=== PATIENT | male | born 1950 | race Caucasian/White ===

== ENCOUNTER → 2020-03-19 12:57 | Outpatient (BNVA) | payer MEDICARE, BC, SELFPAY | PROVIDERS: PCP Internal Medicine Interventional Cardiology; Referring Provider Internal Medicine Interventional Cardiology; Visit Provider Internal Medicine Cardiovascular Disease | DX: I48.0 Paroxysmal atrial fibrillation (principal) | CPT/HCPCS: 99212 ==

== ENCOUNTER → 2020-06-30 12:39 | Outpatient (BNVA) | payer MEDICARE, BC, SELFPAY | PROVIDERS: PCP Internal Medicine Interventional Cardiology; Visit Provider Internal Medicine Cardiovascular Disease | DX: I48.0 Paroxysmal atrial fibrillation (principal); I10 Essential (primary) hypertension | CPT/HCPCS: 93005; 99212 ==

== ENCOUNTER 2020-10-07 09:22 | Emergency (ER) | payer MEDICARE, BC, SELFPAY ==
--- NOTE | ~2020-10-07 | CT_ITS ---
EXAMINATION: CHEST, ABDOMEN AND PELVIS CT SCAN WITHOUT CONTRAST CLINICAL INFORMATION: Shortness of breath. Evaluate for pneumonia. Abdominal pain. Diarrhea. Evaluate for colitis. COMPARISON: Previous chest x-ray from earlier the same day, CT of the abdomen and pelvis October 2011, ultrasound and MRI of the abdomen January 2017 and chest x-ray from earlier the same day TECHNIQUE: Axial images through the chest, abdomen and pelvis without oral or IV contrast. Sagittal and coronal reconstructions on the technologist workstation were performed. Patient dose 306+8 7 4 mg/cm. This CT examination was performed using dose optimization techniques as appropriate, variously including the following: *Automated exposure control *Adjustment of mA and/or kV according to patient size (this includes techniques or standardized protocols for targeted exams where dose is matched to indication/reason for exam; i.e. extremities or head) *Use of iterative reconstruction technique FINDINGS: Chest: There is evidence of emphysema. There are increased interstitial markings seen throughout the lungs. There is increased peripheral reticulation, interlobular septal thickening, traction bronchiolectasis and honeycombing of interstitial lung disease. There are patchy groundglass attenuation or semisolid nodular opacities in the left upper lobe questionable for mild airways disease or pneumonia. The heart is upper normal in size. There is no pericardial effusion. There is moderate coronary artery calcification. The thoracic aorta is normal in caliber. There is diffuse mediastinal lymphadenopathy. Largest lymph node is an enlarged right paratracheal lymph node measuring 1.6 x 2.5 cm. Evaluation for hilar adenopathy is limited without contrast. There is no pleural effusion or pleural thickening. No chest wall mass or enlarged axillary lymph nodes are seen. Abdomen and pelvis: The liver is normal in size and shape and attenuation. There is a 6 mm low-attenuation lesion in the medial segment of the left lobe liver. This is similar to previous exams and is compatible with a small stable cyst.. The gallbladder is been removed. There is no biliary duct dilatation. The spleen, pancreas, adrenal glands and kidneys are unremarkable. The bladder is full. The prostate gland does not appear enlarged. There is mild diverticulosis of the colon. No evidence of diverticulitis or colitis is seen. The appendix is normal. The stomach is normal. There is mild fatty infiltration of the small bowel mesentery and small, small bowel mesentery lymph nodes. No enlarged lymph nodes are seen. There is no ascites. There is evidence of mild atherosclerotic disease. No aneurysm is seen. There are small bilateral inguinal hernias containing fat. There are degenerative changes of the spine. CT/CT abdomen pelvis wo con IMPRESSION: Chest: Severe interstitial lung disease. Semisolid and groundglass attenuation nodular opacities in the left upper lobe questionable for airways disease or small pneumonia. Enlarged mediastinal lymph nodes. This may be related to interstitial lung disease. Enlarged heart and coronary artery calcification. Abdomen and pelvis: Diverticulosis. No evidence of diverticulitis or colitis. Very full bladder. Stable small liver cyst.
--- NOTE | ~2020-10-07 | XR_ITS ---
EXAMINATION: XR CHEST CLINICAL INFORMATION: SOB. COMPARISON: Chest 09/14/2018 TECHNIQUE: Frontal view of the chest was obtained. FINDINGS: The lungs are expanded with increased interstitial markings in both lungs are likely chronic changes. No consolidation seen. There is no pleural effusion or pneumothorax. The heart size and pulmonary vascularity is normal. No gross bony abnormality seen. XR/XR chest 1V IMPRESSION: Chronic interstitial lung changes are stable from 09/14/2018. No acute process seen.
--- NOTE | ~2020-10-07 | NM_ITS ---
EXAMINATION: NM LUNG IMAGE PERFUSION CLINICAL INFORMATION: Elevated d-dimer. Rule out PE COMPARISON: None TECHNIQUE: Following intravenous administration of 4 mCi of 90 9M technetium MAA, imaging of both lungs were obtained multiple projections. FINDINGS: There is normal perfusion seen to all segments of the lungs without any focal defect. Ventilation study was not performed. NM/NM pul perfusion IMPRESSION: Normal perfusion scan.
[2020-10-07 09:49] VITALS: BP 124/78; PULSE 71; RESP 20; TEMP 36.6; O2SAT 94; BMI 29.5
--- NOTE | 2020-10-07 10:13 | ED.GENADULT ---
HPI - General Adult General Chief complaint: GI Bleed <JULIA Dowling Last Filed: 10/07/20 17:23> Stated complaint: DIFF BREATHING <JULIA Dowling Last Filed: 10/07/20 17:23> Time Seen by Provider: 10/07/20 09:59 <JULIA Dowling Last Filed: 10/07/20 17:23> Source: patient <JULIA Dowling Last Filed: 10/07/20 17:23> Mode of arrival: ambulatory <JULIA Dowling Last Filed: 10/07/20 17:23> Limitations: no limitations <JULIA Dowling Last Filed: 10/07/20 17:23> History of Present Illness HPI narrative: Patient presents to ED for multiple complaints. Patient states chronic shortness of breath for months. Patient states for 1 month having intermittent black/dark stool and for the past week has had frequent/constant dark/black stool. Patient is on Eliquis. Patient denies vomiting blood. Patient states no fever or chills. Patient denies any swelling of lower extremities. Patient denies any coughing, fever, chills, or chest pain <JULIA Dowling Last Filed: 10/07/20 17:23> Related Data Home medications: Home Medications Medication Instructions Recorded Confirmed cimetidine 300 mg tablet 300 mg PO QID 03/19/20 diltiazem HCl 180 mg capsule,24 180 mg PO DAILY 03/19/20 hr,extended release ezetimibe 10 mg tablet 10 mg PO DAILY 03/19/20 lorazepam 1 mg tablet 1 mg PO DAILY PRN 03/19/20 sotalol 80 mg tablet 80 mg PO BID 03/19/20 Previous Rx's Medication Instructions Recorded amlodipine 5 mg tablet 5 mg PO DAILY #60 tab 04/28/20 apixaban 5 mg tablet 5 mg PO BID #60 tab 09/29/20 albuterol sulfate 2 puff INHALATION Q6H PRN #8.5 g 10/07/20 azithromycin See Rx Instructions .ROUTE 10/07/20 .COMPLEX #6 tab prednisone 40 mg PO DAILY #10 tab 10/07/20 psyllium husk 1 tbsp PO BID 4 Days #480 g 10/07/20 <JULIA Dowling Last Filed: 10/07/20 17:23> Allergies/adverse reactions: Allergies Allergy/AdvReac Type Severity Reaction Status Date / Time Iodinated Contrast Media Allergy Unknown SWELLING, Unverified 02/07/20 14:39 [CONTRAST, IV] HIVES penicillin V Allergy Unknown Unknown Verified 03/19/20 12:55 Penicillins [PENICILLINS] Allergy Unknown UNKNOWN- Unverified 02/07/20 14:39 RX CHILD contrast dye Allergy Unknown Unknown Uncoded 03/19/20 12:55 IV Contrast Dye Allergy Unknown Unknown Uncoded 03/19/20 12:55 penicillin Allergy Unknown Unknown Uncoded 03/19/20 12:55 <JULIA Dowling Last Filed: 10/07/20 17:23> Review of Systems Review of Systems: Yes all other systems are reviewed and are negative <JULIA Dowling Last Filed: 10/07/20 17:23> Constitutional: Constitutional: Reports as per HPI and Reports no additional constitutional complaints <JULIA Dowling Last Filed: 10/07/20 17:23> Eyes: Eyes: Reports as per HPI and Reports no additional eye complaints <JULIA Dowling Last Filed: 10/07/20 17:23> ENT: Reports system reviewed and no additional complaints, except as documented and Reports as per HPI <JULIA Dowling Last Filed: 10/07/20 17:23> Cardiovascular: Cardiovascular: Reports as per HPI, Reports no additional cardiovascular complaints and Reports dyspnea <JULIA Dowling Last Filed: 10/07/20 17:23> Respiratory: Respiratory: Reports as per HPI, Reports no additional respiratory complaints and Reports dyspnea <JULIA Dowling Last Filed: 10/07/20 17:23> Gastrointestinal: Gastrointestinal: Reports as per HPI, Reports no additional gastrointestinal complaints, Denies abdominal pain and Reports melena <JULIA Dowling Last Filed: 10/07/20 17:23> Genitourinary: Genitourinary: Reports no additional male genitourinary complaints and Reports as per HPI <JULIA Dowling Last Filed: 10/07/20 17:23> Musculoskeletal: Musculoskeletal: Reports no additional musculoskeletal complaints and Reports as per HPI <JULIA Dowling Last Filed: 10/07/20 17:23> Neurologic: Reports system reviewed and no additional complaints, except as documented and Reports as per HPI <JULIA Dowling - Last Filed: 10/07/20 17:23> Comments: Weakness <JULIA Dowling - Last Filed: 10/07/20 17:23> Psychiatric: Psychiatric: Reports no additional psychiatric complaints and Reports as per HPI <JULIA Dowling - Last Filed: 10/07/20 17:23> [facility] Past Medical History Medical History: Medical History (Updated 10/07/20 @ 17:03 by JULIA Dowling) COPD (chronic obstructive pulmonary disease) Fibromyalgia High cholesterol History of cardioversion HTN (hypertension) PAF (paroxysmal atrial fibrillation) <JULIA Dowling - Last Filed: 10/07/20 17:23> Surgical History: Surgical History (Updated 06/30/20 @ 12:56 by DELICIA Walker) History of cholecystectomy <JULIA Dowling - Last Filed: 10/07/20 17:23> Family History Family History: Family History (Updated 03/19/20 @ 12:54 by DELICIA Briceno) Father No problems noted. Mother No problems noted. <JULIA Dowling - Last Filed: 10/07/20 17:23> Social History Social History: Social History (Updated 06/30/20 @ 12:56 by DELICIA Walker) Alcohol intake: former Smoking Status: Former smoker Use of substances other than those prescribed or required for medical reasons: No Advance Directives: Yes Advance Directives Information Provided: Yes Advance Directives on File: No Patient : No (NO) <JULIA Dowling - Last Filed: 10/07/20 17:23> Physical Exam Vital Signs: Vital Signs: Last Vital Signs Temp 97.8 F 10/07/20 16:39 Pulse 71 10/07/20 16:39 Resp 20 10/07/20 16:39 BP 139/84 10/07/20 16:39 Pulse Ox 92 10/07/20 16:39 Body Mass Index 29.5 <JULIA Dowling - Last Filed: 10/07/20 17:23> Vital Signs: Last Vital Signs Temp 97.8 F 10/07/20 16:39 Pulse 71 10/07/20 16:39 Resp 20 10/07/20 16:39 BP 139/84 10/07/20 16:39 Pulse Ox 92 10/07/20 16:39 Body Mass Index 29.5 <Joey Ortiz MD - Last Filed: 10/07/20 16:01> Const: General: cooperative, healthy appearing, comfortable, no acute distress, well developed, alert, awake and Physically active <JULIA Dowling - Last Filed: 10/07/20 17:23> Orientation/consciousness: oriented to time and patient oriented x3 <JULIA Dowling - Last Filed: 10/07/20 17:23> HENMT: Head: Yes normal to inspection, Yes No palpable skull fracture present, Yes normocephalic and Yes atraumatic <JULIA Dowling Last Filed: 10/07/20 17:23> Eyes: General: appearance normal, both eyes and all related structures <JULIA Dowling - Last Filed: 10/07/20 17:23> Neck: Neck: Yes normal visual inspection, Yes full ROM, Yes no lymphadenopathy, Yes no meningeal signs, Yes trachea midline, Yes supple and No tender <JULIA Dowling Last Filed: 10/07/20 17:23> Chest: Chest palpation & inspection: normal inspection of the chest and normal palpation of entire chest wall <JULIA Dowling Last Filed: 10/07/20 17:23> Resp: Effort & Inspection: normal respiratory effort and able to speak in complete sentences <JULIA Dowling - Last Filed: 10/07/20 17:23> Auscultation: clear to auscultation bilaterally and crackles <JULIA Dowling Last Filed: 10/07/20 17:23> Cardio: Jugular venous distension: no JVD <JULIA Dowling Last Filed: 10/07/20 17:23> Heart sounds: S1 normal heart sound present and S2 normal heart sound present <JULIA Dowling Last Filed: 10/07/20 17:23> GI: Inspection: Yes normal to inspection and No abdominal wall ecchymosis <JULIA Dowling Last Filed: 10/07/20 17:23> Palpation (GI): Soft to palpation, not firm, nontender, no guarding and not rigid <JULIA Dowling - Last Filed: 10/07/20 17:23> : General: No CVA tenderness and Yes no CVA tenderness <JULIA Dowling Last Filed: 10/07/20 17:23> Back/Spine/Pelvis: Back: no CVA tenderness, No CVA tenderness and No back tenderness <JULIA Dowling - Last Filed: 10/07/20 17:23> Skin: General skin exam: no rashes or lesions noted and elasticity normal <JULIA Dowling - Last Filed: 10/07/20 17:23> Neuro: General: oriented to time, patient oriented x3, no meningeal signs and CN's II-XI intact bilaterally <JULIA Dowling - Last Filed: 10/07/20 17:23> Cranial nerves: Yes CN's II-XII intact bilaterally <JULIA Dowling - Last Filed: 10/07/20 17:23> Extrem: Other: Lower extremities negative for swelling, pitting edema, calf tenderness <JULIA Dowling - Last Filed: 10/07/20 17:23> Psych: Appearance: grossly normal, well kempt and not disheveled <JULIA Dowling Last Filed: 10/07/20 17:23> Course Course Course Narrative: Patient will have chest x-ray to rule out for any pneumonia or cardiomegaly. EKG troponin and BNP will be done as cardiac evaluation. Will do rectal exam with female staff combat information center officer. Will check for anemia labs. Type and screen ordered in case patient needs blood transfusion. I reviewed patient's prior notes even the ones by Cardiology which shows that patient has chronic dyspnea. <JULIA Dowling - Last Filed: 10/07/20 17:23> I have discussed the case and management with the SOHEILA <Joey Ortiz MD - Last Filed: 10/07/20 16:01> Reevaluation(s) Reevaluation #1: Patient's troponins were negative. Patient was sent for a V/Q scan due to elevated D-dimer. Patient has allergic reaction to IV contrast. V/Q scan came back negative PE. Chest CT shows severe interstitial lung disease which patient is aware of. Shows possible small pneumonia. Discussed case with Dr. Fournier of hospitalist who reviewed case states presently does no indication for admission, but that patient will need follow-up with outpatient pulmonology. Dr. Ortiz evaluated patient and agrees patient does not need to be admitted & can be discharged with meds and follow-up. EKG negative for STEMI. Stool sample was asked from patient, but patient states he had no bowel movements in the ED and can not give sample. abdominal CT negative for any acute medical/surgical etiology. History physical exam or labs does not indicate CHF. Patient safe for discharge. Patient is not having any GI bleed. Rectal exam negative for black stool, art blood, or melena. Rectal exam has only brown stool. <JULIA Dowling - Last Filed: 10/07/20 17:23> Patinet here with multiple complaints including shortness of breath, diarrhea, weakness. Thorough work up essentially negative. Physical shows elderly male with chronic condition but lungs, heart abdomen exam non contributory. Will dc on some steroids and metamucil <Joey Ortiz MD - Last Filed: 10/07/20 16:01> Time: 16:01 <Joey Ortiz MD - Last Filed: 10/07/20 16:01> Medical Decision Making MDM Narrative Medical decision making narrative: Interstitial lung disease. Diarrhea. Ammonia <JULIA Dowling - Last Filed: 10/07/20 17:23> Lab Data Result diagrams: : 10/07/20 10:17 10/07/20 10:17 <JULIA Dowling - Last Filed: 10/07/20 17:23> Labs: Lab Results 10/07/20 10/07/20 10/07/20 Range/Units 10:17 10:17 10:17 WBC 8.0 (4.8-10.8) X10*3/uL RBC 4.84 (4.60-5.80) X10*6/uL Hgb 14.5 (14.0-18.0) g/dl Hct 42.9 (42-52) % MCV 88.6 (80-98) fL MCH 30.0 (27.0-33.0) pg MCHC 33.8 (31.0-36.0) g/dl RDW 12.1 (11.0-16.0) % Plt Count 275 (160-400) X10*3/uL MPV 9.7 (9.4-12.4) fL Immature Gran % (Auto) 0.4 (0.0-0.4) % Neut % (Auto) 72.9 (45-73) % Lymph % (Auto) 15.1 L (20-40) % Beadle % (Auto) 8.9 (2-11) % Eos % (Auto) 2.2 (0-4) % Baso % (Auto) 0.5 (0-2) % Lymph # (Auto) 1.2 (1.2-4.9) X10*3/uL Beadle # (Auto) 0.7 (0.1-1.2) X10*3/uL Eos # (Auto) 0.2 (0.0-0.4) X10*3/uL Baso # (Auto) 0.0 (0.0-0.2) X10*3/uL Abs Immat Gran (auto) 0.03 (0.00-0.03) X10*3/uL Absolute Neuts (auto) 5.9 (2.0-8.3) X10*3/uL Absolute Nucleated RBC 0.000 (0.0-0.012) X10*3/uL Nucleated RBC % (auto) 0.0 (0.0-0.2) /100WBC PT 16.2 H (10.8-13.0) SEC INR 1.4 H (0.9-1.1) APTT 39.2 H (24.1-38.0) SEC D-Dimer 1043 NG/ML Sodium 138 (135-145) mmol/L Potassium 3.9 (3.3-5.1) mmol/L Chloride 105 (96-108) mmol/L Carbon Dioxide 24 (22-29) mmol/L Anion Gap 13 (12-20) BUN 14 (9-16) mg/dL Creatinine 1.06 (0.5-1.4) mg/dL Estim Creat Clear Calc 81.1 Estimated GFR > 60 Random Glucose 115 (60-115) mg/dL Calcium 8.9 (8.4-10.2) mg/dL Total Bilirubin 0.9 (0.0-1.0) mg/dL AST 16 (5-37) U/L ALT 14 (0-40) U/L Alkaline Phosphatase 103 (39-117) U/L Troponin I High Sens (<3.5-35.0) ng/L B-Natriuretic Peptide (<100) pg/mL Total Protein 7.4 (6.5-8.0) g/dL Albumin 4.2 (3.5-5.0) g/dL Stool Occult Blood (NEGATIVE) Coronavirus (PCR) (Negative) Influenza Type A (PCR) (Negative) Influenza Type B (PCR) (Negative) RSV RNA Qual (PCR) (Negative) Blood Type Antibody Screen 10/07/20 10/07/20 10/07/20 Range/Units 10:17 10:17 10:46 WBC (4.8-10.8) X10*3/uL RBC (4.60-5.80) X10*6/uL Hgb (14.0-18.0) g/dl Hct (42-52) % MCV (80-98) fL MCH (27.0-33.0) pg MCHC (31.0-36.0) g/dl RDW (11.0-16.0) % Plt Count (160-400) X10*3/uL MPV (9.4-12.4) fL Immature Gran % (Auto) (0.0-0.4) % Neut % (Auto) (45-73) % Lymph % (Auto) (20-40) % Beadle % (Auto) (2-11) % Eos % (Auto) (0-4) % Baso % (Auto) (0-2) % Lymph # (Auto) (1.2-4.9) X10*3/uL Beadle # (Auto) (0.1-1.2) X10*3/uL Eos # (Auto) (0.0-0.4) X10*3/uL Baso # (Auto) (0.0-0.2) X10*3/uL Abs Immat Gran (auto) (0.00-0.03) X10*3/uL Absolute Neuts (auto) (2.0-8.3) X10*3/uL Absolute Nucleated RBC (0.0-0.012) X10*3/uL Nucleated RBC % (auto) (0.0-0.2) /100WBC PT (10.8-13.0) SEC INR (0.9-1.1) APTT (24.1-38.0) SEC D-Dimer NG/ML Sodium (135-145) mmol/L Potassium (3.3-5.1) mmol/L Chloride (96-108) mmol/L Carbon Dioxide (22-29) mmol/L Anion Gap (12-20) BUN (9-16) mg/dL Creatinine (0.5-1.4) mg/dL Estim Creat Clear Calc Estimated GFR Random Glucose (60-115) mg/dL Calcium (8.4-10.2) mg/dL Total Bilirubin (0.0-1.0) mg/dL AST (5-37) U/L ALT (0-40) U/L Alkaline Phosphatase (39-117) U/L Troponin I High Sens < 3.5 (<3.5-35.0) ng/L B-Natriuretic Peptide 80 (<100) pg/mL Total Protein (6.5-8.0) g/dL Albumin (3.5-5.0) g/dL Stool Occult Blood (NEGATIVE) Coronavirus (PCR) NEGATIVE (Negative) Influenza Type A (PCR) NEGATIVE (Negative) Influenza Type B (PCR) NEGATIVE (Negative) RSV RNA Qual (PCR) NEGATIVE (Negative) Blood Type A Positive Antibody Screen NEGATIVE 10/07/20 10/07/20 Range/Units 10:50 14:39 WBC (4.8-10.8) X10*3/uL RBC (4.60-5.80) X10*6/uL Hgb (14.0-18.0) g/dl Hct (42-52) % MCV (80-98) fL MCH (27.0-33.0) pg MCHC (31.0-36.0) g/dl RDW (11.0-16.0) % Plt Count (160-400) X10*3/uL MPV (9.4-12.4) fL Immature Gran % (Auto) (0.0-0.4) % Neut % (Auto) (45-73) % Lymph % (Auto) (20-40) % Beadle % (Auto) (2-11) % Eos % (Auto) (0-4) % Baso % (Auto) (0-2) % Lymph # (Auto) (1.2-4.9) X10*3/uL Beadle # (Auto) (0.1-1.2) X10*3/uL Eos # (Auto) (0.0-0.4) X10*3/uL Baso # (Auto) (0.0-0.2) X10*3/uL Abs Immat Gran (auto) (0.00-0.03) X10*3/uL Absolute Neuts (auto) (2.0-8.3) X10*3/uL Absolute Nucleated RBC (0.0-0.012) X10*3/uL Nucleated RBC % (auto) (0.0-0.2) /100WBC PT (10.8-13.0) SEC INR (0.9-1.1) APTT (24.1-38.0) SEC D-Dimer NG/ML Sodium (135-145) mmol/L Potassium (3.3-5.1) mmol/L Chloride (96-108) mmol/L Carbon Dioxide (22-29) mmol/L Anion Gap (12-20) BUN (9-16) mg/dL Creatinine (0.5-1.4) mg/dL Estim Creat Clear Calc Estimated GFR Random Glucose (60-115) mg/dL Calcium (8.4-10.2) mg/dL Total Bilirubin (0.0-1.0) mg/dL AST (5-37) U/L ALT (0-40) U/L Alkaline Phosphatase (39-117) U/L Troponin I High Sens < 3.5 (<3.5-35.0) ng/L B-Natriuretic Peptide (<100) pg/mL Total Protein (6.5-8.0) g/dL Albumin (3.5-5.0) g/dL Stool Occult Blood NEGATIVE (NEGATIVE) Coronavirus (PCR) (Negative) Influenza Type A (PCR) (Negative) Influenza Type B (PCR) (Negative) RSV RNA Qual (PCR) (Negative) Blood Type Antibody Screen <JULIA Dowling - Last Filed: 10/07/20 17:23> Lab Results 10/07/20 10/07/20 10/07/20 Range/Units 10:17 10:17 10:17 WBC 8.0 (4.8-10.8) X10*3/uL RBC 4.84 (4.60-5.80) X10*6/uL Hgb 14.5 (14.0-18.0) g/dl Hct 42.9 (42-52) % MCV 88.6 (80-98) fL MCH 30.0 (27.0-33.0) pg MCHC 33.8 (31.0-36.0) g/dl RDW 12.1 (11.0-16.0) % Plt Count 275 (160-400) X10*3/uL MPV 9.7 (9.4-12.4) fL Immature Gran % (Auto) 0.4 (0.0-0.4) % Neut % (Auto) 72.9 (45-73) % Lymph % (Auto) 15.1 L (20-40) % Beadle % (Auto) 8.9 (2-11) % Eos % (Auto) 2.2 (0-4) % Baso % (Auto) 0.5 (0-2) % Lymph # (Auto) 1.2 (1.2-4.9) X10*3/uL Beadle # (Auto) 0.7 (0.1-1.2) X10*3/uL Eos # (Auto) 0.2 (0.0-0.4) X10*3/uL Baso # (Auto) 0.0 (0.0-0.2) X10*3/uL Abs Immat Gran (auto) 0.03 (0.00-0.03) X10*3/uL Absolute Neuts (auto) 5.9 (2.0-8.3) X10*3/uL Absolute Nucleated RBC 0.000 (0.0-0.012) X10*3/uL Nucleated RBC % (auto) 0.0 (0.0-0.2) /100WBC PT 16.2 H (10.8-13.0) SEC INR 1.4 H (0.9-1.1) APTT 39.2 H (24.1-38.0) SEC D-Dimer 1043 NG/ML Sodium 138 (135-145) mmol/L Potassium 3.9 (3.3-5.1) mmol/L Chloride 105 (96-108) mmol/L Carbon Dioxide 24 (22-29) mmol/L Anion Gap 13 (12-20) BUN 14 (9-16) mg/dL Creatinine 1.06 (0.5-1.4) mg/dL Estim Creat Clear Calc 81.1 Estimated GFR > 60 Random Glucose 115 (60-115) mg/dL Calcium 8.9 (8.4-10.2) mg/dL Total Bilirubin 0.9 (0.0-1.0) mg/dL AST 16 (5-37) U/L ALT 14 (0-40) U/L Alkaline Phosphatase 103 (39-117) U/L Troponin I High Sens (<3.5-35.0) ng/L B-Natriuretic Peptide (<100) pg/mL Total Protein 7.4 (6.5-8.0) g/dL Albumin 4.2 (3.5-5.0) g/dL Stool Occult Blood (NEGATIVE) Coronavirus (PCR) (Negative) Influenza Type A (PCR) (Negative) Influenza Type B (PCR) (Negative) RSV RNA Qual (PCR) (Negative) Blood Type Antibody Screen 10/07/20 10/07/20 10/07/20 Range/Units 10:17 10:17 10:46 WBC (4.8-10.8) X10*3/uL RBC (4.60-5.80) X10*6/uL Hgb (14.0-18.0) g/dl Hct (42-52) % MCV (80-98) fL MCH (27.0-33.0) pg MCHC (31.0-36.0) g/dl RDW (11.0-16.0) % Plt Count (160-400) X10*3/uL MPV (9.4-12.4) fL Immature Gran % (Auto) (0.0-0.4) % Neut % (Auto) (45-73) % Lymph % (Auto) (20-40) % Beadle % (Auto) (2-11) % Eos % (Auto) (0-4) % Baso % (Auto) (0-2) % Lymph # (Auto) (1.2-4.9) X10*3/uL Beadle # (Auto) (0.1-1.2) X10*3/uL Eos # (Auto) (0.0-0.4) X10*3/uL Baso # (Auto) (0.0-0.2) X10*3/uL Abs Immat Gran (auto) (0.00-0.03) X10*3/uL Absolute Neuts (auto) (2.0-8.3) X10*3/uL Absolute Nucleated RBC (0.0-0.012) X10*3/uL Nucleated RBC % (auto) (0.0-0.2) /100WBC PT (10.8-13.0) SEC INR (0.9-1.1) APTT (24.1-38.0) SEC D-Dimer NG/ML Sodium (135-145) mmol/L Potassium (3.3-5.1) mmol/L Chloride (96-108) mmol/L Carbon Dioxide (22-29) mmol/L Anion Gap (12-20) BUN (9-16) mg/dL Creatinine (0.5-1.4) mg/dL Estim Creat Clear Calc Estimated GFR Random Glucose (60-115) mg/dL Calcium (8.4-10.2) mg/dL Total Bilirubin (0.0-1.0) mg/dL AST (5-37) U/L ALT (0-40) U/L Alkaline Phosphatase (39-117) U/L Troponin I High Sens < 3.5 (<3.5-35.0) ng/L B-Natriuretic Peptide 80 (<100) pg/mL Total Protein (6.5-8.0) g/dL Albumin (3.5-5.0) g/dL Stool Occult Blood (NEGATIVE) Coronavirus (PCR) NEGATIVE (Negative) Influenza Type A (PCR) NEGATIVE (Negative) Influenza Type B (PCR) NEGATIVE (Negative) RSV RNA Qual (PCR) NEGATIVE (Negative) Blood Type A Positive Antibody Screen NEGATIVE 10/07/20 10/07/20 Range/Units 10:50 14:39 WBC (4.8-10.8) X10*3/uL RBC (4.60-5.80) X10*6/uL Hgb (14.0-18.0) g/dl Hct (42-52) % MCV (80-98) fL MCH (27.0-33.0) pg MCHC (31.0-36.0) g/dl RDW (11.0-16.0) % Plt Count (160-400) X10*3/uL MPV (9.4-12.4) fL Immature Gran % (Auto) (0.0-0.4) % Neut % (Auto) (45-73) % Lymph % (Auto) (20-40) % Beadle % (Auto) (2-11) % Eos % (Auto) (0-4) % Baso % (Auto) (0-2) % Lymph # (Auto) (1.2-4.9) X10*3/uL Beadle # (Auto) (0.1-1.2) X10*3/uL Eos # (Auto) (0.0-0.4) X10*3/uL Baso # (Auto) (0.0-0.2) X10*3/uL Abs Immat Gran (auto) (0.00-0.03) X10*3/uL Absolute Neuts (auto) (2.0-8.3) X10*3/uL Absolute Nucleated RBC (0.0-0.012) X10*3/uL Nucleated RBC % (auto) (0.0-0.2) /100WBC PT (10.8-13.0) SEC INR (0.9-1.1) APTT (24.1-38.0) SEC D-Dimer NG/ML Sodium (135-145) mmol/L Potassium (3.3-5.1) mmol/L Chloride (96-108) mmol/L Carbon Dioxide (22-29) mmol/L Anion Gap (12-20) BUN (9-16) mg/dL Creatinine (0.5-1.4) mg/dL Estim Creat Clear Calc Estimated GFR Random Glucose (60-115) mg/dL Calcium (8.4-10.2) mg/dL Total Bilirubin (0.0-1.0) mg/dL AST (5-37) U/L ALT (0-40) U/L Alkaline Phosphatase (39-117) U/L Troponin I High Sens < 3.5 (<3.5-35.0) ng/L B-Natriuretic Peptide (<100) pg/mL Total Protein (6.5-8.0) g/dL Albumin (3.5-5.0) g/dL Stool Occult Blood NEGATIVE (NEGATIVE) Coronavirus (PCR) (Negative) Influenza Type A (PCR) (Negative) Influenza Type B (PCR) (Negative) RSV RNA Qual (PCR) (Negative) Blood Type Antibody Screen <Joey Ortiz MD - Last Filed: 10/07/20 16:01> ECG Data Interpretation: Normal sinus rhythm. Ventricular rate 70. Parents were 158. QRS 74. QTC 453. Negative STEMI <JULIA Dowling - Last Filed: 10/07/20 17:23> Discharge Plan Discharge Clinical Impression: Chronic dyspnea <JULIA Dowling - Last Filed: 10/07/20 17:23> Patient Disposition: Home, Self-Care <JULIA Dowling - Last Filed: 10/07/20 17:23> Instructions: Chronic Diarrhea (ED), Dyspnea (ED) <JULIA Dowling - Last Filed: 10/07/20 17:23> Additional Instructions: Return to the ED immediately for chest pain, worsening shortness of breath, leg swelling, calf pain, coughing up blood, weakness, dizziness, or any other concerning symptoms. EKG came back normal. Troponins were negative for heart attack. V/Q perfusion scan came back negative for blood clot. Her chest CT shows severe interstitial lung disease with possible pneumonia. Please follow-up with PCP for referral to mainstreaming facilitator. Abdominal CT scan does not show any emergent medical/surgical etiology. <JULIA Dowling - Last Filed: 10/07/20 17:23> Prescriptions: New prednisone 20 mg tablet 40 mg PO DAILY Qty: 10 RF: 0 azithromycin 500 mg tablet See Rx Instructions .ROUTE .COMPLEX Qty: 6 RF: 0 albuterol sulfate 90 mcg/actuation HFA aerosol inhaler 2 puff inhalation Q6H PRN (Reason: shortness of breath or wheezing) Qty: 8.5 RF: 0 psyllium husk 2.6 gram/4.1 gram powder 1 tbsp PO BID 4 Days Qty: 480 RF: 0 No Action amlodipine 5 mg tablet 5 mg PO DAILY Qty: 60 RF: 3 apixaban [Eliquis] 5 mg tablet 5 mg PO BID Qty: 60 RF: 5 cimetidine 300 mg tablet 300 mg PO QID RF: 0 lorazepam 1 mg tablet 1 mg PO DAILY PRNRF: 0 ezetimibe [Zetia] 10 mg tablet 10 mg PO DAILY RF: 0 diltiazem HCl 180 mg capsule,extended release 24 hr 180 mg PO DAILY RF: 0 sotalol 80 mg tablet 80 mg PO BID RF: 0 <JULIA Dowling - Last Filed: 10/07/20 17:23> Referrals: Cheko Sarmiento MD [Physician] - 2 days (Severe Interstitial Lung Disease) <JULIA Dowling - Last Filed: 10/07/20 17:23> Print Language: Cameroonian <JULIA Dowling - Last Filed: 10/07/20 17:23>
[2020-10-07 10:24] LABS: MANUAL DIFF FLAG NO
[2020-10-07 10:33] LABS: Basophils Percent Auto 0.5 % (0-2); Eosinophils Absolute Auto 0.2 X10*3/uL (0.0-0.4); Eosinophils Percent Auto 2.2 % (0-4); Hematocrit 42.9 % (42-52); Hemoglobin 14.5 g/dl (14.0-18.0); Imm Gran Abs Auto 0.03 X10*3/uL (0.00-0.03); Imm Gran Pct Auto 0.4 % (0.0-0.4); Lymphocytes Absolute Auto 1.2 X10*3/uL (1.2-4.9); Lymphocytes Percent Auto 15.1 % (20-40); Mean Corpuscular HGB Conc 33.8 g/dl (31.0-36.0); Mean Corpuscular Volume 88.6 fL (80-98); Mean Platelet Volume 9.7 fL (9.4-12.4); Monocytes Absolute Auto 0.7 X10*3/uL (0.1-1.2); Monocytes Percent Auto 8.9 % (2-11); Neutrophils Absolute Auto 5.9 X10*3/uL (2.0-8.3); Neutrophils Percent Auto 72.9 % (45-73); Platelet Count 275 X10*3/uL (160-400); Red Blood Count 4.84 X10*6/uL (4.60-5.80); Red Cell Distribution Width 12.1 % (11.0-16.0)
[2020-10-07] MEDS: 0.9 % Sodium Chloride 1,000 ML 999 ML IV (10:36)
[2020-10-07 10:39] LABS: INTERNATIONAL NORM RATIO 1.4 (0.9-1.1); Prothrombin Time 16.2 SEC (10.8-13.0)
[2020-10-07 10:41] VITALS: BP 133/80; PULSE 70; RESP 18; O2SAT 93
[2020-10-07 10:45] VITALS: O2SAT 86
--- NOTE | 2020-10-07 10:45 | PC.NURSE ---
angel hester during a rectal exam pt tolerated the procedure well pt does get very winded and sob with minim exertion, even just changing positions for the rectal exam pt's sats dropped from 94% to 86% on room air but goes right back in few minutes
[2020-10-07 10:52] LABS: Partial Thromboplastin Time 39.2 SEC (24.1-38.0)
[2020-10-07 11:00] LABS: Alanine Aminotransferase 14 U/L (0-40); Albumin Level 4.2 g/dL (3.5-5.0); Alkaline Phosphatase 103 U/L (39-117); Anion Gap 13 (12-20); Aspartate Amino Transferase 16 U/L (5-37); Bilirubin Total 0.9 mg/dL (0.0-1.0); Blood Urea Nitrogen 14 mg/dL (9-16); Calcium 8.9 mg/dL (8.4-10.2); Carbon Dioxide 24 mmol/L (22-29); Chloride 105 mmol/L (96-108); Creatinine Clr Calc Pharmacy 81.1; Estimated Glomerular Filt Rate > 60; Glucose Random 115 mg/dL (60-115); Potassium 3.9 mmol/L (3.3-5.1); Sodium 138 mmol/L (135-145); Total Protein 7.4 g/dL (6.5-8.0)
[2020-10-07 11:00] LABS: OBS Int Ctl Valid YES; OBS1 NEGATIVE (NEGATIVE)
[2020-10-07 11:01] LABS: B Type Natriuretic Peptide 80 pg/mL (<100); Troponin-I High Sensitivity < 3.5 ng/L (<3.5-35.0)
[2020-10-07 11:20] LABS: D Dimer 1043 NG/ML
[2020-10-07 12:01] LABS: Influenza A PCR NEGATIVE (Negative); Influenza B PCR NEGATIVE (Negative); Resp Syncy Virus RNA Qual PCR NEGATIVE (Negative); SARS COV2 PCR INHOUSE NEGATIVE (Negative)
[2020-10-07 13:09] VITALS: BP 126/79; PULSE 72; RESP 18; O2SAT 92
[2020-10-07 15:17] LABS: Troponin-I High Sensitivity < 3.5 ng/L (<3.5-35.0)
[2020-10-07 16:39] VITALS: BP 139/84; PULSE 71; RESP 20; TEMP 36.6; O2SAT 92
--- NOTE | 2020-10-07 16:41 | ECG_ITS ---
Test Reason : GI BLEED Blood Pressure : / mmHG Vent. Rate : 070 BPM Atrial Rate : 070 BPM P-R Int : 158 ms QRS Dur : 074 ms QT Int : 420 ms P-R-T Axes : 000 086 065 degrees QTc Int : 453 ms Normal sinus rhythm Nonspecific ST abnormality Abnormal ECG When compared with ECG of 17-SEP-2018 11:54, Premature atrial complexes are no longer Present Nonspecific T wave abnormality no longer evident in Inferior leads Referred By: Cuong Zepeda Electronically Signed By:OBDULIA CHARLES MD
== END 2020-10-07 17:25 | disposition home or self-care (01) ==
PROVIDERS: Physician Assistant; Emergency Provider Emergency Medicine; PCP Radiology Radiation Oncology
DX: R06.00 Dyspnea, unspecified (principal); R19.7 Diarrhea, unspecified; Z20.822 Contact with and (suspected) exposure to COVID-19; J84.9 Interstitial pulmonary disease, unspecified; J44.9 Chronic obstructive pulmonary disease, unspecified; E78.5 Hyperlipidemia, unspecified; I10 Essential (primary) hypertension; I48.0 Paroxysmal atrial fibrillation; Z79.01 Long term (current) use of anticoagulants; Z90.49 Acquired absence of other specified parts of digestive tract; Z87.891 Personal history of nicotine dependence; Z79.899 Other long term (current) drug therapy
CPT/HCPCS: 0241U; 36415; 71045; 71250; 74176; 78580; 80053; 82272; 83880; 84484; 85025; 85379; 85610; 85730; 86850; 86900; 86901; 93005; 96360; 99285; A9540

== ENCOUNTER 2021-01-19 13:24 | Outpatient (REF) | payer MEDICARE, BC, SELFPAY ==
[2021-01-19 15:19] LABS: TSH reflex Free T4 0.41 uIU/mL (0.32-4.0)
== END 2021-01-19 13:25 | disposition home or self-care (01) ==
LOC: HO.LAB 13:24
PROVIDERS: PCP Internal Medicine; Referring Provider Internal Medicine; Visit Provider Internal Medicine Cardiovascular Disease
DX: R63.4 Abnormal weight loss (principal)
CPT/HCPCS: 36415; 84443; 93005; 99212

== ENCOUNTER 2021-02-10 08:01 | Outpatient (REF) | payer MEDICARE, BC, SELFPAY ==
[2021-02-10 08:38] LABS: MANUAL DIFF FLAG NO
[2021-02-10 08:52] LABS: Basophils Percent Auto 0.6 % (0-2); Eosinophils Absolute Auto 0.4 X10*3/uL (0.0-0.4); Eosinophils Percent Auto 6.3 % (0-4); Hematocrit 47.3 % (42-52); Hemoglobin 15.9 g/dl (14.0-18.0); Imm Gran Abs Auto 0.01 X10*3/uL (0.00-0.03); Imm Gran Pct Auto 0.1 % (0.0-0.4); Lymphocytes Absolute Auto 1.7 X10*3/uL (1.2-4.9); Lymphocytes Percent Auto 24.4 % (20-40); Mean Corpuscular HGB Conc 33.6 g/dl (31.0-36.0); Mean Corpuscular Hemoglobin 29.9 pg (27.0-33.0); Mean Corpuscular Volume 89.1 fL (80-98); Mean Platelet Volume 10.1 fL (9.4-12.4); Monocytes Absolute Auto 0.5 X10*3/uL (0.1-1.2); Monocytes Percent Auto 7.5 % (2-11); Neutrophils Absolute Auto 4.2 X10*3/uL (2.0-8.3); Neutrophils Percent Auto 61.1 % (45-73); Platelet Count 241 X10*3/uL (160-400); Red Blood Count 5.31 X10*6/uL (4.60-5.80); Red Cell Distribution Width 12.9 % (11.0-16.0); White Blood Count 6.8 X10*3/uL (4.8-10.8)
[2021-02-10 09:01] LABS: Alanine Aminotransferase 14 U/L (0-40); Albumin Level 4.3 g/dL (3.5-5.0); Alkaline Phosphatase 93 U/L (39-117); Anion Gap 12 (12-20); Aspartate Amino Transferase 16 U/L (5-37); Blood Urea Nitrogen 15 mg/dL (9-16); Calcium 9.8 mg/dL (8.4-10.2); Carbon Dioxide 28 mmol/L (22-29); Chloride 104 mmol/L (96-108); Cholesterol 189 mg/dL; Estimated Glomerular Filt Rate > 60; Glucose Random 127 mg/dL (60-115); HDL Cholesterol 36 mg/dL; LDL Cholesterol Calculated 118 mg/dl; Potassium 4.8 mmol/L (3.3-5.1); Sodium 139 mmol/L (135-145); Total Protein 7.7 g/dL (6.5-8.0); Triglycerides 177 mg/dL
[2021-02-10 09:02] LABS: B Type Natriuretic Peptide 95 pg/mL (<100)
[2021-02-10 09:26] LABS: Free T4 (Free Thyroxine) 1.18 ng/dL (0.71-1.85)
[2021-02-10 09:33] LABS: Folate 6.8 ng/mL (> or = 4.0); Vitamin B12 287 pg/mL (200-900)
== END 2021-02-10 08:02 | disposition home or self-care (01) ==
LOC: HO.LAB 08:01
PROVIDERS: PCP Internal Medicine; Visit Provider Internal Medicine
DX: I48.0 Paroxysmal atrial fibrillation (principal); E78.00 Pure hypercholesterolemia, unspecified
CPT/HCPCS: 36415; 80053; 80061; 82607; 82746; 83880; 84439; 84443; 85025

== ENCOUNTER → 2021-04-20 13:08 | Outpatient (BNVA) | payer MEDICARE, BC, SELFPAY | PROVIDERS: PCP Internal Medicine; Referring Provider Internal Medicine; Visit Provider Internal Medicine Cardiovascular Disease | DX: I48.0 Paroxysmal atrial fibrillation (principal); I10 Essential (primary) hypertension | CPT/HCPCS: 99212 ==

== ENCOUNTER 2021-08-24 14:00 | Outpatient (REF) | payer MEDICARE, BC, SELFPAY ==
--- NOTE | ~2021-08-24 | XR_ITS ---
EXAMINATION: XR CHEST CLINICAL INFORMATION: Covid 19 COMPARISON: CT chest 10/07/2020 TECHNIQUE: 2 views of the chest were obtained. FINDINGS: The lungs are somewhat expanded with bilateral prominent interstitial markings throughout the lungs and slightly cystic changes in left upper lobe suggestive chronic interstitial lung changes. No acute pneumonic consolidation. No pleural effusion or pneumothorax seen. The heart size and pulmonary vascularity is normal. No gross bony abnormality seen. XR/XR chest 2V IMPRESSION: Chronic interstitial lung disease stable compared to CT chest 10/07/2020. No acute consolidation or pleural effusion seen.
== END 2021-08-24 14:01 | disposition home or self-care (01) ==
LOC: HO.XRAY 14:00
PROVIDERS: PCP Internal Medicine; Visit Provider Internal Medicine
DX: U07.1 COVID-19 (principal)
CPT/HCPCS: 71046

== ENCOUNTER 2021-08-31 09:50 | Outpatient (REF) | payer MEDICARE, BC, SELFPAY ==
[2021-08-31 11:02] LABS: MANUAL DIFF FLAG NO
[2021-08-31 12:15] LABS: Basophils Absolute Auto 0.1 X10*3/uL (0.0-0.2); Basophils Percent Auto 0.7 % (0-2); Eosinophils Absolute Auto 0.2 X10*3/uL (0.0-0.4); Eosinophils Percent Auto 2.8 % (0-4); Hematocrit 46.5 % (42.0-52.0); Hemoglobin 15.4 g/dl (14.0-18.0); Imm Gran Abs Auto 0.02 X10*3/uL (0.00-0.03); Imm Gran Pct Auto 0.3 % (0.0-0.4); Lymphocytes Absolute Auto 1.3 X10*3/uL (1.2-4.9); Lymphocytes Percent Auto 17.6 % (20-40); Mean Corpuscular HGB Conc 33.1 g/dl (31.0-36.0); Mean Corpuscular Hemoglobin 30.1 pg (27.0-33.0); Monocytes Absolute Auto 0.5 X10*3/uL (0.1-1.2); Monocytes Percent Auto 7.1 % (2-11); Neutrophils Absolute Auto 5.4 x10*3/uL (2.0-8.3); Neutrophils Percent Auto 71.5 % (45-73); Platelet Count 257 X10*3/uL (160-400); Red Blood Count 5.11 X10*6/uL (4.60-5.80); Red Cell Distribution Width 13.1 % (11.0-16.0); White Blood Count 7.5 X10*3/uL (4.8-10.8)
[2021-08-31 12:55] LABS: Erythrocyte Sedimentation Rate 12 MM/HR (0-15)
[2021-09-02 15:06] LABS: Anti Nuclear Antibody Screen NEGATIVE (NEGATIVE)
[2021-09-02 18:12] LABS: Alpha 1 Anti-trypsin 170 mg/dL (83-199)
[2021-09-02 21:56] LABS: Myeloperoxidase Antibody <1.0 AI; Proteinase 3 PR3 Antibodies <1.0 AI
[2021-09-04 23:31] LABS: Angiotensin Converting Enzyme 36.2 U/L (9-67)
[2021-09-06 17:21] LABS: Asperg fumigatus Precip Abs NEGATIVE (NEGATIVE); Micropoly faeni Abs NEGATIVE (NEGATIVE); Pigeon serum Abs NEGATIVE (NEGATIVE); Saccharo pora viridis Abs NEGATIVE (NEGATIVE); Thermo candidus Abs NEGATIVE (NEGATIVE); Thermoa vulgaris #1 NEGATIVE (NEGATIVE)
== END 2021-08-31 09:51 | disposition home or self-care (01) ==
LOC: HO.LAB 09:50
PROVIDERS: PCP Internal Medicine; Visit Provider Hospitalist
DX: J84.9 Interstitial pulmonary disease, unspecified (principal); U07.1 COVID-19; R91.8 Other nonspecific abnormal finding of lung field; J43.2 Centrilobular emphysema; I48.0 Paroxysmal atrial fibrillation; I10 Essential (primary) hypertension; E78.00 Pure hypercholesterolemia, unspecified; M79.7 Fibromyalgia; Z87.891 Personal history of nicotine dependence; Z57.4 Occupational exposure to toxic agents in agriculture; Z98.890 Other specified postprocedural states; Z88.0 Allergy status to penicillin; Z88.1 Allergy status to other antibiotic agents; Z91.041 Radiographic dye allergy status
CPT/HCPCS: 36415; 82103; 82164; 85025; 85652; 86021; 86038; 86039; 86331; 86606; 86609; 94618; 99202

== ENCOUNTER 2021-10-06 14:36 | Outpatient (REF) | payer MEDICARE, BC, SELFPAY ==
--- NOTE | 2021-10-06 16:06 | PFT_ITS ---
INDICATION: Dyspnea. SPIROMETRY: The FEV1 to FVC of 92% with an FEV1 of 2.21 L, which is 60% predicted and an FVC of 2.4 L, which is 47% predicted. Post bronchodilators there was a significant improvement of the FEV1 by 20%. To note, the [id number] was down to 57% predicted. The maximum voluntary ventilation 46% predicted. LUNG VOLUMES: Total lung capacity 64% predicted. DIFFUSION CAPACITY: DLCO 20% predicted. COMPARISONS: None. INTERPRETATION: No obstructive ventilatory defect. The patient did have a significant response to bronchodilators noted, and there is also evidence of small airways disease. There is a moderate decrease in maximum voluntary ventilation secondary to deconditioning although cannot rule out neuromuscular conditions. In addition to that, there is also restrictive ventilatory defect consistent with moderate restrictive lung disease, and there is also severe diffusion impairment. Need to consider underlying interstitial lung conditions. Clinical correlation warranted. MD ISABEL Olivares/GISELA / [phone]
== END 2021-10-06 14:37 | disposition home or self-care (01) ==
LOC: HO.RESP 14:36
PROVIDERS: PCP Internal Medicine; Visit Provider Hospitalist
DX: J84.9 Interstitial pulmonary disease, unspecified (principal)
CPT/HCPCS: 94060; 94727; 94729

== ENCOUNTER → 2021-10-20 13:50 | Outpatient (BNVA) | payer MEDICARE, BC, SELFPAY | PROVIDERS: PCP Internal Medicine; Visit Provider Hospitalist | DX: J84.9 Interstitial pulmonary disease, unspecified (principal); J43.2 Centrilobular emphysema; R06.00 Dyspnea, unspecified; U09.9 Post COVID-19 condition, unspecified | CPT/HCPCS: 99212 ==

== ENCOUNTER 2021-11-20 11:25 | Emergency (ER) | payer MEDICARE, BC, SELFPAY ==
[2021-11-20 11:36] VITALS: BP 146/100; PULSE 79; RESP 20; TEMP 36.6; O2SAT 98; BMI 30.6
--- NOTE | 2021-11-20 11:36 | ED.GENADULT ---
HPI - General Adult General Chief complaint: Epistaxis Stated complaint: nose bleed, on blood thinners Time Seen by Provider: 11/20/21 11:35 Source: patient Mode of arrival: ambulatory Limitations: no limitations History of Present Illness HPI narrative: Patient is a 71 year old male presenting to the emergency department today with a left sided nose bleed. Patient states that last night, he started to have a left sided nose bleed that stopped but then this morning, it started again. Patient states that he is on Eliquis for his atrial fibrillation. 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 Patient states that he does not have his oxygen humified. Patient denies any dizziness, lightheadedness, abdominal pain, nausea, vomiting, fever, chills, blurry vision, double vision, loss of vision, chest pain, difficulty breathing, shortness of breath, back pain, night sweats, pain with urination, increased urinary frequency, increased urinary urgency, blood in his urine or stool, syncope or a near syncopal episode, recent trauma or falls, bowel incontinence, bladder incontinence, bowel retention, bladder retention, or any other complaints at this time. Onset (ago): day(s) Radiation: non-radiation Severity: mild Severity scale (1-10): 1 Relieving factors: none Exacerbating factors: none Associated symptoms: denies other symptoms Treatments prior to arrival: none Related Data Home Medications Medication Instructions Recorded Confirmed cyanocobalamin (vitamin B-12) 1,000 mcg PO DAILY 08/24/21 08/24/21 1,000 mcg tablet Previous Rx's Medication Instructions Recorded amlodipine 5 mg tablet 5 mg PO DAILY 90 days #90 tabs 02/03/21 apixaban 5 mg tablet (Eliquis) 5 mg PO BID 90 days #180 tabs 02/03/21 docusate sodium 100 mg capsule 100 mg PO DAILY 90 days #90 caps 02/03/21 ezetimibe 10 mg tablet (Zetia) 10 mg PO DAILY 90 days #90 tabs 02/03/21 hydrocortisone 2.5 % topical cream 1 appl topical BID PRN allergic 02/03/21 reaction 14 days #30 grams Oxygen Home Use #1 ea 08/24/21 albuterol sulfate 90 mcg/actuation 2 puff inhalation Q6H PRN 08/24/21 aerosol inhaler (ProAir HFA) shortness of breath or wheezing #8.5 grams lorazepam 1 mg tablet 1 mg PO DAILY PRN agitation 90 08/27/21 days #90 tabs prednisone 10 mg tablet 10 mg PO DAILY 30 days #30 tabs 10/20/21 cimetidine 300 mg tablet 300 mg PO Q12H 90 days #180 tabs 10/29/21 diltiazem HCl 180 mg capsule,24 180 mg PO DAILY #90 caps 10/29/21 hr,extended release sotalol 80 mg tablet 80 mg PO BID 90 days #180 tabs 10/29/21 Allergies Allergy/AdvReac Type Severity Reaction Status Date / Time Iodinated Contrast Media Allergy Unknown SWELLING, Verified 11/20/21 11:39 [CONTRAST, IV] HIVES penicillin V Allergy Unknown Unknown Verified 11/20/21 11:39 Penicillins [PENICILLINS] Allergy Unknown UNKNOWN- Verified 11/20/21 11:39 RX CHILD contrast dye Allergy Unknown Unknown Uncoded 11/20/21 11:39 IV Contrast Dye Allergy Unknown Unknown Uncoded 11/20/21 11:39 penicillin Allergy Unknown Unknown Uncoded 11/20/21 11:39 Review of Systems Constitutional: Constitutional: Reports no additional constitutional complaints, Denies chills, Denies fever(s) and Denies night sweats Eyes: Eyes: Reports no additional eye complaints, Denies blurry vision, Denies change in vision, Denies diplopia, Denies eye discharge, Denies loss of vision and Denies eye pain ENT: Denies dizziness Comments: nose bleed Cardiovascular: Cardiovascular: Reports no additional cardiovascular complaints, Denies chest pain, Denies lightheadedness, Denies Loss of Consciousness and Denies dyspnea Respiratory: Respiratory: Reports no additional respiratory complaints and Denies dyspnea Gastrointestinal: Gastrointestinal: Reports no additional gastrointestinal complaints, Denies abdominal pain, Denies melena, Denies hematochezia, Denies change in bowel habits and Denies change in stool character Genitourinary: Genitourinary: Reports no additional male genitourinary complaints, Denies hematuria, Denies oliguria, Denies difficulty urinating, Denies dysuria, Denies urinary frequency, Denies urinary hesitancy, Denies urinary incontinence and Denies urinary urgency Musculoskeletal: Musculoskeletal: Reports no additional musculoskeletal complaints, Denies numbness and Denies tingling Neurologic: Denies dizziness, Denies loss of vision, Denies numbness and Denies tingling Psychiatric: Psychiatric: Reports no additional psychiatric complaints Endocrine: Endocrine: Reports no additional endocrine complaints Hematologic/Lymphatic: Hematologic/Lymphatic: Reports no additional hematologic/lymphatic complaints Allergic/Immunologic: Allergic/Immunologic: Reports no additional allergic/immunologic complaints PMFSH Past Medical History Attestation statement: The following information was validated with the patient. Source: old records reviewed Medical History COPD (chronic obstructive pulmonary disease) Fibromyalgia High cholesterol History of cardioversion HTN (hypertension) PAF (paroxysmal atrial fibrillation) Surgical History History of cholecystectomy History of tonsillectomy Family History Family History Father No problems noted. Mother No problems noted. Social History Social History Housing: House Alcohol intake: former Patient Tobacco Use Status: Former Tobacco user Quit Date: 1999 Tobacco use type: Cigarette Years Smoked: 33 +/-1999 e-Cigarette/Vaping Use: Never Used Second Hand Smoke Exposure: No Advance Directives: No Advance Directives Information Provided: No service: No Current occupational status: retired Cognitive needs: No Hearing needs: No Vision needs: Yes Physical Exam ED Vital Signs: Vital Signs - 24 hr 11/20/21 11:36 11/20/21 11:52 11/20/21 13:44 Temperature 97.9 F 98.2 F Pulse Rate 79 75 67 Respiratory Rate 20 18 16 Blood Pressure 146/100 H 129/88 133/83 Pulse Oximetry 98 95 97 Oxygen Delivery Method Nasal Cannula Room Air Nasal Cannula Oxygen Flow Rate 2 BMI result Body Mass Index 30.6 Const General: cooperative, no acute distress, alert and awake Nutritional Appearance: well nourished Orientation/consciousness: patient oriented x3 Limitations: no limitations HENMT Head: Yes normal to inspection and Yes atraumatic Ears: hearing grossly normal bilaterally and external ears normal General nose exam: Normal external nose present, no nasal discharge noted and Epistaxis present on the left anterior source Face and sinus: Yes normal facial exam, No abrasion and No laceration Mouth: Normal oral and palatal mucosa present, no drooling and no muffled voice Eyes General: appearance normal, both eyes and all related structures Periorbital: periorbital findings normal Eyelids: Yes eyelids normal Conjunctivae: conjunctivae normal Pupils: Equal, round and reactive pupils present EOM: EOMs intact bilaterally Neck Neck: Yes normal visual inspection, Yes full ROM and Yes no lymphadenopathy Chest Chest palpation & inspection: normal inspection of the chest Resp Effort & Inspection: normal respiratory effort and able to speak in complete sentences Auscultation: clear to auscultation bilaterally Cardio Rate: regular rate Rhythm: regular rhythm GI Inspection: Yes normal to inspection Neuro General: patient oriented x3 and moves all extremities Cranial nerves: Yes Equal, round and reactive pupils present Cognition (Neuro): normal cognition Motor exam (neuro): 5/5 motor strength present throughout Sensory Exam: Normal double simultaneous stimulation for sensation Coordination: [id number] test normal Extrem General: Yes normal to inspection, Yes full ROM and Yes capillary refill normal Psych Appearance: grossly normal Mental Status: mental status grossly normal Affect: normal affect Attitude: cooperative Thought process: Normal thought process present Thought content: Normal thought content present Insight: Good insight present (Psych) Procedures Epistaxis Control Time Out Performed: Yes Nostril: Yes left Nose prepped with: Yes cocaine 4% Direct inspection: Yes anterior source identified Direct inspection method: Yes otoscope Clots removed by: Yes manually Epistaxis treatment: Yes TXA soaked gauze Results of treatment: Yes bleeding controlled and Yes treatment well tolerated Complications: Yes none Medical Decision Making MDM Narrative Medical decision making narrative: Patient is a 71 year old male presenting to the emergency department today with left nostril bleeding. Patient's physical exam showed a very small bleed in the anterior cavity of the left nare.I explained my physical exam findings to the patient and the patient's . I answered all questions asked by the patient and the patient's . Patient's bleeding nostril was addressed, per procedure note, without incident. Patient was monitored for 1 hour post epistaxis stopping and the patient did not have any additional bleeding. Case management reached out to the patient's safety council director who stated they would work on getting the patient a concentrator that humidifies the oxygen for him. I stressed the importance of the patient taking his medication as prescribed. I stressed the importance of the patient following up with his primary care provider. I stressed the importance of the patient returning to the emergency department immediately if his symptoms were to worsen or if he were to develop any dizziness, shortness of breath, difficulty breathing, chest pain, blurry vision, loss of vision, nausea, vomiting, abdominal pain, fever, chills, back pain, or any other complaints. Patient and the patient's verbalized agreement and understanding with this treatment plan and discharge. Differential Diagnosis Differential Diagnosis: epistaxis Discharge Plan Discharge Clinical Impression: Epistaxis Patient Disposition: Home, Self-Care Instructions: Nosebleed (ED) Additional Instructions: Follow up with your primary care provider. Return to the emergency department immediately if your symptoms worsen or if you develop any dizziness, shortness of breath, difficulty breathing, chest pain, blurry vision, loss of vision, nausea, vomiting, abdominal pain, fever, chills, back pain, or any other complaints. Prescriptions: No Action lorazepam 1 mg tablet 1 mg PO DAILY PRN (Reason: agitation) 90 Days Qty: 90 1RF sotalol 80 mg tablet 80 mg PO BID 90 Days Qty: 180 2RF diltiazem HCl 180 mg capsule,extended release 24 hr 180 mg PO DAILY Qty: 90 2RF cimetidine 300 mg tablet 300 mg PO Q12H 90 Days Qty: 180 2RF Rx Instructions: give at meals and bedtime amlodipine 5 mg tablet 5 mg PO DAILY 90 Days Qty: 90 3RF Eliquis 5 mg tablet 5 mg PO BID 90 Days Qty: 180 3RF docusate sodium 100 mg capsule 100 mg PO DAILY 90 Days Qty: 90 3RF ezetimibe [Zetia] 10 mg tablet 10 mg PO DAILY 90 Days Qty: 90 3RF hydrocortisone 2.5 % cream 1 appl topical BID PRN (Reason: allergic reaction) 14 Days Qty: 30 1RF cyanocobalamin (vitamin B-12) 1,000 mcg tablet 1,000 mcg PO DAILY (DME) Oxygen Home Use Kit See Rx Instructions .Route Qty: 1 0RF Rx Instructions: As directed 2 L NC albuterol sulfate [ProAir HFA] 90 mcg/actuation HFA aerosol inhaler 2 puff inhalation Q6H PRN (Reason: shortness of breath or wheezing) Qty: 8.5 0RF prednisone 10 mg tablet 10 mg PO DAILY 30 Days Qty: 30 5RF Referrals: Omar Raphael MD [Primary Care Provider] - (Follow up with your primary care provider. ) Interventions: ED Discharge Assessment Last Done: 11/20/21 13:52 Print Language: Welsh
[2021-11-20] MEDS: Oxymetazoline HCl 0.05 % Nasal 15 ML SPRAY 2 SPRAY NOSTRIL-B (11:51)
[2021-11-20 11:52] VITALS: BP 129/88; PULSE 75; RESP 18; TEMP 36.8; O2SAT 95
[2021-11-20] MEDS: Tranexamic Acid 1,000 MG/10 ML VIAL 1000 MG INTRANASAL (11:52)
[2021-11-20] MEDS: Cocaine HCl 4 % 4 ML SOLUTION 2 ML TOPICAL (11:52)
--- NOTE | 2021-11-20 12:12 | PC.NURSE ---
patient A/OX4 . pearrla . lungs diminished. patient reports using O2 at 2 liters . skin warm pink and dry . Abdomen is soft and non -distended . postive bowel sounds in all four quadrants . edema noted bilateral in lower extremities , non pitting . bleeding controlled at this time in left nare with dressing . patient aware of plan of care
--- NOTE | 2021-11-20 13:32 | PC.NURSE ---
provider at bedside . bleeding of left nare controlled at this time . 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 patient aware of plan of care .
[2021-11-20 13:44] VITALS: BP 133/83; PULSE 67; RESP 16; O2SAT 97
--- NOTE | 2021-11-20 13:52 | PC.NURSE ---
no bleeding from l nare noted, mlp aware.
--- NOTE | 2021-11-20 13:54 | MHC.CM.ED ---
Received case management consult from Denise DUMONT. Patient has pulmonary issues and sees Dr Sarmiento at [facility] Pulmonary office. Patient came to the ER due to nosebleed. Patient has a concentrator at home without humidification. Patient is also on Eliquis. T/W spoke with Dr Sarmiento's office. They ordered 2LNC via air tank from [employer]. But these orders were not fulfilled. Dr Raphael's office signed concentrator orders for [facility]. Dr Raphael's office will have to reach out to [facility] to have humidification added to his services. T/W spoke with Dr Raphael's office. They have been asked to contact [facility] to add humidification to patient's orders. Denise DUMONT aware. Continue to monitor for d/c needs.
== END 2021-11-20 13:54 | disposition home or self-care (01) ==
PROVIDERS: Emergency Provider Emergency Medicine Emergency Medical Services; PCP Internal Medicine
DX: R04.0 Epistaxis (principal); Z79.01 Long term (current) use of anticoagulants; Z79.899 Other long term (current) drug therapy; Z87.891 Personal history of nicotine dependence
CPT/HCPCS: 30901; 99284; C9046

== ENCOUNTER → 2022-01-07 13:23 | Outpatient (BNVA) | payer MEDICARE, BC, SELFPAY | PROVIDERS: PCP Internal Medicine; Visit Provider Hospitalist | DX: J84.9 Interstitial pulmonary disease, unspecified (principal); J43.2 Centrilobular emphysema; Z79.899 Other long term (current) drug therapy; Z77.29 Contact with and (suspected) exposure to other hazardous substances; Z79.52 Long term (current) use of systemic steroids; Z86.16 Personal history of COVID-19 | CPT/HCPCS: 99212 ==

== ENCOUNTER 2022-06-21 13:16 | Inpatient (IN) | payer MEDICARE, BC, SELFPAY ==
[2022-06-21] VITALS (7 sets, daily range): BP systolic 108–150; BP diastolic 72–93; PULSE 62–90; RESP 16–44; TEMP 36.3–36.9; O2SAT 88–95; BMI 27.7
--- NOTE | ~2022-06-21 | XR_ITS ---
EXAMINATION: XR CHEST CLINICAL INFORMATION: Dyspnea for 2 weeks. COMPARISON: Chest radiographs dated 08/24/2021, chest CT scan dated 10/07/2020. TECHNIQUE: Frontal view of the chest was obtained. FINDINGS: Lower lung volumes limit evaluation. Coarsened interstitial markings are again seen bilaterally with similar distribution and severity when accounting for decreased pulmonary volumes. The heart and mediastinal structures are unremarkable. XR/XR chest 1V IMPRESSION: Coarsened interstitial markings consistent with known interstitial lung disease without significant interval change. No definitive acute abnormality.
--- NOTE | ~2022-06-21 | CT_ITS ---
EXAMINATION: CT chest wo IV con. CLINICAL INFORMATION: Reason for Exam hypoxia, ILD COMPARISON: Prior CT 10/07/2020 TECHNIQUE: Multidetector volumetric CT imaging of the chest was done. Axial MIP volume rendering provided. Sagittal and coronal reformatted images were obtained. This CT examination was performed using dose optimization techniques as appropriate, variously including the following: *Automated exposure control *Adjustment of mA and/or kV according to patient size (this includes techniques or standardized protocols for targeted exams where dose is matched to indication/reason for exam; i.e. extremities or head) *Use of iterative reconstruction technique CONTRAST: Noncontrasted study. 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 LUNGS: Lung parenchyma: Redemonstration of diffuse interstitial airspace groundglass opacification diffusely involving the lungs upper and lower lobes. There is central and peripheral bronchiectasis, interlobular septal thickening, peripheral subpleural honeycombing suggesting severe interstitial lung disease, and pulmonary fibrosis, this has worsened progressed since prior CT of 2020. Overall diminished lung volume. [place] of tissue in the right upper lobe 2.3 x 2.6 cm question lung nodule versus confluence of vessels, difficult to assess given the lack of contrast and degree of parenchymal disease. There are scattered other smaller patchy opacities probably consolidations. AIRWAYS: No intratracheal mass. PLEURA: Bilateral moderate pleural effusions. MEDIASTINUM AND JORDAN: There are enlarged mediastinal lymph nodes pretracheal lymph node 1.9 cm short axis. No mediastinal mass. VESSELS: HEART AND PERICARDIUM: Thoracic aorta is normal in size. The heart is enlarged. Small pericardial effusion heavy trivessel coronary calcifications. Dilated pulmonary arteries, this has been described in association with pulmonary hypertension. LOWER NECK, AXILLA: The visualized thyroid gland is unremarkable. No axillary mass or adenopathy. VISUALIZED ABDOMEN: Unremarkable CHEST WALL AND BONES: No chest wall mass. The visualized bony thorax is within normal limits. CT/CT chest wo IV con IMPRESSION: * Severe interstitial lung disease, diminished lung volume, severe diffuse pulmonary fibrosis, this has worsened progressed since prior CT of 2020. * Bilateral moderate pleural effusions. * Cardiomegaly, small pericardial effusion. * Dilated pulmonary arteries, this has been described in association with pulmonary hypertension. * [place] of tissue in the right upper lobe 2.3 x 2.6 cm question lung nodule versus confluence of vessels, difficult to assess given the lack of contrast and degree of parenchymal disease. Would recommend correlation with follow-up outpatient CT scan with IV contrast, one month after completion of treatment.. * Enlarged mediastinal lymph nodes 1.9 cm short axis unchanged. * Heavy trivessel coronary calcifications.
--- NOTE | 2022-06-21 13:34 | ECG_ITS ---
Test Reason : DYSPNEA Blood Pressure : / mmHG Vent. Rate : 066 BPM Atrial Rate : 066 BPM P-R Int : 164 ms QRS Dur : 086 ms QT Int : 454 ms P-R-T Axes : 045 136 074 degrees QTc Int : 475 ms Normal sinus rhythm Right axis deviation Right ventricular hypertrophy Abnormal ECG When compared with ECG of 07-OCT-2020 16:52, Nonspecific T wave abnormality now evident in Lateral leads Referred By: Pravin Yañez Electronically Signed By:Luis Armando Govea
--- NOTE | 2022-06-21 13:37 | ED_ITS ---
HPI - SOB/Dyspnea General Chief Complaint: Dyspnea Stated Complaint: SOB X'S DAYS PER EMS Time Seen by Provider: 06/21/22 13:33 Source: patient and family Mode of arrival: EMS Limitations: no limitations History of Present Illness HPI Narrative: 71-year-old male with history of COPD, and atrial fibrillation, presents to the emergency department shortness of breath. Patient has noted symptoms increasing over the last 2 weeks. The symptoms are moderate to severe in nature. He is having difficulty walking up the stairs and having orthopnea. The symptoms have been getting progressively worse. Patient scribe's symptoms as mild however, family describes them as moderate to severe. He is on oxygen at home, 2 L at baseline. Patient denies any fevers or chills. Has had cough and some clear mucus production. Denies any chest pain. Patient reports being compliant with his medications. He has also noted increasing lower extremity edema and occasional PND. Patient has history of atrial fibrillation for which he is followed with Dr. Cabezas, cardiology. He is currently on Eliquis and sotalol. Patient does have history of cardioversion patient denies a history of congestive heart failure. Related Data Home oxygen amount: 2 liters Home Medications Medication Instructions Recorded Confirmed cyanocobalamin (vitamin B-12) 1,000 mcg PO DAILY 08/24/21 01/07/22 1,000 mcg tablet Previous Rx's Medication Instructions Recorded docusate sodium 100 mg capsule 100 mg PO DAILY 90 days #90 caps 02/03/21 hydrocortisone 2.5 % topical cream 1 appl topical BID PRN allergic 02/03/21 reaction 14 days #30 grams cimetidine 300 mg tablet 300 mg PO Q12H 90 days #180 tabs 10/29/21 diltiazem HCl 180 mg capsule,24 180 mg PO DAILY #90 caps 10/29/21 hr,extended release sotalol 80 mg tablet 80 mg PO BID 90 days #180 tabs 10/29/21 Oxygen Home Use #1 ea 11/26/21 ezetimibe 10 mg tablet (Zetia) 10 mg PO DAILY 90 days #90 tabs 01/27/22 albuterol sulfate 90 mcg/actuation 2 puff inhalation Q6H PRN 02/09/22 aerosol inhaler (ProAir HFA) shortness of breath or wheezing #8.5 grams apixaban 5 mg tablet (Eliquis) 5 mg PO BID 90 days #180 tabs 02/24/22 lorazepam 1 mg tablet 1 mg PO DAILY PRN agitation 90 02/24/22 days #90 tabs amlodipine 5 mg tablet 5 mg PO DAILY 90 days #90 tabs 03/10/22 prednisone 10 mg tablet 10 mg PO DAILY #30 tabs 06/21/22 Allergies Allergy/AdvReac Type Severity Reaction Status Date / Time Iodinated Contrast Media Allergy Unknown SWELLING, Verified 02/09/22 12:28 [CONTRAST, IV] HIVES penicillin V Allergy Unknown Unknown Verified 02/09/22 12:28 Penicillins [PENICILLINS] Allergy Unknown UNKNOWN- Verified 02/09/22 12:28 RX CHILD contrast dye Allergy Unknown Unknown Uncoded 02/09/22 12:28 IV Contrast Dye Allergy Unknown Unknown Uncoded 02/09/22 12:28 penicillin Allergy Unknown Unknown Uncoded 02/09/22 12:28 Review of Systems Review of Systems: Yes all other systems are reviewed and are negative Constitutional: Constitutional: Denies chills, Denies fatigue, Denies fever(s) and Denies lethargy Eyes: Eyes: Reports no additional eye complaints ENT: Reports system reviewed and no additional complaints, except as documented Cardiovascular: Cardiovascular: Denies chest pain, Denies chest pain at rest, Reports edema, Reports dyspnea, Reports dyspnea on exertion and Reports orthopnea Respiratory: Respiratory: Reports cough, Denies pain on inspiration, Denies pain with cough, Reports dyspnea and Reports dyspnea on exertion Gastrointestinal: Gastrointestinal: Denies abdominal pain, Denies change in bowel habits, Reports constipation and Denies diarrhea Genitourinary: Genitourinary: Denies difficulty urinating Musculoskeletal: Musculoskeletal: Denies no additional musculoskeletal c omplaints and Denies abnormal gait Integumentary/Breasts: Skin/Breast: Denies rash Neurologic: Denies Neuro-related abnormal movements, Denies abnormal gait, Denies confusion and Denies focal weakness Psychiatric: Psychiatric: Denies anxiety, Denies confusion and Denies depression Endocrine: Endocrine: Denies fatigue Hematologic/Lymphatic: Hematologic/Lymphatic: Reports no additional hematologic/lymphatic complaints Allergic/Immunologic: Allergic/Immunologic: Reports no additional allergic/immunologic complaints PMFSH Past Medical History Medical History COPD (chronic obstructive pulmonary disease) Fibromyalgia High cholesterol History of cardioversion HTN (hypertension) PAF (paroxysmal atrial fibrillation) Surgical History History of cholecystectomy History of tonsillectomy Family History Family History Father No problems noted. Mother No problems noted. Social History Social History Housing: House Alcohol intake: former Patient Tobacco Use Status: Former Tobacco user Quit Date: 1999 Tobacco use type: Cigarette Years Smoked: 33 +/-1999 Smoked in Last 30 Days: No e-Cigarette/Vaping Use: Never Used Second Hand Smoke Exposure: No Use of substances other than those prescribed or required for medical reasons: No Advance Directives: Yes Advance Directives on File: No service: No Current occupational status: retired Cognitive needs: No Hearing needs: No Vision needs: Yes Physical Exam Vital Signs: Vital Signs: Last Vital Signs Temp 98.1 F 06/21/22 15:45 Pulse 63 06/21/22 15:45 Resp 28 H 06/21/22 15:45 BP 119/86 06/21/22 15:45 Pulse Ox 92 06/21/22 15:45 O2 Del Method 06/21/22 15:45 O2 Flow Rate 4 06/21/22 15:45 Oxygen Flow Rate 3 06/21/22 13:26 BMI result Body Mass Index 27.7 Const: General: cooperative and no acute distress; No confusion Orientation/consciousness: patient oriented x3 and No confusion HEENT: Head: Yes normal to inspection Eyes: General: appearance normal, both eyes and all related structures Neck: Neck: Yes normal visual inspection Resp: Effort & Inspection: able to speak in complete sentences and tachypneic Auscultation: crackles bilateral 2/[address] up Cardio: Rate: regular rate Rhythm: regular rhythm Heart sounds: Murmur heart sound present systolic holo and II/ GI: Palpation (GI): Soft to palpation, nontender and no guarding Skin: Rashes: no rashes Neuro: General: patient oriented x3, no focal motor deficits and No confusion Cranial nerves: Yes CN's II-XII intact bilaterally Extrem: General: Yes pedal edema ( 2+ bilaterally) Psych: Mental Status: mental status grossly normal Course Course Course Narrative: 71-year-old male with history of paroxysmal atrial fibrillation, hypertension, COPD on oxygen presents with shortness of breath. Symptoms have been going on for 2 weeks with progressive orthopnea, PND, dyspnea on exertion. His exam revealed crackles bilaterally 2/3 up. My suspicion at this time is for acute congestive heart failure. Patient denies a history of CHF. Will order a chest x-ray lab work, EKG, Lasix. 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 Patient will likely need admission for diuresis and optimization of medications Reevaluation(s) Reevaluation #1: Discussed results with the patient. Discussed likely admission for acute CHF. I have put in a consultation for his log sorting supervisor Dr. Pearce Reevaluation #2: Spoke with the hospitalist. They will admit the patient to the intermediate care unit. I discussed all results and plan with patient. He is understanding of the reasoning for admission. I did contact the log sorting supervisor as well which she can see below recommending an echocardiogram and diuresis. Close monitoring of electrolytes will be needed given the fact that he is on sotalol him being diuresed Simultaneously. Time: 16:43 Consultations Consultation #1: Cardiology, Dr. Whitney agrees with hospitalization, says edema is new. Would echocardiography while in hospital Time: 16:01 Medications Administered Discontinued Medications Generic Name Dose Route Start Last Admin Trade Name Freq PRN Reason Stop Dose Admin Furosemide 40 mg 06/21/22 13:35 06/21/22 13:49 Furosemide 40 Mg/4 Ml Vial IVPUSH 06/21/22 13:36 40 mg ONCE ONE Administration Protocol Medical Decision Making Medical Decision Making [facility] Narrative: 71-year-old male with history of COPD, paroxysmal atrial fibrillation presents with signs and symptoms most consistent with CHF. Patient will have lab work, chest x-ray an EKG with possible permission for his respiratory complaints. Differential Diagnosis Differential Diagnoses: The differential diagnosis associated with the presentation includes ( Pulmonary edema, CHF, pneumonia, bronchitis, shortness of breath, less likely to be pulmonary embolus given anticoagulation) Admission/Observation Consideration of admission/observation: Escalation of care including admission/observation considered Lab Data [facility] Lab Attestation statement: I reviewed the patient's lab results. 06/21/22 13:45 06/21/22 13:45 Labs: Lab Results 06/21/22 06/21/22 06/21/22 Range/Units 13:45 13:45 13:45 WBC 8.4 (4.8-10.8) X10*3/uL RBC 6.08 H (4.60-5.80) X10*6/uL Hgb 18.0 (14.0-18.0) g/dl Hct 55.5 H (42.0-52.0) % MCV 91.3 (80.0-98.0) fL MCH 29.6 (27.0-33.0) pg MCHC 32.4 (31.0-36.0) g/dl RDW 13.0 (11.0-16.0) % Plt Count 258 (160-400) X10*3/uL MPV 9.4 (9.4-12.4) fL Immature Gran % (Auto) 0.4 (0.0-0.4) % Neut % (Auto) 80.1 H (45-73) % Lymph % (Auto) 11.8 L (20-40) % Dawson % (Auto) 6.5 (2-11) % Eos % (Auto) 0.7 (0-4) % Baso % (Auto) 0.5 (0-2) % Lymph # (Auto) 1.0 L (1.2-4.9) X10*3/uL Dawson # (Auto) 0.6 (0.1-1.2) X10*3/uL Eos # (Auto) 0.1 (0.0-0.4) X10*3/uL Baso # (Auto) 0.0 (0.0-0.2) X10*3/uL Abs Immat Gran (auto) 0.03 (0.00-0.03) X10*3/uL Absolute Neuts (auto) 6.8 (2.0-8.3) x10*3/uL Absolute Nucleated RBC 0.000 (0.0-0.012) X10*3/uL Nucleated RBC % (auto) 0.0 (0.0-0.2) /100WBC Sodium 140 (135-145) mmol/L Potassium 4.7 (3.3-5.1) mmol/L Chloride 100 (96-108) mmol/L Carbon Dioxide 30 H (22-29) mmol/L Anion Gap 15 (12-20) BUN 20 H (9-16) mg/dL Creatinine 1.04 (0.5-1.4) mg/dL Estim Creat Clear Calc 73.5 Estimated GFR > 60 Random Glucose 130 H (60-115) mg/dL Calcium 9.5 (8.4-10.2) mg/dL Troponin I High Sens 6.2 (<3.5-35.0) ng/L B-Natriuretic Peptide (<100) pg/mL COVID-19 (RICHARD) (Negative) COVID-19 Clin Com 06/21/22 06/21/22 Range/Units 13:45 14:03 WBC (4.8-10.8) X10*3/uL RBC (4.60-5.80) X10*6/uL Hgb (14.0-18.0) g/dl Hct (42.0-52.0) % MCV (80.0-98.0) fL MCH (27.0-33.0) pg MCHC (31.0-36.0) g/dl RDW (11.0-16.0) % Plt Count (160-400) X10*3/uL MPV (9.4-12.4) fL Immature Gran % (Auto) (0.0-0.4) % Neut % (Auto) (45-73) % Lymph % (Auto) (20-40) % Dawson % (Auto) (2-11) % Eos % (Auto) (0-4) % Baso % (Auto) (0-2) % Lymph # (Auto) (1.2-4.9) X10*3/uL Dawson # (Auto) (0.1-1.2) X10*3/uL Eos # (Auto) (0.0-0.4) X10*3/uL Baso # (Auto) (0.0-0.2) X10*3/uL Abs Immat Gran (auto) (0.00-0.03) X10*3/uL Absolute Neuts (auto) (2.0-8.3) x10*3/uL Absolute Nucleated RBC (0.0-0.012) X10*3/uL Nucleated RBC % (auto) (0.0-0.2) /100WBC Sodium (135-145) mmol/L Potassium (3.3-5.1) mmol/L Chloride (96-108) mmol/L Carbon Dioxide (22-29) mmol/L Anion Gap (12-20) BUN (9-16) mg/dL Creatinine (0.5-1.4) mg/dL Estim Creat Clear Calc Estimated GFR Random Glucose (60-115) mg/dL Calcium (8.4-10.2) mg/dL Troponin I High Sens (<3.5-35.0) ng/L B-Natriuretic Peptide 1790 H (<100) pg/mL COVID-19 (RICHARD) Negative (Negative) COVID-19 Clin Com See Note Independent Interpretation I performed an independent interpretation of an: EKG ( normal sinus rhythm heart rate 66, right axis deviation nonspecific T-wave flattening diffusely. Likely incomplete right bundle-branch block pattern.) and Plain X-Ray (increased interstitial markings compared with previous 2021 demonstrating chronic interstitial lung disease) Independent Historian Clinical information obtained from an independent historian. History obtained from or confirmed by: Spouse Tests considered The following testing was considered but not selected: CT scan of the chest was considered but not ordered due to low likelihood the assistance of diagnosis of his symptoms. I doubt PE given anticoagulation. Most likely CHF ve Prescription Management I considered prescription management with: Other ( Furosemide) Chronic Conditions Patient?s care impacted by: Hypertension Core Measures Measure exclusions: not indicated Discharge Plan Discharge Clinical Impression: HERNANDEZ (dyspnea on exertion), Hypertension, COPD (chronic obstructive pulmonary disease), Bilateral edema of lower extremity Patient Disposition: Admitted As Inpatient Prescriptions: No Action sotalol 80 mg tablet 80 mg PO BID 90 Days Qty: 180 2RF diltiazem HCl 180 mg capsule,extended release 24 hr 180 mg PO DAILY Qty: 90 2RF cimetidine 300 mg tablet 300 mg PO Q12H 90 Days Qty: 180 2RF Rx Instructions: give at meals and bedtime (DME) Oxygen Home Use Kit See Rx Instructions .Route Qty: 1 0RF Rx Instructions: As directed 2 L NC humidification ezetimibe [Zetia] 10 mg tablet 10 mg PO DAILY 90 Days Qty: 90 3RF lorazepam 1 mg tablet 1 mg PO DAILY PRN (Reason: agitation) 90 Days Qty: 90 1RF Eliquis 5 mg tablet 5 mg PO BID 90 Days Qty: 180 3RF amlodipine 5 mg tablet 5 mg PO DAILY 90 Days Qty: 90 3RF prednisone 10 mg tablet 10 mg PO DAILY Qty: 30 5RF docusate sodium 100 mg capsule 100 mg PO DAILY 90 Days Qty: 90 3RF hydrocortisone 2.5 % cream 1 appl topical BID PRN (Reason: allergic reaction) 14 Days Qty: 30 1RF cyanocobalamin (vitamin B-12) 1,000 mcg tablet 1,000 mcg PO DAILY albuterol sulfate [ProAir HFA] 90 mcg/actuation HFA aerosol inhaler 2 puff inhalation Q6H PRN (Reason: shortness of breath or wheezing) Qty: 8.5 0RF
--- NOTE | 2022-06-21 13:45 | PC.NURSE ---
pt alert and oriented, skin pwd, respirations slightly labored will vary from 20-22, sating at 93-95 on 3l pt is oxygen dependent at baseline on 2l last few days pt increasing feeling sob with exertion and sleeping in a recliner, ls crackles on the lower bases, lower extremities with peding edema +[address] up the knees, denies pain, vs stable, ns on the monitor
[2022-06-21] MEDS: Furosemide 40 MG/4 ML VIAL IVPUSH (13:49)
[2022-06-21 13:53] LABS: MANUAL DIFF FLAG NO
[2022-06-21 13:56] LABS: Basophils Percent Auto 0.5 % (0-2); Eosinophils Absolute Auto 0.1 X10*3/uL (0.0-0.4); Eosinophils Percent Auto 0.7 % (0-4); Imm Gran Abs Auto 0.03 X10*3/uL (0.00-0.03); Imm Gran Pct Auto 0.4 % (0.0-0.4); Lymphocytes Percent Auto 11.8 % (20-40); Mean Corpuscular HGB Conc 32.4 g/dl (31.0-36.0); Mean Corpuscular Hemoglobin 29.6 pg (27.0-33.0); Mean Corpuscular Volume 91.3 fL (80.0-98.0); Mean Platelet Volume 9.4 fL (9.4-12.4); Monocytes Absolute Auto 0.6 X10*3/uL (0.1-1.2); Monocytes Percent Auto 6.5 % (2-11); Neutrophils Absolute Auto 6.8 x10*3/uL (2.0-8.3); Neutrophils Percent Auto 80.1 % (45-73); Platelet Count 258 X10*3/uL (160-400); Red Blood Count 6.08 X10*6/uL (4.60-5.80); White Blood Count 8.4 X10*3/uL (4.8-10.8)
[2022-06-21 14:00] LABS: Hematocrit 55.5 % (42.0-52.0)
[2022-06-21 14:09] LABS: Anion Gap 15 (12-20); Blood Urea Nitrogen 20 mg/dL (9-16); Calcium 9.5 mg/dL (8.4-10.2); Carbon Dioxide 30 mmol/L (22-29); Chloride 100 mmol/L (96-108); Creatinine Clr Calc Pharmacy 73.5; Estimated Glomerular Filt Rate > 60; Glucose Random 130 mg/dL (60-115); Potassium 4.7 mmol/L (3.3-5.1); Sodium 140 mmol/L (135-145)
[2022-06-21 14:16] LABS: B Type Natriuretic Peptide 1790 pg/mL (<100)
[2022-06-21 14:17] LABS: Troponin-I High Sensitivity 6.2 ng/L (<3.5-35.0)
[2022-06-21 14:37] LABS: COVID-19 Test Negative (Negative); IDNOW Serial# BCCEAD1C
--- NOTE | 2022-06-21 15:51 | MHC.EDTECH ---
THIS PCT ASSUMED CARE OF PT AT 1500 ,1600 VITALS SIGN TAKEN ,PT AT BEDSIDE .
[2022-06-21 16:55] LABS: Alanine Aminotransferase 10 U/L (0-40); Albumin Level 3.7 g/dL (3.5-5.0); Alkaline Phosphatase 77 U/L (39-117); Aspartate Amino Transferase 17 U/L (5-37); Bilirubin Direct 0.5 mg/dL (0.0-0.5); Bilirubin Total 1.6 mg/dL (0.0-1.0); Total Protein 6.9 g/dL (6.5-8.0)
--- NOTE | 2022-06-21 16:56 | PC.NURSE ---
pt put on a oxymask at 3l do to the pt's increased work of breathing and pt is mouth breathing as well, sating at 92-93%
--- NOTE | 2022-06-21 17:11 | PM.IMHP ---
History of Present Illness Date of Service: 06/21/22 Attending physician on admission: Poonam Proctor Chief Complaint: sob, hernandez 71-year-old male with history of GERD, COPD, hyperlipidemia, hypertension, paroxysmal atrial fibrillation anticoagulated with Eliquis, interstitial lung disease with chronic hypoxemic respiratory failure on 2 L supplemental O2 at home, and fibromyalgia presented to the ED earlier today for evaluation of shortness of breath that has been worsening over the last 1 month. He has noted dyspnea on exertion under orthopnea and has been sleeping in a reclining chair. There has been BLE edema. He has noted increased supplemental O2 need. Per EMS, was satting in the mid 80s en route, placed on 4L supplemental O2. On arrival, vitals otherwise stable, 95% on 4L O2. Has developed tachypnea to 28 with accessory muscle usage. No leukocytosis, RBC 6.08, Hgb 18.0, Hct 55.5%. Renal function baseline and electrolytes normal. Trop-I normal. BNP 1790 (baseline 95). No recent echocardiogram. CXR with coarsened interstitial markings, no definitive acute abnormality. Pt to be admitted for CHF exacerbation. Review of Systems Review of Systems: General: No fevers, malaise, unintentional weight loss Cardiovascular: +BLE edema. No chest pain, palpitations Respiratory: +orthopnea, +HERNANDEZ. No wheezing GI: No abdominal pain, nausea, vomiting, diarrhea, constipation, melena, hematochezia : No dysuria, hematuria, increased urinary frequency, decreased urinary output MSK: No myalgia, back pain Neuro: No headaches, weakness, paresthesias Skin: No rashes or lesions [facility] Medical History (Updated 06/21/22 @ 17:32 by JULIA Robles) Acute on chronic respiratory failure with hypoxemia COPD (chronic obstructive pulmonary disease) Fibromyalgia GERD (gastroesophageal reflux disease) High cholesterol History of cardioversion HTN (hypertension) Interstitial lung disease PAF (paroxysmal atrial fibrillation) PTSD (post-traumatic stress disorder) Vitamin B 12 deficiency Family History Father No problems noted. Mother No problems noted. Surgical History History of cholecystectomy History of tonsillectomy Social History Housing: House Alcohol intake: former Patient Tobacco Use Status: Former Tobacco user Quit Date: 1999 Tobacco use type: Cigarette Years Smoked: 33 +/-2000 Smoked in Last 30 Days: No e-Cigarette/Vaping Use: Never Used Second Hand Smoke Exposure: No Use of substances other than those prescribed or required for medical reasons: No Advance Directives: Yes Advance Directives on File: No Nutrition Risks: No Nutritional Risk service: No Current occupational status: retired Cognitive needs: No Hearing needs: No Vision needs: Yes Meds Allergies Allergy/AdvReac Type Severity Reaction Status Date / Time Iodinated Contrast Media Allergy Unknown SWELLING, Verified 02/09/22 12:28 [CONTRAST, IV] HIVES penicillin V Allergy Unknown Unknown Verified 02/09/22 12:28 Penicillins [PENICILLINS] Allergy Unknown UNKNOWN- Verified 02/09/22 12:28 RX CHILD contrast dye Allergy Unknown Unknown Uncoded 02/09/22 12:28 IV Contrast Dye Allergy Unknown Unknown Uncoded 02/09/22 12:28 penicillin Allergy Unknown Unknown Uncoded 02/09/22 12:28 Active Medications: Current Medications Acetaminophen (Acetaminophen 325 Mg Tablet) 650 mg PO Q6H PRN PRN Reason: Pain, Mild (Pain Scale 1-3) Furosemide (Furosemide 40 Mg/4 Ml Vial) 40 mg IVPUSH DAILY [facility]; Protocol Ondansetron HCl (Ondansetron Hcl 4 Mg/2 Ml Vial) 4 mg IVPUSH Q8H PRN PRN Reason: Nausea and Vomiting Pharmacy Consult (Consult Rx Perform Med Rec) 1 each MISCELLANE ONCE PRN PRN Reason: Consult order Senna (Sennosides 8.6 Mg Tablet) 17.2 mg PO BEDTIME PRN PRN Reason: Constipation Sodium Chloride (0.9 % Sodium Chloride Flush 3 Ml Syringe) 3 ml IVFLUSH QSHIFT [facility] Home Medications Medication Instructions Recorded Confirmed Last Taken Type cyanocobalamin (vitamin B-12) 1,000 mcg PO DAILY 08/24/21 01/07/22 Unknown History 1,000 mcg tablet Physical Exam Vital Signs and Narrative: Vital Signs: Last Vital Signs Temp 98.1 F 06/21/22 15:45 Pulse 63 06/21/22 15:45 Resp 28 H 06/21/22 15:45 BP 119/86 06/21/22 15:45 Pulse Ox 92 06/21/22 15:45 O2 Del Method 06/21/22 15:45 O2 Flow Rate 4 06/21/22 15:45 Oxygen Flow Rate 3 06/21/22 13:26 BMI result Body Mass Index 27.7 Constitutional - Awake and Alert, No apparent distress Eyes - PERRLA, EOMI Cardiovascular - S1S2, RRR, 3+ pitting edema BLE Respiratory - Normal lung expansion, mild respiratory distress with accessory muscle usage on 4L O2 via NC (mouthbreathing), bilateral diffuse crackles Gastrointestinal - NT / ND; +BS; No rebound or guarding Extremities - no calf tenderness bilaterally, no calf swelling Skin - Warm/Dry Neurological - Alert & oriented x3, CN II-XII in tact, 4/5 strength BUE and BLE Psychological - Appropriate affect Results Labs 06/21/22 13:45 06/21/22 13:45 Labs: Laboratory Results - last 24 hr 06/21/22 06/21/22 06/21/22 13:45 13:45 13:45 MCV 91.3 MCH 29.6 MCHC 32.4 RDW 13.0 Plt Count 258 MPV 9.4 Immature Gran % (Auto) 0.4 Neut % (Auto) 80.1 H Lymph % (Auto) 11.8 L Henry % (Auto) 6.5 Eos % (Auto) 0.7 Baso % (Auto) 0.5 Lymph # (Auto) 1.0 L Henry # (Auto) 0.6 Eos # (Auto) 0.1 Baso # (Auto) 0.0 Abs Immat Gran (auto) 0.03 Absolute Neuts (auto) 6.8 Absolute Nucleated RBC 0.000 Nucleated RBC % (auto) 0.0 Anion Gap 15 Estim Creat Clear Calc 73.5 Estimated GFR > 60 Random Glucose 130 H Calcium 9.5 Total Bilirubin 1.6 H Direct Bilirubin 0.5 AST 17 ALT 10 Alkaline Phosphatase 77 Troponin I High Sens 6.2 B-Natriuretic Peptide Total Protein 6.9 Albumin 3.7 COVID-19 ([facility]ICHARD) COVID-19 Clin Com 06/21/22 06/21/22 13:45 14:03 MCV MCH MCHC RDW Plt Count MPV Immature Gran % (Auto) Neut % (Auto) Lymph % (Auto) Henry % (Auto) Eos % (Auto) Baso % (Auto) Lymph # (Auto) Henry # (Auto) Eos # (Auto) Baso # (Auto) Abs Immat Gran (auto) Absolute Neuts (auto) Absolute Nucleated RBC Nucleated RBC % (auto) Anion Gap Estim Creat Clear Calc Estimated GFR Random Glucose Calcium Total Bilirubin Direct Bilirubin AST ALT Alkaline Phosphatase Troponin I High Sens B-Natriuretic Peptide 1790 H Total Protein Albumin COVID-19 (RICHARD) Negative COVID-19 Clin Com See Note Imaging Radiologist's Impressions: Impressions Chest X-Ray 06/21/22 14:18 IMPRESSION: Coarsened interstitial markings consistent with known interstitial lung disease without significant interval change. No definitive acute abnormality. Assessment and Plan (1) CHF exacerbation: Status: Acute (2) Acute on chronic respiratory failure with hypoxemia: Status: Acute Plan 71-year-old male with history of GERD, COPD, hyperlipidemia, hypertension, paroxysmal atrial fibrillation anticoagulated with Eliquis, interstitial lung disease with chronic hypoxemic respiratory failure on 2 L supplemental O2 at home, and fibromyalgia admitted for acute CHF exacerbation. #Acute on chronic hypoxemic respiratory failure - secondary to CHF exacerbation -Baseline 2L supplemental O2 due to chronic interstitial lung disease/COPD -Continue supplemental O2 to maintain oximetry >92%. Change to oxymask given mouthbreathing -Treat CHF as below #Acute CHF exacerbation -CXR with coarse interstitial markings that do appear increased from prior imaging -Clinically fluid overloaded -BNP >1700 -Furosemide 40mg IV daily -Strict I&O -Daily weights -Cardiac diet -Echo -Cardiology consult #Paroxysmal atrial fibrillation- rate controlled -Continue eliquis -Continue diltiazem, sotalol #HTN- reasonably controlled -continue amlodipine, diliazem, sotalol #HLD- continue zetia #COPD/interstitial lung disease- without acute exacerbation -albuterol prn DVT prophylaxis- on eliquis Do not intubate Pt requires inpt stay at least 2 midnights for management of acute CHF exacerbation requiring IV diuresis, close monitoring of i&O, and monitoring of renal function and electrolytes levels. Time Spent With Patient Time: Total time managing care of this patient today ____ minutes. Quality Stroke Does the patient have a stroke diagnosis?: No VTE Prior VTE?: No VTE Risk Level:: Medical - moderate - high VTE Device Contraindication: Treatment Not Indicated VTE Drug Contraindication: N/A - Med Ordered
[2022-06-21] MEDS: Lidocaine HCl 2 % Urojet 10 ML JEL.PF.APP TOPICAL (17:44)
--- NOTE | 2022-06-21 17:45 | PC.NURSE ---
PT KEEPS ATTEMPTING TO URINATE BUT ONLY URINATED 500ML, BLADDER SCAN SHOWED [phone], MD AWARE, PLAN TO INSERT A BUSTILLOS BUSTILLOS IN PLACE AND DRAINING WELL ABOUT 600ML OF YELLOW URINE
--- NOTE | 2022-06-21 20:06 | MHC.EDTECH ---
2000 ROUNDING AND VITALS SIGN TAKEN ,PT AND DAUGHTER AT BEDSIDE .
[2022-06-21] MEDS: ondansetron HCL 4 MG/2 ML VIAL IVPUSH (20:17)
--- NOTE | 2022-06-21 20:28 | PHA.MEDREC ---
Pharmacy Consult ? Medication Reconciliation Pharmacy has completed the medication reconciliation. POKE WITH PT AND , REVIEWED PT LIST BROUGHT IN BY FAMILY
--- NOTE | 2022-06-21 22:58 | PC.NURSE ---
Pt. in room and reporting SOB and increased work of breathing, O2 sats decreased to 87%. O2 increased to 4L, pt. placed back on NC per his request from the oxymed. Pt. reported that felt better. O2 back up to 90%. O2 sats again decreased to 85%, pt. sat upright, O2 bumped to 5L. Hospitalist made aware and respiratory called. Respiratory changed tubing to HAYES tubing and O2 increased back to 90%. Pt. reports feeling better. Crackles continue to be heard throughout lungs.
[2022-06-21] MEDS: Sotalol HCL 80 MG TABLET PO (23:09)
[2022-06-21] MEDS: Apixaban 5 MG TABLET PO (23:09)
[2022-06-21] MEDS: amLODIPine Besylate 5 MG TABLET PO (23:27)
--- NOTE | 2022-06-21 23:32 | PC.NURSE ---
Pt. medicated per JUL. Pt. amlodopine was scheduled to start tomorrow night, however, pt. had not taken it tonight TAlked to pharmacy and they adjusted time to start tonight. Pt. also takes cimetedine, however this is non-formulary medication. In-house pharmacy is closed, so unable to send pt. own med up to our pharmacy. Talked to our remote pharmacy and they released med on JUL so I was able to medicate with pt. own med. Called to give report as pt moving to [phone]. RN busy and will call back in about 10 minutes.
[2022-06-22] VITALS (20 sets, daily range): BP systolic 83–112; BP diastolic 55–72; PULSE 60–88; RESP 17–30; TEMP 36.2–37.3; O2SAT 86–98; BMI 31.2
[2022-06-22] MEDS: Acetaminophen 325 MG TABLET 650 MG PO (01:30)
[2022-06-22] MEDS: 0.9 % Sodium Chloride Flush 3 ML SYRINGE IVFLUSH ×2 (01:34→09:00)
--- NOTE | 2022-06-22 04:45 | PC.NURSE ---
Pt is having hematuria. Dr. Donohue was made aware.
--- NOTE | 2022-06-22 07:00 | CA_ITS ---
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 There is mildly increased left ventricular wall thickness. The left ventricular systolic function is normal. The visually estimated ejection fraction is between 55-60%. - There is a flattened septum in systole and diastole consistent with right ventricular pressure and volume overload. - Severely increased right ventricular cavity size. There is severely decreased right ventricular systolic function. Lawson's sign present. Cannot rule out PE. - The right atrium is severely dilated. - There is moderate tricuspid valve regurgitation. The right ventricular systolic pressure is 101 mmHg. Moderately elevated right atrial pressure. Severe pulmonary hypertension is present. Findings Left Ventricle Decreased left ventricular cavity size. There is mildly increased left ventricular wall thickness. The left ventricular systolic function is normal. The visually estimated ejection fraction is between 55-60%. There is no evidence of regional wall motion abnormalities. There is a flattened septum in systole and diastole consistent with right ventricular pressure and volume overload. Diastolic function is normal for age. Right Ventricle Severely increased right ventricular cavity size. There is severely decreased right ventricular systolic function. Lawson's sign present. Cannot rule out PE. Atria The left atrium is normal in size. The right atrium is severely dilated. Aortic Valve Normal aortic valve structure and function. There is no aortic valve stenosis. There is no aortic valve regurgitation. Mitral Valve Normal mitral valve structure and function. There is no mitral valve regurgitation. There is no mitral valve stenosis. Pulmonic Valve The pulmonic valve is likely normal. Tricuspid Valve Normal tricuspid valve structure. There is moderate tricuspid valve regurgitation. The right ventricular systolic pressure is 101 mmHg. Moderately elevated right atrial pressure. Severe pulmonary hypertension is present. Great Vessels There is mild dilatation of the ascending aorta measuring 3.70 cm. The visualized portions of the pulmonary artery and branches are normal. Venous The inferior vena cava is dilated and does not collapse with inspiration. Pericardium/Pleural There is a trivial circumferential pericardial effusion. Prior Study Comparison Changes noted compared to prior study dated: 09/23/2018. Severe RV dysfunction, severe pulmonary hypertension. Measurements 2D Linear Measurements IVSd: 1.52 0.6-0.9/0.6-1.0 cm LVIDd: 4.57 3.9-5.3/4.2-5.9 cm LVIDd Index: 1.94 2.4-3.2/2.2-3.1 cm/m2 LVIDs: 3.12 2.0-3.6 cm LVPWd: 1.19 0.7-1.1 cm LA Diam: 3.10 2.7-3.8/3.0-4.0 cm LAIDs Index: 1.31 1.5-2.3 cm/m2 LV Mass: 302.00 67-162/88-224 g LV Mass Index: 127.97 43-95/49-115 g/m2 LVOT Diam: 2.00 3.0+(-)1.3 cm Mitral Valve MV Pk E: 0.31 MV PK A: 0.45 MV Decel Time: 199.00 E/A: 0.70 E'Lateral: 6.85 E'Medial: 4.46 E/E' Med: 6.90 E/E' Lat: 4.50 PHT: 58.00 MVA PHT: 3.79 Decel [place]: 1.55 LVOT LVOT Pk Vinny: 0.65 LVOT Mn Vinny: 0.43 LVOT VTI: 0.13 LVOT Pk Grad: 2.00 LVOT Mn Grad: 1.00 LVOT Diam: 2.00 LVOT Area: 3.14 Diastolic Function MV Pk E: 0.31 MV Pk A: 0.45 E/A: 0.70 E'Medial: 4.46 E/E' Med: 6.90 E' Laterial: 6.85 E/E' Lat: 4.50 Right Ventricle TAPSE (mm): 12.40 TVS' Vinny: 11.40 Tricuspid Valve TR Pk Vinny: 4.63 TR Pk Grad: 86.00 RA Press: 15.00 RVSP: 101.00 Great Vessels Aorta Sinus of Valsalva: 3.58 2.0-3.[address] [place]: 3.08 1.7-3.4 cm Ao Asc: 3.70 2.1-3.4 cm Updated in Other Vendor System with Status of Final Luis Armando Govea MD electronically signed on 06/22/2022 3:09:34 PM with status of Final
[2022-06-22 08:06] LABS: MANUAL DIFF FLAG NO
[2022-06-22 08:14] LABS: Basophils Percent Auto 0.2 % (0-2); Eosinophils Percent Auto 0.2 % (0-4); Hematocrit 50.7 % (42.0-52.0); Hemoglobin 16.3 g/dl (14.0-18.0); Imm Gran Abs Auto 0.03 X10*3/uL (0.00-0.03); Imm Gran Pct Auto 0.4 % (0.0-0.4); Lymphocytes Absolute Auto 1.2 X10*3/uL (1.2-4.9); Lymphocytes Percent Auto 14.5 % (20-40); Mean Corpuscular HGB Conc 32.1 g/dl (31.0-36.0); Mean Corpuscular Hemoglobin 29.7 pg (27.0-33.0); Mean Corpuscular Volume 92.5 fL (80.0-98.0); Mean Platelet Volume 10.2 fL (9.4-12.4); Monocytes Absolute Auto 0.8 X10*3/uL (0.1-1.2); Monocytes Percent Auto 9.7 % (2-11); Neutrophils Absolute Auto 6.1 x10*3/uL (2.0-8.3); Platelet Count 236 X10*3/uL (160-400); Red Blood Count 5.48 X10*6/uL (4.60-5.80); Red Cell Distribution Width 12.8 % (11.0-16.0); White Blood Count 8.1 X10*3/uL (4.8-10.8)
[2022-06-22 08:35] LABS: Anion Gap 15 (12-20); Blood Urea Nitrogen 21 mg/dL (9-16); Calcium 9.3 mg/dL (8.4-10.2); Carbon Dioxide 32 mmol/L (22-29); Chloride 99 mmol/L (96-108); Creatinine Clr Calc Pharmacy 76.2; Estimated Glomerular Filt Rate > 60; Glucose Random 93 mg/dL (60-115); Potassium 4.7 mmol/L (3.3-5.1); Sodium 141 mmol/L (135-145)
[2022-06-22 08:38] LABS: B Type Natriuretic Peptide 1690 pg/mL (<100)
[2022-06-22] MEDS: Ezetimibe 10 MG TABLET PO (09:00)
[2022-06-22] MEDS: Apixaban 5 MG TABLET PO ×2 (09:00→20:56)
[2022-06-22] MEDS: LORazepam 1 MG TABLET PO (09:00)
[2022-06-22] MEDS: Furosemide 40 MG/4 ML VIAL IVPUSH (09:00)
[2022-06-22] MEDS: Sotalol HCL 80 MG TABLET PO ×2 (09:00→21:22)
[2022-06-22] MEDS: dilTIAZem HCL CD 180 MG CAP.ER.24H PO (09:00)
--- NOTE | 2022-06-22 12:02 | MHC.CM.PN ---
spoke with pts who reports not having any servceis pt is on home 02,has family to trans[port him home is covid vax x 2
[2022-06-22 12:12] LABS: ABG Base Excess 2.5 mmol/L; ABG HCO3 30 mmol/L (22-26); ABG pCO2 60 mmHg (32-45); ABG pH 7.31 (7.35-7.45); ABG pO2 115 mmHg (83-108)
--- NOTE | 2022-06-22 12:30 | PC.RT ---
Rapid response called, pt found to have decreased spo2 after removing his oxymask. Placed on 12 lpm oxymask, spo2 inc to 88%, mild inc wob noted. Pt transitioned to NRB mask, abg was drawn. Pt easily aroused and answering questions. Mils pardoxical resps were noted and cpap of 10 was started. RNMD are aware, pt is kane well at this time.
[2022-06-22 12:40] LABS: MANUAL DIFF FLAG NO
[2022-06-22 12:43] LABS: Basophils Percent Auto 0.4 % (0-2); Eosinophils Absolute Auto 0.1 X10*3/uL (0.0-0.4); Eosinophils Percent Auto 0.6 % (0-4); Hematocrit 52.6 % (42.0-52.0); Hemoglobin 16.7 g/dl (14.0-18.0); Imm Gran Abs Auto 0.02 X10*3/uL (0.00-0.03); Imm Gran Pct Auto 0.2 % (0.0-0.4); Lymphocytes Absolute Auto 1.4 X10*3/uL (1.2-4.9); Lymphocytes Percent Auto 15.3 % (20-40); Mean Corpuscular HGB Conc 31.7 g/dl (31.0-36.0); Mean Corpuscular Hemoglobin 29.5 pg (27.0-33.0); Mean Corpuscular Volume 92.8 fL (80.0-98.0); Mean Platelet Volume 9.9 fL (9.4-12.4); Monocytes Percent Auto 10.2 % (2-11); Neutrophils Absolute Auto 6.9 x10*3/uL (2.0-8.3); Neutrophils Percent Auto 73.3 % (45-73); Platelet Count 246 X10*3/uL (160-400); Red Blood Count 5.67 X10*6/uL (4.60-5.80); White Blood Count 9.4 X10*3/uL (4.8-10.8)
--- NOTE | 2022-06-22 13:06 | P.PNIM_ITS ---
Subjective Subjective Date of Service: 06/22/22 Interval History: Seen in follow up for presumed CHF exacerbation with acute on chronic hypoxemic/hypercapnic respiratory failure Interval history: Minimal improvement in BNP to 1600. Still fluid overloaded. Still reporting SOB on initial exam on 6L via oxymask. However, rapid response called as patient was found bny nurse without oxymask on satting into the 60s. Placed on nonrebreather with improvement in oximetry to 925. Initially hyp otensive to 88/60, improved to 94/64. ABG pH 7.305, pCO2 60.2, PO2 114.5, SpO2 99%. Placed on CPAP and changed to BIPAP. Dicussed with Dr. Hartley. He is currently -1700ml last 24 hours with IV lasix, but still with crackles and ble edema. Noted to have brick red hematuria without clots from villagran. Review of Systems General: No fevers, malaise, unintentional weight loss Cardiovascular: No chest pain, palpitations, or leg edema Respiratory: +sob, +orthopnea. No wheezing, cough GI: No abdominal pain, nausea, vomiting, diarrhea, constipation, melena, hematochezia : +hematuria. No dysuria, increased urinary frequency, decreased urinary output MSK: No myalgia, back pain Neuro: No headaches, weakness, paresthesias Skin: No rashes or lesions Physical Exam Vital Signs: Vital Signs: Last Vital Signs Temp 97.3 F 06/22/22 11:45 Pulse 76 06/22/22 11:58 Resp 22 H 06/22/22 12:51 BP 94/64 06/22/22 11:58 Pulse Ox 98 06/22/22 11:58 O2 Del Method 06/22/22 11:58 O2 Flow Rate 15 06/22/22 11:58 Oxygen Flow Rate 3 06/21/22 13:26 BMI result Body Mass Index 31.2 Constitutional - Awake but fatigued, respiratory distress Eyes - PERRLA, EOMI Cardiovascular - S1S2, RRR, 3+BLE edeaa Respiratory - Normal lung expansion, Normal respiratory effort, moderate respiratory distress with accessory muscle usage on nonrebreather, improvement in work of breathing on CPAP. Bilateral coarse crackles Gastrointestinal - NT / ND; +BS; No rebound or guarding Extremities - no calf tenderness bilaterally, no calf swelling Skin - Warm/Dry Neurological - Alert & oriented x3, CN II-XII in tact, 5/5 strength BUE and BLE Psychological - Appropriate affect Objective Data Active Medications Acetaminophen (Acetaminophen 325 Mg Tablet) 650 mg PO Q6H PRN PRN Reason: Pain, Mild (Pain Scale 1-3) Last Admin: 06/22/22 01:30 Dose: 650 mg Documented By: LARRY Amlodipine Besylate (Amlodipine Besylate 5 Mg Tablet) 5 mg PO BEDTIME [facility]; Protocol Last Admin: 06/21/22 23:27 Dose: 5 mg Documented By: ALEAH Apixaban (Apixaban 5 Mg Tablet) 5 mg PO BID [facility] Last Admin: 06/22/22 09:00 Dose: 5 mg Documented By: PETER Diltiazem HCl (Diltiazem Hcl Cd 180 Mg Cap.Er.24h) 180 mg PO DAILY [facility]; Protocol Last Admin: 06/22/22 09:00 Dose: 180 mg Documented By: PETER Docusate Sodium (Docusate Sodium 100 Mg Capsule) 100 mg PO DAILY PRN PRN Reason: Constipation Ezetimibe (Ezetimibe 10 Mg Tablet) 10 mg PO DAILY [facility] [place] Last Admin: 06/22/22 09:00 Dose: 10 mg Documented By: PETER Furosemide (Furosemide 40 Mg/4 Ml Vial) 40 mg IVPUSH DAILY [facility]; Protocol Last Admin: 06/22/22 09:00 Dose: 40 mg Documented By: PETER Furosemide 200 mg/ Sodium (Chloride) 100 mls @ 2.5 mls/hr IVCONT .Q24H [facility] Lorazepam (Lorazepam 1 Mg Tablet) 1 mg PO DAILY [facility] [place] Last Admin: 06/22/22 09:00 Dose: 1 mg Documented By: PETER Non-Formulary Medication (Cimetidine) 300 mg PO Q12H [facility] Last Admin: 06/22/22 12:34 Dose: Not Given Documented By: PETER Non-Admin Reason: home med - spouse did not bring Pharmacy Consult (Consult Rx Perform Med Rec) 1 each MISCELLANE ONCE PRN PRN Reason: Consult order Senna (Sennosides 8.6 Mg Tablet) 17.2 mg PO BEDTIME PRN PRN Reason: Constipation Sodium Chloride (0.9 % Sodium Chloride Flush 3 Ml Syringe) 3 ml IVFLUSH QSHIFT [facility] [place] Last Admin: 06/22/22 09:00 Dose: 3 ml Documented By: PETER Sotalol HCl (Sotalol Hcl 80 Mg Tablet) 80 mg PO BID [facility] [place] Last Admin: 06/22/22 09:00 Dose: 80 mg Documented By: PETER Labs 06/22/22 12:25 06/22/22 07:31 Labs: Laboratory Results - last 24 hr 06/21/22 06/21/22 06/21/22 13:45 13:45 13:45 MCV 91.3 MCH 29.6 MCHC 32.4 RDW 13.0 Plt Count 258 MPV 9.4 Immature Gran % (Auto) 0.4 Neut % (Auto) 80.1 H Lymph % (Auto) 11.8 L [place] % (Auto) 6.5 Eos % (Auto) 0.7 Baso % (Auto) 0.5 Lymph # (Auto) 1.0 L [place] # (Auto) 0.6 Eos # (Auto) 0.1 Baso # (Auto) 0.0 Abs Immat Gran (auto) 0.03 Absolute Neuts (auto) 6.8 Absolute Nucleated RBC 0.000 Nucleated RBC % (auto) 0.0 O2 Saturation ABG pH at Pt Temp ABG pCO2 at Pt Temp ABG pO2 at Pt Temp ABG HCO3 ABG Base Excess (Actual) Anion Gap 15 Estim Creat Clear Calc 73.5 Estimated GFR > 60 Random Glucose 130 H Calcium 9.5 Total Bilirubin 1.6 H Direct Bilirubin 0.5 AST 17 ALT 10 Alkaline Phosphatase 77 Troponin I High Sens 6.2 B-Natriuretic Peptide Total Protein 6.9 Albumin 3.7 COVID-19 (RICHARD) COVID-19 Clin Com 06/21/22 06/21/22 06/22/22 13:45 14:03 07:31 MCV 92.5 MCH 29.7 MCHC 32.1 RDW 12.8 Plt Count 236 MPV 10.2 Immature Gran % (Auto) 0.4 Neut % (Auto) 75.0 H Lymph % (Auto) 14.5 L [place] % (Auto) 9.7 Eos % (Auto) 0.2 Baso % (Auto) 0.2 Lymph # (Auto) 1.2 [place] # (Auto) 0.8 Eos # (Auto) 0.0 Baso # (Auto) 0.0 Abs Immat Gran (auto) 0.03 Absolute Neuts (auto) 6.1 Absolute Nucleated RBC 0.000 Nucleated RBC % (auto) 0.0 O2 Saturation ABG pH at Pt Temp ABG pCO2 at Pt Temp ABG pO2 at Pt Temp ABG HCO3 ABG Base Excess (Actual) Anion Gap Estim Creat Clear Calc Estimated GFR Random Glucose Calcium Total Bilirubin Direct Bilirubin AST ALT Alkaline Phosphatase Troponin I High Sens B-Natriuretic Peptide 1790 H Total Protein Albumin COVID-19 (RICHARD) Negative COVID-19 Clin Com See Note 06/22/22 06/22/22 06/22/22 07:31 07:31 12:03 MCV MCH MCHC RDW Plt Count MPV Immature Gran % (Auto) Neut % (Auto) Lymph % (Auto) [place] % (Auto) Eos % (Auto) Baso % (Auto) Lymph # (Auto) [place] # (Auto) Eos # (Auto) Baso # (Auto) Abs Immat Gran (auto) Absolute Neuts (auto) Absolute Nucleated RBC Nucleated RBC % (auto) O2 Saturation 99.0 ABG pH at Pt Temp 7.31 L ABG pCO2 at Pt Temp 60 H* ABG pO2 at Pt Temp 115 H ABG HCO3 30 H ABG Base Excess (Actual) 2.5 Anion Gap 15 Estim Creat Clear Calc 76.2 Estimated GFR > 60 Random Glucose 93 Calcium 9.3 Total Bilirubin Direct Bilirubin AST ALT Alkaline Phosphatase Troponin I High Sens B-Natriuretic Peptide 1690 H Total Protein Albumin COVID-19 (RICHARD) COVID-Uguru Com 06/22/22 12:25 MCV 92.8 MCH 29.5 MCHC 31.7 RDW 13.0 Plt Count 246 MPV 9.9 Immature Gran % (Auto) 0.2 Neut % (Auto) 73.3 H Lymph % (Auto) 15.3 L [place] % (Auto) 10.2 Eos % (Auto) 0.6 Baso % (Auto) 0.4 Lymph # (Auto) 1.4 [place] # (Auto) 1.0 Eos # (Auto) 0.1 Baso # (Auto) 0.0 Abs Immat Gran (auto) 0.02 Absolute Neuts (auto) 6.9 Absolute Nucleated RBC 0.000 Nucleated RBC % (auto) 0.0 O2 Saturation ABG pH at Pt Temp ABG pCO2 at Pt Temp ABG pO2 at Pt Temp ABG HCO3 ABG Base Excess (Actual) Anion Gap Estim Creat Clear Calc Estimated GFR Random Glucose Calcium Total Bilirubin Direct Bilirubin AST ALT Alkaline Phosphatase Troponin I High Sens B-Natriuretic Peptide Total Protein Albumin COVID-19 (RICHARD) COVID-19 Clin Com Assessment and Plan (1) Acute on chronic respiratory failure with hypoxemia: Status: Acute (2) CHF exacerbation: Status: Acute Plan 71-year-old male with history of GERD, COPD, hyperlipidemia, hypertension, paroxysmal atrial fibrillation anticoagulated with Eliquis, interstitial lung disease with chronic hypoxemic respiratory failure on 2 L supplemental O2 at home, and fibromyalgia admitted for acute CHF exacerbation. #Acute on chronic hypoxemic/hypercapnic respiratory failure - secondary to presumed CHF exacerbation -Baseline 2L supplemental O2 due to chronic interstitial lung disease/COPD -Rapid response called for oxygen desaturation to 60's without oxymask. Placed on nonrebreather with improvement to 92%. ABG was showing mild respiratory acidosis with pH 7.035/pCO2 60.2/PO2 114.5/S O2 99%. Initially placed on CPAP. Discussed case with Dr. Hartley. Will change to BIPAP for rescue for 1-2 hours and change to lasix drip. If no significant improvement in gases, transfer to ICU. -Continue supplemental O2 to maintain oximetry 88-92% -Treat CHF as below #Acute CHF exacerbation -CXR with coarse interstitial markings that do appear increased from prior imaging -Chest CT ordered -Clinically fluid overloaded with orthopnea, HERNANDEZ, and 3+ pitting edema BLE -BNP with minimal improvement -Change to lasix drip per Dr. Hartley -Strict I&O -Daily weights -Cardiac diet -Echo -Cardiology consult -Follow BMP and BNP #Gross hematuria -Likely traumatic follow villagran insertion, no clots -Hold on CBI/urology consult unless no improvement -Follow H/H #Paroxysmal atrial fibrillation- rate controlled -Continue eliquis -Continue diltiazem, sotalol #HTN- BP soft -Hold amlodipine. -Continue diliazem, sotalol #HLD -continue zetia #COPD/interstitial lung disease- without acute exacerbation -albuterol prn DVT prophylaxis- on eliquis Do not intubate Pt requires ongoing inpt stay for management of acute CHF exacerbation requiring IV diuresis, close monitoring of i&O, and monitoring of renal function and electrolytes levels as well management of acute on chronic hypoxemic/hypercapnic respiratory failure currently requiring BiPAP Time Spent With Patient Time: Total time managing care of this patient today 60 minutes. Quality Stroke Does the patient have a stroke diagnosis?: No VTE Prior VTE?: No VTE Risk Level:: Medical - moderate - high VTE Device Contraindication: Treatment Not Indicated VTE Drug Contraindication: N/A - Med Ordered
[2022-06-22 14:02] LABS: ABG Base Excess 4.9 mmol/L; ABG HCO3 32 mmol/L (22-26); ABG pCO2 56 mmHg (32-45); ABG pH 7.36 (7.35-7.45); ABG pO2 68 mmHg (83-108)
[2022-06-22] MEDS: Furosemide 200 MG in 0.9 % Sodium Chloride 80 ML IVCONT (14:03)
--- NOTE | 2022-06-22 14:52 | PM.CNCAR ---
History of Present Illness History of Present Illness Date of Service: 06/22/22 Requesting physician: Radha York Chief complaint: Hypoxic respiratory failure, CHF Narrative: 71-year-old gentleman with background history of paroxysmal atrial fibrillation for which he has been on sotalol and apixaban, hypertension and interstitial lung disease. He was lost seen in the office in March 2021. He has not followed up with us for some time. He is now presenting with significant volume overload which as per the has been happening for approximately a year at this stage. He also has worsening shortness of breath. He said he was coughing and had fevers and chills too. He is currently on BiPAP. Apparently there was PHARMACEUTICAL DETAILER called on him today because his oxygen level was low and blood gas pointed toward hypercapnic respiratory failure and he has been on BiPAP since then. He has been on furosemide with a negative fluid balance but his oxygen demand is still rising. He has an elevated BNP level. Overall he is significantly whole body volume overloaded at this point. History somewhat limited because patient is currently on BiPAP. [facility] Past Medical History Medical History Acute on chronic respiratory failure with hypoxemia COPD (chronic obstructive pulmonary disease) Fibromyalgia GERD (gastroesophageal reflux disease) High cholesterol History of cardioversion HTN (hypertension) Interstitial lung disease PAF (paroxysmal atrial fibrillation) PTSD (post-traumatic stress disorder) Vitamin B 12 deficiency Family History Family History Father No problems noted. Mother No problems noted. Surgical History Surgical History History of cholecystectomy History of tonsillectomy Social History Social History Household Members: Spouse and Children Housing: House Do you presently have visiting nurse or other home services: No Alcohol intake: former Patient Tobacco Use Status: Former Tobacco user Quit Date: 1999 Tobacco use type: Cigarette Years Smoked: 33 +/-1999 e-Cigarette/Vaping Use: Never Used Second Hand Smoke Exposure: No Advance Directives Date on File: 06/22/22 service: No Current occupational status: retired Cognitive needs: No Hearing needs: No Vision needs: Yes Meds Allergies Allergy/AdvReac Type Severity Reaction Status Date / Time Iodinated Contrast Media Allergy Unknown SWELLING, Verified 02/09/22 12:28 [CONTRAST, IV] HIVES penicillin V Allergy Unknown Unknown Verified 02/09/22 12:28 Penicillins [PENICILLINS] Allergy Unknown UNKNOWN- Verified 02/09/22 12:28 RX CHILD contrast dye Allergy Unknown Unknown Uncoded 02/09/22 12:28 IV Contrast Dye Allergy Unknown Unknown Uncoded 02/09/22 12:28 penicillin Allergy Unknown Unknown Uncoded 02/09/22 12:28 Active Medications: Current Medications Acetaminophen (Acetaminophen 325 Mg Tablet) 650 mg PO Q6H PRN PRN Reason: Pain, Mild (Pain Scale 1-3) Last Admin: 06/22/22 01:30 Dose: 650 mg Apixaban (Apixaban 5 Mg Tablet) 5 mg PO BID [facility] Last Admin: 06/22/22 09:00 Dose: 5 mg Diltiazem HCl (Diltiazem Hcl Cd 180 Mg Cap.Er.24h) 180 mg PO DAILY [facility]; Protocol Last Admin: 06/22/22 09:00 Dose: 180 mg Docusate Sodium (Docusate Sodium 100 Mg Capsule) 100 mg PO DAILY PRN PRN Reason: Constipation Ezetimibe (Ezetimibe 10 Mg Tablet) 10 mg PO DAILY [facility] Last Admin: 06/22/22 09:00 Dose: 10 mg Furosemide 200 mg/ Sodium (Chloride) 100 mls @ 2.5 mls/hr IVCONT .Q24H [facility] Last Admin: 06/22/22 14:03 Dose: 5 mg/hr, 2.5 mls/hr Lorazepam (Lorazepam 1 Mg Tablet) 1 mg PO DAILY [facility] Last Admin: 06/22/22 09:00 Dose: 1 mg Non-Formulary Medication (Cimetidine) 300 mg PO Q12H [facility] Last Admin: 06/22/22 12:34 Dose: Not Given Pharmacy Consult (Consult Rx Perform Med Rec) 1 each MISCELLANE ONCE PRN PRN Reason: Consult order Senna (Sennosides 8.6 Mg Tablet) 17.2 mg PO BEDTIME PRN PRN Reason: Constipation Sodium Chloride (0.9 % Sodium Chloride Flush 3 Ml Syringe) 3 ml IVFLUSH QSHIFT [facility] Last Admin: 06/22/22 09:00 Dose: 3 ml Sotalol HCl (Sotalol Hcl 80 Mg Tablet) 80 mg PO BID [facility] Last Admin: 06/22/22 09:00 Dose: 80 mg Home Medications Medication Instructions Recorded Confirmed Last Taken Type amlodipine 5 mg tablet 5 mg PO BEDTIME 06/21/22 06/21/22 Unknown History docusate sodium 100 mg capsule 100 mg PO DAILY PRN Constipation 06/21/22 06/21/22 Unknown History lorazepam 1 mg tablet 1 mg PO DAILY 06/21/22 06/21/22 Unknown History Physical Exam Vital Signs: Vital Signs: Last Vital Signs Temp 97.3 F 06/22/22 11:45 Pulse 76 06/22/22 11:58 Resp 22 H 06/22/22 12:51 BP 94/64 06/22/22 11:58 Pulse Ox 98 06/22/22 11:58 O2 Del Method 06/22/22 11:58 O2 Flow Rate 15 06/22/22 11:58 Oxygen Flow Rate 3 06/21/22 13:26 BMI result Body Mass Index 31.2 GENERAL APPEARANCE: On BiPAP. NECK: Elevated JVP. SKIN: no suspicious lesions, warm and dry. HEART: Holosystolic murmur left sternal border and apex, regular rate and rhythm. LUNGS: Bilateral crackles. ABDOMEN: soft, nontender. EXTREMITIES: 3+ edema. PERIPHERAL PULSES: equal. NEUROLOGIC: No gross deficits, AAO X 3 Objective Labs and Meds 06/22/22 12:25 06/22/22 07:31 Lab results: Laboratory Results - last 24 hr 06/21/22 06/22/22 06/22/22 13:45 07:31 07:31 WBC 8.1 RBC 5.48 Hgb 16.3 Hct 50.7 MCV 92.5 MCH 29.7 MCHC 32.1 RDW 12.8 Plt Count 236 MPV 10.2 Immature Gran % (Auto) 0.4 Neut % (Auto) 75.0 H Lymph % (Auto) 14.5 L [place] % (Auto) 9.7 Eos % (Auto) 0.2 Baso % (Auto) 0.2 Lymph # (Auto) 1.2 [place] # (Auto) 0.8 Eos # (Auto) 0.0 Baso # (Auto) 0.0 Abs Immat Gran (auto) 0.03 Absolute Neuts (auto) 6.1 Absolute Nucleated RBC 0.000 Nucleated RBC % (auto) 0.0 O2 Saturation ABG pH at Pt Temp ABG pCO2 at Pt Temp ABG pO2 at Pt Temp ABG HCO3 ABG Base Excess (Actual) Sodium 141 Potassium 4.7 Chloride 99 Carbon Dioxide 32 H Anion Gap 15 BUN 21 H Creatinine 1.14 Estim Creat Clear Calc 76.2 Estimated GFR > 60 Random Glucose 93 Calcium 9.3 Total Bilirubin 1.6 H Direct Bilirubin 0.5 AST 17 ALT 10 Alkaline Phosphatase 77 B-Natriuretic Peptide Total Protein 6.9 Albumin 3.7 06/22/22 06/22/22 06/22/22 07:31 12:03 12:25 WBC 9.4 RBC 5.67 Hgb 16.7 Hct 52.6 H MCV 92.8 MCH 29.5 MCHC 31.7 RDW 13.0 Plt Count 246 MPV 9.9 Immature Gran % (Auto) 0.2 Neut % (Auto) 73.3 H Lymph % (Auto) 15.3 L [place] % (Auto) 10.2 Eos % (Auto) 0.6 Baso % (Auto) 0.4 Lymph # (Auto) 1.4 Gem # (Auto) 1.0 Eos # (Auto) 0.1 Baso # (Auto) 0.0 Abs Immat Gran (auto) 0.02 Absolute Neuts (auto) 6.9 Absolute Nucleated RBC 0.000 Nucleated RBC % (auto) 0.0 O2 Saturation 99.0 ABG pH at Pt Temp 7.31 L ABG pCO2 at Pt Temp 60 H* ABG pO2 at Pt Temp 115 H ABG HCO3 30 H ABG Base Excess (Actual) 2.5 Sodium Potassium Chloride Carbon Dioxide Anion Gap BUN Creatinine Estim Creat Clear Calc Estimated GFR Random Glucose Calcium Total Bilirubin Direct Bilirubin AST ALT Alkaline Phosphatase B-Natriuretic Peptide 1690 H Total Protein Albumin 06/22/22 13:53 WBC RBC Hgb Hct MCV MCH MCHC RDW Plt Count MPV Immature Gran % (Auto) Neut % (Auto) Lymph % (Auto) [place] % (Auto) Eos % (Auto) Baso % (Auto) Lymph # (Auto) [place] # (Auto) Eos # (Auto) Baso # (Auto) Abs Immat Gran (auto) Absolute Neuts (auto) Absolute Nucleated RBC Nucleated RBC % (auto) O2 Saturation 92.0 ABG pH at Pt Temp 7.36 ABG pCO2 at Pt Temp 56 H ABG pO2 at Pt Temp 68 L ABG HCO3 32 H ABG Base Excess (Actual) 4.9 Sodium Potassium Chloride Carbon Dioxide Anion Gap BUN Creatinine Estim Creat Clear Calc Estimated GFR Random Glucose Calcium Total Bilirubin Direct Bilirubin AST ALT Alkaline Phosphatase B-Natriuretic Peptide Total Protein Albumin Imaging Radiologist's impression: Impressions Chest X-Ray 06/21/22 14:18 IMPRESSION: Coarsened interstitial markings consistent with known interstitial lung disease without significant interval change. No definitive acute abnormality. Assessment and Plan (1) Acute on chronic respiratory failure with hypoxemia: Status: Acute (2) CHF exacerbation: Status: Acute (3) Interstitial lung disease: Status: Acute Plan 71-year-old gentleman presenting for anasarca and respiratory failure. He has background history of interstitial lung disease. Echocardiography showing severe RV dilatation and dysfunction. He has severe pulmonary hypertension. Significantly volume overloaded currently. Agree with IV diuretics. Stop the diltiazem because it is a negative ionotropic agent and may effect right ventricular output. Continue sotalol. Monitor electrolytes closely. He has significant hypoxia. His right ventricular dysfunction could be related to underlying tested lung disease but acute pulmonary embolism is a possibility too. He is allergic to contrast and a V/Q scan can be considered. In any case he is on anticoagulation and should continue the Eliquis. As his respiratory status improves we can work him up for pulmonary embolism. Agree with IV diuretics. He has significantly hypoxic and I think his hypoxia is not completely explained by the RV dysfunction (unless there was pulmonary embolism). He has known history of interstitial lung disease and exacerbation of interstitial lung disease can also cause significant hypoxia and similar presentation. Recommend high-dose steroids along with diuretics. Cardizem has been stopped and should not be introduced. We will follow along with you. He is critically sick currently. Thank you for allowing me to participate in the care of your patient. Please feel free to contact me if you have any questions. Time Spent With Patient Time: Total time managing care of this patient today ____ minutes. Procedures Date of Service Date of Service: 06/22/22
--- NOTE | 2022-06-22 15:58 | PM.CCN ---
Critical Care Event Note Summary Date of Service: 06/22/22 Code activated: No Narrative: 71-year-old gentleman with underlying COPD, right heart failure, AFib, severe pulmonary hypertension admitted with exacerbation underlying congestive heart failure resulting in acute hypoxic hypercapnic respiratory failure now requiring rescue BiPAP and transfer to intensive care unit. Continue to titrate off BiPAP as tolerated. O2 sat goal of 88-92%, no higher than 93%. IV diuresis as tolerated. Low suspicion for pulmonary embolism as patient is on chronic anticoagulation with Eliquis. Start sildenafil. Critical Care Time (minutes): 0
[2022-06-22 17:52] LABS: Appearance Urine Cloudy; Color Urine RED; Glucose Urine UA 100 mg/dL (Negative); Leukocyte Esterase Urine Moderate (2+) (Negative); Nitrite Urine Positive (Negative); UMIC TRIGGER UACC YES; Urine Blood Large (3+) (Negative); Urine Ketones 40 mg/dL (Negative); Urine Protein 300 (3+) mg/dL (Neg-Trace)
[2022-06-22] MEDS: Sildenafil Citrate 20 MG TABLET PO ×2 (17:54→20:56)
[2022-06-22 18:06] LABS: Bacteria Urine 1+ (None Seen); Hyaline Casts Urine 0-2 /LPF (0-2); RBC Urine >20 /HPF (0-2); Squamous Epithelial Cell Urine 0-2 /HPF (0-2); UACC Culture Trigger YES
[2022-06-22 18:24] LABS: VBG Base Excess 6.1 mmol/L; VBG HCO3 35 mmol/L (22-26); VBG pCO2 69 mmHg; VBG pH 7.31 (7.32-7.43); VBG pO2 31 mmHg
[2022-06-22 18:46] LABS: Anion Gap 15 (12-20); Blood Urea Nitrogen 24 mg/dL (9-16); Calcium 9.2 mg/dL (8.4-10.2); Carbon Dioxide 29 mmol/L (22-29); Chloride 100 mmol/L (96-108); Creatinine Clr Calc Pharmacy 71.2; Estimated Glomerular Filt Rate 58; Glucose Random 102 mg/dL (60-115); Potassium 4.6 mmol/L (3.3-5.1); Sodium 139 mmol/L (135-145)
[2022-06-22] MEDS: cefTRIAXone sodium 1 GM in 0.9 % Sodium Chloride 50 ML IV (19:28)
[2022-06-22] MEDS: Pantoprazole Sodium 40 MG/10 ML VIAL IVPUSH (20:56)
[2022-06-22] MEDS: Norepinephrine Bitartrate/D5W 8 MG/250 ML PLAST..BAG 10.34 MG IV (21:08)
[2022-06-22 23:47] LABS: Venous Blood Gas Refer to POC result
[2022-06-23] VITALS (35 sets, daily range): BP systolic 86–107; BP diastolic 58–73; PULSE 70–85; RESP 16–93; TEMP 36.3–36.8; O2SAT 88–95; BMI 31.1
[2022-06-23 04:28] LABS: ABG Refer to POC result
[2022-06-23 04:28] LABS: ABG Refer to POC result
[2022-06-23 05:01] LABS: VBG Base Excess 3.6 mmol/L; VBG HCO3 25 mmol/L (22-26); VBG pCO2 29 mmHg; VBG pH 7.53 (7.32-7.43); VBG pO2 41 mmHg
[2022-06-23 05:27] LABS: Anion Gap 18 (12-20); Blood Urea Nitrogen 25 mg/dL (9-16); Calcium 8.9 mg/dL (8.4-10.2); Carbon Dioxide 24 mmol/L (22-29); Chloride 101 mmol/L (96-108); Creatinine Clr Calc Pharmacy 68.4; Estimated Glomerular Filt Rate 56; Glucose Random 110 mg/dL (60-115); Magnesium 1.8 mg/dL (1.6-2.6); Phosphorus 4.7 mg/dL (2.7-4.5); Sodium 138 mmol/L (135-145)
[2022-06-23 05:33] LABS: Venous Blood Gas Refer to POC result
--- NOTE | 2022-06-23 07:02 | PC.NURSE ---
Assumed care of patient at 1845. Throughout first part of shift patient w/minimal urine output of 10-20 mL/hr on Lasix gtt. VISUAL MERCHANDISING COORDINATOR notified. Per VISUAL MERCHANDISING COORDINATOR at 0200 Lasix gtt paused d/t oliguria. Oncoming RN aware.
[2022-06-23] MEDS: 0.9 % Sodium Chloride Flush 3 ML SYRINGE IVFLUSH ×3 (09:00→19:59)
[2022-06-23] MEDS: Apixaban 5 MG TABLET PO ×2 (09:01→19:59)
[2022-06-23] MEDS: Sotalol HCL 80 MG TABLET PO ×2 (09:01→19:59)
[2022-06-23] MEDS: Sildenafil Citrate 20 MG TABLET PO ×3 (09:01→19:59)
[2022-06-23 09:20] LABS: MANUAL DIFF FLAG NO
[2022-06-23 09:22] LABS: Basophils Percent Auto 0.2 % (0-2); Eosinophils Percent Auto 0.1 % (0-4); Hematocrit 51.2 % (42.0-52.0); Hemoglobin 16.4 g/dl (14.0-18.0); Imm Gran Abs Auto 0.02 X10*3/uL (0.00-0.03); Imm Gran Pct Auto 0.2 % (0.0-0.4); Lymphocytes Absolute Auto 1.2 X10*3/uL (1.2-4.9); Lymphocytes Percent Auto 11.3 % (20-40); Mean Corpuscular Hemoglobin 29.8 pg (27.0-33.0); Mean Corpuscular Volume 92.9 fL (80.0-98.0); Mean Platelet Volume 10.2 fL (9.4-12.4); Monocytes Absolute Auto 0.9 X10*3/uL (0.1-1.2); Monocytes Percent Auto 8.6 % (2-11); Neutrophils Absolute Auto 8.7 x10*3/uL (2.0-8.3); Neutrophils Percent Auto 79.6 % (45-73); Platelet Count 248 X10*3/uL (160-400); Red Blood Count 5.51 X10*6/uL (4.60-5.80); Red Cell Distribution Width 12.7 % (11.0-16.0); White Blood Count 10.9 X10*3/uL (4.8-10.8)
--- NOTE | 2022-06-23 09:56 | MHC.CM.PN ---
Patient transferred to ICU on 06/22. Currently on Levophed drip. Patient is from home with his and on 2LNC oxygen at baseline. Patient is vaxxed and boosted x1. No HCP on file. Patient's family will transport patient home at d/c. Continue to monitor for d/c needs.
[2022-06-23] MEDS: LORazepam 0.5 MG TABLET PO (10:59)
[2022-06-23] MEDS: Bumetanide 1 MG/4 ML VIAL IVPUSH ×2 (13:04→19:59)
--- NOTE | 2022-06-23 14:51 | P.PNCC_ITS ---
Subjective Subjective Date of Service: 06/23/22 Interval History: 71-year-old gentleman underlying history of COPD, IPF, AFib on Eliquis, 2 L supplemental oxygen dependent admitted on 06/21/2022 with progressive dyspnea and worsening lower extremity edema of approximately 1 months. He was noted to be significantly hypoxic requiring supplemental oxygen at 426 L. He was admitted to telemetry service and started on diuresis. Hospital course is also significant for worsening hypoxia with CO2 retention while hypoxic requiring initiation of BiPAP support and transferred to intensive care unit. In the intensive care unit titrated of BiPAP. 2D echocardiogram with severely elevated pulmonary artery pressure and right ventricular dysfunction. Started on vasopressor support and diuresis. No events overnight. Critical Care Time (minutes): 45 Physical Exam Vital Signs: Vital Signs: Last Vital Signs Temp 97.3 F 06/23/22 11:00 Pulse 80 06/23/22 14:00 Resp 19 06/23/22 14:00 BP 103/73 06/23/22 14:00 Pulse Ox 95 06/23/22 14:00 O2 Del Method 06/23/22 14:00 O2 Flow Rate 8 06/23/22 14:00 FiO2 30 06/22/22 15:30 Oxygen Flow Rate 3 06/21/22 13:26 BMI result Body Mass Index 31.1 Const: General: no acute distress, alert and awake Eyes: Sclerae: sclerae normal EOM: EOMs intact bilaterally Neck: Neck: Yes no lymphadenopathy, Yes trachea midline and Yes supple Resp: Effort & Inspection: normal respiratory effort and no respiratory distress Auscultation: crackles (Diffuse bilateral) Cardio: Rate: regular rate Rhythm: regular rhythm Heart sounds: no gallops, no murmurs and no rubs GI: Palpation (GI): Soft to palpation and Other GI palpation findings present ( Nontender) Auscultation: normal bowel sounds Extrem: General: No clubbing, No cyanosis and Yes edema (3+ bilateral) Objective Data Labs 06/23/22 09:05 06/23/22 04:56 Labs: Laboratory Results - last 24 hr 06/22/22 06/22/22 06/22/22 17:27 18:17 18:21 WBC RBC Hgb Hct MCV MCH MCHC RDW Plt Count MPV Immature Gran % (Auto) Neut % (Auto) Lymph % (Auto) [place] % (Auto) Eos % (Auto) Baso % (Auto) Lymph # (Auto) [place] # (Auto) Eos # (Auto) Baso # (Auto) Abs Immat Gran (auto) Absolute Neuts (auto) Absolute Nucleated RBC Nucleated RBC % (auto) VBG pH 7.31 L VBG pCO2 69 VBG pO2 31 VBG HCO3 35 H VBG O2 Saturation 47.0 VBG Base Excess 6.1 Sodium 139 Potassium 4.6 Chloride 100 Carbon Dioxide 29 Anion Gap 15 BUN 24 H Creatinine 1.22 Estim Creat Clear Calc 71.2 Estimated GFR 58 Random Glucose 102 Calcium 9.2 Phosphorus Magnesium Albumin Urine Color RED Urine Appearance Cloudy Urine pH 7.0 Ur Specific [place] 1.020 Urine Protein 300 (3+) H Urine Glucose (UA) 100 H Urine Ketones 40 Urine Blood Large (3+) H Urine Nitrite Positive H Ur Leukocyte Esterase Moderate (2+) H Urine RBC >20 H Urine WBC 6-10 H Ur Squamous Epith Cells 0-2 Urine Bacteria 1+ Hyaline Casts 0-2 06/23/22 06/23/22 06/23/22 04:52 04:56 09:05 WBC 10.9 H RBC 5.51 Hgb 16.4 Hct 51.2 MCV 92.9 MCH 29.8 MCHC 32.0 RDW 12.7 Plt Count 248 MPV 10.2 Immature Gran % (Auto) 0.2 Neut % (Auto) 79.6 H Lymph % (Auto) 11.3 L [place] % (Auto) 8.6 Eos % (Auto) 0.1 Baso % (Auto) 0.2 Lymph # (Auto) 1.2 [place] # (Auto) 0.9 Eos # (Auto) 0.0 Baso # (Auto) 0.0 Abs Immat Gran (auto) 0.02 Absolute Neuts (auto) 8.7 H Absolute Nucleated RBC 0.000 Nucleated RBC % (auto) 0.0 VBG pH 7.53 H VBG pCO2 29 VBG pO2 41 VBG HCO3 25 VBG O2 Saturation 82.0 VBG Base Excess 3.6 Sodium 138 Potassium 5.0 Chloride 101 Carbon Dioxide 24 Anion Gap 18 BUN 25 H Creatinine 1.27 Estim Creat Clear Calc 68.4 Estimated GFR 56 Random Glucose 110 Calcium 8.9 Phosphorus 4.7 H Magnesium 1.8 Albumin 3.0 L Urine Color Urine Appearance Urine pH Ur Specific [place] Urine Protein Urine Glucose (UA) Urine Ketones Urine Blood Urine Nitrite Ur Leukocyte Esterase Urine RBC Urine WBC Ur Squamous Epith Cells Urine Bacteria Hyaline Casts Microbiology Microbiology Results: Microbiology 06/22/22 18:00 Urine clean catch - Urine morel top Urine Culture - Prelimina ry Enterococcus/Streptococcus sp Progress Note: A&P Assessment and plan (1) Acute on chronic respiratory failure with hypoxemia: Status: Acute (2) CHF exacerbation: Status: Acute (3) Interstitial lung disease: Status: Acute (4) COPD (chronic obstructive pulmonary disease): Status: Acute (5) Right heart failure: Status: Acute (6) Pulmonary hypertension: Status: Acute (7) PAF (paroxysmal atrial fibrillation): Status: Acute Plan Assessment: 71-year-old gentleman with underlying right ventricular failure, ILD, COPD, baseline 2 L of supplemental oxygen dependent admitted with acute on chronic exacerbation of underlying congestive heart failure, pulmonary hypertens ion, right ventricular failure now requiring vasopressor support. Plan: Neuro: No acute issues. Cardiac: Right ventricular failure with severe pulmonary hypertension that is likely multifactorial in etiology. Cardiology service care appreciated. Also underlying AFib. Started on sildenafil. Now requiring vasopressor support. Continue to titrate of as tolerated. Started on diuresis. Pulmonary: Acute on chronic hypoxic respiratory failure secondary to exacerbation of right ventricular failure. Also element of for CO2 retention with hypoxia. Maintain O2 sat no highs in 92%. Continue to titrate off supplemental oxygen as tolerated. Renal: No acute issues. Endo: No acute issues. GI: No acute issues. ID: No acute issues Heme/Onc: No acute issues. Psych: No acute issues. Miscellaneous: No acute issues. Prophylaxis: Eliquis Diet: Cardiac Critical care time spent: 45 minutes Quality Stroke Does the patient have a stroke diagnosis?: No VTE Prior VTE?: No VTE Risk Level:: Medical - moderate - high VTE Device Contraindication: Treatment Not Indicated VTE Drug Contraindication: N/A - Med Ordered
--- NOTE | 2022-06-23 15:16 | P.PNCA_ITS ---
Subjective Subjective Date of Service: 06/23/22 Interval history: Seen examined at bedside. Detailed discussion with the patient and his son at bedside. His echocardiography has shown new diagnosis of severe RV dysfunction with severely dilated right ventricle and severe pulmonary hypertension. It appears he was started on sildenafil and he did not tolerate the medication very well. Continues to be on sotalol 80 mg p.o. b.i.d.. He was started on Levophed which was being titrated down at the time I examined him. He is currently of Lasix drip. Physical Exam Vital Signs: Last Vital Signs Temp 97.3 F 06/23/22 11:00 Pulse 81 06/23/22 15:00 Resp 19 06/23/22 15:00 BP 101/67 06/23/22 15:00 Pulse Ox 93 06/23/22 15:00 O2 Del Method 06/23/22 15:00 O2 Flow Rate 8 06/23/22 15:00 FiO2 30 06/22/22 15:30 Oxygen Flow Rate 3 06/21/22 13:26 BMI result Body Mass Index 31.1 GENERAL APPEARANCE: On nasal cannula. NECK: Elevated JVP. SKIN: no suspicious lesions, warm and dry. HEART: Holosystolic murmur left sternal border and apex, regular rate and rhythm. LUNGS: Bilateral crackles. ABDOMEN: soft, nontender. EXTREMITIES: 3+ edema. PERIPHERAL PULSES: equal. NEUROLOGIC: No gross deficits, AAO X 3 Objective Labs and Meds 06/23/22 09:05 06/23/22 04:56 Lab results: Laboratory Results - last 24 hr 06/22/22 06/22/22 06/22/22 17:27 18:17 18:21 WBC RBC Hgb Hct MCV MCH MCHC RDW Plt Count MPV Immature Gran % (Auto) Neut % (Auto) Lymph % (Auto) [place] % (Auto) Eos % (Auto) Baso % (Auto) Lymph # (Auto) [place] # (Auto) Eos # (Auto) Baso # (Auto) Abs Immat Gran (auto) Absolute Neuts (auto) Absolute Nucleated RBC Nucleated RBC % (auto) VBG pH 7.31 L VBG pCO2 69 VBG pO2 31 VBG HCO3 35 H VBG O2 Saturation 47.0 VBG Base Excess 6.1 Sodium 139 Potassium 4.6 Chloride 100 Carbon Dioxide 29 Anion Gap 15 BUN 24 H Creatinine 1.22 Estim Creat Clear Calc 71.2 Estimated GFR 58 Random Glucose 102 Calcium 9.2 Phosphorus Magnesium Albumin Urine Color RED Urine Appearance Cloudy Urine pH 7.0 Ur Specific [place] 1.020 Urine Protein 300 (3+) H Urine Glucose (UA) 100 H Urine Ketones 40 Urine Blood Large (3+) H Urine Nitrite Positive H Ur Leukocyte Esterase Moderate (2+) H Urine RBC >20 H Urine WBC 6-10 H Ur Squamous Epith Cells 0-2 Urine Bacteria 1+ Hyaline Casts 0-2 06/23/22 06/23/22 06/23/22 04:52 04:56 09:05 WBC 10.9 H RBC 5.51 Hgb 16.4 Hct 51.2 MCV 92.9 MCH 29.8 MCHC 32.0 RDW 12.7 Plt Count 248 MPV 10.2 Immature Gran % (Auto) 0.2 Neut % (Auto) 79.6 H Lymph % (Auto) 11.3 L [place] % (Auto) 8.6 Eos % (Auto) 0.1 Baso % (Auto) 0.2 Lymph # (Auto) 1.2 [place] # (Auto) 0.9 Eos # (Auto) 0.0 Baso # (Auto) 0.0 Abs Immat Gran (auto) 0.02 Absolute Neuts (auto) 8.7 H Absolute Nucleated RBC 0.000 Nucleated RBC % (auto) 0.0 VBG pH 7.53 H VBG pCO2 29 VBG pO2 41 VBG HCO3 25 VBG O2 Saturation 82.0 VBG Base Excess 3.6 Sodium 138 Potassium 5.0 Chloride 101 Carbon Dioxide 24 Anion Gap 18 BUN 25 H Creatinine 1.27 Estim Creat Clear Calc 68.4 Estimated GFR 56 Random Glucose 110 Calcium 8.9 Phosphorus 4.7 H Magnesium 1.8 Albumin 3.0 L Urine Color Urine Appearance Urine pH Ur Specific [place] Urine Protein Urine Glucose (UA) Urine Ketones Urine Blood Urine Nitrite Ur Leukocyte Esterase Urine RBC Urine WBC Ur Squamous Epith Cells Urine Bacteria Hyaline Casts Progress Note: A&P Assessment and plan (1) Pulmonary hypertension: Status: Acute (2) Right heart failure: Status: Acute (3) Acute on chronic respiratory failure with hypoxemia: Status: Acute Plan 71-year-old gentleman with background of interstitial lung disease was presenting with respiratory failure. He was noticed to have significant edema all over the body which is new compared to last office assessment in 2020. Clinically was noted to be in heart failure and was started on diuretics. Echocardiography has shown evidence of severe pulmonary hypertension and severe RV dysfunction. He has underlying to see lung disease which is advanced and pulmonary hypertension is mostly related to underlying lung disease at this stage. He has developed progressive RV dysfunction and dilation and it appears his symptoms go back many months. Right now right ventricular severely dilated and dysfunctional. His right atrium is also severely dilated. I think we tried to decompress the right ventricle with diuretics. He will require Levophed to get some room on his blood pressure so he can tolerate diuretics. He was on Cardizem as of yesterday which has deleterious effects on the right ventricle. Hopefully as Cardizem or she is out he may have some forward flow and with diuretics we can not decompress the right ventricle and improve function. He is on sotalol for atrial fibrillation and he was quite symptomatic with atrial fibrillation previously. Currently I feel sotalol should not be discontinued. Medication should be added with caution as they will be interaction with sotalol with QT prolongation. Electrolytes should be monitor closely while he is being diuresed. I have explained to the patient that he is in advanced heart failure situation currently and with interstitial lung disease and severe pulmonary hypertension his options for the right ventricular failure limited. We will try medications and discuss further as the situation evolves. Thank you for allowing me to participate in the care of your patient. Please feel free to contact me if you have any questions. Time Spent With Patient Time: Total time managing care of this patient today ____ minutes. Progress Note: Quality Stroke Does the patient have a stroke diagnosis?: No Procedures Date of Service Date of Service: 06/23/22
[2022-06-23] MEDS: Acetaminophen 325 MG TABLET 650 MG PO (16:47)
[2022-06-23] MEDS: Norepinephrine Bitartrate/D5W 8 MG/250 ML PLAST..BAG 18.61 MG IV (19:06)
[2022-06-23] MEDS: cefTRIAXone sodium 1 GM in 0.9 % Sodium Chloride 50 ML IV (19:59)
[2022-06-23 20:22] LABS: Anion Gap 14 (12-20); Blood Urea Nitrogen 25 mg/dL (9-16); Calcium 8.8 mg/dL (8.4-10.2); Carbon Dioxide 30 mmol/L (22-29); Chloride 98 mmol/L (96-108); Creatinine Clr Calc Pharmacy 79.7; Estimated Glomerular Filt Rate > 60; Glucose Random 163 mg/dL (60-115); Sodium 138 mmol/L (135-145)
[2022-06-24] VITALS (26 sets, daily range): BP systolic 88–135; BP diastolic 61–86; PULSE 72–93; RESP 18–84; TEMP 36.2–36.5; O2SAT 90–95; BMI 31.1
[2022-06-24 05:28] LABS: VBG HCO3 37 mmol/L (22-26); VBG pCO2 56 mmHg; VBG pH 7.43 (7.32-7.43); VBG pO2 46 mmHg
[2022-06-24 05:33] LABS: MANUAL DIFF FLAG NO
[2022-06-24 05:39] LABS: Basophils Percent Auto 0.3 % (0-2); Eosinophils Absolute Auto 0.1 X10*3/uL (0.0-0.4); Eosinophils Percent Auto 0.8 % (0-4); Hematocrit 49.8 % (42.0-52.0); Hemoglobin 16.2 g/dl (14.0-18.0); Imm Gran Abs Auto 0.04 X10*3/uL (0.00-0.03); Imm Gran Pct Auto 0.4 % (0.0-0.4); Lymphocytes Absolute Auto 1.1 X10*3/uL (1.2-4.9); Lymphocytes Percent Auto 10.5 % (20-40); Mean Corpuscular HGB Conc 32.5 g/dl (31.0-36.0); Mean Corpuscular Hemoglobin 29.6 pg (27.0-33.0); Mean Platelet Volume 10.1 fL (9.4-12.4); Monocytes Absolute Auto 0.9 X10*3/uL (0.1-1.2); Monocytes Percent Auto 8.8 % (2-11); Neutrophils Absolute Auto 8.2 x10*3/uL (2.0-8.3); Neutrophils Percent Auto 79.2 % (45-73); Platelet Count 233 X10*3/uL (160-400); Red Blood Count 5.47 X10*6/uL (4.60-5.80); Red Cell Distribution Width 12.5 % (11.0-16.0); White Blood Count 10.3 X10*3/uL (4.8-10.8)
[2022-06-24 05:41] LABS: Venous Blood Gas Refer to POC result
[2022-06-24 06:00] LABS: Albumin Level 3.1 g/dL (3.5-5.0); Anion Gap 15 (12-20); Blood Urea Nitrogen 22 mg/dL (9-16); Calcium 8.8 mg/dL (8.4-10.2); Carbon Dioxide 32 mmol/L (22-29); Chloride 96 mmol/L (96-108); Creatinine Clr Calc Pharmacy 91.4; Estimated Glomerular Filt Rate > 60; Glucose Random 129 mg/dL (60-115); Magnesium 1.6 mg/dL (1.6-2.6); Phosphorus 3.2 mg/dL (2.7-4.5); Potassium 3.5 mmol/L (3.3-5.1); Sodium 139 mmol/L (135-145)
[2022-06-24] MEDS: Norepinephrine Bitartrate/D5W 8 MG/250 ML PLAST..BAG 18.61 MG IV (08:15)
[2022-06-24] MEDS: 0.9 % Sodium Chloride Flush 3 ML SYRINGE IVFLUSH ×2 (08:38→15:32)
[2022-06-24] MEDS: Apixaban 5 MG TABLET PO ×2 (08:38→21:24)
[2022-06-24] MEDS: Potassium Chloride Packet 20 MEQ PACKET 40 MEQ PO ×2 (08:38→22:46)
[2022-06-24] MEDS: Bumetanide 1 MG/4 ML VIAL IVPUSH ×3 (08:38→21:24)
[2022-06-24] MEDS: Sotalol HCL 80 MG TABLET PO ×2 (08:38→21:24)
[2022-06-24] MEDS: Sildenafil Citrate 20 MG TABLET PO ×3 (08:38→21:24)
[2022-06-24] MEDS: LORazepam 0.5 MG TABLET PO (09:02)
--- NOTE | 2022-06-24 10:55 | MHC.CM.PN ---
Pt continues on Levo and Bumex gtt and requires continued diuresis and BP management. D/C plans are for a return to home with spouse: CM to re eval pt's possible VNA wants/needs when he is more medically stable.
--- NOTE | 2022-06-24 10:57 | P.PNCA_ITS ---
Subjective Subjective Date of Service: 06/24/22 Interval history: Seen and examined at bedside. On IV Bumex and Levophed. Physical Exam Vital Signs: Last Vital Signs Temp 97.6 F 06/24/22 10:00 Pulse 77 06/24/22 10:00 Resp 26 H 06/24/22 10:00 BP 110/79 06/24/22 10:00 Pulse Ox 93 06/24/22 10:00 O2 Del Method 06/24/22 10:00 O2 Flow Rate 8 06/24/22 10:00 FiO2 30 06/22/22 15:30 Oxygen Flow Rate 3 06/21/22 13:26 BMI result Body Mass Index 31.1 GENERAL APPEARANCE: On nasal cannula. NECK: + JVD + HJR. SKIN: no suspicious lesions, warm and dry. HEART: Holosystolic murmur left sternal border and apex, regular rate and rhythm. left parasternal heave. LUNGS: Bilateral crackles. ABDOMEN: soft, nontender. EXTREMITIES: 2-3+ edema. PERIPHERAL PULSES: equal. NEUROLOGIC: No gross deficits, AAO X 3 Objective Labs and Meds 06/24/22 05:23 06/24/22 05:23 Lab results: Laboratory Results - last 24 hr 06/23/22 06/24/22 06/24/22 19:32 05:20 05:23 WBC 10.3 RBC 5.47 Hgb 16.2 Hct 49.8 MCV 91.0 MCH 29.6 MCHC 32.5 RDW 12.5 Plt Count 233 MPV 10.1 Immature Gran % (Auto) 0.4 Neut % (Auto) 79.2 H Lymph % (Auto) 10.5 L [place] % (Auto) 8.8 Eos % (Auto) 0.8 Baso % (Auto) 0.3 Lymph # (Auto) 1.1 L [place] # (Auto) 0.9 Eos # (Auto) 0.1 Baso # (Auto) 0.0 Abs Immat Gran (auto) 0.04 H Absolute Neuts (auto) 8.2 Absolute Nucleated RBC 0.000 Nucleated RBC % (auto) 0.0 VBG pH 7.43 VBG pCO2 56 VBG pO2 46 VBG HCO3 37 H VBG O2 Saturation 79.0 VBG Base Excess 11.0 Sodium 138 Potassium 4.0 Chloride 98 Carbon Dioxide 30 H Anion Gap 14 BUN 25 H Creatinine 1.09 Estim Creat Clear Calc 79.7 Estimated GFR > 60 Random Glucose 163 H Calcium 8.8 Phosphorus Magnesium Albumin 06/24/22 05:23 WBC RBC Hgb Hct MCV MCH MCHC RDW Plt Count MPV Immature Gran % (Auto) Neut % (Auto) Lymph % (Auto) [place] % (Auto) Eos % (Auto) Baso % (Auto) Lymph # (Auto) [place] # (Auto) Eos # (Auto) Baso # (Auto) Abs Immat Gran (auto) Absolute Neuts (auto) Absolute Nucleated RBC Nucleated RBC % (auto) VBG pH VBG pCO2 VBG pO2 VBG HCO3 VBG O2 Saturation VBG Base Excess Sodium 139 Potassium 3.5 Chloride 96 Carbon Dioxide 32 H Anion Gap 15 BUN 22 H Creatinine 0.95 Estim Creat Clear Calc 91.4 Estimated GFR > 60 Random Glucose 129 H Calcium 8.8 Phosphorus 3.2 Magnesium 1.6 Albumin 3.1 L Progress Note: A&P Assessment and plan (1) Pulmonary hypertension: Status: Acute (2) Right heart failure: Status: Acute Plan 71-year-old gentleman with background of paroxysmal atrial fibrillation interstitial lung disease presenting with worsening shortness of breath due to advanced interstitial lung disease as well as significant anasarca due to right heart failure. Echocardiography has shown of severe RV dysfunction and dilatio n. His pulmonary artery systolic pressure was 101 mm Hg. He has been on Levophed for blood pressure support and we are trying to diurese him to decompress the ventricle. His diltiazem was also discontinued. His blood pressure overall improved today and he is making urine and is close to 1.5 L ne gative. Continues to be still significantly volume overloaded. I think we continue to diurese at this stage. Monitor electrolytes closely specially potassium because he is on sotalol. He was very symptomatic from atrial fibrillation point of view and my inclination is not to stop sotalol currently. My hope is that as we diurese him he may have improvement in RV function. Also with this hypoxia improving with supplemental oxygen and diuresis he may have improvement in the pulmonary pressures. He was started on sildenafil by the ICU team and it appears he is tolerating it okay right now. I have explained to the patient that he has advanced lung disease as well as right ventricular dysfunction. Our Time Spent With Patient Time: Total time managing care of this patient today ____ minutes. Progress Note: Quality Stroke Does the patient have a stroke diagnosis?: No Procedures Date of Service Date of Service: 06/24/22
--- NOTE | 2022-06-24 13:44 | PM.CCPN ---
Subjective Subjective Date of Service: 06/24/22 Interval History: 71-year-old gentleman underlying history of COPD, IPF, AFib on Eliquis, 2 L supplemental oxygen dependent admitted on 06/21/2022 with progressive dyspnea and worsening lower extremity edema of approximately 1 months. He was noted to be significantly hypoxic requiring supplemental oxygen at 426 L. He was admitted to telemetry service and started on diuresis. Hospital course is also significant for worsening hypoxia with CO2 retention while hypoxic requiring initiation of BiPAP support and transferred to intensive care unit. In the intensive care unit titrated of BiPAP. 2D echocardiogram with severely elevated pulmonary artery pressure and right ventricular dysfunction. Started on vasopressor support and diuresis. No events overnight. Hypoxia and urine output improving on Bumex. Critical Care Time (minutes): 45 Physical Exam Vital Signs: Vital Signs: Last Vital Signs Temp 97.6 F 06/24/22 10:00 Pulse 75 06/24/22 13:00 Resp 22 H 06/24/22 13:00 BP 98/68 06/24/22 13:00 Pulse Ox 92 06/24/22 13:00 O2 Del Method 06/24/22 12:00 O2 Flow Rate 8 06/24/22 13:00 FiO2 30 06/22/22 15:30 Oxygen Flow Rate 3 06/21/22 13:26 BMI result Body Mass Index 31.1 Const: General: no acute distress, alert and awake Nutritional Appearance: Edematous Eyes: Sclerae: sclerae normal EOM: EOMs intact bilaterally Neck: Neck: Yes no lymphadenopathy, Yes trachea midline and Yes supple Resp: Effort & Inspection: normal respiratory effort and no respiratory distress Auscultation: crackles bilateral Cardio: Rate: regular rate Rhythm: regular rhythm Heart sounds: no gallops, no murmurs and no rubs GI: Palpation (GI): Soft to palpation and Other GI palpation findings present ( Nontender) Auscultation: normal bowel sounds Extrem: General: No clubbing, No cyanosis and Yes edema (3+ bilateral) Objective Data Labs 06/24/22 05:23 06/24/22 05:23 Labs: Laboratory Results - last 24 hr 06/23/22 06/24/22 06/24/22 19:32 05:20 05:23 WBC 10.3 RBC 5.47 Hgb 16.2 Hct 49.8 MCV 91.0 MCH 29.6 MCHC 32.5 RDW 12.5 Plt Count 233 MPV 10.1 Immature Gran % (Auto) 0.4 Neut % (Auto) 79.2 H Lymph % (Auto) 10.5 L [place] % (Auto) 8.8 Eos % (Auto) 0.8 Baso % (Auto) 0.3 Lymph # (Auto) 1.1 L [place] # (Auto) 0.9 Eos # (Auto) 0.1 Baso # (Auto) 0.0 Abs Immat Gran (auto) 0.04 H Absolute Neuts (auto) 8.2 Absolute Nucleated RBC 0.000 Nucleated RBC % (auto) 0.0 VBG pH 7.43 VBG pCO2 56 VBG pO2 46 VBG HCO3 37 H VBG O2 Saturation 79.0 VBG Base Excess 11.0 Sodium 138 Potassium 4.0 Chloride 98 Carbon Dioxide 30 H Anion Gap 14 BUN 25 H Creatinine 1.09 Estim Creat Clear Calc 79.7 Estimated GFR > 60 Random Glucose 163 H Calcium 8.8 Phosphorus Magnesium Albumin 06/24/22 05:23 WBC RBC Hgb Hct MCV MCH MCHC RDW Plt Count MPV Immature Gran % (Auto) Neut % (Auto) Lymph % (Auto) [place] % (Auto) Eos % (Auto) Baso % (Auto) Lymph # (Auto) [place] # (Auto) Eos # (Auto) Baso # (Auto) Abs Immat Gran (auto) Absolute Neuts (auto) Absolute Nucleated RBC Nucleated RBC % (auto) VBG pH VBG pCO2 VBG pO2 VBG HCO3 VBG O2 Saturation VBG Base Excess Sodium 139 Potassium 3.5 Chloride 96 Carbon Dioxide 32 H Anion Gap 15 BUN 22 H Creatinine 0.95 Estim Creat Clear Calc 91.4 Estimated GFR > 60 Random Glucose 129 H Calcium 8.8 Phosphorus 3.2 Magnesium 1.6 Albumin 3.1 L Microbiology Microbiology Results: Microbiology 06/22/22 18:00 Urine clean catch - Urine morel top Urine Culture - Final Enterococcus faecalis Progress Note: A&P Assessment and plan (1) Pulmonary hypertension: Status: Acute (2) Right heart failure: Status: Acute (3) Acute on chronic respiratory failure with hypoxemia: Status: Acute (4) Interstitial lung disease: Status: Acute (5) COPD (chronic obstructive pulmonary disease): Status: Acute (6) PAF (paroxysmal atrial fibrillation): Status: Acute Plan Assessment: 71-year-old gentleman with underlying right ventricular failure, ILD, COPD, baseline 2 L of supplemental oxygen dependent admitted with acute on chronic exacerbation of underlying congestive heart failure, pulmonary hypertension, right ventricular failure now requiring vasopressor support. Plan: Neuro: No acute issues. Cardiac: Right ventricular failure with severe pulmonary hypertension that is likely multifactorial in etiology. Cardiology service care appreciated. Also underlying AFib. Continue on sildenafil. Now requiring vasopressor support. Continue to titrate off as tolerated. Improving with diuresis. Pulmonary: Acute on chronic hypoxic respiratory failure secondary to exacerbation of right ventricular failure. Also element of CO2 retention with hyperoxia. Maintain O2 sat no higher than 92%. Continue to titrate off supplemental oxygen as tolerated. Renal: No acute issues. Endo: No acute issues. GI: No acute issues. ID: No acute issues Heme/Onc: No acute issues. Psych: No acute issues. Miscellaneous: No acute issues. Prophylaxis: Eliquis Diet: Cardiac Critical care time spent: 45 minutes Quality Stroke Does the patient have a stroke diagnosis?: No VTE Prior VTE?: No VTE Risk Level:: Medical - moderate - high VTE Device Contraindication: Treatment Not Indicated VTE Drug Contraindication: N/A - Med Ordered
[2022-06-24] MEDS: cefTRIAXone sodium 1 GM in 0.9 % Sodium Chloride 50 ML IV (18:10)
[2022-06-24] MEDS: Norepinephrine Bitartrate/D5W 8 MG/250 ML PLAST..BAG 22.75 MG IV (19:45)
[2022-06-24 19:50] LABS: Anion Gap 17 (12-20); Blood Urea Nitrogen 17 mg/dL (9-16); Calcium 8.6 mg/dL (8.4-10.2); Carbon Dioxide 32 mmol/L (22-29); Chloride 93 mmol/L (96-108); Creatinine Clr Calc Pharmacy 105.9; Estimated Glomerular Filt Rate > 60; Glucose Random 150 mg/dL (60-115); Potassium 3.6 mmol/L (3.3-5.1); Sodium 138 mmol/L (135-145)
[2022-06-24] MEDS: Calcium Carbonate 750 MG TAB.CHEW PO (23:40)
[2022-06-25] VITALS (30 sets, daily range): BP systolic 100–132; BP diastolic 47–91; PULSE 73–107; RESP 19–36; TEMP 36.2–37; O2SAT 87–95
[2022-06-25] MEDS: Acetaminophen 325 MG TABLET 650 MG PO (00:32)
[2022-06-25 05:29] LABS: VBG Base Excess 17.9 mmol/L; VBG HCO3 44 mmol/L (22-26); VBG pCO2 56 mmHg; VBG pO2 53 mmHg
[2022-06-25 05:31] LABS: MANUAL DIFF FLAG NO
[2022-06-25 05:34] LABS: Basophils Percent Auto 0.4 % (0-2); Eosinophils Absolute Auto 0.2 X10*3/uL (0.0-0.4); Eosinophils Percent Auto 2.2 % (0-4); Hematocrit 48.2 % (42.0-52.0); Imm Gran Abs Auto 0.03 X10*3/uL (0.00-0.03); Imm Gran Pct Auto 0.3 % (0.0-0.4); Lymphocytes Absolute Auto 1.4 X10*3/uL (1.2-4.9); Lymphocytes Percent Auto 13.2 % (20-40); Mean Corpuscular HGB Conc 33.2 g/dl (31.0-36.0); Mean Corpuscular Hemoglobin 29.7 pg (27.0-33.0); Mean Corpuscular Volume 89.4 fL (80.0-98.0); Monocytes Percent Auto 9.7 % (2-11); Neutrophils Absolute Auto 7.6 x10*3/uL (2.0-8.3); Neutrophils Percent Auto 74.2 % (45-73); Platelet Count 211 X10*3/uL (160-400); Red Blood Count 5.39 X10*6/uL (4.60-5.80); Red Cell Distribution Width 12.5 % (11.0-16.0); White Blood Count 10.3 X10*3/uL (4.8-10.8)
[2022-06-25 06:06] LABS: Albumin Level 3.1 g/dL (3.5-5.0); Anion Gap 16 (12-20); Blood Urea Nitrogen 13 mg/dL (9-16); Calcium 8.7 mg/dL (8.4-10.2); Carbon Dioxide 36 mmol/L (22-29); Chloride 89 mmol/L (96-108); Creatinine Clr Calc Pharmacy 111.3; Estimated Glomerular Filt Rate > 60; Glucose Random 126 mg/dL (60-115); Magnesium 1.5 mg/dL (1.6-2.6); Phosphorus 2.2 mg/dL (2.7-4.5); Potassium 3.5 mmol/L (3.3-5.1); Sodium 137 mmol/L (135-145)
[2022-06-25] MEDS: Norepinephrine Bitartrate/D5W 8 MG/250 ML PLAST..BAG 22.75 MG IV (06:24)
[2022-06-25] MEDS: Sotalol HCL 80 MG TABLET PO ×2 (07:48→20:23)
[2022-06-25] MEDS: Apixaban 5 MG TABLET PO ×2 (07:48→20:23)
[2022-06-25] MEDS: Sildenafil Citrate 20 MG TABLET PO ×3 (07:48→20:23)
[2022-06-25] MEDS: Potassium Phosphate/NS 15 MMOL/250 ML PLAST..BAG 62.5 MMOL IV (07:50)
[2022-06-25] MEDS: Bumetanide 1 MG/4 ML VIAL IVPUSH ×3 (07:50→20:23)
[2022-06-25] MEDS: 0.9 % Sodium Chloride Flush 3 ML SYRINGE IVFLUSH ×3 (07:51→22:20)
[2022-06-25] MEDS: LORazepam 0.5 MG TABLET PO (07:52)
[2022-06-25] MEDS: ondansetron HCL 4 MG/2 ML VIAL IVPUSH ×2 (08:15→15:28)
[2022-06-25] MEDS: Magnesium Sulfate/H2O 2 GM/50 ML PIGGYBACK IV (08:15)
--- NOTE | 2022-06-25 10:07 | P.PNCA_ITS ---
Subjective Subjective Date of Service: 06/25/22 Interval history: Seen and examined at bedside. On supplemental oxygen. He is saying he is tired and still short of breath. Diuresing well at this stage. Continues to be in sinus rhythm. Physical Exam Vital Signs: Last Vital Signs Temp 97.2 F 06/25/22 08:00 Pulse 77 06/25/22 09:00 Resp 27 H 06/25/22 09:00 BP 114/81 06/25/22 09:00 Pulse Ox 87 L 06/25/22 09:00 O2 Del Method 06/25/22 09:00 O2 Flow Rate 7 06/25/22 09:00 FiO2 30 06/22/22 15:30 Oxygen Flow Rate 3 06/21/22 13:26 BMI result Body Mass Index 31.1 GENERAL APPEARANCE: On nasal cannula. NECK: + JVD + HJR. SKIN: no suspicious lesions, warm and dry. HEART: Holosystolic murmur left sternal border, regular rate and rhythm. left parasternal heave. LUNGS: Bilateral crackles. ABDOMEN: soft, nontender. EXTREMITIES: 2-3+ edema. PERIPHERAL PULSES: equal. NEUROLOGIC: No gross deficits, AAO X 3 Objective Labs and Meds 06/25/22 05:14 06/25/22 05:14 Lab results: Laboratory Results - last 24 hr 06/24/22 06/25/22 06/25/22 19:25 05:14 05:14 WBC 10.3 RBC 5.39 Hgb 16.0 Hct 48.2 MCV 89.4 MCH 29.7 MCHC 33.2 RDW 12.5 Plt Count 211 MPV 10.0 Immature Gran % (Auto) 0.3 Neut % (Auto) 74.2 H Lymph % (Auto) 13.2 L [place] % (Auto) 9.7 Eos % (Auto) 2.2 Baso % (Auto) 0.4 Lymph # (Auto) 1.4 [place] # (Auto) 1.0 Eos # (Auto) 0.2 Baso # (Auto) 0.0 Abs Immat Gran (auto) 0.03 Absolute Neuts (auto) 7.6 Absolute Nucleated RBC 0.000 Nucleated RBC % (auto) 0.0 VBG pH VBG pCO2 VBG pO2 VBG HCO3 VBG O2 Saturation VBG Base Excess Sodium 138 137 Potassium 3.6 3.5 Chloride 93 L 89 L Carbon Dioxide 32 H 36 H Anion Gap 17 16 BUN 17 H 13 Creatinine 0.82 0.78 Estim Creat Clear Calc 105.9 111.3 Estimated GFR > 60 > 60 Random Glucose 150 H 126 H Calcium 8.6 8.7 Phosphorus 2.2 L Magnesium 1.5 L Albumin 3.1 L 06/25/22 05:21 WBC RBC Hgb Hct MCV MCH MCHC RDW Plt Count MPV Immature Gran % (Auto) Neut % (Auto) Lymph % (Auto) [place] % (Auto) Eos % (Auto) Baso % (Auto) Lymph # (Auto) [place] # (Auto) Eos # (Auto) Baso # (Auto) Abs Immat Gran (auto) Absolute Neuts (auto) Absolute Nucleated RBC Nucleated RBC % (auto) VBG pH 7.50 H VBG pCO2 56 VBG pO2 53 VBG HCO3 44 H VBG O2 Saturation 84.0 VBG Base Excess 17.9 Sodium Potassium Chloride Carbon Dioxide Anion Gap BUN Creatinine Estim Creat Clear Calc Estimated GFR Random Glucose Calcium Phosphorus Magnesium Albumin Progress Note: A&P Assessment and plan (1) Pulmonary hypertension: Status: Acute (2) Right heart failure: Status: Acute Plan 71-year-old gentleman with interstitial lung disease and cor pulmonale. Severe RV dysfunction with IV dilation. On supplemental oxygen. He has severe pulmonary hypertension. Was started on s ildenafil and has been on diuretics at this point and diuresing well. Monitor electrolytes closely specially the potassium as he is on sotalol and hypokalemia may predispose him to QT prolongation and risk of torsades is there. Add spironolactone 25 mg once a day. We will follow along with you. Once off Levophed then we will do repeat limited echo to assess the right ventricle and pulmonary pressures. Thank you for allowing me to participate in the care of your patient. Please feel free to contact me if you have any questions. Time Spent With Patient Time: Total time managing care of this patient today ____ minutes. Progress Note: Quality Stroke Does the patient have a stroke diagnosis?: No Procedures Date of Service Date of Service: 06/25/22
--- NOTE | 2022-06-25 11:16 | PM.CCPN ---
Subjective Subjective Date of Service: 06/25/22 Interval History: 71-year-old gentleman underlying history of COPD, IPF, AFib on Eliquis, 2 L supplemental oxygen dependent admitted on 06/21/2022 with progressive dyspnea and worsening lower extremity edema of approximately 1 months. He was noted to be significantly hypoxic requiring supplemental oxygen at 426 L. He was admitted to telemetry service and started on diuresis. Hospital course is also significant for worsening hypoxia with CO2 retention while hypoxic requiring initiation of BiPAP support and transferred to intensive care unit. In the intensive care unit titrated of BiPAP. 2D echocardiogram with severely elevated pulmonary artery pressure and right ventricular dysfunction. Started on vasopressor support and diuresis. No events overnight. Hypoxia and urine output continue improving on Bumex. Critical Care Time (minutes): 45 Physical Exam Vital Signs: Vital Signs: Last Vital Signs Temp 97.2 F 06/25/22 08:00 Pulse 76 06/25/22 11:00 Resp 19 06/25/22 11:00 BP 118/85 06/25/22 11:00 Pulse Ox 90 L 06/25/22 11:00 O2 Del Method 06/25/22 11:00 O2 Flow Rate 6 06/25/22 11:00 FiO2 30 06/22/22 15:30 Oxygen Flow Rate 3 06/21/22 13:26 BMI result Body Mass Index 31.1 Const: General: no acute distress, alert and awake Eyes: Sclerae: sclerae normal EOM: EOMs intact bilaterally Neck: Neck: Yes no lymphadenopathy, Yes trachea midline and Yes supple Resp: Effort & Inspection: normal respiratory effort and no respiratory distress Auscultation: crackles (Mild bilateral) Cardio: Rate: regular rate Rhythm: regular rhythm Heart sounds: no gallops, no murmurs and no rubs GI: Palpation (GI): Soft to palpation and Other GI palpation findings present ( Nontender) Auscultation: normal bowel sounds Extrem: General: No clubbing, No cyanosis and Yes edema (2+ bilateral) Objective Data Labs 06/25/22 05:14 06/25/22 05:14 Labs: Laboratory Results - last 24 hr 06/24/22 06/25/22 06/25/22 19:25 05:14 05:14 WBC 10.3 RBC 5.39 Hgb 16.0 Hct 48.2 MCV 89.4 MCH 29.7 MCHC 33.2 RDW 12.5 Plt Count 211 MPV 10.0 Immature Gran % (Auto) 0.3 Neut % (Auto) 74.2 H Lymph % (Auto) 13.2 L [place] % (Auto) 9.7 Eos % (Auto) 2.2 Baso % (Auto) 0.4 Lymph # (Auto) 1.4 [place] # (Auto) 1.0 Eos # (Auto) 0.2 Baso # (Auto) 0.0 Abs Immat Gran (auto) 0.03 Absolute Neuts (auto) 7.6 Absolute Nucleated RBC 0.000 Nucleated RBC % (auto) 0.0 VBG pH VBG pCO2 VBG pO2 VBG HCO3 VBG O2 Saturation VBG Base Excess Sodium 138 137 Potassium 3.6 3.5 Chloride 93 L 89 L Carbon Dioxide 32 H 36 H Anion Gap 17 16 BUN 17 H 13 Creatinine 0.82 0.78 Estim Creat Clear Calc 105.9 111.3 Estimated GFR > 60 > 60 Random Glucose 150 H 126 H Calcium 8.6 8.7 Phosphorus 2.2 L Magnesium 1.5 L Albumin 3.1 L 06/25/22 05:21 WBC RBC Hgb Hct MCV MCH MCHC RDW Plt Count MPV Immature Gran % (Auto) Neut % (Auto) Lymph % (Auto) [place] % (Auto) Eos % (Auto) Baso % (Auto) Lymph # (Auto) [place] # (Auto) Eos # (Auto) Baso # (Auto) Abs Immat Gran (auto) Absolute Neuts (auto) Absolute Nucleated RBC Nucleated RBC % (auto) VBG pH 7.50 H VBG pCO2 56 VBG pO2 53 VBG HCO3 44 H VBG O2 Saturation 84.0 VBG Base Excess 17.9 Sodium Potassium Chloride Carbon Dioxide Anion Gap BUN Creatinine Estim Creat Clear Calc Estimated GFR Random Glucose Calcium Phosphorus Magnesium Albumin Microbiology Microbiology Results: Microbiology 06/22/22 18:00 Urine clean catch - Urine morel top Urine Culture - Final Enterococcus faecalis Progress Note: A&P Assessment and plan (1) Pulmonary hypertension: Status: Acute (2) Right heart failure: Status: Acute (3) Acute on chronic respiratory failure with hypoxemia: Status: Acute (4) CHF exacerbation: Status: Acute (5) Interstitial lung disease: Status: Acute (6) PAF (paroxysmal atrial fibrillation): Status: Acute Plan Assessment: 71-year-old gentleman with underlying right ventricular failure, ILD, COPD, baseline 2 L of supplemental oxygen dependent admitted with acute on chronic exacerbation of underlying congestive heart failure, pulmonary hypertension, right ventricular failure now requiring vasopressor support. Plan: Neuro: No acute issues. Cardiac: Right ventricular failure with severe pulmonary hypertension that is likely multifactorial in etiology. Cardiology service care appreciated. Also underlying AFib. Continue on sildenafil. Now requiring vasopressor support. Continue to titrate off as tolerated. Improving with diuresis. Pulmonary: Acute on chronic hypoxic respiratory failure secondary to exacerbation of right ventricular failure. Also element of CO2 retention with hyperoxia and with rising bicarbonate. Acetazolamide added. Maintain O2 sat no higher than 92%. Continue to titrate off supplemental oxygen as tolerated. Renal: No acute issues. Endo: No acute issues. GI: No acute issues. ID: No acute issues Heme/Onc: No acute issues. Psych: No acute issues. Miscellaneous: No acute issues. Prophylaxis: Eliquis Diet: Cardiac Critical care time spent: 45 minutes Quality Stroke Does the patient have a stroke diagnosis?: No VTE Prior VTE?: No VTE Risk Level:: Medical - moderate - high VTE Device Contraindication: Treatment Not Indicated VTE Drug Contraindication: N/A - Med Ordered
[2022-06-25] MEDS: Throat Lozenge, Medicated LOZENGE 1 LOZENGE MUCOUS MEM (11:41)
[2022-06-25] MEDS: acetaZOLAMIDE sodium 500 MG VIAL IVPUSH ×2 (11:41→21:53)
[2022-06-25] MEDS: Potassium Chloride Packet 20 MEQ PACKET 60 MEQ PO ×2 (11:45→21:52)
[2022-06-25 14:15] LABS: Venous Blood Gas Refer to POC result
[2022-06-25] MEDS: cefTRIAXone sodium 1 GM in 0.9 % Sodium Chloride 50 ML IV (18:24)
--- NOTE | 2022-06-25 19:44 | PC.NURSE ---
Assumed care at 07:00. Patient alert, drowsy, arousable to voice, oriented x4, moves all extremities, responds appropriately. Is often noncompliant, particularly resistant to repositioning at times, but also taking large amounts of PO fluids and required education 2-3 times about this to patient and family that despite no formal fluid restriction, needs to be cautious about taking lots of PO fluid. Patient voiced understanding. Air loss pump added to bed, and patient educated about importance of repositioning to prevent skin injury, barrier cream applied to buttocks. Patient skin is intact with pink blanchable buttocks and BLE. Patient was on levophed this morning at 0.11 mcg/kg/min, and this was weaned off by about 1605, and tolerated IV bumex doses. Patient diuresed 2200 ccs, but also took in about 2456 ccs, and so is about 256 ccs fluid positive for 12 hours, discussed with MD and patient educated, and oncoming shift aware. Patient oxygenation has been difficult to titrated FiO2, and liter flow has been as high as 11 lpm and as low as 4 lpm, largely around repositioning, as he becomes tachypneic and orthopneic especially with lying flat. After spending day on starr cannula 4 lpm - 9 lpm, mostly at 7 lpm, was placed on oxymask at 1800 at 11 lpm, patient would like to use starr and does not want to use bipap, and oncoming shift aware. LS diminished at bases, productive cough of small amount of thick white/creamy sputum, some accessory muscle use and tachypnea, patient says he is always SOB, and he feels he is at his baseline with WOB, discussed with MD. Heart sounds with murmur. Patient refused to get OOB with assistance today. Patient has poor appetite, and only had small portions of breakfast and dinner, and refused lunch. He and his family wanted him to prioritize sleeping, which was attempted with minimal success today, because he did not sleep well last night.
[2022-06-25 20:55] LABS: Anion Gap 17 (12-20); Blood Urea Nitrogen 11 mg/dL (9-16); Calcium 8.4 mg/dL (8.4-10.2); Carbon Dioxide 32 mmol/L (22-29); Chloride 89 mmol/L (96-108); Creatinine Clr Calc Pharmacy 114.2; Estimated Glomerular Filt Rate > 60; Glucose Random 109 mg/dL (60-115); Potassium 3.4 mmol/L (3.3-5.1); Sodium 135 mmol/L (135-145)
[2022-06-25] MEDS: Bumetanide 25 MG in Container,Empty 0 ML IVCONT (22:20)
[2022-06-26] VITALS (33 sets, daily range): BP systolic 72–117; BP diastolic 48–74; PULSE 84–128; RESP 18–28; TEMP 36.1–36.6; O2SAT 88–96; BMI 31.1
[2022-06-26 05:43] LABS: VBG Base Excess 11.7 mmol/L; VBG HCO3 38 mmol/L (22-26); VBG pCO2 54 mmHg; VBG pH 7.45 (7.32-7.43); VBG pO2 71 mmHg
[2022-06-26 05:44] LABS: Venous Blood Gas Refer to POC result
[2022-06-26 05:50] LABS: Basophils Absolute Auto 0.1 X10*3/uL (0.0-0.2); Basophils Percent Auto 0.2 % (0-2); Eosinophils Percent Auto 0.1 % (0-4); Hematocrit 48.6 % (42.0-52.0); Hemoglobin 15.7 g/dl (14.0-18.0); Imm Gran Abs Auto 0.09 X10*3/uL (0.00-0.03); Imm Gran Pct Auto 0.4 % (0.0-0.4); Lymphocytes Absolute Auto 0.9 X10*3/uL (1.2-4.9); MANUAL DIFF FLAG SCAN; Mean Corpuscular HGB Conc 32.3 g/dl (31.0-36.0); Mean Corpuscular Hemoglobin 29.1 pg (27.0-33.0); Monocytes Absolute Auto 1.7 X10*3/uL (0.1-1.2); Monocytes Percent Auto 7.8 % (2-11); Neutrophils Percent Auto 87.5 % (45-73); Platelet Count 182 X10*3/uL (160-400); Red Cell Distribution Width 12.5 % (11.0-16.0); SCAN SMEAR FLAG 1; White Blood Count 21.7 X10*3/uL (4.8-10.8)
[2022-06-26 06:05] LABS: Albumin Level 2.9 g/dL (3.5-5.0); Anion Gap 14 (12-20); Blood Urea Nitrogen 12 mg/dL (9-16); Calcium 8.4 mg/dL (8.4-10.2); Carbon Dioxide 33 mmol/L (22-29); Chloride 90 mmol/L (96-108); Creatinine Clr Calc Pharmacy 103.3; Estimated Glomerular Filt Rate > 60; Glucose Random 105 mg/dL (60-115); Magnesium 1.6 mg/dL (1.6-2.6); Potassium 3.6 mmol/L (3.3-5.1); Sodium 133 mmol/L (135-145)
[2022-06-26 06:13] LABS: SLIDE REVIEW VERIFIED
[2022-06-26] MEDS: Potassium Chloride Packet 20 MEQ PACKET 60 MEQ PO (06:34)
[2022-06-26] MEDS: Albumin Human 25 % 100 ML IV ×3 (08:16→20:09)
[2022-06-26] MEDS: Magnesium Sulfate/H2O 2 GM/50 ML PIGGYBACK IV (08:20)
[2022-06-26] MEDS: acetaZOLAMIDE sodium 500 MG VIAL IVPUSH ×2 (08:23→21:58)
[2022-06-26] MEDS: Apixaban 5 MG TABLET PO ×2 (08:23→20:08)
[2022-06-26] MEDS: Sildenafil Citrate 20 MG TABLET PO ×3 (08:23→20:08)
[2022-06-26] MEDS: Sotalol HCL 80 MG TABLET PO ×2 (08:23→20:08)
[2022-06-26] MEDS: 0.9 % Sodium Chloride Flush 3 ML SYRINGE IVFLUSH ×3 (08:24→21:59)
[2022-06-26] MEDS: Digoxin 0.5 MG/2 ML AMPUL 0.125 MG IVPUSH ×2 (08:24→18:47)
[2022-06-26] MEDS: Throat Lozenge, Medicated LOZENGE 1 LOZENGE MUCOUS MEM (08:36)
[2022-06-26] MEDS: Norepinephrine Bitartrate/D5W 8 MG/250 ML PLAST..BAG 10.34 MG IV (08:36)
--- NOTE | 2022-06-26 09:53 | PM.CCPN ---
Subjective Subjective Date of Service: 06/26/22 Interval History: 71-year-old gentleman underlying history of COPD, IPF, AFib on Eliquis, 2 L supplemental oxygen dependent admitted on 06/21/2022 with progressive dyspnea and worsening lower extremity edema of approximately 1 months. He was noted to be significantly hypoxic requiring supplemental oxygen at 426 L. He was admitted to telemetry service and started on diuresis. Hospital course is also significant for worsening hypoxia with CO2 retention while hypoxic requiring initiation of BiPAP support and transferred to intensive care unit. In the intensive care unit titrated of BiPAP. 2D echocardiogram with severely elevated pulmonary artery pressure and right ventricular dysfunction. Started on vasopressor support and diuresis. No events overnight. Hypoxia and urine output continue improving on Bumex. Critical Care Time (minutes): 45 Physical Exam Vital Signs: Vital Signs: Last Vital Signs Temp 97.0 F 06/26/22 07:55 Pulse 99 06/26/22 09:00 Resp 24 H 06/26/22 09:00 BP 109/64 06/26/22 09:00 Pulse Ox 92 06/26/22 09:00 O2 Del Method 06/26/22 09:00 O2 Flow Rate 8 06/26/22 09:00 FiO2 30 06/22/22 15:30 Oxygen Flow Rate 3 06/21/22 13:26 BMI result Body Mass Index 31.1 Const: General: no acute distress, alert and awake Eyes: Sclerae: sclerae normal EOM: EOMs intact bilaterally Neck: Neck: Yes no lymphadenopathy, Yes trachea midline and Yes supple Resp: Effort & Inspection: normal respiratory effort and no respiratory distress Auscultation: crackles (Diffuse bilateral) Cardio: Rate: regular rate Rhythm: regular rhythm Heart sounds: no gallops, no murmurs and no rubs GI: Palpation (GI): Soft to palpation and Other GI palpation findings present ( Nontender) Auscultation: normal bowel sounds Extrem: General: No clubbing, No cyanosis and Yes edema (2+ bilateral) Objective Data Labs 06/26/22 05:38 06/26/22 05:38 Labs: Laboratory Results - last 24 hr 06/25/22 06/26/22 06/26/22 19:31 05:36 05:38 WBC 21.7 H RBC 5.40 Hgb 15.7 Hct 48.6 MCV 90.0 MCH 29.1 MCHC 32.3 RDW 12.5 Plt Count 182 MPV 10.0 Immature Gran % (Auto) 0.4 Neut % (Auto) 87.5 H Lymph % (Auto) 4.0 L [place] % (Auto) 7.8 Eos % (Auto) 0.1 Baso % (Auto) 0.2 Lymph # (Auto) 0.9 L [place] # (Auto) 1.7 H Eos # (Auto) 0.0 Baso # (Auto) 0.1 Abs Immat Gran (auto) 0.09 H Absolute Neuts (auto) 19.0 H Absolute Nucleated RBC 0.000 Nucleated RBC % (auto) 0.0 Smear Tech's Comments VERIFIED VBG pH 7.45 H VBG pCO2 54 VBG pO2 71 VBG HCO3 38 H VBG O2 Saturation 93.0 VBG Base Excess 11.7 Sodium 135 Potassium 3.4 Chloride 89 L Carbon Dioxide 32 H Anion Gap 17 BUN 11 Creatinine 0.76 Estim Creat Clear Calc 114.2 Estimated GFR > 60 Random Glucose 109 Calcium 8.4 Phosphorus Magnesium Albumin 06/26/22 05:38 WBC RBC Hgb Hct MCV MCH MCHC RDW Plt Count MPV Immature Gran % (Auto) Neut % (Auto) Lymph % (Auto) [place] % (Auto) Eos % (Auto) Baso % (Auto) Lymph # (Auto) [place] # (Auto) Eos # (Auto) Baso # (Auto) Abs Immat Gran (auto) Absolute Neuts (auto) Absolute Nucleated RBC Nucleated RBC % (auto) Smear Tech's Comments VBG pH VBG pCO2 VBG pO2 VBG HCO3 VBG O2 Saturation VBG Base Excess Sodium 133 L Potassium 3.6 Chloride 90 L Carbon Dioxide 33 H Anion Gap 14 BUN 12 Creatinine 0.84 Estim Creat Clear Calc 103.3 Estimated GFR > 60 Random Glucose 105 Calcium 8.4 Phosphorus 3.0 Magnesium 1.6 Albumin 2.9 L Microbiology Microbiology Results: Microbiology 06/22/22 18:00 Urine clean catch - Urine morel top Urine Culture - Final Enterococcus faecalis Progress Note: A&P Assessment and plan (1) Pulmonary hypertension: Status: Acute (2) Right heart failure: Status: Acute (3) Acute on chronic respiratory failure with hypoxemia: Status: Acute (4) Interstitial lung disease: Status: Acute (5) COPD (chronic obstructive pulmonary disease): Status: Acute (6) PAF (paroxysmal atrial fibrillation): Status: Acute Plan Assessment: 71-year-old gentleman with underlying right ventricular failure, ILD, COPD, baseline 2 L of supplemental oxygen dependent admitted with acute on chronic exacerbation of underlying congestive heart failure, pulmonary hypertension, right ventricular failure now requiring vasopressor support. Plan: Neuro: No acute issues. Cardiac: Right ventricular failure with severe pulmonary hypertension that is likely multifactorial in etiology. Cardiology service care appreciated. Also underlying AFib. Continue on sildenafil. Now requiring vasopressor support. Continue to titrate off as tolerated. Improving with diuresis. Follow up echo on 06/28/2022. Pulmonary: Acute on chronic hypoxic respiratory failure secondary to exacerbation of right ventricular failure. Also element of CO2 retention with hyperoxia and with rising bicarbonate. Acetazolamide added. Maintain O2 sat no higher than 92%. Continue to titrate off supplemental oxygen as tolerated. Renal: No acute issues. Endo: No acute issues. GI: No acute issues. ID: No acute issues Heme/Onc: No acute issues. Psych: No acute issues. Miscellaneous: No acute issues. Prophylaxis: Eliquis Diet: Cardiac Critical care time spent: 45 minutes Quality Stroke Does the patient have a stroke diagnosis?: No VTE Prior VTE?: No VTE Risk Level:: Medical - moderate - high VTE Device Contraindication: Treatment Not Indicated VTE Drug Contraindication: N/A - Med Ordered
--- NOTE | 2022-06-26 11:02 | P.PNCA_ITS ---
Subjective Subjective Date of Service: 06/26/22 Interval history: Patient was seen and examined at bedside. Quite tired and fatigued. On supplemental oxygen. Improved with diuretics still volume overloaded. Physical Exam Vital Signs: Last Vital Signs Temp 97.0 F 06/26/22 07:55 Pulse 96 06/26/22 09:58 Resp 25 H 06/26/22 09:58 BP 104/69 06/26/22 09:58 Pulse Ox 96 06/26/22 09:58 O2 Del Method 06/26/22 09:58 O2 Flow Rate 8 06/26/22 09:58 FiO2 30 06/22/22 15:30 Oxygen Flow Rate 3 06/21/22 13:26 BMI result Body Mass Index 31.1 GENERAL APPEARANCE: On supplemental oxygen. Fatigued. NECK: + JVD + HJR. SKIN: no suspicious lesions, warm and dry. HEART: Holosystolic murmur left sternal border, regular rate and rhythm. left parasternal heave. LUNGS: Bilateral crackles. ABDOMEN: soft, nontender. EXTREMITIES: 2+ edema. PERIPHERAL PULSES: equal. NEUROLOGIC: No gross deficits, AAO X 3 Objective Labs and Meds 06/26/22 05:38 06/26/22 05:38 Lab results: Laboratory Results - last 24 hr 06/25/22 06/26/22 06/26/22 19:31 05:36 05:38 WBC 21.7 H RBC 5.40 Hgb 15.7 Hct 48.6 MCV 90.0 MCH 29.1 MCHC 32.3 RDW 12.5 Plt Count 182 MPV 10.0 Immature Gran % (Auto) 0.4 Neut % (Auto) 87.5 H Lymph % (Auto) 4.0 L [place] % (Auto) 7.8 Eos % (Auto) 0.1 Baso % (Auto) 0.2 Lymph # (Auto) 0.9 L [place] # (Auto) 1.7 H Eos # (Auto) 0.0 Baso # (Auto) 0.1 Abs Immat Gran (auto) 0.09 H Absolute Neuts (auto) 19.0 H Absolute Nucleated RBC 0.000 Nucleated RBC % (auto) 0.0 Smear Tech's Comments VERIFIED VBG pH 7.45 H VBG pCO2 54 VBG pO2 71 VBG HCO3 38 H VBG O2 Saturation 93.0 VBG Base Excess 11.7 Sodium 135 Potassium 3.4 Chloride 89 L Carbon Dioxide 32 H Anion Gap 17 BUN 11 Creatinine 0.76 Estim Creat Clear Calc 114.2 Estimated GFR > 60 Random Glucose 109 Calcium 8.4 Phosphorus Magnesium Albumin 06/26/22 05:38 WBC RBC Hgb Hct MCV MCH MCHC RDW Plt Count MPV Immature Gran % (Auto) Neut % (Auto) Lymph % (Auto) [place] % (Auto) Eos % (Auto) Baso % (Auto) Lymph # (Auto) [place] # (Auto) Eos # (Auto) Baso # (Auto) Abs Immat Gran (auto) Absolute Neuts (auto) Absolute Nucleated RBC Nucleated RBC % (auto) Smear Tech's Comments VBG pH VBG pCO2 VBG pO2 VBG HCO3 VBG O2 Saturation VBG Base Excess Sodium 133 L Potassium 3.6 Chloride 90 L Carbon Dioxide 33 H Anion Gap 14 BUN 12 Creatinine 0.84 Estim Creat Clear Calc 103.3 Estimated GFR > 60 Random Glucose 105 Calcium 8.4 Phosphorus 3.0 Magnesium 1.6 Albumin 2.9 L Progress Note: A&P Assessment and plan (1) Pulmonary hypertension: Status: Acute (2) Right heart failure: Status: Acute Plan 71-year-old gentleman with interstitial lung disease and cor pulmonale. Severe RV dysfunction with RV dilation. On supplemental oxygen. He has severe pulmonary hypertension. Was started on sildenafil and has been on diuretics at this point and diuresing well. Monitor electrolytes closely specially the potassium as he is on sotalol and hypokalemia may predispose him to QT prolongation and risk of torsades. Consider adding spironolactone 25 mg once a day. Once off Levophed then we will do repeat limited echo to assess the right ventricle and pulmonary pressures. Thank you for allowing me to participate in the care of your patient. Please feel free to contact me if you have any questions. Time Spent With Patient Time: Total time managing care of this patient today ____ minutes. Progress Note: Quality Stroke Does the patient have a stroke diagnosis?: No Procedures Date of Service Date of Service: 06/26/22
[2022-06-26 11:28] LABS: Appearance Urine Clear; Color Urine Yellow; Glucose Urine UA Negative (Negative); Leukocyte Esterase Urine Trace (Negative); Nitrite Urine Negative (Negative); UMIC TRIGGER UA YES; Urine Blood Large (3+) (Negative); Urine Ketones Trace mg/dL (Negative); Urine Protein Negative (Neg-Trace)
[2022-06-26 11:45] LABS: Bacteria Urine None Seen (None Seen); RBC Urine >20 /HPF (0-2); Squamous Epithelial Cell Urine 0-2 /HPF (0-2); WBC Urine 0-5 /HPF (0-5)
[2022-06-26] MEDS: cefTRIAXone sodium 1 GM in 0.9 % Sodium Chloride 50 ML IV (18:21)
[2022-06-26 18:30] LABS: Anion Gap 17 (12-20); Blood Urea Nitrogen 16 mg/dL (9-16); Calcium 9.1 mg/dL (8.4-10.2); Carbon Dioxide 32 mmol/L (22-29); Chloride 89 mmol/L (96-108); Creatinine Clr Calc Pharmacy 78.8; Estimated Glomerular Filt Rate > 60; Glucose Random 135 mg/dL (60-115); Potassium 3.8 mmol/L (3.3-5.1); Sodium 134 mmol/L (135-145)
[2022-06-26] MEDS: ondansetron HCL 4 MG/2 ML VIAL IVPUSH (19:47)
[2022-06-26] MEDS: Bumetanide 1 MG/4 ML VIAL IVPUSH (19:47)
[2022-06-26] MEDS: Norepinephrine Bitartrate/D5W 8 MG/250 ML PLAST..BAG 22.75 MG IV (21:58)
[2022-06-27] VITALS (30 sets, daily range): BP systolic 89–125; BP diastolic 51–83; PULSE 86–133; RESP 18–26; TEMP 36.6–37.7; O2SAT 87–96; BMI 30.4
[2022-06-27] MEDS: Digoxin 0.5 MG/2 ML AMPUL 0.125 MG IVPUSH (00:02)
[2022-06-27] MEDS: Bumetanide 1 MG/4 ML VIAL IVPUSH ×3 (03:58→20:00)
[2022-06-27 05:26] LABS: VBG HCO3 37 mmol/L (22-26); VBG pCO2 58 mmHg; VBG pH 7.42 (7.32-7.43); VBG pO2 51 mmHg
[2022-06-27 05:45] LABS: MANUAL DIFF FLAG NO
[2022-06-27 05:53] LABS: Basophils Percent Auto 0.2 % (0-2); Eosinophils Percent Auto 0.1 % (0-4); Hematocrit 47.2 % (42.0-52.0); Hemoglobin 14.9 g/dl (14.0-18.0); Imm Gran Abs Auto 0.13 X10*3/uL (0.00-0.03); Imm Gran Pct Auto 0.7 % (0.0-0.4); Lymphocytes Absolute Auto 1.2 X10*3/uL (1.2-4.9); Lymphocytes Percent Auto 6.1 % (20-40); Mean Corpuscular HGB Conc 31.6 g/dl (31.0-36.0); Mean Platelet Volume 10.6 fL (9.4-12.4); Monocytes Absolute Auto 1.3 X10*3/uL (0.1-1.2); Monocytes Percent Auto 6.5 % (2-11); Neutrophils Percent Auto 86.4 % (45-73); Platelet Count 183 X10*3/uL (160-400); Red Blood Count 5.13 X10*6/uL (4.60-5.80); Red Cell Distribution Width 12.5 % (11.0-16.0); White Blood Count 19.6 X10*3/uL (4.8-10.8)
[2022-06-27 06:13] LABS: Albumin Level 3.7 g/dL (3.5-5.0); Anion Gap 19 (12-20); Blood Urea Nitrogen 19 mg/dL (9-16); Calcium 9.2 mg/dL (8.4-10.2); Carbon Dioxide 31 mmol/L (22-29); Chloride 88 mmol/L (96-108); Creatinine Clr Calc Pharmacy 74.8; Estimated Glomerular Filt Rate > 60; Glucose Random 118 mg/dL (60-115); Magnesium 1.8 mg/dL (1.6-2.6); Phosphorus 3.2 mg/dL (2.7-4.5); Potassium 3.4 mmol/L (3.3-5.1); Sodium 135 mmol/L (135-145)
[2022-06-27 06:37] LABS: Venous Blood Gas Refer to POC result
[2022-06-27] MEDS: Potassium Chloride Packet 20 MEQ PACKET 60 MEQ PO (08:29)
[2022-06-27] MEDS: Norepinephrine Bitartrate/D5W 8 MG/250 ML PLAST..BAG 22.75 MG IV (08:31)
[2022-06-27] MEDS: Digoxin 0.5 MG/2 ML AMPUL 0.25 MG IVPUSH (08:32)
[2022-06-27] MEDS: Apixaban 5 MG TABLET PO ×2 (08:34→20:00)
[2022-06-27] MEDS: Sotalol HCL 80 MG TABLET PO ×2 (08:34→20:00)
[2022-06-27] MEDS: Sildenafil Citrate 20 MG TABLET PO ×3 (08:34→20:00)
[2022-06-27] MEDS: ondansetron HCL 4 MG/2 ML VIAL IVPUSH ×2 (08:36→18:05)
[2022-06-27] MEDS: Magnesium Sulfate/H2O 2 GM/50 ML PIGGYBACK IV (08:37)
[2022-06-27] MEDS: 0.9 % Sodium Chloride Flush 3 ML SYRINGE IVFLUSH ×3 (08:40→22:31)
--- NOTE | 2022-06-27 11:42 | PC.RT ---
Pt noted to not have used bipap in > 48 hours. Pt kane starr cannula at this time. Bipap removed and cleaned, RN aware.
--- NOTE | 2022-06-27 11:51 | PM.CCPN ---
Subjective Subjective Date of Service: 06/27/22 Interval History: 71-year-old gentleman underlying history of COPD, IPF, AFib on Eliquis, 2 L supplemental oxygen dependent admitted on 06/21/2022 with progressive dyspnea and worsening lower extremity edema of approximately 1 months. He was noted to be significantly hypoxic requiring supplemental oxygen at 426 L. He was admitted to telemetry service and started on diuresis. Hospital course is also significant for worsening hypoxia with CO2 retention while hypoxic requiring initiation of BiPAP support and transferred to intensive care unit. In the intensive care unit titrated of BiPAP. 2D echocardiogram with severely elevated pulmonary artery pressure and right ventricular dysfunction. Started on vasopressor support and diuresis. No events overnight. Critical Care Time (minutes): 30 Physical Exam Vital Signs: Vital Signs: Last Vital Signs Temp 99.8 F 06/27/22 07:57 Pulse 92 06/27/22 10:51 Resp 22 H 06/27/22 10:51 BP 97/65 06/27/22 10:51 Pulse Ox 91 L 06/27/22 10:51 O2 Del Method 06/27/22 10:51 O2 Flow Rate 9 06/27/22 10:51 FiO2 30 06/22/22 15:30 Oxygen Flow Rate 3 06/21/22 13:26 BMI result Body Mass Index 30.4 Const: General: no acute distress, alert and awake Nutritional Appearance: Edematous Eyes: Sclerae: sclerae normal EOM: EOMs intact bilaterally Neck: Neck: Yes no lymphadenopathy, Yes trachea midline and Yes supple Resp: Effort & Inspection: normal respiratory effort and no respiratory distress Auscultation: crackles ( diffuse bilateral) Cardio: Rate: regular rate Rhythm: regular rhythm Heart sounds: no gallops, no murmurs and no rubs GI: Palpation (GI): Soft to palpation and Other GI palpation findings present ( Nontender) Auscultation: normal bowel sounds Extrem: General: No clubbing, No cyanosis and Yes edema ( 2+ bilateral lower extremity) Objective Data Labs 06/27/22 05:10 06/27/22 05:10 Labs: Laboratory Results - last 24 hr 06/26/22 06/27/22 06/27/22 18:05 05:10 05:10 WBC 19.6 H RBC 5.13 Hgb 14.9 Hct 47.2 MCV 92.0 MCH 29.0 MCHC 31.6 RDW 12.5 Plt Count 183 MPV 10.6 Immature Gran % (Auto) 0.7 H Neut % (Auto) 86.4 H Lymph % (Auto) 6.1 L [place] % (Auto) 6.5 Eos % (Auto) 0.1 Baso % (Auto) 0.2 Lymph # (Auto) 1.2 [place] # (Auto) 1.3 H Eos # (Auto) 0.0 Baso # (Auto) 0.0 Abs Immat Gran (auto) 0.13 H Absolute Neuts (auto) 17.0 H Absolute Nucleated RBC 0.000 Nucleated RBC % (auto) 0.0 VBG pH VBG pCO2 VBG pO2 VBG HCO3 VBG O2 Saturation VBG Base Excess Sodium 134 L 135 Potassium 3.8 3.4 Chloride 89 L 88 L Carbon Dioxide 32 H 31 H Anion Gap 17 19 BUN 16 19 H Creatinine 1.10 1.15 Estim Creat Clear Calc 78.8 74.8 Estimated GFR > 60 > 60 Random Glucose 135 H 118 H Calcium 9.1 D 9.2 Phosphorus 3.2 Magnesium 1.8 Albumin 3.7 06/27/22 05:19 WBC RBC Hgb Hct MCV MCH MCHC RDW Plt Count MPV Immature Gran % (Auto) Neut % (Auto) Lymph % (Auto) [place] % (Auto) Eos % (Auto) Baso % (Auto) Lymph # (Auto) [place] # (Auto) Eos # (Auto) Baso # (Auto) Abs Immat Gran (auto) Absolute Neuts (auto) Absolute Nucleated RBC Nucleated RBC % (auto) VBG pH 7.42 VBG pCO2 58 VBG pO2 51 VBG HCO3 37 H VBG O2 Saturation 81.0 VBG Base Excess 12.0 Sodium Potassium Chloride Carbon Dioxide Anion Gap BUN Creatinine Estim Creat Clear Calc Estimated GFR Random Glucose Calcium Phosphorus Magnesium Albumin Microbiology Microbiology Results: Microbiology 06/22/22 18:00 Urine clean catch - Urine morel top Urine Culture - Final Enterococcus faecalis Progress Note: A&P Assessment and plan (1) Pulmonary hypertension: Status: Acute (2) Right heart failure: Status: Acute (3) Acute on chronic respiratory failure with hypoxemia: Status: Acute (4) CHF exacerbation: Status: Acute (5) Interstitial lung disease: Status: Acute (6) COPD (chronic obstructive pulmonary disease): Status: Acute (7) PAF (paroxysmal atrial fibrillation): Status: Acute Plan Assessment: 71-year-old gentleman with underlying right ventricular failure, ILD, COPD, baseline 2 L of supplemental oxygen dependent admitted with acute on chronic exacerbation of underlying congestive heart failure, pulmonary hypertension, right ventricular failure now requiring vasopressor support. Plan: Neuro: No acute issues. Cardiac: Right ventricular failure with severe pulmonary hypertension that is likely multifactorial in etiology. Cardiology service care appreciated. Also underlying AFib. Continue on sildenafil. Now requiring vasopressor support. Continue to titrate off as tolerated. Improving with diuresis. Follow up echo on 06/28/2022. Pulmonary: Acute on chronic hypoxic respiratory failure secondary to exacerbation of right ventricular failure. Also element of CO2 retention with hyperoxia and with rising bicarbonate. Maintain O2 sat no higher than 92%. Continue to titrate off supplemental oxygen as tolerated. will obtain CT chest. Renal: No acute issues. Endo: No acute issues. GI: No acute issues. ID: No acute issues Heme/Onc: No acute issues. Psych: No acute issues. Miscellaneous: No acute issues. Prophylaxis: Eliquis Diet: Cardiac Critical care time spent: 45 minutes Quality Stroke Does the patient have a stroke diagnosis?: No VTE Prior VTE?: No VTE Risk Level:: Medical - moderate - high VTE Device Contraindication: Treatment Not Indicated VTE Drug Contraindication: N/A - Med Ordered
--- NOTE | 2022-06-27 13:20 | P.PNCA_ITS ---
Subjective Subjective Date of Service: 06/27/22 Interval history: Seen examined at bedside. Depressed appearing. Denying any symptoms. He is in recliner today Physical Exam Vital Signs: Last Vital Signs Temp 99.8 F 06/27/22 07:57 Pulse 93 06/27/22 12:00 Resp 18 06/27/22 12:00 BP 101/72 06/27/22 12:00 Pulse Ox 95 06/27/22 12:00 O2 Del Method 06/27/22 12:00 O2 Flow Rate 6 06/27/22 12:00 FiO2 30 06/22/22 15:30 Oxygen Flow Rate 3 06/21/22 13:26 BMI result Body Mass Index 30.4 GENERAL APPEARANCE: On supplemental oxygen. Fatigued. NECK: + JVD + HJR. SKIN: no suspicious lesions, warm and dry. HEART: Holosystolic murmur left sternal border, regular rate and rhythm. left parasternal heave. LUNGS: Bilateral crackles. ABDOMEN: soft, nontender. EXTREMITIES: 2+ edema. PERIPHERAL PULSES: equal. NEUROLOGIC: No gross deficits, AAO X 3 Objective Labs and Meds 06/27/22 05:10 06/27/22 05:10 Lab results: Laboratory Results - last 24 hr 06/26/22 06/27/22 06/27/22 18:05 05:10 05:10 WBC 19.6 H RBC 5.13 Hgb 14.9 Hct 47.2 MCV 92.0 MCH 29.0 MCHC 31.6 RDW 12.5 Plt Count 183 MPV 10.6 Immature Gran % (Auto) 0.7 H Neut % (Auto) 86.4 H Lymph % (Auto) 6.1 L [place] % (Auto) 6.5 Eos % (Auto) 0.1 Baso % (Auto) 0.2 Lymph # (Auto) 1.2 [place] # (Auto) 1.3 H Eos # (Auto) 0.0 Baso # (Auto) 0.0 Abs Immat Gran (auto) 0.13 H Absolute Neuts (auto) 17.0 H Absolute Nucleated RBC 0.000 Nucleated RBC % (auto) 0.0 VBG pH VBG pCO2 VBG pO2 VBG HCO3 VBG O2 Saturation VBG Base Excess Sodium 134 L 135 Potassium 3.8 3.4 Chloride 89 L 88 L Carbon Dioxide 32 H 31 H Anion Gap 17 19 BUN 16 19 H Creatinine 1.10 1.15 Estim Creat Clear Calc 78.8 74.8 Estimated GFR > 60 > 60 Random Glucose 135 H 118 H Calcium 9.1 D 9.2 Phosphorus 3.2 Magnesium 1.8 Albumin 3.7 06/27/22 05:19 WBC RBC Hgb Hct MCV MCH MCHC RDW Plt Count MPV Immature Gran % (Auto) Neut % (Auto) Lymph % (Auto) [place] % (Auto) Eos % (Auto) Baso % (Auto) Lymph # (Auto) [place] # (Auto) Eos # (Auto) Baso # (Auto) Abs Immat Gran (auto) Absolute Neuts (auto) Absolute Nucleated RBC Nucleated RBC % (auto) VBG pH 7.42 VBG pCO2 58 VBG pO2 51 VBG HCO3 37 H VBG O2 Saturation 81.0 VBG Base Excess 12.0 Sodium Potassium Chloride Carbon Dioxide Anion Gap BUN Creatinine Estim Creat Clear Calc Estimated GFR Random Glucose Calcium Phosphorus Magnesium Albumin Progress Note: A&P Assessment and plan (1) Pulmonary hypertension: Status: Acute (2) Right heart failure: Status: Acute Plan 71-year-old gentleman with interstitial lung disease and cor pulmonale. Severe RV dysfunction with RV dilation. On supplemental oxygen. He has severe pulmonary hypertension. Was started on sildenafil and has been on diuretics at this point and diuresing well. Monitor electrolytes closely specially the potassium as he is on sotalol and hypokalemia may predispose him to QT prolongation and risk of torsades. Consider adding spironolactone 25 mg once a day. Decreased the digoxin dose to 125 mcg every other day. Again potassium monitoring is important because hypokalemia. This poses to-toxicity. Will do limited echocardiography tomorrow to reassess RV function and PA pressures. I had a detailed discussion with patient's and son FERNANDO. I have explained to them that Aden has 2 major organs in the body with severe dysfunction at this point. He had made some progress with medications but long-term his prognosis is poor specifically due to interstitial lung disease and significant oxygen demand at this stage. He will have repeat echocardiography tomorrow to reassess the PA pressures and RV function. I have advised family that they should look into palliative care and hospice. Given his significant frailty and deconditioning currently along with oxygen demand he probably will not be returning home and if he reaches the point that he is okay to be discharged out of hospital then it is likely that he will end up going to a rehab facility most of which have palliative care available but case management can help at that sta ge. Thank you for allowing me to participate in the care of your patient. Please feel free to contact me if you have any questions. Time Spent With Patient Time: Total time managing care of this patient today ____ minutes. Progress Note: Quality Stroke Does the patient have a stroke diagnosis?: No Procedures Date of Service Date of Service: 06/27/22
[2022-06-27] MEDS: cefTRIAXone sodium 1 GM in 0.9 % Sodium Chloride 50 ML IV (18:05)
[2022-06-27] MEDS: Calcium Carbonate 750 MG TAB.CHEW PO (20:00)
[2022-06-27] MEDS: Norepinephrine Bitartrate/D5W 8 MG/250 ML PLAST..BAG 12.41 MG IV (22:30)
[2022-06-28] VITALS (31 sets, daily range): BP systolic 83–113; BP diastolic 24–76; PULSE 20–104; RESP 19–35; TEMP 36.2–37.2; O2SAT 88–99; BMI 29.9
[2022-06-28] MEDS: Bumetanide 1 MG/4 ML VIAL IVPUSH ×2 (03:31→12:21)
[2022-06-28 05:26] LABS: VBG Base Excess 11.9 mmol/L; VBG HCO3 39 mmol/L (22-26); VBG pCO2 58 mmHg; VBG pH 7.43 (7.32-7.43); VBG pO2 60 mmHg
[2022-06-28 05:28] LABS: MANUAL DIFF FLAG NO
[2022-06-28 05:44] LABS: Basophils Percent Auto 0.3 % (0-2); Eosinophils Absolute Auto 0.1 X10*3/uL (0.0-0.4); Eosinophils Percent Auto 0.8 % (0-4); Hematocrit 46.1 % (42.0-52.0); Hemoglobin 14.8 g/dl (14.0-18.0); Imm Gran Abs Auto 0.09 X10*3/uL (0.00-0.03); Imm Gran Pct Auto 0.6 % (0.0-0.4); Lymphocytes Absolute Auto 1.1 X10*3/uL (1.2-4.9); Lymphocytes Percent Auto 6.7 % (20-40); Mean Corpuscular HGB Conc 32.1 g/dl (31.0-36.0); Mean Corpuscular Hemoglobin 29.4 pg (27.0-33.0); Mean Corpuscular Volume 91.5 fL (80.0-98.0); Mean Platelet Volume 10.5 fL (9.4-12.4); Monocytes Absolute Auto 1.1 X10*3/uL (0.1-1.2); Monocytes Percent Auto 6.9 % (2-11); Neutrophils Absolute Auto 13.4 x10*3/uL (2.0-8.3); Neutrophils Percent Auto 84.7 % (45-73); Platelet Count 178 X10*3/uL (160-400); Red Blood Count 5.04 X10*6/uL (4.60-5.80); Red Cell Distribution Width 12.6 % (11.0-16.0); White Blood Count 15.8 X10*3/uL (4.8-10.8)
--- NOTE | 2022-06-28 07:00 | CA_ITS ---
Transthoracic Echocardiogram Patient (Last, First, Middle): Aden Nino H Gender: Male Date of : 1950 Age: 71 Procedure Date: 06/28/2022 Procedure Type: Transthoracic Echocardiogram Location: ICU Height: 187.96 cm Weight: 105.69 kg BSA: 2.32 m2 Heart Rate: 90 bpm BP: 82 / 58 mmHg Ironer Hand: BENJAMIN Referring MD: Stefan Hartley MD Symptoms: PASP, LVEF, RVEF Study Quality: Adequate w contrast ECG Rhythm: Sinus Conclusions: - 1. Normal LV systolic function with LVEF of 65-70% 2. Severely dilated right ventricle with severe LV systolic dysfunction 3. Severely elevated right ventricular systolic pressure consistent with severe pulmonary hypertension with significantly elevated right atrial pressures Findings Procedure Information Contrast agent, definity, is being given per protocol without apparent complications. Left Ventricle Normal left ventricular size, thickness, and systolic function. The visually estimated ejection fraction is between 65-70%. There is a flattened septum in systole consistent with right ventricular pressure overload. Right Ventricle Severely increased right ventricular cavity size. There is severely decreased right ventricular systolic function. Tricuspid Valve Significantly elevated right atrial pressure. Severe pulmonary hypertension is present. Venous The inferior vena cava is severely dilated and collapses less than 50% with inspiration. Pericardium/Pleural There is no evidence of pericardial effusion. Prior Study Comparison No significant change compared to prior study dated: 06/22/2022. Measurements 2D Linear Measurements IVSd: 1.01 0.6-0.9/0.6-1.0 cm LVIDd: 4.28 3.9-5.3/4.2-5.9 cm LVIDd Index: 1.84 2.4-3.2/2.2-3.1 cm/m2 LVIDs: 2.78 2.0-3.6 cm LVPWd: 0.98 0.7-1.1 cm LA Diam: 2.90 2.7-3.8/3.0-4.0 cm LAIDs Index: 1.25 1.5-2.3 cm/m2 LV Mass: 174.81 67-162/88-224 g LV Mass Index: 75.35 43-95/49-115 g/m2 LVOT Diam: 1.80 3.0+(-)1.3 cm 2D Systolic Function EF 4C: 70.00 >55% EF 2C: 69.40 >55% EF BiP: 70.30 >55% Mitral Valve MV Pk E: 0.39 MV PK A: 0.61 MV Decel Time: 221.00 E/A: 0.60 E'Lateral: 6.74 E'Medial: 4.79 E/E' Med: 8.20 E/E' Lat: 5.80 PHT: 65.00 MVA PHT: 3.38 Decel [place]: 1.77 LVOT LVOT Pk Vinny: 0.84 LVOT Mn Vinny: 0.60 LVOT VTI: 0.13 LVOT Pk Grad: 3.00 LVOT Mn Grad: 2.00 LVOT Diam: 1.80 LVOT Area: 2.54 Diastolic Function MV Pk E: 0.39 MV Pk A: 0.61 E/A: 0.60 E'Medial: 4.79 E/E' Med: 8.20 E' Laterial: 6.74 E/E' Lat: 5.80 Right Ventricle TAPSE (mm): 14.60 TVS' Vinny: 12.10 Tricuspid Valve TR Pk Vinny: 4.40 TR Pk Grad: 83.00 RA Press: 15.00 RVSP: 98.00 Updated in Other Vendor System with Status of Final Antwon Chen MD electronically signed on 06/28/2022 12:11:25 PM with status of Final
[2022-06-28 07:09] LABS: Albumin Level 3.4 g/dL (3.5-5.0); Anion Gap 15 (12-20); Blood Urea Nitrogen 19 mg/dL (9-16); Calcium 8.9 mg/dL (8.4-10.2); Carbon Dioxide 33 mmol/L (22-29); Chloride 90 mmol/L (96-108); Creatinine Clr Calc Pharmacy 86.2; Estimated Glomerular Filt Rate > 60; Glucose Random 111 mg/dL (60-115); Magnesium 2.1 mg/dL (1.6-2.6); Phosphorus 2.7 mg/dL (2.7-4.5); Potassium 3.4 mmol/L (3.3-5.1); Sodium 135 mmol/L (135-145)
[2022-06-28] MEDS: Apixaban 5 MG TABLET PO ×2 (08:41→19:59)
[2022-06-28] MEDS: Sildenafil Citrate 20 MG TABLET PO ×3 (08:41→19:59)
[2022-06-28] MEDS: Sotalol HCL 80 MG TABLET PO ×2 (08:41→19:59)
[2022-06-28] MEDS: 0.9 % Sodium Chloride Flush 3 ML SYRINGE IVFLUSH ×3 (08:41→19:59)
[2022-06-28] MEDS: Digoxin 0.5 MG/2 ML AMPUL 0.125 MG IVPUSH (08:42)
[2022-06-28] MEDS: LORazepam 0.5 MG TABLET PO (08:44)
--- NOTE | 2022-06-28 10:04 | MHC.CLN ---
RECOMMEND ADDING ENSURE PLUS HIGH PROTEIN R/T POOR PO SUPP TO PROVIDE 1050KCALS, 60G PROTEIN WITH 100% ACCEPTANCE CONTINUE TO MONITOR PO INTAKE AND SUPPLEMENT ACCEPTANCE
--- NOTE | 2022-06-28 10:08 | MHC.CM.PN ---
Pt continues care in ICU: on low dose pressors, will have an echo today to evaluate HF treatment/diuresis. Pt originally from home w/spouse: will refer to NA should pt be able to return to home: STR may be required and referrals will be made once pt can participate in a PT eval. CM to follow
--- NOTE | 2022-06-28 10:49 | PM.PNCARD ---
Subjective Subjective Date of Service: 06/28/22 <JOSH Ann - Last Filed: 06/28/22 11:21> 06/29/22 <Antwon Chen MD - Last Filed: 06/29/22 16:30> Principal diagnosis: RHF, pulm HTN <JOSH Ann - Last Filed: 06/28/22 11:21> Interval history: Seen at 1000. Today he is observed in bed, Sitting up and wearing O2 with nasal cannula. He reports that breathing is labored for him and overall he does not feel well. He denies any pain. States stomach is upset and does not feel like eating. On Levophed drip for BP support. Tele monitor showing SR, rate 80-90s. Bedisde limited echo about to be done. <JOSH Ann - Last Filed: 06/28/22 11:21> Review of Systems Review of Systems as above <JOSH Ann - Last Filed: 06/28/22 11:21> Yes all other systems are reviewed and are negative <JOSH Ann - Last Filed: 06/28/22 11:21> Physical Exam Vital Signs: Last Vital Signs Temp 98.5 F 06/28/22 09:00 Pulse 94 06/28/22 09:14 Resp 27 H 06/28/22 09:00 BP 83/55 L 06/28/22 09:14 Pulse Ox 90 L 06/28/22 09:00 O2 Del Method 06/28/22 09:00 O2 Flow Rate 7 06/28/22 09:00 FiO2 30 06/22/22 15:30 Oxygen Flow Rate 3 06/21/22 13:26 BMI result Body Mass Index 29.9 <JOHS Ann - Last Filed: 06/28/22 11:21> Const Other: fatigued, wearing O2 cannula <JOSH Ann - Last Filed: 06/28/22 11:21> General: cooperative and no acute distress <JOSH Ann - Last Filed: 06/28/22 11:21> Orientation/consciousness: patient oriented x3 <JOSH Ann - Last Filed: 06/28/22 11:21> Neck Other: sitting up in bed, no obvious JVD noted <Vandana MaryCRISTELAC - Last Filed: 06/28/22 11:21> Neck: Yes normal visual inspection <Vandanaceasar Hernandez [facility] - Last Filed: 06/28/22 11:21> Resp Other: mild increase to work of breathing. No acute distress. Rales noted in lower lobes bilaterally <Vandana Mary [facility] - Last Filed: 06/28/22 11:21> Auscultation: no rhonchi and no wheezes <[facility] Mary [facility] - Last Filed: 06/28/22 11:21> Cardio Rate: regular rate <[facility] Mary [facility] - Last Filed: 06/28/22 11:21> Rhythm: regular rhythm <[facility] Mray [facility] - Last Filed: 06/28/22 11:21> Heart sounds: S1 normal heart sound present, S2 normal heart sound present, no murmurs and no rubs <Vandana Mary [facility] - Last Filed: 06/28/22 11:21> Peripheral pulses: Peripheral pulses 2+ throughout <[facility] - Last Filed: 06/28/22 11:21> GI Other: soft, rounded, nontender <[facility] Mary [facility] - Last Filed: 06/28/22 11:21> Inspection: Yes normal to inspection <Vandana Mary [facility] - Last Filed: 06/28/22 11:21> Neuro General: patient oriented x3 <Vandana Mary [facility] - Last Filed: 06/28/22 11:21> Extrem Other: soft pitting edema in lower leg to level of knees bilateral <[facility] - Last Filed: 06/28/22 11:21> Psych Appearance: grossly normal <Vandana Mary [facility] - Last Filed: 06/28/22 11:21> Mental Status: mental status grossly normal <[facility] Mary, [facility] - Last Filed: 06/28/22 11:21> Objective Labs and Meds Result diagrams: 06/28/22 05:20 06/28/22 06:39 <JOSH Ann - Last Filed: 06/28/22 11:21> Lab results: Laboratory Results - last 24 hr 06/28/22 06/28/22 06/28/22 05:19 05:20 06:39 WBC 15.8 H RBC 5.04 Hgb 14.8 Hct 46.1 MCV 91.5 MCH 29.4 MCHC 32.1 RDW 12.6 Plt Count 178 MPV 10.5 Immature Gran % (Auto) 0.6 H Neut % (Auto) 84.7 H Lymph % (Auto) 6.7 L [place] % (Auto) 6.9 Eos % (Auto) 0.8 Baso % (Auto) 0.3 Lymph # (Auto) 1.1 L [place] # (Auto) 1.1 Eos # (Auto) 0.1 Baso # (Auto) 0.0 Abs Immat Gran (auto) 0.09 H Absolute Neuts (auto) 13.4 H Absolute Nucleated RBC 0.000 Nucleated RBC % (auto) 0.0 VBG pH 7.43 VBG pCO2 58 VBG pO2 60 VBG HCO3 39 H VBG O2 Saturation 88.0 VBG Base Excess 11.9 Sodium 135 Potassium 3.4 Chloride 90 L Carbon Dioxide 33 H Anion Gap 15 BUN 19 H Creatinine 0.99 Estim Creat Clear Calc 86.2 Estimated GFR > 60 Random Glucose 111 Calcium 8.9 Phosphorus 2.7 Magnesium 2.1 Albumin 3.4 L <JOSH Ann - Last Filed: 06/28/22 11:21> Imaging Radiologist's impression: Impressions Chest CT 06/27/22 12:49 IMPRESSION: * Severe interstitial lung disease, diminished lung volume, severe diffuse pulmonary fibrosis, this has worsened progressed since prior CT of 2020. * Bilateral moderate pleural effusions. * Cardiomegaly, small pericardial effusion. * Dilated pulmonary arteries, this has been described in association with pulmonary hypertension. * [place] of tissue in the right upper lobe 2.3 x 2.6 cm question lung nodule versus confluence of vessels, difficult to assess given the lack of contrast and degree of parenchymal disease. Would recommend correlation with follow-up outpatient CT scan with IV contrast, one month after completion of treatment.. * Enlarged mediastinal lymph nodes 1.9 cm short axis unchanged. * Heavy trivessel coronary calcifications. <JOSH Ann - Last Filed: 06/28/22 11:21> Progress Note: A&P Assessment and plan (1) Right heart failure: Status: Acute <JOSH Ann - Last Filed: 06/28/22 11:21> Assessment and Plan: Hx of ILD, COPD. Admit 06/21/22 with increasing sob and edema over several months. Echo shows severe increase in RV size and decrease in RVSF, RA severe dilated, RVSP 101mmhg, severe pulm HTN. Being treated for acute on chronic right heart failure, hypoxic / hypercapniec respirator failure. Currently remains in the ICU. Being diuresed with IV Bumex and fluid balance Neg 9725cc since admit. Hypotensive and has been on Levophed drip for BP support. On O2 7 liters with sat 97% currently. He has been on Sildenafil to help reduce pulmonary HTN. Today he reports that breathing remains uncomfortable for him. He appears fatigued but in no acute distress. Limited echo being done this am to reassess RV and RVSP now that he has diuresed some. He still appears fluid overloaded on exam. Cr 0.99. Recommend continue IV Bumex. Strict I+O monitoring. Close monitoring of electrolyte and kidney function. K 3.4 today. Recommend potassium replacement and start of Spironolactone. O2 supplement as needed for sat > 90%. Wean Levophed drip off as BP allows. We will follow. <JOSH Ann - Last Filed: 06/28/22 11:21> Hx of ILD, COPD. Admit 06/21/22 with increasing sob and edema over several months. Echo shows severe increase in RV size and decrease in RVSF, RA severe dilated, RVSP 101mmhg, severe pulm HTN. Being treated for acute on chronic right heart failure, hypoxic / hypercapniec respirator failure. Currently remains in the ICU. Being diuresed with IV Bumex and fluid balance Neg 9725cc since admit. Hypotensive and has been on Levophed drip for BP support. On O2 7 liters with sat 97% currently. He has been on Sildenafil to help reduce pulmonary HTN. Today he reports that breathing remains uncomfortable for him. He appears fatigued but in no acute distress. Limited echo being done this am to reassess RV and RVSP now that he has diuresed some. He still appears fluid overloaded on exam. Cr 0.99. Recommend continue IV Bumex. Strict I+O monitoring. Close monitoring of electrolyte and kidney function. K 3.4 today. Recommend potassium replacement and start of Spironolactone. O2 supplement as needed for sat > 90%. Wean Levophed drip off as BP allows. We will follow. Case was discussed with Vandana Hernandez. Management as above overall prognosis is guarded <Antwon Chen MD - Last Filed: 06/29/22 16:30> (2) Pulmonary hypertension: Status: Acute <JOSH Ann - Last Filed: 06/28/22 11:21> (3) Acute on chronic respiratory failure with hypoxemia: Status: Acute <JOSH Ann - Last Filed: 06/28/22 11:21> (4) Interstitial lung disease: Status: Acute <JOSH Ann - Last Filed: 06/28/22 11:21> (5) PAF (paroxysmal atrial fibrillation): Status: Acute <JOSH Ann - Last Filed: 06/28/22 11:21> Assessment and Plan: Hx of PAF. Had been on Diltiazem, Sotalol and Eliquis at home. This admit Diltiazem was stopped due to HF. Tele showing SR, rates 80-90s. No bleeding issues. Continue Sotalol. Avoid hypokalemia, which can prolong QTc and increase chance of VT. Continue Eliquis for anticoagulation. <JOHS Ann - Last Filed: 06/28/22 11:21> Time Spent With Patient Time: Total time managing care of this patient today _24__ minutes. <JOSH Ann Last Filed: 06/28/22 11:21> Progress Note: Quality Stroke Does the patient have a stroke diagnosis?: No <JOSH Ann Last Filed: 06/28/22 11:21> Procedures Date of Service Date of Service: 06/28/22 <JOSH Ann Filed: 06/28/22 11:21>
--- NOTE | 2022-06-28 11:39 | PM.CCPN ---
Subjective Subjective Date of Service: 06/28/22 Interval History: 71-year-old gentleman underlying history of COPD, IPF, AFib on Eliquis, 2 L supplemental oxygen dependent admitted on 06/21/2022 with progressive dyspnea and worsening lower extremity edema of approximately 1 months. He was noted to be significantly hypoxic requiring supplemental oxygen at 426 L. He was admitted to telemetry service and started on diuresis. Hospital course is also significant for worsening hypoxia with CO2 retention while hypoxic requiring initiation of BiPAP support and transferred to intensive care unit. In the intensive care unit titrated of BiPAP. 2D echocardiogram with severely elevated pulmonary artery pressure and right ventricular dysfunction. Started on vasopressor support and diuresis with sequential improvement. No events overnight. Critical Care Time (minutes): 45 Physical Exam Vital Signs: Vital Signs: Last Vital Signs Temp 98.5 F 06/28/22 09:00 Pulse 87 06/28/22 11:08 Resp 21 H 06/28/22 11:00 BP 88/55 L 06/28/22 11:08 Pulse Ox 91 L 06/28/22 11:00 O2 Del Method 06/28/22 11:00 O2 Flow Rate 7 06/28/22 11:00 FiO2 30 06/22/22 15:30 Oxygen Flow Rate 3 06/21/22 13:26 BMI result Body Mass Index 29.9 Const: General: no acute distress, alert and awake Eyes: Sclerae: sclerae normal EOM: EOMs intact bilaterally Neck: Neck: Yes no lymphadenopathy, Yes trachea midline and Yes supple Resp: Effort & Inspection: normal respiratory effort and no respiratory distress Auscultation: crackles (Diffuse bilateral) Cardio: Rate: regular rate Rhythm: regular rhythm Heart sounds: no gallops, no murmurs and no rubs GI: Palpation (GI): Soft to palpation and Other GI palpation findings present ( Nontender) Auscultation: normal bowel sounds Extrem: General: No clubbing, No cyanosis and Yes edema (2+ bilateral) Objective Data Labs 06/28/22 05:20 06/28/22 06:39 Labs: Laboratory Results - last 24 hr 06/28/22 06/28/22 06/28/22 05:19 05:20 06:39 WBC 15.8 H RBC 5.04 Hgb 14.8 Hct 46.1 MCV 91.5 MCH 29.4 MCHC 32.1 RDW 12.6 Plt Count 178 MPV 10.5 Immature Gran % (Auto) 0.6 H Neut % (Auto) 84.7 H Lymph % (Auto) 6.7 L [place] % (Auto) 6.9 Eos % (Auto) 0.8 Baso % (Auto) 0.3 Lymph # (Auto) 1.1 L [place] # (Auto) 1.1 Eos # (Auto) 0.1 Baso # (Auto) 0.0 Abs Immat Gran (auto) 0.09 H Absolute Neuts (auto) 13.4 H Absolute Nucleated RBC 0.000 Nucleated RBC % (auto) 0.0 VBG pH 7.43 VBG pCO2 58 VBG pO2 60 VBG HCO3 39 H VBG O2 Saturation 88.0 VBG Base Excess 11.9 Sodium 135 Potassium 3.4 Chloride 90 L Carbon Dioxide 33 H Anion Gap 15 BUN 19 H Creatinine 0.99 Estim Creat Clear Calc 86.2 Estimated GFR > 60 Random Glucose 111 Calcium 8.9 Phosphorus 2.7 Magnesium 2.1 Albumin 3.4 L Microbiology Microbiology Results: Microbiology 06/22/22 18:00 Urine clean catch - Urine morel top Urine Culture - Final Enterococcus faecalis Progress Note: A&P Assessment and plan (1) Pulmonary hypertension: Status: Acute (2) Right heart failure: Status: Acute (3) Acute on chronic respiratory failure with hypoxemia: Status: Acute (4) CHF exacerbation: Status: Acute (5) Interstitial lung disease: Status: Acute (6) COPD (chronic obstructive pulmonary disease): Status: Acute (7) PAF (paroxysmal atrial fibrillation): Status: Acute Plan Assessment: 71-year-old gentleman with underlying right ventricular failure, ILD, COPD, baseline 2 L of supplemental oxygen dependent admitted with acute on chronic exacerbation of underlying congestive heart failure, pulmonary hypertension, right ventricular failure now requiring vasopressor support. Plan: Neuro: No acute issues. Cardiac: Right ventricular failure with severe pulmonary hypertension that is likely multifactorial in etiology. Cardiology service care appreciated. Also underlying AFib. Continue on sildenafil. Now requiring vasopressor support. Continue to titrate off as tolerated. Improving with diuresis. Follow up echo is pending. Pulmonary: Acute on chronic hypoxic respiratory failure secondary to exacerbation of right ventricular failure. Also element of CO2 retention with hyperoxia and with rising bicarbonate. Maintain O2 sat no higher than 92%. Continue to titrate off supplemental oxygen as tolerated. CT chest reviewed, underlying combination advanced pulmonary fibrosis and COPD with overlying pulmonary edema. Renal: No acute issues. Endo: No acute issues. GI: No acute issues. ID: No acute issues Heme/Onc: No acute issues. Psych: No acute issues. Miscellaneous: No acute issues. Prophylaxis: Eliquis Diet: Cardiac Critical care time spent: 45 minutes Quality Stroke Does the patient have a stroke diagnosis?: No VTE Prior VTE?: No VTE Risk Level:: Medical - moderate - high VTE Device Contraindication: Treatment Not Indicated VTE Drug Contraindication: N/A - Med Ordered
[2022-06-28 13:06] LABS: Venous Blood Gas Refer to POC result
[2022-06-28] MEDS: Bumetanide 1 MG/4 ML VIAL 2 MG IVPUSH (16:57)
[2022-06-28] MEDS: methylPREDNISolone Sod Succ 125 MG/2 ML VIAL 60 MG IVPUSH (17:49)
[2022-06-28] MEDS: cefTRIAXone sodium 1 GM in 0.9 % Sodium Chloride 50 ML IV (17:50)
[2022-06-28] MEDS: Pantoprazole Sodium 40 MG/10 ML VIAL IVPUSH (19:59)
[2022-06-28] MEDS: Norepinephrine Bitartrate/D5W 8 MG/250 ML PLAST..BAG 10.34 MG IV (20:14)
[2022-06-29] VITALS (34 sets, daily range): BP systolic 79–106; BP diastolic 55–77; PULSE 84–113; RESP 18–30; TEMP 36.5–36.9; O2SAT 87–95; BMI 29.7
[2022-06-29] MEDS: Bumetanide 1 MG/4 ML VIAL 2 MG IVPUSH ×2 (01:18→08:06)
[2022-06-29] MEDS: Acetaminophen 325 MG TABLET 650 MG PO (01:28)
[2022-06-29 05:25] LABS: VBG Base Excess 7.9 mmol/L; VBG HCO3 34 mmol/L (22-26); VBG pCO2 53 mmHg; VBG pH 7.41 (7.32-7.43); VBG pO2 90 mmHg
[2022-06-29 05:38] LABS: Basophils Percent Auto 0.2 % (0-2); Hematocrit 49.2 % (42.0-52.0); Hemoglobin 15.9 g/dl (14.0-18.0); Imm Gran Abs Auto 0.06 X10*3/uL (0.00-0.03); Imm Gran Pct Auto 0.5 % (0.0-0.4); Lymphocytes Absolute Auto 0.7 X10*3/uL (1.2-4.9); MANUAL DIFF FLAG SCAN; Mean Corpuscular HGB Conc 32.3 g/dl (31.0-36.0); Mean Corpuscular Volume 89.8 fL (80.0-98.0); Mean Platelet Volume 10.4 fL (9.4-12.4); Monocytes Absolute Auto 0.3 X10*3/uL (0.1-1.2); Monocytes Percent Auto 1.9 % (2-11); Neutrophils Absolute Auto 12.2 x10*3/uL (2.0-8.3); Neutrophils Percent Auto 92.4 % (45-73); Platelet Count 229 X10*3/uL (160-400); Red Blood Count 5.48 X10*6/uL (4.60-5.80); Red Cell Distribution Width 12.5 % (11.0-16.0); SCAN SMEAR FLAG 1; White Blood Count 13.2 X10*3/uL (4.8-10.8)
[2022-06-29 06:07] LABS: Albumin Level 3.5 g/dL (3.5-5.0); Anion Gap 23 (12-20); Blood Urea Nitrogen 27 mg/dL (9-16); Calcium 9.1 mg/dL (8.4-10.2); Carbon Dioxide 28 mmol/L (22-29); Chloride 89 mmol/L (96-108); Creatinine Clr Calc Pharmacy 64.8; Estimated Glomerular Filt Rate 54; Glucose Random 145 mg/dL (60-115); Magnesium 2.1 mg/dL (1.6-2.6); Phosphorus 4.3 mg/dL (2.7-4.5); Potassium 3.8 mmol/L (3.3-5.1); Sodium 136 mmol/L (135-145)
[2022-06-29 06:12] LABS: SLIDE REVIEW VERIFIED
--- NOTE | 2022-06-29 06:29 | PC.NURSE ---
URINE OUTPUT VIA BUSTILLOS FROM [id number] = 50 ML, BLOODY WITH SHREDS OF THIN CLOTS BUSTILLOS IRRIGATED WITH EASE, NO RESISTANCE OR CLOTS REMOVED BLADDER SCAN = 0 PROVON WIPES TO BUSTILLOS PROVIDED, BATHED, PATIENT REFUSED ORAL CARE, BARRIER CREAM TO BUTTOCK PATIENT ONLY ALLOWED THIS RN TO REPOSITION THEM AT 0600 - RESISTANT TO CARE, EDUCATION AND ENCOURAGEMENT PROVIDED
[2022-06-29] MEDS: Digoxin 0.5 MG/2 ML AMPUL 0.125 MG IVPUSH ×2 (08:06→15:40)
[2022-06-29] MEDS: Pantoprazole Sodium 40 MG/10 ML VIAL IVPUSH ×2 (08:06→19:46)
[2022-06-29] MEDS: Sildenafil Citrate 20 MG TABLET PO ×2 (08:07→15:28)
[2022-06-29] MEDS: Sotalol HCL 80 MG TABLET PO ×2 (08:07→19:42)
[2022-06-29] MEDS: 0.9 % Sodium Chloride Flush 3 ML SYRINGE IVFLUSH ×3 (08:07→23:33)
[2022-06-29] MEDS: Apixaban 5 MG TABLET PO ×2 (08:07→19:41)
[2022-06-29 09:07] LABS: Venous Blood Gas Refer to POC result
--- NOTE | 2022-06-29 09:20 | PM.PNCARD ---
Subjective Subjective Date of Service: 06/29/22 <JOSH Ann - Last Filed: 06/29/22 10:07> 06/29/22 <Antwon Chen MD - Last Filed: 06/29/22 16:29> Principal diagnosis: RHF, pulm HTN <JOSH Ann - Last Filed: 06/29/22 10:07> Interval history: Seen at 0910. Today he is sitting up in chair. Wearing O2 with nasal cannula. Denies feeling improvement in breathing. Denies chest pains, palpitation, dizziness. Reports generalized weakness and no appetite. Levophed drip infusing for BP support. Tele SR, rates 90-100. Sons at bedside. <JOSH Ann - Last Filed: 06/29/22 10:07> Review of Systems Review of Systems as above <JOSH Ann - Last Filed: 06/29/22 10:07> Yes all other systems are reviewed and are negative <JOSH Ann - Last Filed: 06/29/22 10:07> Physical Exam Vital Signs: Last Vital Signs Temp 98.4 F 06/29/22 07:00 Pulse 94 06/29/22 09:00 Resp 27 H 06/29/22 09:00 BP 93/65 06/29/22 09:00 Pulse Ox 92 06/29/22 09:00 O2 Del Method 06/29/22 09:00 O2 Flow Rate 7 06/29/22 09:00 FiO2 30 06/22/22 15:30 Oxygen Flow Rate 3 06/21/22 13:26 BMI result Body Mass Index 29.7 <JOSH Ann - Last Filed: 06/29/22 10:07> Const Other: fatigued, wearing O2 cannula <JOSH Ann - Last Filed: 06/29/22 10:07> General: cooperative and no acute distress <JOSH Ann - Last Filed: 06/29/22 10:07> Orientation/consciousness: patient oriented x3 <JOSH Ann - Last Filed: 06/29/22 10:07> Neck Other: sitting up in chair, no obvious JVD noted <JOSH Ann - Last Filed: 06/29/22 10:07> Neck: Yes normal visual inspection <JOSH Ann - Last Filed: 06/29/22 10:07> Resp Other: Breathing comfortable at rest. Rales noted in lower lobes bilaterally <Vandana Hernandez JOSH - Last Filed: 06/29/22 10:07> Auscultation: no rhonchi and no wheezes <JOSH Ann - Last Filed: 06/29/22 10:07> Cardio Rate: regular rate <JOSH Ann - Last Filed: 06/29/22 10:07> Rhythm: regular rhythm <JOSH Ann - Last Filed: 06/29/22 10:07> Heart sounds: S1 normal heart sound present, S2 normal heart sound present, no murmurs and no rubs <Vandana Hernandez JOSH - Last Filed: 06/29/22 10:07> Peripheral pulses: Peripheral pulses 2+ throughout <KEITH AnnC - Last Filed: 06/29/22 10:07> GI Other: soft, rounded, nontender <Vandana Hernandez JOSH - Last Filed: 06/29/22 10:07> Inspection: Yes normal to inspection <Vandana Hernandez JOSH - Last Filed: 06/29/22 10:07> Neuro General: patient oriented x3 <Vandana Hernandez JOSH - Last Filed: 06/29/22 10:07> Extrem Other: soft pitting edema bilateral mid calf down to feet <Vandana Hernandez KEITHC - Last Filed: 06/29/22 10:07> Psych Appearance: grossly normal <Vandana Hernandez JOSH - Last Filed: 06/29/22 10:07> Mental Status: mental status grossly normal <Vandana Hernandez JOSH - Last Filed: 06/29/22 10:07> Objective Labs and Meds Result diagrams: 06/29/22 05:07 06/29/22 05:07 <Vandana Hernandez KEITHC - Last Filed: 06/29/22 10:07> Lab results: Laboratory Results - last 24 hr 06/29/22 06/29/22 06/29/22 05:07 05:07 05:19 WBC 13.2 H RBC 5.48 Hgb 15.9 Hct 49.2 MCV 89.8 MCH 29.0 MCHC 32.3 RDW 12.5 Plt Count 229 D MPV 10.4 Immature Gran % (Auto) 0.5 H Neut % (Auto) 92.4 H Lymph % (Auto) 5.0 L [place] % (Auto) 1.9 L Eos % (Auto) 0.0 Baso % (Auto) 0.2 Lymph # (Auto) 0.7 L [place] # (Auto) 0.3 Eos # (Auto) 0.0 Baso # (Auto) 0.0 Abs Immat Gran (auto) 0.06 H Absolute Neuts (auto) 12.2 H Absolute Nucleated RBC 0.000 Nucleated RBC % (auto) 0.0 Smear Tech's Comments VERIFIED VBG pH 7.41 VBG pCO2 53 VBG pO2 90 VBG HCO3 34 H VBG O2 Saturation 99.0 VBG Base Excess 7.9 Sodium 136 Potassium 3.8 Chloride 89 L Carbon Dioxide 28 Anion Gap 23 H BUN 27 H Creatinine 1.31 Estim Creat Clear Calc 64.8 Estimated GFR 54 Random Glucose 145 H Calcium 9.1 Phosphorus 4.3 Magnesium 2.1 Albumin 3.5 <JOSH Ann - Last Filed: 06/29/22 10:07> Progress Note: A&P Assessment and plan (1) Right heart failure: Status: Acute <JOSH Ann - Last Filed: 06/29/22 10:07> Assessment and Plan: Hx of ILD, COPD. Admit 06/21/22 with increasing sob and edema over several months. Echo shows severe increase in RV size and decrease in RVSF, RA severe dilated, RVSP 101mmhg, severe pulm HTN. Being treated for acute on chronic right heart failure, hypoxic / hypercapniec respirator failure. Currently remains in the ICU. Being diuresed with IV Bumex and fluid balance Neg 10L since admit. Hypotensive and has been on Levophed drip for BP support. On O2 7 liters with sat 95% currently. He remains on Sildenafil to help reduce pulmonary HTN. Today he reports breathing has not improved much since admit. He reports fatigue and no appetite. Limited echo done yesterday shows no signficant change. RVSP 98 mmhg. He still appears fluid overloaded on exam with rales and lower leg edema. Cr 0.99 yesterday, up to 1.31 today. Recommend continue IV Bumex. Strict I+O monitoring. Close monitoring of electrolyte and kidney function. K 3.8 today. O2 supplement as needed for sat > 90%. Wean Levophed drip off as BP allows. Spoke with sons and patient. We will follow. <JOSH Ann - Last Filed: 06/29/22 10:07> Hx of ILD, COPD. Admit 06/21/22 with increasing sob and edema over several months. Echo shows severe increase in RV size and decrease in RVSF, RA severe dilated, RVSP 101mmhg, severe pulm HTN. Being treated for acute on chronic right heart failure, hypoxic / hypercapniec respirator failure. Currently remains in the ICU. Being diuresed with IV Bumex and fluid balance Neg 10L since admit. Hypotensive and has been on Levophed drip for BP support. On O2 7 liters with sat 95% currently. He remains on Sildenafil to help reduce pulmonary HTN. Today he reports breathing has not improved much since admit. He reports fatigue and no appetite. Limited echo done yesterday shows no signficant change. RVSP 98 mmhg. He still appears fluid overloaded on exam with rales and lower leg edema. Cr 0.99 yesterday, up to 1.31 today. Recommend continue IV Bumex. Strict I+O monitoring. Close monitoring of electrolyte and kidney function. K 3.8 today. O2 supplement as needed for sat > 90%. Wean Levophed drip off as BP allows. Spoke with sons and patient. We will follow. Case was discussed with Vandana Hernandez. Patient was not seen by me. Patient with significant pulmonary hypertension related to his interstitial lung disease and chronic hypoxemic respiratory failure. Has developed right heart failure syndrome. Management as above. Overall prognosis is guarded. <Antwon Chen MD - Last Filed: 06/29/22 16:29> (2) Pulmonary hypertension: Status: Acute <KEITH AnnC - Last Filed: 06/29/22 10:07> (3) Acute on chronic respiratory failure with hypoxemia: Status: Acute <JOSH Ann Last Filed: 06/29/22 10:07> (4) Interstitial lung disease: Status: Acute <JOSH Ann Last Filed: 06/29/22 10:07> (5) PAF (paroxysmal atrial fibrillation): Status: Acute <JOSH Ann Last Filed: 06/29/22 10:07> Assessment and Plan: Hx of PAF. Had been on Diltiazem, Sotalol and Eliquis at home. This admit Diltiazem was stopped due to HF. Tele showing SR, rates 90-100. No bleeding issues. Continue Sotalol. Avoid hypokalemia, which can prolong QTc and increase chance of VT. Continue Eliquis for anticoagulation. <JOSH Ann Last Filed: 06/29/22 10:07> Time Spent With Patient Time: Total time managing care of this patient today __30__ minutes. <JOSH Ann Last Filed: 06/29/22 10:07> Progress Note: Quality Stroke Does the patient have a stroke diagnosis?: No <JOSH Ann Last Filed: 06/29/22 10:07> Procedures Date of Service Date of Service: 06/29/22 <JOSH Ann Last Filed: 06/29/22 10:07>
--- NOTE | 2022-06-29 09:50 | MHC.CLN ---
F/U DISCUSSED AT ROUNDS WITH PT WITH POOR PO RECOMMEND CHANGING DIET TO REGULAR TO INCREASE VARIETY CONTINUE ENSURE TID KITCHEN AND GSR AWARE TO ENCOURAGE MEAL CHOICES-CAN ALSO OFFER CAFE MEAL CHOICE AND SPECIAL REQUESTS NEEDED CONTINUE TO MONITOR PO
[2022-06-29] MEDS: Norepinephrine Bitartrate/D5W 8 MG/250 ML PLAST..BAG 14.48 MG IV (11:20)
--- NOTE | 2022-06-29 11:31 | P.PNCC_ITS ---
Subjective Subjective Date of Service: 06/29/22 Interval History: 71-year-old gentleman underlying history of COPD, IPF, AFib on Eliquis, 2 L supplemental oxygen dependent admitted on 06/21/2022 with progressive dyspnea and worsening lower extremity edema of approximately 1 months. He was noted to be significantly hypoxic requiring supplemental oxygen at 426 L. He was admitted to telemetry service and started on diuresis. Hospital course is also significant for worsening hypoxia with CO2 retention while hypoxic requiring initiation of BiPAP support and transferred to intensive care unit. In the intensive care unit titrated of BiPAP. 2D echocardiogram with severely elevated pulmonary artery pressure and right ventricular dysfunction. Started on vasopressor support and diuresis with sequential improvement, though with no significant changes in pulmonary artery pressure after taking of 10 L of fluid. No events overnight. Critical Care Time (minutes): 45 Physical Exam Vital Signs: Vital Signs: Last Vital Signs Temp 98.4 F 06/29/22 07:00 Pulse 84 06/29/22 11:20 Resp 22 H 06/29/22 11:00 BP 92/58 L 06/29/22 11:20 Pulse Ox 94 06/29/22 11:00 O2 Del Method 06/29/22 11:00 O2 Flow Rate 7 06/29/22 11:00 FiO2 30 06/22/22 15:30 Oxygen Flow Rate 3 06/21/22 13:26 BMI result Body Mass Index 29.7 Const: General: no acute distress, alert and awake Eyes: Sclerae: sclerae normal EOM: EOMs intact bilaterally Neck: Neck: Yes no lymphadenopathy, Yes trachea midline and Yes supple Resp: Effort & Inspection: normal respiratory effort and no respiratory distress Auscultation: crackles (Diffuse bilateral) Cardio: Rate: regular rate Rhythm: regular rhythm Heart sounds: no gallops, no murmurs and no rubs GI: Palpation (GI): Soft to palpation and Other GI palpation findings present ( Nontender) Auscultation: normal bowel sounds Extrem: General: No clubbing, No cyanosis and Yes edema (2+ bilateral) Objective Data Labs 06/29/22 05:07 06/29/22 05:07 Labs: Laboratory Results - last 24 hr 06/29/22 06/29/22 06/29/22 05:07 05:07 05:19 WBC 13.2 H RBC 5.48 Hgb 15.9 Hct 49.2 MCV 89.8 MCH 29.0 MCHC 32.3 RDW 12.5 Plt Count 229 D MPV 10.4 Immature Gran % (Auto) 0.5 H Neut % (Auto) 92.4 H Lymph % (Auto) 5.0 L [place] % (Auto) 1.9 L Eos % (Auto) 0.0 Baso % (Auto) 0.2 Lymph # (Auto) 0.7 L [place] # (Auto) 0.3 Eos # (Auto) 0.0 Baso # (Auto) 0.0 Abs Immat Gran (auto) 0.06 H Absolute Neuts (auto) 12.2 H Absolute Nucleated RBC 0.000 Nucleated RBC % (auto) 0.0 Smear Tech's Comments VERIFIED VBG pH 7.41 VBG pCO2 53 VBG pO2 90 VBG HCO3 34 H VBG O2 Saturation 99.0 VBG Base Excess 7.9 Sodium 136 Potassium 3.8 Chloride 89 L Carbon Dioxide 28 Anion Gap 23 H BUN 27 H Creatinine 1.31 Estim Creat Clear Calc 64.8 Estimated GFR 54 Random Glucose 145 H Calcium 9.1 Phosphorus 4.3 Magnesium 2.1 Albumin 3.5 Microbiology Microbiology Results: Microbiology 06/22/22 18:00 Urine clean catch - Urine morel top Urine Culture - Final Enterococcus faecalis Progress Note: A&P Assessment and plan (1) Pulmonary hypertension: Status: Acute (2) Right heart failure: Status: Acute (3) Acute on chronic respiratory failure with hypoxemia: Status: Acute (4) CHF exacerbation: Status: Acute (5) Interstitial lung disease: Status: Acute (6) COPD (chronic obstructive pulmonary disease): Status: Acute (7) PAF (paroxysmal atrial fibrillation): Status: Acute Plan Assessment:? 71-year-old gentleman with underlying right ventricular failure, ILD, COPD, baseline 2 L of supplemental oxygen dependent admitted with acute on chronic exacerbation of underlying congestive heart failure, pulmonary hypertension, right ventricular failure now requiring vasopressor support. Plan: Neuro:? No acute issues. Cardiac:? Right ventricular failure with severe pulmonary hypertension that is likely multifactorial in etiology.? Cardiology service care appreciated.? Also underlying AFib.? Continue on sildenafil.? Now requiring vasopressor support.? Continue to titrate off as tolerated.?Follow up echo with no significant changes in pulmonary artery pressures. Pulmonary:? Acute on chronic hypoxic respiratory failure secondary to exacerbation of right ventricular failure.? Also element of CO2 retention with hyperoxia and with rising bicarbonate.? Maintain O2 sat no higher than 92%.? Continue to titrate off supplemental oxygen as tolerated.? CT chest reviewed, underlying combination advanced pulmonary fibrosis and COPD with overlying pulmonary edema. Renal:? No acute issues. Endo:? No acute issues. GI:? No acute issues. ID:? No acute issues Heme/Onc:? No acute issues. Psych:? No acute issues. Miscellaneous:? No acute issues. Prophylaxis:? Eliquis Diet:? Cardiac Critical care time spent:? 45 minutes Quality Stroke Does the patient have a stroke diagnosis?: No VTE Prior VTE?: No VTE Risk Level:: Medical - moderate - high VTE Device Contraindication: Treatment Not Indicated VTE Drug Contraindication: N/A - Med Ordered
[2022-06-29] MEDS: Bumetanide 1 MG/4 ML VIAL IVPUSH ×2 (15:28→23:37)
[2022-06-29] MEDS: ondansetron HCL 4 MG/2 ML VIAL IVPUSH (16:29)
[2022-06-29] MEDS: methylPREDNISolone Sod Succ 125 MG/2 ML VIAL 60 MG IVPUSH (16:29)
[2022-06-29] MEDS: cefTRIAXone sodium 1 GM in 0.9 % Sodium Chloride 50 ML IV (19:41)
[2022-06-29] MEDS: Sildenafil Citrate 20 MG TABLET 40 MG PO (19:46)
[2022-06-29] MEDS: Throat Lozenge, Medicated LOZENGE 1 LOZENGE MUCOUS MEM (21:55)
[2022-06-29] MEDS: Norepinephrine Bitartrate/D5W 8 MG/250 ML PLAST..BAG 22.75 MG IV (23:33)
[2022-06-30] VITALS (27 sets, daily range): BP systolic 87–118; BP diastolic 64–82; PULSE 92–111; RESP 16–33; TEMP 36.2–36.7; O2SAT 89–96; BMI 29.7
--- NOTE | 2022-06-30 | ECG_ITS ---
Test Reason : rhythm changes Blood Pressure : / mmHG Vent. Rate : 110 BPM Atrial Rate : 110 BPM P-R Int : 240 ms QRS Dur : 096 ms QT Int : 320 ms P-R-T Axes : 012 112 001 degrees QTc Int : 433 ms Sinus tachycardia with 1st degree A-V block Right axis deviation Right ventricular hypertrophy Nonspecific T wave abnormality Abnormal ECG When compared with ECG of 21-JUN-2022 13:57, IN interval has increased Vent. rate has increased BY 44 BPM Nonspecific T wave abnormality, worse in Inferior leads Referred By: Vandana Hernandez Electronically Signed By:OBDULIA CHARLES MD
[2022-06-30 05:02] LABS: VBG Base Excess 11.5 mmol/L; VBG HCO3 39 mmol/L (22-26); VBG pCO2 59 mmHg; VBG pH 7.42 (7.32-7.43); VBG pO2 63 mmHg
[2022-06-30 05:04] LABS: MANUAL DIFF FLAG NO
[2022-06-30 05:14] LABS: Basophils Percent Auto 0.1 % (0-2); Hematocrit 48.1 % (42.0-52.0); Hemoglobin 15.5 g/dl (14.0-18.0); Imm Gran Abs Auto 0.07 X10*3/uL (0.00-0.03); Imm Gran Pct Auto 0.5 % (0.0-0.4); Lymphocytes Absolute Auto 0.8 X10*3/uL (1.2-4.9); Lymphocytes Percent Auto 5.8 % (20-40); Mean Corpuscular HGB Conc 32.2 g/dl (31.0-36.0); Mean Corpuscular Hemoglobin 28.6 pg (27.0-33.0); Mean Corpuscular Volume 88.7 fL (80.0-98.0); Mean Platelet Volume 10.4 fL (9.4-12.4); Monocytes Absolute Auto 0.7 X10*3/uL (0.1-1.2); Monocytes Percent Auto 4.9 % (2-11); Neutrophils Absolute Auto 12.8 x10*3/uL (2.0-8.3); Neutrophils Percent Auto 88.7 % (45-73); Platelet Count 281 X10*3/uL (160-400); Red Blood Count 5.42 X10*6/uL (4.60-5.80); Red Cell Distribution Width 12.6 % (11.0-16.0); White Blood Count 14.4 X10*3/uL (4.8-10.8)
[2022-06-30 05:33] LABS: Albumin Level 3.3 g/dL (3.5-5.0); Anion Gap 21 (12-20); Blood Urea Nitrogen 39 mg/dL (9-16); Calcium 9.5 mg/dL (8.4-10.2); Carbon Dioxide 31 mmol/L (22-29); Chloride 90 mmol/L (96-108); Creatinine Clr Calc Pharmacy 54.4; Estimated Glomerular Filt Rate 44; Glucose Random 188 mg/dL (60-115); Magnesium 2.2 mg/dL (1.6-2.6); Phosphorus 3.9 mg/dL (2.7-4.5); Potassium 4.2 mmol/L (3.3-5.1); Sodium 138 mmol/L (135-145)
[2022-06-30] MEDS: Bumetanide 1 MG/4 ML VIAL IVPUSH ×3 (07:41→23:55)
[2022-06-30] MEDS: ondansetron HCL 4 MG/2 ML VIAL IVPUSH (07:41)
[2022-06-30] MEDS: Sildenafil Citrate 20 MG TABLET 40 MG PO ×2 (08:13→16:00)
[2022-06-30] MEDS: Apixaban 5 MG TABLET PO ×2 (08:13→20:10)
[2022-06-30] MEDS: Sotalol HCL 80 MG TABLET PO (08:13)
[2022-06-30] MEDS: 0.9 % Sodium Chloride Flush 3 ML SYRINGE IVFLUSH ×3 (08:16→20:11)
[2022-06-30] MEDS: Norepinephrine Bitartrate/D5W 8 MG/250 ML PLAST..BAG 22.75 MG IV (08:35)
[2022-06-30] MEDS: LORazepam 1 MG TABLET PO (08:35)
[2022-06-30] MEDS: Digoxin 0.5 MG/2 ML AMPUL 0.125 MG IVPUSH (08:38)
[2022-06-30] MEDS: Pantoprazole Sodium 40 MG/10 ML VIAL IVPUSH ×2 (08:38→20:10)
--- NOTE | 2022-06-30 10:31 | MHC.CLN ---
F/U DISCUSSED AT ROUNDS WITH PT CONTINUES WITH VERY POOR PO CONSUMED 3 GRAPES AND 1/2 ENSURE FOR BREAKFAST PT REPORTS NO APPETITE, NAUSEA AND NO TASTE FAMILY BRINGING IN HOMEMADE POPSICLES, LASAGNA AND SOUP-PT ONLY TOOK A FEW BITES PT WITH LIBERALIZED DIET AND OFFERED A VARIETY OF MEAL CHOICES TO INCLUDE FOOD FROM [place] AND OUTSIDE THE HOSPITAL AND PT DECLINES NSG REPORTS PT DRINKS > EATING SOLIDS ENSURE SUPPLEMENT MADE AVAILABLE ON UNIT AND PT RECEIVING TID WITH MEAL TRAYS CONSULT RD IF ALTERNATIVE NUTRITION SUPPORT IS NEEDED
--- NOTE | 2022-06-30 12:00 | PM.CCPN ---
Subjective Subjective Date of Service: 06/30/22 Interval History: 71-year-old gentleman underlying history of COPD, IPF, AFib on Eliquis, 2 L supplemental oxygen dependent admitted on 06/21/2022 with progressive dyspnea and worsening lower extremity edema of approximately 1 months. He was noted to be significantly hypoxic requiring supplemental oxygen at 426 L. He was admitted to telemetry service and started on diuresis. Hospital course is also significant for worsening hypoxia with CO2 retention while hypoxic requiring initiation of BiPAP support and transferred to intensive care unit. In the intensive care unit titrated of BiPAP. 2D echocardiogram with severely elevated pulmonary artery pressure and right ventricular dysfunction. Started on vasopressor support and diuresis with sequential improvement, though with no significant changes in pulmonary artery pressure after taking of 10 L of fluid. No events overnight. Diuresis has plateaued. Critical Care Time (minutes): 45 Physical Exam Vital Signs: Vital Signs: Last Vital Signs Temp 97.2 F 06/30/22 07:58 Pulse 92 06/30/22 11:00 Resp 31 H 06/30/22 11:00 BP 96/66 06/30/22 11:00 Pulse Ox 89 L 06/30/22 11:00 O2 Del Method 06/30/22 11:00 O2 Flow Rate 6 06/30/22 11:00 FiO2 30 06/22/22 15:30 Oxygen Flow Rate 3 06/21/22 13:26 BMI result Body Mass Index 29.7 Const: General: no acute distress, alert and awake Eyes: Sclerae: sclerae normal EOM: EOMs intact bilaterally Neck: Neck: Yes no lymphadenopathy, Yes trachea midline and Yes supple Resp: Effort & Inspection: normal respiratory effort and no respiratory distress Auscultation: crackles ( Diffuse bilateral) Cardio: Rate: tachycardic Rhythm: abnormal rhythm irregularly irregular Heart sounds: no gallops, no murmurs and no rubs GI: Palpation (GI): Soft to palpation and Other GI palpation findings present ( Nontender) Auscultation: normal bowel sounds Extrem: General: No clubbing, No cyanosis and Yes edema ( 2+ bilateral) Objective Data Labs 06/30/22 04:58 06/30/22 04:58 Labs: Laboratory Results - last 24 hr 06/30/22 06/30/22 06/30/22 04:54 04:58 04:58 WBC 14.4 H RBC 5.42 Hgb 15.5 Hct 48.1 MCV 88.7 MCH 28.6 MCHC 32.2 RDW 12.6 Plt Count 281 MPV 10.4 Immature Gran % (Auto) 0.5 H Neut % (Auto) 88.7 H Lymph % (Auto) 5.8 L [place] % (Auto) 4.9 Eos % (Auto) 0.0 Baso % (Auto) 0.1 Lymph # (Auto) 0.8 L [place] # (Auto) 0.7 Eos # (Auto) 0.0 Baso # (Auto) 0.0 Abs Immat Gran (auto) 0.07 H Absolute Neuts (auto) 12.8 H Absolute Nucleated RBC 0.000 Nucleated RBC % (auto) 0.0 VBG pH 7.42 VBG pCO2 59 VBG pO2 63 VBG HCO3 39 H VBG O2 Saturation 90.0 VBG Base Excess 11.5 Sodium 138 Potassium 4.2 Chloride 90 L Carbon Dioxide 31 H Anion Gap 21 H BUN 39 H Creatinine 1.56 H Estim Creat Clear Calc 54.4 Estimated GFR 44 Random Glucose 188 H Calcium 9.5 Phosphorus 3.9 Magnesium 2.2 Albumin 3.3 L Microbiology Microbiology Results: Microbiology 06/22/22 18:00 Urine clean catch - Urine morel top Urine Culture - Final Enterococcus faecalis Progress Note: A&P Assessment and plan (1) Pulmonary hypertension: Status: Acute (2) Right heart failure: Status: Acute (3) Acute on chronic respiratory failure with hypoxemia: Status: Acute (4) CHF exacerbation: Status: Acute (5) COPD (chronic obstructive pulmonary disease): Status: Acute (6) PAF (paroxysmal atrial fibrillation): Status: Acute (7) Interstitial lung disease: Status: Acute Plan Assessment: 71-year-old gentleman with underlying right ventricular failure, ILD, COPD, baseline 2 L of supplemental oxygen dependent admitted with acute on chronic exacerbation of underlying congestive heart failure, pulmonary hypertension, right ventricular failure now requiring vasopressor support. Plan: Neuro: No acute issues. Cardiac: Right ventricular failure with severe pulmonary hypertension that is likely multifactorial in etiology. Cardiology service care appreciated. Also underlying AFib, now on digoxin. Will titrate up sildenafil as tolerated. Now requiring vasopressor support. Continue to titrate off as tolerated. Follow up echo with no significant changes in pulmonary artery pressures. Pulmonary: Acute on chronic hypoxic respiratory failure secondary to exacerbation of right ventricular failure. Also element of CO2 retention with hyperoxia and with rising bicarbonate. Maintain O2 sat no higher than 92%. Continue to titrate off supplemental oxygen as tolerated. CT chest reviewed, underlying combination advanced pulmonary fibrosis and COPD with overlying pulmonary edema. Renal: slowly worsening renal function on the background of plateauing diuresis. Continue to monitor renal indices and urine output. Endo: No acute issues. GI: No acute issues. ID: No acute issues Heme/Onc: No acute issues. Psych: No acute issues. Miscellaneous: No acute issues. Prophylaxis: Eliquis Diet: Cardiac Critical care time spent: 45 minutes Quality Stroke Does the patient have a stroke diagnosis?: No VTE Prior VTE?: No VTE Risk Level:: Medical - moderate - high VTE Device Contraindication: Treatment Not Indicated VTE Drug Contraindication: N/A - Med Ordered
--- NOTE | 2022-06-30 12:04 | PM.PNCARD ---
Subjective Subjective Date of Service: 06/30/22 Principal diagnosis: RHF, pulm HTN, afib Interval history: Seen at 1115. Resting quietly in recliner. Breathing without much improvement. Still notices shortness of breath. Wearing O2 6 liters with cannula and sat 95%. No report of pain, heart palpitations. Appetite still not back yet. Legs still swollen. No bleeding issues. Urffin in place. Tele showing afib, rates 90s- 118. Still on Levophed drip for BP support. Son at bedside, gave him update on condition. Review of Systems Review of Systems as above Yes all other systems are reviewed and are negative Physical Exam Vital Signs: Last Vital Signs Temp 97.2 F 06/30/22 07:58 Pulse 92 06/30/22 11:00 Resp 31 H 06/30/22 11:00 BP 96/66 06/30/22 11:00 Pulse Ox 89 L 06/30/22 11:00 O2 Del Method 06/30/22 11:00 O2 Flow Rate 6 06/30/22 11:00 FiO2 30 06/22/22 15:30 Oxygen Flow Rate 3 06/21/22 13:26 BMI result Body Mass Index 29.7 Const General: comfortable and no acute distress Orientation/consciousness: patient oriented x3 HEENT Head: Yes normal to inspection Neck Neck: Yes normal visual inspection Resp Effort & Inspection: normal respiratory effort Auscultation: rales (Lower lobes bilaterally), no rhonchi and no wheezes Cardio Jugular venous distension: no JVD Rate: regular rate Rhythm: abnormal rhythm Heart sounds: S1 normal heart sound present, S2 normal heart sound present and no murmurs GI Inspection: Yes normal to inspection Neuro General: patient oriented x3 Extrem Other: Soft pitting edema in lower legs -no significant change from yesterday Psych Appearance: grossly normal Objective Labs and Meds 06/30/22 04:58 06/30/22 04:58 Lab results: Laboratory Results - last 24 hr 06/30/22 06/30/22 06/30/22 04:54 04:58 04:58 WBC 14.4 H RBC 5.42 Hgb 15.5 Hct 48.1 MCV 88.7 MCH 28.6 MCHC 32.2 RDW 12.6 Plt Count 281 MPV 10.4 Immature Gran % (Auto) 0.5 H Neut % (Auto) 88.7 H Lymph % (Auto) 5.8 L [place] % (Auto) 4.9 Eos % (Auto) 0.0 Baso % (Auto) 0.1 Lymph # (Auto) 0.8 L [place] # (Auto) 0.7 Eos # (Auto) 0.0 Baso # (Auto) 0.0 Abs Immat Gran (auto) 0.07 H Absolute Neuts (auto) 12.8 H Absolute Nucleated RBC 0.000 Nucleated RBC % (auto) 0.0 VBG pH 7.42 VBG pCO2 59 VBG pO2 63 VBG HCO3 39 H VBG O2 Saturation 90.0 VBG Base Excess 11.5 Sodium 138 Potassium 4.2 Chloride 90 L Carbon Dioxide 31 H Anion Gap 21 H BUN 39 H Creatinine 1.56 H Estim Creat Clear Calc 54.4 Estimated GFR 44 Random Glucose 188 H Calcium 9.5 Phosphorus 3.9 Magnesium 2.2 Albumin 3.3 L Progress Note: A&P Assessment and plan (1) Right heart failure: Status: Acute Assessment and Plan: Pt with hx of ILD, COPD, chronic hypoxic resp failure currently being treated for acute n chronic right heart failure, with severe pulmonary HTN, acute on chronic respiratory failure. Currently in the ICU and being followed by Radiology Specialist. Echo on admit showed severe increase in RV size and decrease in RVSF, RA severe dilated, RVSP 101mmhg, severe pulm HTN. He is being diuresed and on Sildenafil. Fluid balance neg 9.8 liters since admit.A limited echo on 06/28 showed no significant change, RVSP still high at 98mmhg. He has been hypotensive and remians on Levophed drip for BP support. BP this am 87/64. On O2 6 liters with sat 95% currently. Cr 1.31 yesterday. His Bumex dose was decreased and Sildenafil dose increased - by innovations paraprofessional. Clinical condition remains without noted improvement. He continues to have sob, rales in bases and leg edema. His Kidney function is worsening with rise in Cr up to 1.56 today. K 4.2. Spoke with son regarding details of fathers condition and poor prognosis. At present, continue Bumex with close monitoring of kidney function. Strict I+O monitoring. Continue Sildenafil. O2 supplement as needed for sat > 90%. Wean Levophed drip off as BP allows. We will follow. (2) Pulmonary hypertension: Status: Acute (3) Acute on chronic respiratory failure with hypoxemia: Status: Acute (4) Interstitial lung disease: Status: Acute (5) PAF (paroxysmal atrial fibrillation): Status: Acute Assessment and Plan: Hx of PAF. Had been on Diltiazem, Sotalol and Eliquis at home. This admit Diltiazem was stopped due to HF. Tele was showing SR, rates 90-100. Yesterday at 1140 he converted to atrial fibrillation. Rates ranging between 90-118. Will obtain EKG today. Cr up to 1.56- Will stop Sotalol. Pt has been recieving Digoxin - will check digoxin level in am. May need to change to EOD use or stop if kidney function continues to worsen. No bleeding issues. Continue Eliquis for anticoagulation. Time Spent With Patient Time: Total time managing care of this patient today __24__ minutes. Progress Note: Quality Stroke Does the patient have a stroke diagnosis?: No Procedures Date of Service Date of Service: 06/30/22
[2022-06-30] MEDS: Albumin Human 25 % 100 ML IV ×3 (13:09→23:55)
--- NOTE | 2022-06-30 13:50 | MHC.CM.PN ---
PT REMAINS IN CARE OF ICU:CONTINUES WITH LEVOPHED DRIP. PER MD ROUNDS, APPETITE POOR. EMBEDDED LINUX DEVELOPER INVOLVED TO INCREASE ENSURE INTAKE, FOOD CHOICES. P.T. IS REC. STR ON DC BUT PT IS DECLINING. PT WILL CONTINUE TO WORK WITH P.T. AND MAKE REC. THROUGH HOSPITALIZATION. PT REMAINS ON VIA HAYES. CM WILL CONTINUE TO FOLLOW FOR PLAN.
[2022-06-30 14:07] LABS: Venous Blood Gas Refer to POC result
[2022-06-30] MEDS: methylPREDNISolone Sod Succ 125 MG/2 ML VIAL 60 MG IVPUSH (18:23)
[2022-06-30] MEDS: cefTRIAXone sodium 1 GM in 0.9 % Sodium Chloride 50 ML IV (19:29)
[2022-06-30] MEDS: Norepinephrine Bitartrate/D5W 8 MG/250 ML PLAST..BAG 18.61 MG IV (20:10)
[2022-06-30] MEDS: Sildenafil Citrate 20 MG TABLET 60 MG PO (20:10)
[2022-07-01] VITALS (28 sets, daily range): BP systolic 94–139; BP diastolic 68–97; PULSE 98–117; RESP 18–31; TEMP 36.2–36.7; O2SAT 87–96; BMI 29.8
[2022-07-01 05:15] LABS: VBG HCO3 44 mmol/L (22-26); VBG pCO2 65 mmHg; VBG pH 7.43 (7.32-7.43); VBG pO2 64 mmHg
[2022-07-01 05:32] LABS: MANUAL DIFF FLAG NO
[2022-07-01 05:37] LABS: Basophils Percent Auto 0.1 % (0-2); Hematocrit 44.7 % (42.0-52.0); Hemoglobin 14.5 g/dl (14.0-18.0); Imm Gran Abs Auto 0.07 X10*3/uL (0.00-0.03); Imm Gran Pct Auto 0.5 % (0.0-0.4); Lymphocytes Absolute Auto 0.6 X10*3/uL (1.2-4.9); Mean Corpuscular HGB Conc 32.4 g/dl (31.0-36.0); Mean Corpuscular Volume 89.4 fL (80.0-98.0); Mean Platelet Volume 10.3 fL (9.4-12.4); Monocytes Absolute Auto 0.7 X10*3/uL (0.1-1.2); Monocytes Percent Auto 5.4 % (2-11); Neutrophils Absolute Auto 12.2 x10*3/uL (2.0-8.3); Platelet Count 247 X10*3/uL (160-400); Red Cell Distribution Width 12.5 % (11.0-16.0); White Blood Count 13.6 X10*3/uL (4.8-10.8)
[2022-07-01] MEDS: Albumin Human 25 % 100 ML IV (05:53)
[2022-07-01 05:58] LABS: Albumin Level 4.2 g/dL (3.5-5.0); Anion Gap 20 (12-20); Blood Urea Nitrogen 41 mg/dL (9-16); Calcium 9.8 mg/dL (8.4-10.2); Carbon Dioxide 34 mmol/L (22-29); Chloride 89 mmol/L (96-108); Creatinine Clr Calc Pharmacy 65.3; Digoxin 1.2 ng/mL (0.8-2.0); Estimated Glomerular Filt Rate 54; Glucose Random 189 mg/dL (60-115); Magnesium 2.2 mg/dL (1.6-2.6); Phosphorus 3.2 mg/dL (2.7-4.5); Potassium 3.6 mmol/L (3.3-5.1); Sodium 139 mmol/L (135-145)
[2022-07-01 06:21] LABS: Venous Blood Gas Refer to POC result
[2022-07-01] MEDS: Potassium Chloride ER 20 MEQ TAB.ER.PRT 40 MEQ PO (08:20)
[2022-07-01] MEDS: Pantoprazole Sodium 40 MG/10 ML VIAL IVPUSH ×2 (08:20→20:10)
[2022-07-01] MEDS: Sildenafil Citrate 20 MG TABLET 60 MG PO (08:20)
[2022-07-01] MEDS: Bumetanide 1 MG/4 ML VIAL IVPUSH ×3 (08:20→23:46)
[2022-07-01] MEDS: Apixaban 5 MG TABLET PO ×2 (08:20→20:11)
[2022-07-01] MEDS: Digoxin 0.5 MG/2 ML AMPUL 0.125 MG IVPUSH ×2 (08:20→15:53)
[2022-07-01] MEDS: 0.9 % Sodium Chloride Flush 3 ML SYRINGE IVFLUSH ×3 (08:21→20:11)
[2022-07-01] MEDS: ondansetron HCL 4 MG/2 ML VIAL IVPUSH ×2 (08:35→15:53)
[2022-07-01] MEDS: Norepinephrine Bitartrate/D5W 8 MG/250 ML PLAST..BAG 18.61 MG IV ×2 (08:39→21:28)
[2022-07-01] MEDS: LORazepam 1 MG TABLET PO (08:39)
[2022-07-01] MEDS: Sildenafil Citrate 20 MG TABLET PO (09:10)
--- NOTE | 2022-07-01 10:50 | P.PNCC_ITS ---
Subjective Subjective Date of Service: 07/01/22 Interval History: 71-year-old gentleman underlying history of COPD, IPF, AFib on Eliquis, 2 L supplemental oxygen dependent admitted on 06/21/2022 with progressive dyspnea and worsening lower extremity edema of approximately 1 months. He was noted to be significantly hypoxic requiring supplemental oxygen at 426 L. He was admitted to telemetry service and started on diuresis. Hospital course is also significant for worsening hypoxia with CO2 retention while hypoxic requiring initiation of BiPAP support and transferred to intensive care unit. In the intensive care unit titrated of BiPAP. 2D echocardiogram with severely elevated pulmonary artery pressure and right ventricular dysfunction. Started on vasopressor support and diuresis with sequential improvement, though with no significant changes in pulmonary artery pressure after taking of 10 L of fluid. No events overnight. Oxygen requirements, urine output, and renal function are improving with titration up of sildenafil. Critical Care Time (minutes): 45 Physical Exam Vital Signs: Vital Signs: Last Vital Signs Temp 98.1 F 07/01/22 07:00 Pulse 110 H 07/01/22 10:00 Resp 31 H 07/01/22 10:00 BP 110/78 07/01/22 10:00 Pulse Ox 92 07/01/22 10:00 O2 Del Method 07/01/22 10:00 O2 Flow Rate 3 07/01/22 10:00 FiO2 30 06/22/22 15:30 Oxygen Flow Rate 3 06/21/22 13:26 BMI result Body Mass Index 29.8 Const: General: no acute distress and alert Nutritional Appearance: not obese Orientation/consciousness: Other orientation findings ( oriented) HEENT: Head: Yes atraumatic Mouth: no other ( thrush) Throat: No postnasal drainage Eyes: General: appearance normal, both eyes and all related structures Sclerae: sclerae normal EOM: EOMs intact bilaterally Neck: Neck: Yes supple Lymphatic: no lymphadenopathy noted Resp: Effort & Inspection: normal respiratory effort and no use of accessory muscles Auscultation: crackles (Diffuse bilateral) Cardio: Rate: regular rate Rhythm: regular rhythm Heart sounds: no gallops, no murmurs and no rubs GI: Palpation (GI): Soft to palpation and Other GI palpation findings present ( nontender) Skin: General skin exam: other ( warm) Rashes: no rashes Extrem: General: No clubbing, No cyanosis and Yes edema (2+ bilateral) Objective Data Labs 07/01/22 05:09 07/01/22 05:09 Labs: Laboratory Results - last 24 hr 07/01/22 07/01/22 07/01/22 05:07 05:09 05:09 WBC 13.6 H RBC 5.00 Hgb 14.5 Hct 44.7 MCV 89.4 MCH 29.0 MCHC 32.4 RDW 12.5 Plt Count 247 MPV 10.3 Immature Gran % (Auto) 0.5 H Neut % (Auto) 90.0 H Lymph % (Auto) 4.0 L [place] % (Auto) 5.4 Eos % (Auto) 0.0 Baso % (Auto) 0.1 Lymph # (Auto) 0.6 L [place] # (Auto) 0.7 Eos # (Auto) 0.0 Baso # (Auto) 0.0 Abs Immat Gran (auto) 0.07 H Absolute Neuts (auto) 12.2 H Absolute Nucleated RBC 0.000 Nucleated RBC % (auto) 0.0 VBG pH 7.43 VBG pCO2 65 VBG pO2 64 VBG HCO3 44 H VBG O2 Saturation 91.0 Sodium 139 Potassium 3.6 Chloride 89 L Carbon Dioxide 34 H Anion Gap 20 BUN 41 H Creatinine 1.30 Estim Creat Clear Calc 65.3 Estimated GFR 54 Random Glucose 189 H Calcium 9.8 Phosphorus 3.2 Magnesium 2.2 Albumin 4.2 Digoxin 07/01/22 05:09 WBC RBC Hgb Hct MCV MCH MCHC RDW Plt Count MPV Immature Gran % (Auto) Neut % (Auto) Lymph % (Auto) [place] % (Auto) Eos % (Auto) Baso % (Auto) Lymph # (Auto) [place] # (Auto) Eos # (Auto) Baso # (Auto) Abs Immat Gran (auto) Absolute Neuts (auto) Absolute Nucleated RBC Nucleated RBC % (auto) VBG pH VBG pCO2 VBG pO2 VBG HCO3 VBG O2 Saturation Sodium Potassium Chloride Carbon Dioxide Anion Gap BUN Creatinine Estim Creat Clear Calc Estimated GFR Random Glucose Calcium Phosphorus Magnesium Albumin Digoxin 1.2 Microbiology Microbiology Results: Microbiology 06/22/22 18:00 Urine clean catch - Urine morel top Urine Culture - Final Enterococcus faecalis Progress Note: A&P Assessment and plan (1) Pulmonary hypertension: Status: Acute (2) Right heart failure: Status: Acute (3) Acute on chronic respiratory failure with hypoxemia: Status: Acute (4) CHF exacerbation: Status: Acute (5) Interstitial lung disease: Status: Acute (6) COPD (chronic obstructive pulmonary disease): Status: Acute (7) PAF (paroxysmal atrial fibrillation): Status: Acute Plan Assessment: 71-year-old gentleman with underlying right ventricular failure, ILD, COPD, baseline 2 L of supplemental oxygen dependent admitted with acute on chronic exacerbation of underlying congestive heart failure, pulmonary hypertension, right ventricular failure now requiring vasopressor support. Plan: Neuro: No acute issues. Cardiac: Right ventricular failure with severe pulmonary hypertension that is likely multifactorial in etiology. Cardiology service care appreciated. Also underlying AFib, now on digoxin. Slowly improving with up titration of sildenafil. Now requiring vasopressor support. Continue to titrate off as tolerated. Follow up echo with no significant changes in pulmonary artery pressures. Pulmonary: Acute on chronic hypoxic respiratory failure secondary to exacerbati on of right ventricular failure. Also element of CO2 retention with hyperoxia and with rising bicarbonate. Maintain O2 sat no higher than 92%. Continue to titrate off supplemental oxygen as tolerated. CT chest reviewed, underlying combination advanced pulmonary fibrosis and COPD with overlying pulmonary edema. Renal: Urine output is improving. Non oliguric. Continue to monitor renal indices and urine output. Endo: No acute issues. GI: No acute issues. ID: No acute issues Heme/Onc: No acute issues. Psych: No acute issues. Miscellaneous: No acute issues. Prophylaxis: Eliquis Diet: Cardiac Critical care time spent: 45 minutes Quality Stroke Does the patient have a stroke diagnosis?: No VTE Prior VTE?: No VTE Risk Level:: Medical - moderate - high VTE Device Contraindication: Treatment Not Indicated VTE Drug Contraindication: N/A - Med Ordered
[2022-07-01] MEDS: Sildenafil Citrate 20 MG TABLET 80 MG PO ×2 (15:41→20:10)
[2022-07-01] MEDS: methylPREDNISolone Sod Succ 125 MG/2 ML VIAL 60 MG IVPUSH (15:52)
[2022-07-01] MEDS: cefTRIAXone sodium 1 GM in 0.9 % Sodium Chloride 50 ML IV (19:15)
[2022-07-02] VITALS (30 sets, daily range): BP systolic 85–134; BP diastolic 53–91; PULSE 87–113; RESP 21–33; TEMP 36.4; O2SAT 88–96; BMI 29.7
[2022-07-02 05:28] LABS: MANUAL DIFF FLAG NO
[2022-07-02 05:31] LABS: Basophils Percent Auto 0.2 % (0-2); Eosinophils Percent Auto 0.1 % (0-4); Hematocrit 46.9 % (42.0-52.0); Hemoglobin 14.9 g/dl (14.0-18.0); Imm Gran Abs Auto 0.12 X10*3/uL (0.00-0.03); Imm Gran Pct Auto 1.1 % (0.0-0.4); Lymphocytes Absolute Auto 0.5 X10*3/uL (1.2-4.9); Lymphocytes Percent Auto 4.8 % (20-40); Mean Corpuscular HGB Conc 31.8 g/dl (31.0-36.0); Mean Corpuscular Hemoglobin 29.3 pg (27.0-33.0); Mean Corpuscular Volume 92.1 fL (80.0-98.0); Mean Platelet Volume 10.2 fL (9.4-12.4); Monocytes Absolute Auto 0.8 X10*3/uL (0.1-1.2); Monocytes Percent Auto 6.8 % (2-11); Neutrophils Absolute Auto 9.6 x10*3/uL (2.0-8.3); Platelet Count 236 X10*3/uL (160-400); Red Blood Count 5.09 X10*6/uL (4.60-5.80); Red Cell Distribution Width 12.4 % (11.0-16.0); White Blood Count 11.1 X10*3/uL (4.8-10.8)
[2022-07-02 05:32] LABS: VBG Base Excess 23.1 mmol/L; VBG HCO3 52 mmol/L (22-26); VBG pCO2 69 mmHg; VBG pH 7.48 (7.32-7.43); VBG pO2 38 mmHg
[2022-07-02 05:55] LABS: Alanine Aminotransferase 15 U/L (0-40); Alkaline Phosphatase 49 U/L (39-117); Anion Gap 14 (12-20); Aspartate Amino Transferase 20 U/L (5-37); Bilirubin Total 1.1 mg/dL (0.0-1.0); Blood Urea Nitrogen 38 mg/dL (9-16); Calcium 9.8 mg/dL (8.4-10.2); Carbon Dioxide 38 mmol/L (22-29); Chloride 91 mmol/L (96-108); Creatinine Clr Calc Pharmacy 77.9; Estimated Glomerular Filt Rate > 60; Glucose Random 217 mg/dL (60-115); Magnesium 2.2 mg/dL (1.6-2.6); Phosphorus 2.2 mg/dL (2.7-4.5); Sodium 139 mmol/L (135-145); Total Protein 6.2 g/dL (6.5-8.0)
[2022-07-02 07:06] LABS: Venous Blood Gas Refer to POC result
[2022-07-02] MEDS: Bumetanide 1 MG/4 ML VIAL IVPUSH ×3 (07:58→23:26)
[2022-07-02] MEDS: Digoxin 0.5 MG/2 ML AMPUL 0.25 MG IVPUSH (07:59)
[2022-07-02] MEDS: Apixaban 5 MG TABLET PO ×2 (07:59→20:27)
[2022-07-02] MEDS: Sildenafil Citrate 20 MG TABLET 80 MG PO ×3 (07:59→20:26)
[2022-07-02] MEDS: 0.9 % Sodium Chloride Flush 3 ML SYRINGE IVFLUSH ×4 (08:00→23:25)
[2022-07-02] MEDS: LORazepam 1 MG TABLET PO (08:28)
--- NOTE | 2022-07-02 09:58 | MHC.CM.PN ---
Pt doing well: continues on Bumex gtt: appetite slowly improving: seems less depressed and more participatory in care. Discussed STR to which pt continues to decline. CM discussed deconditioning and probable need for care at home: pt states he would like to try [facility] and family support first, should he fail, he would consider STR. Referral has been made to [facility]. Pt resides w/spouse and has adult children who are very supportive and can assist if needed. CM to follow for finalization of d/c planning needs. Family can transport pt to home. PT eval to be ordered per MD.
--- NOTE | 2022-07-02 10:54 | P.PNCC_ITS ---
Subjective Subjective Date of Service: 07/02/22 Interval History: 71-year-old gentleman underlying history of COPD, IPF, AFib on Eliquis, 2 L supplemental oxygen dependent admitted on 06/21/2022 with progressive dyspnea and worsening lower extremity edema of approximately 1 months. He was noted to be significantly hypoxic requiring supplemental oxygen at 426 L. He was admitted to telemetry service and started on diuresis. Hospital course is also significant for worsening hypoxia with CO2 retention while hypoxic requiring initiation of BiPAP support and transferred to intensive care unit. In the intensive care unit titrated of BiPAP. 2D echocardiogram with severely elevated pulmonary artery pressure and right ventricular dysfunction. Started on vasopressor support and diuresis with sequential improvement, though with no significant changes in pulmonary artery pressure after taking of 10 L of fluid. Incremental clinical improvement with titration up of sildenafil. No events overnight. Critical Care Time (minutes): 45 Physical Exam Vital Signs: Vital Signs: Last Vital Signs Temp 97.5 F 07/01/22 20:00 Pulse 101 H 07/02/22 10:19 Resp 27 H 07/02/22 10:00 BP 93/64 07/02/22 10:19 Pulse Ox 91 L 07/02/22 10:00 O2 Del Method 07/02/22 07:00 O2 Flow Rate 4 07/02/22 10:00 FiO2 30 06/22/22 15:30 Oxygen Flow Rate 3 06/21/22 13:26 BMI result Body Mass Index 29.7 Const: General: no acute distress, alert and awake Eyes: Sclerae: sclerae normal EOM: EOMs intact bilaterally Neck: Neck: Yes no lymphadenopathy, Yes trachea midline and Yes supple Resp: Effort & Inspection: normal respiratory effort and no respiratory distress Auscultation: crackles (Mild bilateral) Cardio: Rate: regular rate Rhythm: regular rhythm Heart sounds: no gallops, no murmurs and no rubs GI: Palpation (GI): Soft to palpation and Other GI palpation findings present ( Nontender) Auscultation: normal bowel sounds Extrem: General: No clubbing, No cyanosis and Yes edema (2+ bilateral) Objective Data Labs 07/02/22 05:21 07/02/22 05:21 Labs: Laboratory Results - last 24 hr 07/02/22 07/02/22 07/02/22 05:21 05:21 05:25 WBC 11.1 H RBC 5.09 Hgb 14.9 Hct 46.9 MCV 92.1 MCH 29.3 MCHC 31.8 RDW 12.4 Plt Count 236 MPV 10.2 Immature Gran % (Auto) 1.1 H Neut % (Auto) 87.0 H Lymph % (Auto) 4.8 L [place] % (Auto) 6.8 Eos % (Auto) 0.1 Baso % (Auto) 0.2 Lymph # (Auto) 0.5 L [place] # (Auto) 0.8 Eos # (Auto) 0.0 Baso # (Auto) 0.0 Abs Immat Gran (auto) 0.12 H Absolute Neuts (auto) 9.6 H Absolute Nucleated RBC 0.000 Nucleated RBC % (auto) 0.0 VBG pH 7.48 H VBG pCO2 69 VBG pO2 38 VBG HCO3 52 H VBG O2 Saturation 64.0 VBG Base Excess 23.1 Sodium 139 Potassium 4.0 Chloride 91 L Carbon Dioxide 38 H Anion Gap 14 BUN 38 H Creatinine 1.09 Estim Creat Clear Calc 77.9 Estimated GFR > 60 Random Glucose 217 H Calcium 9.8 Phosphorus 2.2 L Magnesium 2.2 Total Bilirubin 1.1 H AST 20 ALT 15 Alkaline Phosphatase 49 Total Protein 6.2 L Albumin 4.0 Microbiology Microbiology Results: Microbiology 06/22/22 18:00 Urine clean catch - Urine morel top Urine Culture - Final Enterococcus faecalis Progress Note: A&P Assessment and plan (1) Pulmonary hypertension: Status: Acute (2) Right heart failure: Status: Acute (3) Acute on chronic respiratory failure with hypoxemia: Status: Acute (4) CHF exacerbation: Status: Acute (5) Interstitial lung disease: Status: Acute (6) COPD (chronic obstructive pulmonary disease): Status: Acute (7) PAF (paroxysmal atrial fibrillation): Status: Acute Plan Assessment: 71-year-old gentleman with underlying right ventricular failure, ILD, COPD, baseline 2 L of supplemental oxygen dependent admitted with acute on chronic exacerbation of underlying congestive heart failure, pulmonary hypertension, right ventricular failure now requiring vasopressor support. Plan: Neuro: No acute issues. Cardiac: Right ventricular failure with severe pulmonary hypertension that is likely multifactorial in etiology. Cardiology service care appreciated. Also underlying AFib, now on digoxin. Slowly improving with up titration of sildenafil. Now requiring vasopressor support. Continue to titrate off as tolerated. Follow up echo with no significant changes in pulmonary artery pre ssures. Pulmonary: Acute on chronic hypoxic respiratory failure secondary to exacerbation of right ventricular failure. Also element of CO2 retention with hyperoxia and with rising bicarbonate. Maintain O2 sat no higher than 92%. Continue to titrate off supplemental oxygen as tolerated. CT chest reviewed, underlying combination advanced pulmonary fibrosis and COPD with overlying pulmonary edema. Renal: Urine output is improving. Non oliguric. Continue to monitor renal indices and urine output. Endo: No acute issues. GI: No acute issues. ID: No acute issues Heme/Onc: No acute issues. Psych: No acute issues. Miscellaneous: No acute issues. Prophylaxis: Eliquis Diet: Cardiac Critical care time spent: 45 minutes Quality Stroke Does the patient have a stroke diagnosis?: No VTE Prior VTE?: No VTE Risk Level:: Medical - moderate - high VTE Device Contraindication: Treatment Not Indicated VTE Drug Contraindication: N/A - Med Ordered
[2022-07-02] MEDS: methylPREDNISolone Sod Succ 125 MG/2 ML VIAL 60 MG IVPUSH (18:01)
[2022-07-03] VITALS (25 sets, daily range): BP systolic 88–109; BP diastolic 54–79; PULSE 95–115; RESP 19–34; TEMP 36.2–36.6; O2SAT 86–97; BMI 29.9
[2022-07-03 05:34] LABS: VBG HCO3 52 mmol/L (22-26); VBG pCO2 60 mmHg; VBG pH 7.54 (7.32-7.43); VBG pO2 79 mmHg
[2022-07-03 05:39] LABS: MANUAL DIFF FLAG NO
[2022-07-03 05:43] LABS: Basophils Percent Auto 0.2 % (0-2); Hematocrit 44.9 % (42.0-52.0); Hemoglobin 14.5 g/dl (14.0-18.0); Imm Gran Abs Auto 0.07 X10*3/uL (0.00-0.03); Imm Gran Pct Auto 0.8 % (0.0-0.4); Lymphocytes Absolute Auto 0.4 X10*3/uL (1.2-4.9); Lymphocytes Percent Auto 4.8 % (20-40); Mean Corpuscular HGB Conc 32.3 g/dl (31.0-36.0); Mean Corpuscular Hemoglobin 29.8 pg (27.0-33.0); Mean Corpuscular Volume 92.4 fL (80.0-98.0); Mean Platelet Volume 10.5 fL (9.4-12.4); Monocytes Absolute Auto 0.5 X10*3/uL (0.1-1.2); Monocytes Percent Auto 6.4 % (2-11); Neutrophils Absolute Auto 7.4 x10*3/uL (2.0-8.3); Neutrophils Percent Auto 87.8 % (45-73); Platelet Count 191 X10*3/uL (160-400); Red Blood Count 4.86 X10*6/uL (4.60-5.80); Red Cell Distribution Width 12.6 % (11.0-16.0); White Blood Count 8.4 X10*3/uL (4.8-10.8)
[2022-07-03 06:08] LABS: Albumin Level 3.6 g/dL (3.5-5.0); Anion Gap 13 (12-20); Blood Urea Nitrogen 43 mg/dL (9-16); Calcium 9.7 mg/dL (8.4-10.2); Carbon Dioxide 38 mmol/L (22-29); Chloride 92 mmol/L (96-108); Creatinine Clr Calc Pharmacy 85.3; Estimated Glomerular Filt Rate > 60; Glucose Random 229 mg/dL (60-115); Magnesium 2.2 mg/dL (1.6-2.6); Phosphorus 2.1 mg/dL (2.7-4.5); Potassium 3.9 mmol/L (3.3-5.1); Sodium 139 mmol/L (135-145)
[2022-07-03 06:18] LABS: Venous Blood Gas Refer to POC result
[2022-07-03] MEDS: Bumetanide 1 MG/4 ML VIAL IVPUSH ×2 (07:42→16:29)
[2022-07-03] MEDS: Potassium Phosphate/NS 15 MMOL/250 ML PLAST..BAG 62.5 MMOL IV (07:47)
[2022-07-03] MEDS: Digoxin 0.5 MG/2 ML AMPUL 0.25 MG IVPUSH (08:00)
[2022-07-03] MEDS: Apixaban 5 MG TABLET PO ×2 (08:01→20:12)
[2022-07-03] MEDS: LORazepam 1 MG TABLET PO (08:01)
[2022-07-03] MEDS: Sildenafil Citrate 20 MG TABLET 80 MG PO ×3 (08:01→20:12)
[2022-07-03] MEDS: Megestrol Acetate 400 MG/10 ML ORAL.SUSP PO (08:01)
[2022-07-03] MEDS: Sodium,Potassium Phosphates POWD.PACK 2 PACKET PO (08:10)
--- NOTE | 2022-07-03 09:20 | P.PNCC_ITS ---
Subjective Subjective Date of Service: 07/03/22 Interval History: 71-year-old gentleman underlying history of COPD, IPF, AFib on Eliquis, 2 L supplemental oxygen dependent admitted on 06/21/2022 with progressive dyspnea and worsening lower extremity edema of approximately 1 months. He was noted to be significantly hypoxic requiring supplemental oxygen at 426 L. He was admitted to telemetry service and started on diuresis. Hospital course is also significant for worsening hypoxia with CO2 retention while hypoxic requiring initiation of BiPAP support and transferred to intensive care unit. In the intensive care unit titrated of BiPAP. 2D echocardiogram with severely elevated pulmonary artery pressure and right ventricular dysfunction. Started on vasopressor support and diuresis with sequential improvement, though with no significant changes in pulmonary artery pressure after taking of 10 L of fluid. Incremental clinical improvement with titration up of sildenafil. No events overnight. Oxygen requirements slowly improving to baseline. Critical Care Time (minutes): 30 Physical Exam Vital Signs: Vital Signs: Last Vital Signs Temp 97.1 F 07/03/22 08:00 Pulse 112 H 07/03/22 09:00 Resp 26 H 07/03/22 09:00 BP 89/59 L 07/03/22 09:00 Pulse Ox 92 07/03/22 09:00 O2 Del Method 07/03/22 09:00 O2 Flow Rate 5 07/03/22 09:00 FiO2 30 06/22/22 15:30 Oxygen Flow Rate 3 06/21/22 13:26 BMI result Body Mass Index 29.9 Const: General: no acute distress, alert and awake Eyes: Sclerae: sclerae normal EOM: EOMs intact bilaterally Neck: Neck: Yes no lymphadenopathy, Yes trachea midline and Yes supple Resp: Effort & Inspection: normal respiratory effort and no respiratory distress Auscultation: crackles (Bibasilar) Cardio: Rate: regular rate Rhythm: regular rhythm Heart sounds: no gallops, no murmurs and no rubs GI: Palpation (GI): Soft to palpation and Other GI palpation findings present ( Nontender) Auscultation: normal bowel sounds Extrem: General: No clubbing, No cyanosis and Yes edema (2+ bilateral) Objective Data Labs 07/03/22 05:30 07/03/22 05:30 Labs: Laboratory Results - last 24 hr 07/01/22 07/03/22 07/03/22 05:07 05:27 05:30 WBC 8.4 RBC 4.86 Hgb 14.5 Hct 44.9 MCV 92.4 MCH 29.8 MCHC 32.3 RDW 12.6 Plt Count 191 MPV 10.5 Immature Gran % (Auto) 0.8 H Neut % (Auto) 87.8 H Lymph % (Auto) 4.8 L [place] % (Auto) 6.4 Eos % (Auto) 0.0 Baso % (Auto) 0.2 Lymph # (Auto) 0.4 L [place] # (Auto) 0.5 Eos # (Auto) 0.0 Baso # (Auto) 0.0 Abs Immat Gran (auto) 0.07 H Absolute Neuts (auto) 7.4 Absolute Nucleated RBC 0.000 Nucleated RBC % (auto) 0.0 VBG pH 7.54 H VBG pCO2 60 VBG pO2 79 VBG HCO3 52 H VBG O2 Saturation 97.0 VBG Base Excess TNP 25.0 Sodium Potassium Chloride Carbon Dioxide Anion Gap BUN Creatinine Estim Creat Clear Calc Estimated GFR Random Glucose Calcium Phosphorus Magnesium Albumin 07/03/22 05:30 WBC RBC Hgb Hct MCV MCH MCHC RDW Plt Count MPV Immature Gran % (Auto) Neut % (Auto) Lymph % (Auto) [place] % (Auto) Eos % (Auto) Baso % (Auto) Lymph # (Auto) [place] # (Auto) Eos # (Auto) Baso # (Auto) Abs Immat Gran (auto) Absolute Neuts (auto) Absolute Nucleated RBC Nucleated RBC % (auto) VBG pH VBG pCO2 VBG pO2 VBG HCO3 VBG O2 Saturation VBG Base Excess Sodium 139 Potassium 3.9 Chloride 92 L Carbon Dioxide 38 H Anion Gap 13 BUN 43 H Creatinine 1.00 Estim Creat Clear Calc 85.3 Estimated GFR > 60 Random Glucose 229 H Calcium 9.7 Phosphorus 2.1 L Magnesium 2.2 Albumin 3.6 Microbiology Microbiology Results: Microbiology 06/22/22 18:00 Urine clean catch - Urine morel top Urine Culture - Final Enterococcus faecalis Progress Note: A&P Assessment and plan (1) Pulmonary hypertension: Status: Acute (2) Right heart failure: Status: Acute (3) Acute on chronic respiratory failure with hypoxemia: Status: Acute (4) Interstitial lung disease: Status: Acute (5) COPD (chronic obstructive pulmonary disease): Status: Acute (6) CHF exacerbation: Status: Acute Plan Assessment: 71-year-old gentleman with underlying right ventricular failure, ILD, COPD, baseline 2 L of supplemental oxygen dependent admitted with acute on chronic exacerbation of underlying congestive heart failure, pulmonary hypertension, right ventricular failure now requiring vasopressor support. Plan: Neuro: No acute issues. Cardiac: Right ventricular failure with severe pulmonary hypertension that is likely multifactorial in etiology. Cardiology service care appreciated. Also underlying AFib, now on digoxin. Slowly improving with up titration of sildenafil. Now requiring vasopressor support. Continue to titrate off as tolerated. Follow up echo with no significant changes in pulmonary artery pressures. Pulmonary: Acute on chronic hypoxic respiratory failure secondary to exacer bation of right ventricular failure. Oxygen requirements slowly improving to baseline. CT chest reviewed, underlying combination advanced pulmonary fibrosis and COPD with overlying pulmonary edema. Renal: Urine output is improving. Non oliguric. Continue to monitor renal indices and urine output. Endo: No acute issues. GI: No acute issues. ID: No acute issues Heme/Onc: No acute issues. Psych: No acute issues. Miscellaneous: No acute issues. Prophylaxis: Eliquis Diet: Cardiac Critical care time spent: 45 minutes Quality Stroke Does the patient have a stroke diagnosis?: No VTE Prior VTE?: No VTE Risk Level:: Medical - moderate - high VTE Device Contraindication: Treatment Not Indicated VTE Drug Contraindication: N/A - Med Ordered
[2022-07-03] MEDS: 0.9 % Sodium Chloride Flush 3 ML SYRINGE IVFLUSH (16:29)
[2022-07-03] MEDS: methylPREDNISolone Sod Succ 125 MG/2 ML VIAL 60 MG IVPUSH (18:06)
[2022-07-04] VITALS (26 sets, daily range): BP systolic 88–116; BP diastolic 57–80; PULSE 96–120; RESP 16–33; TEMP 36.2–36.8; O2SAT 86–96; BMI 30.1
[2022-07-04] MEDS: 0.9 % Sodium Chloride Flush 3 ML SYRINGE IVFLUSH ×4 (00:10→20:55)
[2022-07-04] MEDS: Bumetanide 1 MG/4 ML VIAL IVPUSH ×3 (00:11→20:50)
[2022-07-04 05:44] LABS: VBG Base Excess 23.3 mmol/L; VBG HCO3 51 mmol/L (22-26); VBG pCO2 61 mmHg; VBG pH 7.52 (7.32-7.43); VBG pO2 47 mmHg
[2022-07-04 05:48] LABS: Basophils Percent Auto 0.3 % (0-2); Hematocrit 48.4 % (42.0-52.0); Hemoglobin 15.5 g/dl (14.0-18.0); Imm Gran Abs Auto 0.08 X10*3/uL (0.00-0.03); Imm Gran Pct Auto 0.7 % (0.0-0.4); Lymphocytes Absolute Auto 0.4 X10*3/uL (1.2-4.9); Lymphocytes Percent Auto 3.8 % (20-40); MANUAL DIFF FLAG SCAN; Mean Corpuscular Hemoglobin 29.7 pg (27.0-33.0); Mean Corpuscular Volume 92.7 fL (80.0-98.0); Mean Platelet Volume 10.6 fL (9.4-12.4); Monocytes Absolute Auto 0.5 X10*3/uL (0.1-1.2); Monocytes Percent Auto 4.2 % (2-11); Neutrophils Absolute Auto 10.2 x10*3/uL (2.0-8.3); Platelet Count 211 X10*3/uL (160-400); Red Blood Count 5.22 X10*6/uL (4.60-5.80); Red Cell Distribution Width 12.5 % (11.0-16.0); SCAN SMEAR FLAG 1; White Blood Count 11.2 X10*3/uL (4.8-10.8)
[2022-07-04 06:11] LABS: SLIDE REVIEW VERIFIED
[2022-07-04 06:16] LABS: Albumin Level 3.6 g/dL (3.5-5.0); Anion Gap 15 (12-20); Blood Urea Nitrogen 45 mg/dL (9-16); Calcium 9.7 mg/dL (8.4-10.2); Carbon Dioxide 37 mmol/L (22-29); Chloride 90 mmol/L (96-108); Estimated Glomerular Filt Rate 58; Glucose Random 304 mg/dL (60-115); Magnesium 2.2 mg/dL (1.6-2.6); Phosphorus 2.1 mg/dL (2.7-4.5); Potassium 4.2 mmol/L (3.3-5.1); Sodium 138 mmol/L (135-145)
[2022-07-04] MEDS: Digoxin 0.5 MG/2 ML AMPUL 0.25 MG IVPUSH (08:07)
[2022-07-04] MEDS: Sildenafil Citrate 20 MG TABLET 80 MG PO ×3 (08:07→20:49)
[2022-07-04] MEDS: Megestrol Acetate 400 MG/10 ML ORAL.SUSP PO (08:07)
[2022-07-04] MEDS: LORazepam 1 MG TABLET PO (08:08)
[2022-07-04] MEDS: Apixaban 5 MG TABLET PO ×2 (08:08→20:49)
[2022-07-04] MEDS: Sodium,Potassium Phosphates POWD.PACK 2 PACKET PO ×4 (08:08→20:49)
[2022-07-04] MEDS: Lactulose 20 GM/30 ML SOLUTION 30 GM PO (09:46)
--- NOTE | 2022-07-04 10:29 | PM.CCPN ---
Subjective Subjective Date of Service: 07/04/22 Interval History: 71-year-old gentleman underlying history of COPD, IPF, AFib on Eliquis, 2 L supplemental oxygen dependent admitted on 06/21/2022 with progressive dyspnea and worsening lower extremity edema of approximately 1 months. He was noted to be significantly hypoxic requiring supplemental oxygen at 426 L. He was admitted to telemetry service and started on diuresis. Hospital course is also significant for worsening hypoxia with CO2 retention while hypoxic requiring initiation of BiPAP support and transferred to intensive care unit. In the intensive care unit titrated off BiPAP. 2D echocardiogram with severely elevated pulmonary artery pressure and right ventricular dysfunction. Started on vasopressor support and diuresis with sequential improvement, though with no significant changes in pulmonary artery pressure after taking of 10 L of fluid. Incremental clinical improvement with titration up of sildenafil. Oxygen requirements slowly improving to baseline. Now with significant deconditioning. No events overnight. Critical Care Time (minutes): 30 Physical Exam Vital Signs: Vital Signs: Last Vital Signs Temp 97.3 F 07/04/22 10:00 Pulse 107 H 07/04/22 10:00 Resp 24 H 07/04/22 10:00 BP 103/71 07/04/22 10:00 Pulse Ox 90 L 07/04/22 10:00 O2 Del Method 07/04/22 10:00 O2 Flow Rate 3 07/04/22 10:00 FiO2 30 06/22/22 15:30 Oxygen Flow Rate 3 06/21/22 13:26 BMI result Body Mass Index 30.1 Const: General: no acute distress, alert and awake Eyes: Sclerae: sclerae normal EOM: EOMs intact bilaterally Neck: Neck: Yes no lymphadenopathy, Yes trachea midline and Yes supple Resp: Effort & Inspection: normal respiratory effort and no respiratory distress Auscultation: crackles (Diffuse bilateral) Cardio: Rate: tachycardic Rhythm: regular rhythm Heart sounds: no gallops, no murmurs and no rubs GI: Palpation (GI): Soft to palpation and Other GI palpation findings present ( Nontender) Auscultation: normal bowel sounds Extrem: General: No clubbing, No cyanosis and Yes edema (2+ bilateral) Objective Data Labs 07/04/22 05:34 07/04/22 05:34 Labs: Laboratory Results - last 24 hr 07/04/22 07/04/22 07/04/22 05:34 05:34 05:37 WBC 11.2 H RBC 5.22 Hgb 15.5 Hct 48.4 MCV 92.7 MCH 29.7 MCHC 32.0 RDW 12.5 Plt Count 211 MPV 10.6 Immature Gran % (Auto) 0.7 H Neut % (Auto) 91.0 H Lymph % (Auto) 3.8 L [place] % (Auto) 4.2 Eos % (Auto) 0.0 Baso % (Auto) 0.3 Lymph # (Auto) 0.4 L [place] # (Auto) 0.5 Eos # (Auto) 0.0 Baso # (Auto) 0.0 Abs Immat Gran (auto) 0.08 H Absolute Neuts (auto) 10.2 H Absolute Nucleated RBC 0.000 Nucleated RBC % (auto) 0.0 Smear Tech's Comments VERIFIED VBG pH 7.52 H VBG pCO2 61 VBG pO2 47 VBG HCO3 51 H VBG O2 Saturation 80.0 VBG Base Excess 23.3 Sodium 138 Potassium 4.2 Chloride 90 L Carbon Dioxide 37 H Anion Gap 15 BUN 45 H Creatinine 1.22 Estim Creat Clear Calc 70.0 Estimated GFR 58 Random Glucose 304 H Calcium 9.7 Phosphorus 2.1 L Magnesium 2.2 Albumin 3.6 Microbiology Microbiology Results: Microbiology 06/22/22 18:00 Urine clean catch - Urine morel top Urine Culture - Final Enterococcus faecalis Progress Note: A&P Assessment and plan (1) Pulmonary hypertension: Status: Acute (2) Right heart failure: Status: Acute (3) Acute on chronic respiratory failure with hypoxemia: Status: Acute (4) CHF exacerbation: Status: Acute (5) Interstitial lung disease: Status: Acute (6) COPD (chronic obstructive pulmonary disease): Status: Acute (7) PAF (paroxysmal atrial fibrillation): Status: Acute Plan Assessment: 71-year-old gentleman with underlying right ventricular failure, ILD, COPD, baseline 2 L of supplemental oxygen dependent admitted with acute on chronic exacerbation of underlying congestive heart failure, pulmonary hypertension, right ventricular failure now requiring vasopressor support. Plan: Neuro: No acute issues. Cardiac: Right ventricular failure with severe pulmonary hypertension that is likely multifactorial in etiology. Cardiology service care appreciated. Also underlying AFib, now on digoxin. Slowly improving with up titration of sildenafil. Now titrated off vasopressor support. Will obtain 2nd follow-up echo to evaluate for changes in pulmonary pressures with up titration of sildenafil. Pulmonary: Acute on chronic hypoxic respiratory failure secondary to exacerbation of right ventricular failure. Oxygen requirements slowly improving to baseline. CT chest reviewed, underlying combination advanced pulmonary fibrosis and COPD with overlying pulmonary edema. Renal: Non oliguric. Continue to monitor renal indices and urine output. Endo: No acute issues. GI: No acute issues. ID: No acute issues Heme/Onc: No acute issues. Psych: No acute issues. Miscellaneous: No acute issues. Prophylaxis: Eliquis Diet: Cardiac Critical care time spent: 30 minutes Quality Stroke Does the patient have a stroke diagnosis?: No VTE Prior VTE?: No VTE Risk Level:: Medical - moderate - high VTE Device Contraindication: Treatment Not Indicated VTE Drug Contraindication: N/A - Med Ordered
[2022-07-04 10:32] LABS: Venous Blood Gas Refer to POC result
[2022-07-05] VITALS (26 sets, daily range): BP systolic 86–123; BP diastolic 23–85; PULSE 90–127; RESP 20–32; TEMP 36.3–36.6; O2SAT 85–94; BMI 30.2
[2022-07-05] MEDS: Acetaminophen 325 MG TABLET 650 MG PO ×2 (00:19→08:05)
[2022-07-05] MEDS: ondansetron HCL 4 MG/2 ML VIAL IVPUSH ×2 (00:19→08:05)
--- NOTE | 2022-07-05 06:34 | PC.NURSE ---
assumed care 1900. pt A&O x3 periods of confusion overnight, easily reoriented Neel DUMONT made aware. ST on tele bp stable off levo, 02 88-92%on 3L NC, no BM this shift, Ruffin >50cc/hr, repo q2 bath given.
[2022-07-05 06:47] LABS: MANUAL DIFF FLAG NO
[2022-07-05 06:49] LABS: Basophils Percent Auto 0.1 % (0-2); Eosinophils Absolute Auto 0.1 X10*3/uL (0.0-0.4); Eosinophils Percent Auto 0.6 % (0-4); Hematocrit 46.5 % (42.0-52.0); Hemoglobin 15.2 g/dl (14.0-18.0); Imm Gran Abs Auto 0.08 X10*3/uL (0.00-0.03); Imm Gran Pct Auto 0.6 % (0.0-0.4); Lymphocytes Absolute Auto 0.8 X10*3/uL (1.2-4.9); Lymphocytes Percent Auto 5.9 % (20-40); Mean Corpuscular HGB Conc 32.7 g/dl (31.0-36.0); Mean Corpuscular Hemoglobin 29.9 pg (27.0-33.0); Mean Corpuscular Volume 91.5 fL (80.0-98.0); Mean Platelet Volume 10.6 fL (9.4-12.4); Monocytes Percent Auto 6.9 % (2-11); Neutrophils Absolute Auto 11.8 x10*3/uL (2.0-8.3); Neutrophils Percent Auto 85.9 % (45-73); Platelet Count 198 X10*3/uL (160-400); Red Blood Count 5.08 X10*6/uL (4.60-5.80); Red Cell Distribution Width 12.7 % (11.0-16.0); White Blood Count 13.7 X10*3/uL (4.8-10.8)
[2022-07-05 06:50] LABS: Venous Blood Gas Refer to POC result
[2022-07-05 06:51] LABS: VBG Base Excess 32.1 mmol/L; VBG HCO3 60 mmol/L (22-26); VBG pCO2 67 mmHg; VBG pH 7.56 (7.32-7.43); VBG pO2 73 mmHg
--- NOTE | 2022-07-05 07:00 | CA_ITS ---
Transthoracic Echocardiogram Limited Patient (Last, First, Middle): Aden Nino H Gender: Male Date of : 1950 Age: 71 Procedure Date: 07/05/2022 Procedure Type: Transthoracic Echocardiogram Limited Location: ICU Height: 187.96 cm Weight: 106.6 kg BSA: 2.33 m2 Heart Rate: 110 bpm BP: 105 / 73 mmHg Well Logger: SB Referring MD: Stefan Hartley MD Symptoms: PASP Study Quality: Adequate ECG Rhythm: Tachycardia Conclusions: - Decreased left ventricular cavity size. The left ventricular systolic function is hyperdynamic. The visually estimated ejection fraction is >70%. - Severely increased right ventricular cavity size. There is moderate to severely decreased right ventricular systolic function. - The right ventricular systolic pressure is 108 mmHg. Significantly elevated right atrial pressure. Severe pulmonary hypertension is present. Findings Left Ventricle Decreased left ventricular cavity size. The left ventricular systolic function is hyperdynamic. The visually estimated ejection fraction is >70%. There is a flattened septum in systole and diastole consistent with right ventricular pressure and volume overload. Right Ventricle Severely increased right ventricular cavity size. There is moderate to severely decreased right ventricular systolic function. Tricuspid Valve The right ventricular systolic pressure is 108 mmHg. Significantly elevated right atrial pressure. Severe pulmonary hypertension is present. Venous The inferior vena cava is dilated and collapses less than 50% with inspiration. Pericardium/Pleural Prominent epicardial adipose tissue noted. There is a small pericardial effusion. Prior Study Comparison No significant change compared to prior study dated: 06/28/2022. Measurements 2D Linear Measurements IVSd: 1.15 0.6-0.9/0.6-1.0 cm LVIDd: 3.44 3.9-5.3/4.2-5.9 cm LVIDd Index: 1.48 2.4-3.2/2.2-3.1 cm/m2 LVIDs: 1.62 2.0-3.6 cm LVPWd: 1.14 0.7-1.1 cm LV Mass: 153.32 67-162/88-224 g LV Mass Index: 65.80 43-95/49-115 g/m2 LVOT Diam: 2.10 3.0+(-)1.3 cm 2D Systolic Function EF Teich: 83.00 >55% LVOT LVOT Pk Vinny: 0.86 LVOT Mn Vinny: 0.56 LVOT VTI: 0.11 LVOT Pk Grad: 3.00 LVOT Mn Grad: 2.00 LVOT Diam: 2.10 LVOT Area: 3.46 Right Ventricle TAPSE (mm): 14.00 TVS' Vinny: 13.70 Tricuspid Valve TR Pk Vinny: 4.82 TR Pk Grad: 93.00 RA Press: 15.00 RVSP: 108.00 Updated in Other Vendor System with Status of Final Luis Armando Govea MD electronically signed on 07/06/2022 6:17:04 PM with status of Final
[2022-07-05 07:22] LABS: Anion Gap 13 (12-20); Blood Urea Nitrogen 41 mg/dL (9-16); Calcium 9.5 mg/dL (8.4-10.2); Carbon Dioxide 42 mmol/L (22-29); Chloride 87 mmol/L (96-108); Creatinine Clr Calc Pharmacy 75.8; Estimated Glomerular Filt Rate > 60; Glucose Random 208 mg/dL (60-115); Magnesium 2.1 mg/dL (1.6-2.6); Phosphorus 2.7 mg/dL (2.7-4.5); Potassium 4.3 mmol/L (3.3-5.1); Sodium 138 mmol/L (135-145)
[2022-07-05] MEDS: Sildenafil Citrate 20 MG TABLET 80 MG PO ×3 (08:05→21:30)
[2022-07-05] MEDS: Bumetanide 1 MG/4 ML VIAL IVPUSH ×2 (08:05→21:30)
[2022-07-05] MEDS: Megestrol Acetate 400 MG/10 ML ORAL.SUSP PO (08:05)
[2022-07-05] MEDS: Apixaban 5 MG TABLET PO ×2 (08:05→21:30)
[2022-07-05] MEDS: Digoxin 0.5 MG/2 ML AMPUL 0.25 MG IVPUSH (08:06)
[2022-07-05] MEDS: 0.9 % Sodium Chloride Flush 3 ML SYRINGE IVFLUSH ×2 (08:06→16:15)
--- NOTE | 2022-07-05 10:20 | P.CDIC_ITS ---
CDI Concurrent Query Documentation Clarification: PHYSICIAN'S DOCUMENTATION REQUEST Date of Query: 07/05/22 1021 Patient Name: Aden Nino Admit Date: 06/21/22 Dear Doctor, A review of the medical record indicates additional documentation may be needed. Please review below and update the documentation accordingly. Clinical Indicators: A diagnosis of COPD was documented. Is the patient in acute exacerbation based on the correlating findings below: Risk Factors/Clinical Indicators/Treatments Per provider note on 06/27: Element of CO2 retention with hyperoxia and with rising bicarbonate.? Maintain O2 sat no higher than 92%.? Continue to titrate off supplement al oxygen as tolerated. Per provider note on 07/01: CT chest reviewed, underlying combination advanced pulmonary fibrosis and COPD with overlying pulmonary edema. Per provider progress notes: Hospital course is also significant for worsening hypoxia with CO2 retention while hypoxic requiring initiation of BiPAP support and transferred to intensive care unit. Per provider note on 07/04: Started on vasopressor support and diuresis with sequential improvement, though with no significant changes in pulmonary artery pressure after taking of 10 L of fluid.? Incremental clinical improvement with titration up of sildenafil. Clarify which of the following accurately represents the patient's respiratory status: * COPD with acute exacerbation * Other (please specify) * Unable to determine Use of terms such as suspected, likely, concern for, or probable (associated with a specific diagnosis that is being evaluated, monitored, or treated as if it exists) are acceptable and can be coded in the inpatient setting, when documented at the time of discharge. Thank you, Elsa Manning MS, RN, CCRN Extension: [phone] Please use your independent medical judgment in providing your response. THIS QUERY IS PART OF THE PERMANENT MEDICAL RECORD Provider Response: COPD Exacerbation
[2022-07-05] MEDS: methylPREDNISolone Sod Succ 40 MG/ML VIAL IVPUSH ×3 (11:48→22:08)
[2022-07-05 11:50] LABS: Eos%MD 1.3 %; Eosinophils Absolute Auto 0.2 X10*3/uL (0.0-0.4); WBCANC 17.6 X10*3/uL
[2022-07-05 12:27] LABS: Erythrocyte Sedimentation Rate 1 MM/HR (0-15)
--- NOTE | 2022-07-05 12:52 | MHC.CM.PN ---
Pt continues care in ICU: BP low and still on O2. CM to follow for finalization of d/c plans. Pt did not want to transfer to a SNF but as his care needs continue and his stay prolonged, it seems like he will need more intense post d/c care. CM to follow.
[2022-07-05 12:59] LABS: Rheumatoid Factor 32.6 IU/mL (<15.0)
[2022-07-05 13:51] LABS: D Dimer High Sensitivity 2162 NG/ML
--- NOTE | 2022-07-05 18:45 | PC.NURSE ---
Pt AAOX4, calm and cooperative. Pt initially at 3L n/c satting at goal of 88-92%, SOB with minimal exertion requiring upto 6L to recover after getting into chair and back, pt desatting even at rest, MD aware and pt refuses to try masks. Pt currently on 5L and satting at goal of 88-90%. Pt with very poor appetite, +BSX4, abdomen is soft and nontender, pt had a small stool this am on the commode. Pt also worked with PT this afternoon. Pt's villagran is patent, initially was draining red brown urine, after moving around with PT, urine more bloody, MD aware. Pt's urine now clearing up again, 30-80cc/hr. Pt continues to be ST on the monitor, mostly in 110s but upto 140s with exertion and recovers with rest. Pt's family visiting at bedside and updated, all questions answered. Pt otherwise is currently sleeping with no acute distress. Safety maintained throughout. Will continue to monitor.
[2022-07-05 20:49] LABS: Glucose, Whole Blood 305 mg/dL (60-115)
[2022-07-06] VITALS (19 sets, daily range): BP systolic 81–124; BP diastolic 57–91; PULSE 92–136; RESP 18–29; TEMP 36.3–36.9; O2SAT 87–95; BMI 29.2
[2022-07-06] MEDS: methylPREDNISolone Sod Succ 40 MG/ML VIAL IVPUSH ×3 (05:16→16:56)
[2022-07-06] MEDS: 0.9 % Sodium Chloride Flush 3 ML SYRINGE IVFLUSH ×4 (05:16→20:25)
[2022-07-06 05:18] LABS: VBG Base Excess 26.7 mmol/L; VBG HCO3 52 mmol/L (22-26); VBG pCO2 52 mmHg; VBG pH 7.61 (7.32-7.43); VBG pO2 68 mmHg
[2022-07-06 05:20] LABS: Venous Blood Gas Refer to POC result
[2022-07-06 05:48] LABS: Basophils Percent Auto 0.2 % (0-2); Hematocrit 46.8 % (42.0-52.0); Hemoglobin 15.3 g/dl (14.0-18.0); Imm Gran Abs Auto 0.09 X10*3/uL (0.00-0.03); Imm Gran Pct Auto 0.7 % (0.0-0.4); Lymphocytes Absolute Auto 0.5 X10*3/uL (1.2-4.9); Lymphocytes Percent Auto 3.6 % (20-40); MANUAL DIFF FLAG SCAN; Mean Corpuscular HGB Conc 32.7 g/dl (31.0-36.0); Mean Corpuscular Hemoglobin 29.5 pg (27.0-33.0); Mean Corpuscular Volume 90.2 fL (80.0-98.0); Mean Platelet Volume 10.8 fL (9.4-12.4); Monocytes Absolute Auto 0.4 X10*3/uL (0.1-1.2); Monocytes Percent Auto 3.1 % (2-11); Neutrophils Absolute Auto 11.5 x10*3/uL (2.0-8.3); Neutrophils Percent Auto 92.4 % (45-73); Platelet Count 232 X10*3/uL (160-400); Red Blood Count 5.19 X10*6/uL (4.60-5.80); Red Cell Distribution Width 12.9 % (11.0-16.0); SCAN SMEAR FLAG 1; White Blood Count 12.4 X10*3/uL (4.8-10.8)
[2022-07-06 06:05] LABS: Albumin Level 3.4 g/dL (3.5-5.0); Anion Gap 16 (12-20); Blood Urea Nitrogen 44 mg/dL (9-16); Calcium 9.4 mg/dL (8.4-10.2); Carbon Dioxide 39 mmol/L (22-29); Chloride 88 mmol/L (96-108); Creatinine Clr Calc Pharmacy 80.8; Estimated Glomerular Filt Rate > 60; Glucose Random 284 mg/dL (60-115); Magnesium 2.3 mg/dL (1.6-2.6); Phosphorus 3.2 mg/dL (2.7-4.5); Potassium 4.7 mmol/L (3.3-5.1); Sodium 138 mmol/L (135-145)
[2022-07-06 06:24] LABS: SLIDE REVIEW VERIFIED
[2022-07-06] MEDS: Acetaminophen 325 MG TABLET 650 MG PO (08:07)
[2022-07-06] MEDS: Bumetanide 1 MG/4 ML VIAL IVPUSH ×2 (08:07→20:25)
[2022-07-06] MEDS: Megestrol Acetate 400 MG/10 ML ORAL.SUSP PO (08:07)
[2022-07-06] MEDS: Apixaban 5 MG TABLET PO ×2 (08:08→20:25)
[2022-07-06] MEDS: Sildenafil Citrate 20 MG TABLET 80 MG PO ×3 (08:08→20:25)
[2022-07-06] MEDS: Digoxin 0.5 MG/2 ML AMPUL 0.25 MG IVPUSH (08:08)
[2022-07-06] MEDS: ondansetron HCL 4 MG/2 ML VIAL IVPUSH (08:08)
--- NOTE | 2022-07-06 09:05 | PM.CNPUL ---
History of Present Illness History of Present Illness Consult date: 07/06/22 Chief complaint: Hypoxic respiratory failure, CHF Narrative: This is an inpatient pulmonary consultation. The patient is a 71 y\o male with pmh of ILD/IPF on 2L, COPD, PAF, Fibromyalgia who presents to the hospital with worsenins SOB and swelling in LE. he reports overall deconditioning over the last few months but today his family was concerned as he was dyspneic while sleeping. denies any fever, chills, chest pain, N\V\D but report dyspnea with minimal activity, increase edema and overall weakness. in ED found to be hypoxic in mid 80s. CXR showing pulmonary edema. elevated BNP with elevated Hb to 18. The patient was found to have severe pulmonary hypertension 1 the hospital. He developed respiratory failure requiring ICU level of care. His echocardiogram demonstrated a PA pressure of 100 mmHg. He was ultimately placed on sildenafil. The medication was titrated up to 80 mg t.i.d.. He is on 5 L of oxygen. Per can barely move because of shortness of breath. His blood pressures have been slightly on the low side. Volume status has been better. The the I did review his recent CT scan of the chest demonstrating significant honeycomb primarily in the periphery and also in the basilar areas consistent with idiopathic pulmonary fibrosis. No evidence of any ground-glass opacities. He did have some very small bilateral pleural effusions also noted. In regards of his venous blood gases appears that he has a significant metabolic alkalosis. This is superimposed on a chronic respiratory acidosis. Review of Systems Review of Systems: Yes all other systems are reviewed and are negative Constitutional: Constitutional: Denies chills, Reports fatigue, Denies fever(s) and Denies lethargy Eyes: Eyes: Reports no additional eye complaints ENT: Reports system reviewed and no additional complaints, except as documented Cardiovascular: Cardiovascular: Denies chest pain, Denies chest pain at rest, Reports edema, Reports dyspnea, Reports dyspnea on exertion and Reports orthopnea Respiratory: Respiratory: Reports cough, Denies pain on inspiration, Denies pain with cough, Reports dyspnea and Reports dyspnea on exertion Gastrointestinal: Gastrointestinal: Denies abdominal pain, Denies change in bowel habits, Reports constipation and Denies diarrhea Genitourinary: Genitourinary: Denies difficulty urinating Musculoskeletal: Musculoskeletal: Denies no additional musculoskeletal complaints and Denies abnormal gait Integumentary/Breasts: Skin/Breast: Denies rash Neurologic: Denies Neuro-related abnormal movements, Denies abnormal gait, Denies confusion and Denies focal weakness Psychiatric: Psychiatric: Denies anxiety, Denies confusion and Denies depression Endocrine: Endocrine: Reports fatigue Hematologic/Lymphatic: Hematologic/Lymphatic: Reports no additional hematologic/lymphatic complaints Allergic/Immunologic: Allergic/Immunologic: Reports no additional allergic/immunologic complaints PMFSH Past Medical History Medical History Acute on chronic respiratory failure with hypoxemia COPD (chronic obstructive pulmonary disease) Fibromyalgia GERD (gastroesophageal reflux disease) High cholesterol History of cardioversion HTN (hypertension) Interstitial lung disease PAF (paroxysmal atrial fibrillation) PTSD (post-traumatic stress disorder) Vitamin B 12 deficiency Family History Family History Father No problems noted. Mother No problems noted. Surgical History Surgical History History of cholecystectomy History of tonsillectomy Social History Social History Household Members: Spouse and Children Housing: House Do you presently have visiting nurse or other home services: No Alcohol intake: former Patient Tobacco Use Status: Former Tobacco user Quit Date: 1999 Tobacco use type: Cigarette Years Smoked: 33 +/-1999 e-Cigarette/Vaping Use: Never Used Second Hand Smoke Exposure: No Advance Directives Date on File: 06/22/22 service: No Current occupational status: retired Cognitive needs: No Hearing needs: No Vision needs: Yes Meds Allergies Allergy/AdvReac Type Severity Reaction Status Date / Time Iodinated Contrast Media Allergy Unknown SWELLING, Verified 02/09/22 12:28 [CONTRAST, IV] HIVES Penicillins [PENICILLINS] Allergy Unknown UNKNOWN- Verified 02/09/22 12:28 RX CHILD Active Medications: Current Medications Acetaminophen (Acetaminophen 325 Mg Tablet) 650 mg PO Q6H PRN PRN Reason: Pain, Mild (Pain Scale 1-3) Last Admin: 07/06/22 08:07 Dose: 650 mg Apixaban (Apixaban 5 Mg Tablet) 5 mg PO BID MIGNON Last Admin: 07/06/22 08:08 Dose: 5 mg Benzocaine (Throat Lozenge, Medicated Lozenge) 1 lozenge MUCOUS MEM Q2H PRN PRN Reason: Sore Throat Last Admin: 06/29/22 21:55 Dose: 1 lozenge Bumetanide (Bumetanide 1 Mg/4 Ml Vial) 1 mg IVPUSH BID [facility]; Protocol Last Admin: 07/06/22 08:07 Dose: 1 mg Calcium Carbonate (Calcium Carbonate 750 Mg Tab.Chew) 750 mg PO Q4H PRN PRN Reason: Dyspepsia Last Admin: 06/27/22 20:00 Dose: 750 mg Digoxin (Digoxin 0.5 Mg/2 Ml Ampul) 0.25 mg IVPUSH DAILY [facility] Last Admin: 07/06/22 08:08 Dose: 0.25 mg Megestrol Acetate (Megestrol Acetate 400 Mg/10 Ml Oral.Susp) 400 mg PO DAILY [facility] Last Admin: 07/06/22 08:07 Dose: 400 mg Methylprednisolone Sodium Succinate (Methylprednisolone Sod Succ 40 Mg/Ml Vial) 40 mg IVPUSH Q6H [facility] Last Admin: 07/06/22 05:16 Dose: 40 mg Non-Formulary Medication (Cimetidine) 300 mg PO BIDWM [facility] Last Admin: 07/06/22 08:18 Dose: 300 mg Ondansetron HCl (Ondansetron Hcl 4 Mg/2 Ml Vial) 4 mg IVPUSH Q6H PRN PRN Reason: nausea Last Admin: 07/06/22 08:08 Dose: 4 mg Pharmacy Consult (Consult Rx Perform Med Rec) 1 each MISCELLANE ONCE PRN PRN Reason: Consult order Senna (Sennosides 8.6 Mg Tablet) 17.2 mg PO BEDTIME PRN PRN Reason: Constipation Sildenafil Citrate (Sildenafil Citrate 20 Mg Tablet) 80 mg PO TID [facility] Last Admin: 07/06/22 08:08 Dose: 80 mg Sodium Chloride (0.9 % Sodium Chloride Flush 3 Ml Syringe) [facility] Last Admin: 07/06/22 08:08 Dose: 3 ml Home Medications Medication Instructions Recorded Confirmed Last Taken Type amlodipine 5 mg tablet 5 mg PO BEDTIME 06/21/22 06/21/22 Unknown History docusate sodium 100 mg capsule 100 mg PO DAILY PRN Constipation 06/21/22 06/21/22 Unknown History lorazepam 1 mg tablet 1 mg PO DAILY 06/21/22 06/21/22 Unknown History Physical Exam Vital Signs: Vital Signs: Last Vital Signs Temp 98.4 F 07/06/22 08:00 Pulse 112 H 07/06/22 08:44 Resp 20 07/06/22 08:00 BP 117/86 07/06/22 08:44 Pulse Ox 94 07/06/22 08:44 O2 Del Method 07/06/22 08:00 O2 Flow Rate 3 07/06/22 08:00 FiO2 30 06/22/22 15:30 Oxygen Flow Rate 3 06/21/22 13:26 BMI result Body Mass Index 29.2 Const: General: No confusion Orientation/consciousness: No confusion Eyes: Sclerae: sclerae normal EOM: EOMs intact bilaterally Neck: Neck: Yes no lymphadenopathy, Yes trachea midline and Yes supple Resp: Effort & Inspection: normal respiratory effort and no respiratory distress Auscultation: crackles (Diffuse bilateral) Cardio: Rate: tachycardic Rhythm: regular rhythm Heart sounds: no gallops, no murmurs and no rubs GI: Palpation (GI): Soft to palpation and Other GI palpation findings present ( Nontender) Auscultation: normal bowel sounds Neuro: General: No confusion Extrem: General: No clubbing, No cyanosis and Yes edema (2+ bilateral) Results Laboratory Findings 07/06/22 05:09 07/06/22 05:09 Abnormal lab findings: Abnormal Labs 06/21/22 06/21/22 06/21/22 13:45 13:45 13:45 WBC RBC 6.08 H Hct 55.5 H Immature Gran % (Auto) Neut % (Auto) 80.1 H Lymph % (Auto) 11.8 L Chase % (Auto) Lymph # (Auto) 1.0 L Chase # (Auto) Abs Immat Gran (auto) Absolute Neuts (auto) ABG pH at Pt Temp ABG pCO2 at Pt Temp ABG pO2 at Pt Temp ABG HCO3 VBG pH VBG HCO3 Sodium Chloride Carbon Dioxide 30 H Anion Gap BUN 20 H Creatinine POC Glucose Random Glucose 130 H Phosphorus Magnesium Total Bilirubin 1.6 H B-Natriuretic Peptide 1790 H Total Protein Albumin Urine Protein Urine Glucose (UA) Urine Blood Urine Nitrite Ur Leukocyte Esterase Urine RBC Urine WBC Rheumatoid Factor 06/22/22 06/22/22 06/22/22 07:31 07:31 07:31 WBC RBC Hct Immature Gran % (Auto) Neut % (Auto) 75.0 H Lymph % (Auto) 14.5 L Chase % (Auto) Lymph # (Auto) Chase # (Auto) Abs Immat Gran (auto) Absolute Neuts (auto) ABG pH at Pt Temp ABG pCO2 at Pt Temp ABG pO2 at Pt Temp ABG HCO3 VBG pH VBG HCO3 Sodium Chloride Carbon Dioxide 32 H Anion Gap BUN 21 H Creatinine POC Glucose Random Glucose Phosphorus Magnesium Total Bilirubin B-Natriuretic Peptide 1690 H Total Protein Albumin Urine Protein Urine Glucose (UA) Urine Blood Urine Nitrite Ur Leukocyte Esterase Urine RBC Urine WBC Rheumatoid Factor 06/22/22 06/22/22 06/22/22 12:03 12:25 13:53 WBC RBC Hct 52.6 H Immature Gran % (Auto) Neut % (Auto) 73.3 H Lymph % (Auto) 15.3 L Chase % (Auto) Lymph # (Auto) Chase # (Auto) Abs Immat Gran (auto) Absolute Neuts (auto) ABG pH at Pt Temp 7.31 L ABG pCO2 at Pt Temp 60 H* 56 H ABG pO2 at Pt Temp 115 H 68 L ABG HCO3 30 H 32 H VBG pH VBG HCO3 Sodium Chloride Carbon Dioxide Anion Gap BUN Creatinine POC Glucose Random Glucose Phosphorus Magnesium Total Bilirubin B-Natriuretic Peptide Total Protein Albumin Urine Protein Urine Glucose (UA) Urine Blood Urine Nitrite Ur Leukocyte Esterase Urine RBC Urine WBC Rheumatoid Factor 06/22/22 06/22/22 06/22/22 17:27 18:17 18:21 WBC RBC Hct Immature Gran % (Auto) Neut % (Auto) Lymph % (Auto) Chase % (Auto) Lymph # (Auto) Chase # (Auto) Abs Immat Gran (auto) Absolute Neuts (auto) ABG pH at Pt Temp ABG pCO2 at Pt Temp ABG pO2 at Pt Temp ABG HCO3 VBG pH 7.31 L VBG HCO3 35 H Sodium Chloride Carbon Dioxide Anion Gap BUN 24 H Creatinine POC Glucose Random Glucose Phosphorus Magnesium Total Bilirubin B-Natriuretic Peptide Total Protein Albumin Urine Protein 300 (3+) H Urine Glucose (UA) 100 H Urine Blood Large (3+) H Urine Nitrite Positive H Ur Leukocyte Esterase Moderate (2+) H Urine RBC >20 H Urine WBC 6-10 H Rheumatoid Factor 06/23/22 06/23/22 06/23/22 04:52 04:56 09:05 WBC 10.9 H RBC Hct Immature Gran % (Auto) Neut % (Auto) 79.6 H Lymph % (Auto) 11.3 L Chase % (Auto) Lymph # (Auto) Chase # (Auto) Abs Immat Gran (auto) Absolute Neuts (auto) 8.7 H ABG pH at Pt Temp ABG pCO2 at Pt Temp ABG pO2 at Pt Temp ABG HCO3 VBG pH 7.53 H VBG HCO3 Sodium Chloride Carbon Dioxide Anion Gap BUN 25 H Creatinine POC Glucose Random Glucose Phosphorus 4.7 H Magnesium Total Bilirubin B-Natriuretic Peptide Total Protein Albumin 3.0 L Urine Protein Urine Glucose (UA) Urine Blood Urine Nitrite Ur Leukocyte Esterase Urine RBC Urine WBC Rheumatoid Factor 06/23/22 06/24/22 06/24/22 19:32 05:20 05:23 WBC RBC Hct Immature Gran % (Auto) Neut % (Auto) 79.2 H Lymph % (Auto) 10.5 L Chase % (Auto) Lymph # (Auto) 1.1 L Chase # (Auto) Abs Immat Gran (auto) 0.04 H Absolute Neuts (auto) ABG pH at Pt Temp ABG pCO2 at Pt Temp ABG pO2 at Pt Temp ABG HCO3 VBG pH VBG HCO3 37 H Sodium Chloride Carbon Dioxide 30 H Anion Gap BUN 25 H Creatinine POC Glucose Random Glucose 163 H Phosphorus Magnesium Total Bilirubin B-Natriuretic Peptide Total Protein Albumin Urine Protein Urine Glucose (UA) Urine Blood Urine Nitrite Ur Leukocyte Esterase Urine RBC Urine WBC Rheumatoid Factor 06/24/22 06/24/22 06/25/22 05:23 19:25 05:14 WBC RBC Hct Immature Gran % (Auto) Neut % (Auto) 74.2 H Lymph % (Auto) 13.2 L Chase % (Auto) Lymph # (Auto) Chase # (Auto) Abs Immat Gran (auto) Absolute Neuts (auto) ABG pH at Pt Temp ABG pCO2 at Pt Temp ABG pO2 at Pt Temp ABG HCO3 VBG pH VBG HCO3 Sodium Chloride 93 L Carbon Dioxide 32 H 32 H Anion Gap BUN 22 H 17 H Creatinine POC Glucose Random Glucose 129 H 150 H Phosphorus Magnesium Total Bilirubin B-Natriuretic Peptide Total Protein Albumin 3.1 L Urine Protein Urine Glucose (UA) Urine Blood Urine Nitrite Ur Leukocyte Esterase Urine RBC Urine WBC Rheumatoid Factor 06/25/22 06/25/22 06/25/22 05:14 05:21 19:31 WBC RBC Hct Immature Gran % (Auto) Neut % (Auto) Lymph % (Auto) Chase % (Auto) Lymph # (Auto) Chase # (Auto) Abs Immat Gran (auto) Absolute Neuts (auto) ABG pH at Pt Temp ABG pCO2 at Pt Temp ABG pO2 at Pt Temp ABG HCO3 VBG pH 7.50 H VBG HCO3 44 H Sodium Chloride 89 L 89 L Carbon Dioxide 36 H 32 H Anion Gap BUN Creatinine POC Glucose Random Glucose 126 H Phosphorus 2.2 L Magnesium 1.5 L Total Bilirubin B-Natriuretic Peptide Total Protein Albumin 3.1 L Urine Protein Urine Glucose (UA) Urine Blood Urine Nitrite Ur Leukocyte Esterase Urine RBC Urine WBC Rheumatoid Factor 06/26/22 06/26/22 06/26/22 05:36 05:38 05:38 WBC 21.7 H RBC Hct Immature Gran % (Auto) Neut % (Auto) 87.5 H Lymph % (Auto) 4.0 L Chase % (Auto) Lymph # (Auto) 0.9 L Chase # (Auto) 1.7 H Abs Immat Gran (auto) 0.09 H Absolute Neuts (auto) 19.0 H ABG pH at Pt Temp ABG pCO2 at Pt Temp ABG pO2 at Pt Temp ABG HCO3 VBG pH 7.45 H VBG HCO3 38 H Sodium 133 L Chloride 90 L Carbon Dioxide 33 H Anion Gap BUN Creatinine POC Glucose Random Glucose Phosphorus Magnesium Total Bilirubin B-Natriuretic Peptide Total Protein Albumin 2.9 L Urine Protein Urine Glucose (UA) Urine Blood Urine Nitrite Ur Leukocyte Esterase Urine RBC Urine WBC Rheumatoid Factor 06/26/22 06/26/22 06/27/22 11:19 18:05 05:10 WBC 19.6 H RBC Hct Immature Gran % (Auto) 0.7 H Neut % (Auto) 86.4 H Lymph % (Auto) 6.1 L Chase % (Auto) Lymph # (Auto) Chase # (Auto) 1.3 H Abs Immat Gran (auto) 0.13 H Absolute Neuts (auto) 17.0 H ABG pH at Pt Temp ABG pCO2 at Pt Temp ABG pO2 at Pt Temp ABG HCO3 VBG pH VBG HCO3 Sodium 134 L Chloride 89 L Carbon Dioxide 32 H Anion Gap BUN Creatinine POC Glucose Random Glucose 135 H Phosphorus Magnesium Total Bilirubin B-Natriuretic Peptide Total Protein Albumin Urine Protein Urine Glucose (UA) Urine Blood Large (3+) H Urine Nitrite Ur Leukocyte Esterase Trace H Urine RBC >20 H Urine WBC Rheumatoid Factor 06/27/22 06/27/22 06/28/22 05:10 05:19 05:19 WBC RBC Hct Immature Gran % (Auto) Neut % (Auto) Lymph % (Auto) Chase % (Auto) Lymph # (Auto) Chase # (Auto) Abs Immat Gran (auto) Absolute Neuts (auto) ABG pH at Pt Temp ABG pCO2 at Pt Temp ABG pO2 at Pt Temp ABG HCO3 VBG pH VBG HCO3 37 H 39 H Sodium Chloride 88 L Carbon Dioxide 31 H Anion Gap BUN 19 H Creatinine POC Glucose Random Glucose 118 H Phosphorus Magnesium Total Bilirubin B-Natriuretic Peptide Total Protein Albumin Urine Protein Urine Glucose (UA) Urine Blood Urine Nitrite Ur Leukocyte Esterase Urine RBC Urine WBC Rheumatoid Factor 06/28/22 06/28/22 06/29/22 05:20 06:39 05:07 WBC 15.8 H 13.2 H RBC Hct Immature Gran % (Auto) 0.6 H 0.5 H Neut % (Auto) 84.7 H 92.4 H Lymph % (Auto) 6.7 L 5.0 L Chase % (Auto) 1.9 L Lymph # (Auto) 1.1 L 0.7 L Chase # (Auto) Abs Immat Gran (auto) 0.09 H 0.06 H Absolute Neuts (auto) 13.4 H 12.2 H ABG pH at Pt Temp ABG pCO2 at Pt Temp ABG pO2 at Pt Temp ABG HCO3 VBG pH VBG HCO3 Sodium Chloride 90 L Carbon Dioxide 33 H Anion Gap BUN 19 H Creatinine POC Glucose Random Glucose Phosphorus Magnesium Total Bilirubin B-Natriuretic Peptide Total Protein Albumin 3.4 L Urine Protein Urine Glucose (UA) Urine Blood Urine Nitrite Ur Leukocyte Esterase Urine RBC Urine WBC Rheumatoid Factor 06/29/22 06/29/22 06/30/22 05:07 05:19 04:54 WBC RBC Hct Immature Gran % (Auto) Neut % (Auto) Lymph % (Auto) Chase % (Auto) Lymph # (Auto) Chase # (Auto) Abs Immat Gran (auto) Absolute Neuts (auto) ABG pH at Pt Temp ABG pCO2 at Pt Temp ABG pO2 at Pt Temp ABG HCO3 VBG pH VBG HCO3 34 H 39 H Sodium Chloride 89 L Carbon Dioxide Anion Gap 23 H BUN 27 H Creatinine POC Glucose Random Glucose 145 H Phosphorus Magnesium Total Bilirubin B-Natriuretic Peptide Total Protein Albumin Urine Protein Urine Glucose (UA) Urine Blood Urine Nitrite Ur Leukocyte Esterase Urine RBC Urine WBC Rheumatoid Factor 06/30/22 06/30/22 07/01/22 04:58 04:58 05:07 WBC 14.4 H RBC Hct Immature Gran % (Auto) 0.5 H Neut % (Auto) 88.7 H Lymph % (Auto) 5.8 L Chase % (Auto) Lymph # (Auto) 0.8 L Chase # (Auto) Abs Immat Gran (auto) 0.07 H Absolute Neuts (auto) 12.8 H ABG pH at Pt Temp ABG pCO2 at Pt Temp ABG pO2 at Pt Temp ABG HCO3 VBG pH VBG HCO3 44 H Sodium Chloride 90 L Carbon Dioxide 31 H Anion Gap 21 H BUN 39 H Creatinine 1.56 H POC Glucose Random Glucose 188 H Phosphorus Magnesium Total Bilirubin B-Natriuretic Peptide Total Protein Albumin 3.3 L Urine Protein Urine Glucose (UA) Urine Blood Urine Nitrite Ur Leukocyte Esterase Urine RBC Urine WBC Rheumatoid Factor 07/01/22 07/01/22 07/02/22 05:09 05:09 05:21 WBC 13.6 H 11.1 H RBC Hct Immature Gran % (Auto) 0.5 H 1.1 H Neut % (Auto) 90.0 H 87.0 H Lymph % (Auto) 4.0 L 4.8 L Chase % (Auto) Lymph # (Auto) 0.6 L 0.5 L Chase # (Auto) Abs Immat Gran (auto) 0.07 H 0.12 H Absolute Neuts (auto) 12.2 H 9.6 H ABG pH at Pt Temp ABG pCO2 at Pt Temp ABG pO2 at Pt Temp ABG HCO3 VBG pH VBG HCO3 Sodium Chloride 89 L Carbon Dioxide 34 H Anion Gap BUN 41 H Creatinine POC Glucose Random Glucose 189 H Phosphorus Magnesium Total Bilirubin B-Natriuretic Peptide Total Protein Albumin Urine Protein Urine Glucose (UA) Urine Blood Urine Nitrite Ur Leukocyte Esterase Urine RBC Urine WBC Rheumatoid Factor 07/02/22 07/02/22 07/03/22 05:21 05:25 05:27 WBC RBC Hct Immature Gran % (Auto) Neut % (Auto) Lymph % (Auto) Chase % (Auto) Lymph # (Auto) Chase # (Auto) Abs Immat Gran (auto) Absolute Neuts (auto) ABG pH at Pt Temp ABG pCO2 at Pt Temp ABG pO2 at Pt Temp ABG HCO3 VBG pH 7.48 H 7.54 H VBG HCO3 52 H 52 H Sodium Chloride 91 L Carbon Dioxide 38 H Anion Gap BUN 38 H Creatinine POC Glucose Random Glucose 217 H Phosphorus 2.2 L Magnesium Total Bilirubin 1.1 H B-Natriuretic Peptide Total Protein 6.2 L Albumin Urine Protein Urine Glucose (UA) Urine Blood Urine Nitrite Ur Leukocyte Esterase Urine RBC Urine WBC Rheumatoid Factor 07/03/22 07/03/22 07/04/22 05:30 05:30 05:34 WBC 11.2 H RBC Hct Immature Gran % (Auto) 0.8 H 0.7 H Neut % (Auto) 87.8 H 91.0 H Lymph % (Auto) 4.8 L 3.8 L Chase % (Auto) Lymph # (Auto) 0.4 L 0.4 L Chase # (Auto) Abs Immat Gran (auto) 0.07 H 0.08 H Absolute Neuts (auto) 10.2 H ABG pH at Pt Temp ABG pCO2 at Pt Temp ABG pO2 at Pt Temp ABG HCO3 VBG pH VBG HCO3 Sodium Chloride 92 L Carbon Dioxide 38 H Anion Gap BUN 43 H Creatinine POC Glucose Random Glucose 229 H Phosphorus 2.1 L Magnesium Total Bilirubin B-Natriuretic Peptide Total Protein Albumin Urine Protein Urine Glucose (UA) Urine Blood Urine Nitrite Ur Leukocyte Esterase Urine RBC Urine WBC Rheumatoid Factor 07/04/22 07/04/22 07/05/22 05:34 05:37 06:42 WBC 13.7 H RBC Hct Immature Gran % (Auto) 0.6 H Neut % (Auto) 85.9 H Lymph % (Auto) 5.9 L Chase % (Auto) Lymph # (Auto) 0.8 L Chase # (Auto) Abs Immat Gran (auto) 0.08 H Absolute Neuts (auto) 11.8 H ABG pH at Pt Temp ABG pCO2 at Pt Temp ABG pO2 at Pt Temp ABG HCO3 VBG pH 7.52 H VBG HCO3 51 H Sodium Chloride 90 L Carbon Dioxide 37 H Anion Gap BUN 45 H Creatinine POC Glucose Random Glucose 304 H Phosphorus 2.1 L Magnesium Total Bilirubin B-Natriuretic Peptide Total Protein Albumin Urine Protein Urine Glucose (UA) Urine Blood Urine Nitrite Ur Leukocyte Esterase Urine RBC Urine WBC Rheumatoid Factor 07/05/22 07/05/22 07/05/22 06:42 06:45 11:21 WBC RBC Hct Immature Gran % (Auto) Neut % (Auto) Lymph % (Auto) Chase % (Auto) Lymph # (Auto) Chase # (Auto) Abs Immat Gran (auto) Absolute Neuts (auto) ABG pH at Pt Temp ABG pCO2 at Pt Temp ABG pO2 at Pt Temp ABG HCO3 VBG pH 7.56 H VBG HCO3 60 H Sodium Chloride 87 L Carbon Dioxide 42 H* Anion Gap BUN 41 H Creatinine POC Glucose Random Glucose 208 H Phosphorus Magnesium Total Bilirubin B-Natriuretic Peptide Total Protein Albumin Urine Protein Urine Glucose (UA) Urine Blood Urine Nitrite Ur Leukocyte Esterase Urine RBC Urine WBC Rheumatoid Factor 32.6 H 07/05/22 07/06/22 07/06/22 20:45 05:08 05:09 WBC 12.4 H RBC Hct Immature Gran % (Auto) 0.7 H Neut % (Auto) 92.4 H Lymph % (Auto) 3.6 L Chase % (Auto) Lymph # (Auto) 0.5 L Chase # (Auto) Abs Immat Gran (auto) 0.09 H Absolute Neuts (auto) 11.5 H ABG pH at Pt Temp ABG pCO2 at Pt Temp ABG pO2 at Pt Temp ABG HCO3 VBG pH 7.61 H* VBG HCO3 52 H Sodium Chloride Carbon Dioxide Anion Gap BUN Creatinine POC Glucose 305 H Random Glucose Phosphorus Magnesium Total Bilirubin B-Natriuretic Peptide Total Protein Albumin Urine Protein Urine Glucose (UA) Urine Blood Urine Nitrite Ur Leukocyte Esterase Urine RBC Urine WBC Rheumatoid Factor 07/06/22 05:09 WBC RBC Hct Immature Gran % (Auto) Neut % (Auto) Lymph % (Auto) Chase % (Auto) Lymph # (Auto) Chase # (Auto) Abs Immat Gran (auto) Absolute Neuts (auto) ABG pH at Pt Temp ABG pCO2 at Pt Temp ABG pO2 at Pt Temp ABG HCO3 VBG pH VBG HCO3 Sodium Chloride 88 L Carbon Dioxide 39 H Anion Gap BUN 44 H Creatinine POC Glucose Random Glucose 284 H Phosphorus Magnesium Total Bilirubin B-Natriuretic Peptide Total Protein Albumin 3.4 L Urine Protein Urine Glucose (UA) Urine Blood Urine Nitrite Ur Leukocyte Esterase Urine RBC Urine WBC Rheumatoid Factor Microbiology: Microbiology 06/22/22 18:00 Urine clean catch - Urine morel top Urine Culture - Final Enterococcus faecalis Assessment and Plan (1) Pulmonary hypertension: Status: Acute (2) Right heart failure: Status: Acute (3) Acute on chronic respiratory failure with hypoxemia: Status: Acute (4) Interstitial lung disease: Status: Acute (5) COPD (chronic obstructive pulmonary disease): Status: Acute Plan Continue oxygen supplementation to maintain a pulse ox above 87%. Consider in Oxymizer pendant to assist with his ambulation Continue sildenafil, consider weaning down in view of the labile blood pressure a and hypoxia Agree with the Diamox to help with the metabolic alkalosis Continue respiratory therapy Switch to p.o. prednisone at this time Time Spent With Patient Time: Total time managing care of this patient today ____ minutes. Procedures Date of Service Date of Service: 07/06/22
--- NOTE | 2022-07-06 12:50 | MHC.CM.PN ---
Met with pt to complete a HCP and discuss d/c planning. Pt reluctant to accept STR but verbalized that his and children would not be able to care for him in his current state. Pt would like referrals to STR centers in the [facility] (which have been placed) Pt able to complete a HCP naming his Lucretia and signed a MOLST with MD after detailed discussion regarding goals of care. CM to follow for STR placement. Pt's son Jordon in to visit and updated on pt's rehab plans.
--- NOTE | 2022-07-06 13:41 | P.PNCC_ITS ---
Subjective Subjective Date of Service: 07/06/22 Interval History: 71-year-old male with longstanding interstitial pulmonary fibrosis and progressive worsening with a presentation consisting of acute on chronic hypercarbic and hypoxic respiratory failure and because of his co associated l eft heart diastolic dysfunction and his chronic cor pulmonale had significant fluid overload and they felt that although the underlying process cannot be treated an attempt at diuresing him might satisfy the acute respiratory failure and he did not have an apparent acute respiratory infection and so he underwent aggressive diuresis to the point where he is with clinically euvolemic none and his severe and systemic level of pulmonary hypertension has not changed significantly he was titrated up on sildenafil up to 80 mg in addition to the diuresis and his initial pulmonary systolic pressure was was a 100 mmHg and after all this it remains at 93 mm Hg which is an insignificant change med and is not reduced in relation to his systemic level of pressure but simply came down slightly along with his systemic level of pressure on his echocardiogram he has got a usually dilated right ventricle with the very significant reverse Bernheim effect and therefore septal compression causing the no significant compression of left ventricle almost like a form of internal tamponade which is why he always has with minimal exertion exertional syncope because of any effort no compromising left ventricular filling and stroke volume pulmonary consultation says there is nothing more to do because he is not a lung and heart transplant candidate and we have since that time discussed the no DNR as he was already a DNI which he has agree to and he and the family understand the end-stage nature of his disease and he wishes of course not to be supported even with noninvasive ventilation he just wants his oxygen maintained at most with the Oxymizer he has got a very severe level of secondary metabolic alkalosis and if this pCO2 actually comes down into the 50s his pH is up over 7.6 so I am giving him 1 dose of a seated is all my id see if we can bring his serum bicarb down a little bit to keep his pH and a safer range but I need to be careful as to not over diurese him because of the severity of the pulmonary hypertension he remains fully anticoagulated on apixaban Critical Care Time (minutes): 45 Physical Exam Vital Signs: Vital Signs: Last Vital Signs Temp 98.4 F 07/06/22 08:00 Pulse 126 H 07/06/22 13:00 Resp 22 H 07/06/22 13:00 BP 99/57 L 07/06/22 13:00 Pulse Ox 90 L 07/06/22 13:00 O2 Del Method 07/06/22 13:00 O2 Flow Rate 3 07/06/22 13:00 FiO2 30 06/22/22 15:30 Oxygen Flow Rate 3 06/21/22 13:26 BMI result Body Mass Index 29.2 awake alert and nonfocal neurologically marginal resting oxygen saturation 88-90% but with minimal exertion develops extreme sinus tachycardia with significant drop very often in blood pressure as well as oxygen saturation diminished breath sounds but some coarse bilateral rales bedside echo as described above abdomen benign no organomegaly Objective Data Labs 07/06/22 05:09 07/06/22 05:09 Labs: Laboratory Results - last 24 hr 07/05/22 07/05/22 07/06/22 11:21 20:45 05:08 WBC RBC Hgb Hct MCV MCH MCHC RDW Plt Count MPV Immature Gran % (Auto) Neut % (Auto) Lymph % (Auto) Phillips % (Auto) Eos % (Auto) Baso % (Auto) Lymph # (Auto) Phillips # (Auto) Eos # (Auto) Baso # (Auto) Abs Immat Gran (auto) Absolute Neuts (auto) Absolute Nucleated RBC Nucleated RBC % (auto) Smear Tech's Comments APTT 29.0 D-Dimer High Sensitivty 2162 VBG pH 7.61 H* VBG pCO2 52 VBG pO2 68 VBG HCO3 52 H VBG O2 Saturation 95.0 VBG Base Excess 26.7 Sodium Potassium Chloride Carbon Dioxide Anion Gap BUN Creatinine Estim Creat Clear Calc Estimated GFR POC Glucose 305 H Random Glucose Calcium Phosphorus Magnesium Albumin 07/06/22 07/06/22 05:09 05:09 WBC 12.4 H RBC 5.19 Hgb 15.3 Hct 46.8 MCV 90.2 MCH 29.5 MCHC 32.7 RDW 12.9 Plt Count 232 MPV 10.8 Immature Gran % (Auto) 0.7 H Neut % (Auto) 92.4 H Lymph % (Auto) 3.6 L Phillips % (Auto) 3.1 Eos % (Auto) 0.0 Baso % (Auto) 0.2 Lymph # (Auto) 0.5 L Phillips # (Auto) 0.4 Eos # (Auto) 0.0 Baso # (Auto) 0.0 Abs Immat Gran (auto) 0.09 H Absolute Neuts (auto) 11.5 H Absolute Nucleated RBC 0.000 Nucleated RBC % (auto) 0.0 Smear Tech's Comments VERIFIED APTT D-Dimer High Sensitivty VBG pH VBG pCO2 VBG pO2 VBG HCO3 VBG O2 Saturation VBG Base Excess Sodium 138 Potassium 4.7 Chloride 88 L Carbon Dioxide 39 H Anion Gap 16 BUN 44 H Creatinine 1.06 Estim Creat Clear Calc 80.8 Estimated GFR > 60 POC Glucose Random Glucose 284 H Calcium 9.4 Phosphorus 3.2 Magnesium 2.3 Albumin 3.4 L Microbiology Microbiology Results: Microbiology 06/22/22 18:00 Urine clean catch - Urine morel top Urine Culture - Final Enterococcus faecalis Progress Note: A&P Assessment and plan (1) Pulmonary hypertension: Status: Acute (2) Right heart failure: Status: Acute (3) Acute on chronic respiratory failure with hypoxemia: Status: Acute (4) CHF exacerbation: Status: Acute (5) Interstitial lung disease: Status: Acute (6) Vitamin B 12 deficiency: Status: Acute (7) GERD (gastroesophageal reflux disease): Status: Acute (8) HERNANDEZ (dyspnea on exertion): Status: Acute (9) Bilateral edema of lower extremity: Status: Acute (10) COVID-19 virus infection: Status: Acute (11) COPD (chronic obstructive pulmonary disease): Status: Acute (12) High cholesterol: Status: Acute (13) Hypertension: Status: Acute (14) PAF (paroxysmal atrial fibrillation): Status: Acute Plan plan is to simply maintain the Oxymizer and pretty much a [id number] existence diurese and p.r.n. probably with simultaneous use of SCDs 0 limb I would to prevent extreme alkalotic pH prognosis is grim and he is DNR /DNI Quality Stroke Does the patient have a stroke diagnosis?: No VTE Prior VTE?: No VTE Risk Level:: Medical - moderate - high VTE Device Contraindication: Treatment Not Indicated VTE Drug Contraindication: N/A - Med Ordered
[2022-07-06 14:18] LABS: Immunoglobulin E 200 kU/L (<OR=114)
[2022-07-06] MEDS: acetaZOLAMIDE sodium 500 MG VIAL IVPUSH (15:07)
--- NOTE | 2022-07-06 16:55 | PC.NURSE ---
Pt forgetful but easily redirectable. Pt weaned from 5L to 3L n/c, satting at goal until transfer to chair when pt started to desat, MD aware, changed from n/c to oxymizer at 5L and satting appropriately at goal of 88-92%. Pt worked with PT as well. After discussion from Md with family and patient, code status changed from DNI to DNI/DNR. Pt's villagran dc'd per MD's order. Pt straining on the commode, minimum blood streaks noted, tap water enema given with soap, after which pt moved more reddish brown color stool, Md aware with no new orders at this time. Pt heavy 2 assist with walker OOB; otherwise resting in bed with no acute distress. Pt bathed and was repositioned every 2 hrs and as needed. Pt was otherwise resting in bed with no acute distress. Pt now downgraded to IMC, reported give to Linda NGUYỄN who will continue with the plan of care. Pt left the unit at approximately 1600.
[2022-07-07] VITALS (7 sets, daily range): BP systolic 89–122; BP diastolic 64–81; PULSE 92–125; RESP 16–20; TEMP 36.2–36.7; O2SAT 93–97; BMI 29.6
[2022-07-07] MEDS: methylPREDNISolone Sod Succ 40 MG/ML VIAL IVPUSH ×5 (00:12→22:01)
[2022-07-07] MEDS: Sildenafil Citrate 20 MG TABLET 80 MG PO ×3 (09:37→23:11)
[2022-07-07] MEDS: Apixaban 5 MG TABLET PO ×2 (09:37→22:01)
[2022-07-07] MEDS: Digoxin 0.25 MG TABLET PO (09:38)
[2022-07-07] MEDS: 0.9 % Sodium Chloride Flush 3 ML SYRINGE IVFLUSH ×2 (09:40→17:20)
[2022-07-07] MEDS: LORazepam 1 MG TABLET PO (10:28)
--- NOTE | 2022-07-07 12:45 | P.CDIC_ITS ---
CDI Concurrent Query Documentation Clarification: PHYSICIAN'S DOCUMENTATION REQUEST Date of Query: 07/07/22 1246 Patient Name: Aden Nino Admit Date: 06/21/22 Dear Doctor, A review of the medical record indicates additional documentation may be needed. Please review below and update the documentation accordingly. Clinical Indicators: Is there a diagnosis that correlates with the findings below: Risk Factors/Clinical Indicators/Treatments Labs: POC on 07/05 - 305 POC on 07/06 - 284 Home medications: Based on the above, could you clarify in the Progress Notes the appropriate diagnosis, if significant, that supports the above abnormalities and additional evaluation, monitoring, and/or treatment rendered: * Hyperglycemia * Other (please specify) * Unable to determine Use of terms such as suspected, likely, concern for, or probable (associated with a specific diagnosis that is being evaluated, monitored, or treated as if it exists) are acceptable and can be coded in the inpatient setting, when documented at the time of discharge. Thank you, Elsa Manning MS, RN, CCRN Extension: [phone] Please use your independent medical judgment in providing your response. THIS QUERY IS PART OF THE PERMANENT MEDICAL RECORD
[2022-07-07 13:19] LABS: Antibody to SS-A Antigen <1.0 NEG AI (<1.0 NEG); Antibody to SS-B Antigen <1.0 NEG AI (<1.0 NEG); Myeloperoxidase Antibody <1.0 AI; Proteinase 3 PR3 Antibodies <1.0 AI
--- NOTE | 2022-07-07 14:26 | MHC.CM.PN ---
per rounds no anticapated dc at this time plan remanis home
--- NOTE | 2022-07-07 14:32 | MHC.CM.PN ---
no anticapated dc date at this time pt recommending str referrals in place
--- NOTE | 2022-07-07 16:10 | P.PNIM_ITS ---
Subjective Subjective Date of Service: 07/08/22 Interval History: 71-year-old gentleman underlying history of COPD, IPF, AFib on Eliquis, 2 L supplemental oxygen dependent admitted on 06/21/2022 with progressive dyspnea and worsening lower extremity edema of approximately 1 months.? He was noted to be significantly hypoxic requiring supplemental oxygen at 426 L. He was admitted to telemetry service and started on diuresis.? Hospital course is also significant for worsening hypoxia with CO2 retention while hypoxic requiring initiation of BiPAP support and transferred to intensive care unit.? In the intensive care unit titrated off BiPAP.? 2D echocardiogram with severely elevated pulmonary artery pressure and right ventricular dysfunction.? Started on vasopressor support and diuresis with sequential improvement, though with no significant changes in pulmonary artery pressure after taking of 10 L of fluid.? Incremental clinical improvement with titration up of sildenafil. Oxygen requirements slowly improving to baseline.? Now with significant deconditioning. Transfered out of ICU on 07/06/22...He's doing relatively ok, but looks rather frail.. BP is on low side but assymptomatic Physical Exam Vital Signs: Vital Signs: Last Vital Signs Temp 97.3 F 07/07/22 15:12 Pulse 125 H 07/07/22 15:12 Resp 19 07/07/22 15:12 BP 89/69 L 07/07/22 15:12 Pulse Ox 96 07/07/22 15:12 O2 Del Method 07/07/22 15:12 O2 Flow Rate 5 07/07/22 15:12 FiO2 30 06/22/22 15:30 Oxygen Flow Rate 3 06/21/22 13:26 BMI result Body Mass Index 29.6 Const: Other: General: AO X 2, no acute distress Resp: CTA bilateral CVS: S1,S2, regular irregular, 3+pitting edema GI: +BS, NT, no distention Skin: No rash Neuro: motor grossly intact Psych: appropriate affect Objective Data Active Medications Acetaminophen (Acetaminophen 325 Mg Tablet) 650 mg PO Q6H PRN PRN Reason: Pain, Mild (Pain Scale 1-3) Last Admin: 07/06/22 08:07 Dose: 650 mg Documented By: STERLING Apixaban (Apixaban 5 Mg Tablet) 5 mg PO BID [facility] Last Admin: 07/07/22 09:37 Dose: 5 mg Documented By: KENDAL Benzocaine (Throat Lozenge, Medicated Lozenge) 1 lozenge MUCOUS MEM Q2H PRN PRN Reason: Sore Throat Last Admin: 06/29/22 21:55 Dose: 1 lozenge Documented By: VIRGILIO Bumetanide (Bumetanide 1 Mg/4 Ml Vial) 1 mg IVPUSH BID [facility]; Protocol Last Admin: 07/07/22 09:42 Dose: Not Given Documented By: KENDAL Non-Admin Reason: BP of 92/65 Calcium Carbonate (Calcium Carbonate 750 Mg Tab.Chew) 750 mg PO Q4H PRN PRN Reason: Dyspepsia Last Admin: 06/27/22 20:00 Dose: 750 mg Documented By: SIDNEY Digoxin (Digoxin 0.25 Mg Tablet) 0.25 mg PO DAILY [facility] Last Admin: 07/07/22 09:38 Dose: 0.25 mg Documented By: KENDAL Lorazepam (Lorazepam 1 Mg Tablet) 1 mg PO DAILY [facility] Last Admin: 07/07/22 10:28 Dose: 1 mg Documented By: KENDAL Methylprednisolone Sodium Succinate (Methylprednisolone Sod Succ 40 Mg/Ml Vial) 40 mg IVPUSH Q6H [facility] Last Admin: 07/07/22 10:28 Dose: 40 mg Documented By: KENDAL Non-Formulary Medication (Cimetidine) 300 mg PO BIDWM [facility] Last Admin: 07/07/22 09:38 Dose: 300 mg Documented By: KENDAL Pharmacy Consult (Consult Rx Perform Med Rec) 1 each MISCELLANE ONCE PRN PRN Reason: Consult order Senna (Sennosides 8.6 Mg Tablet) 17.2 mg PO BEDTIME PRN PRN Reason: Constipation Sildenafil Citrate (Sildenafil Citrate 20 Mg Tablet) 80 mg PO TID [facility] Last Admin: 07/07/22 09:37 Dose: 80 mg Documented By: KENDAL Sodium Chloride (0.9 % Sodium Chloride Flush 3 Ml Syringe) 3 ml IVFLUSH QSHIFT [facility] Last Admin: 07/07/22 09:40 Dose: 3 ml Documented By: KENDAL Labs 07/06/22 05:09 07/06/22 05:09 Labs: Laboratory Results - last 24 hr 07/05/22 11:21 Proteinase 3 (PR3) Ab <1.0 Myeloperoxidase Ab <1.0 SS-A/Ro Antibody <1.0 NEG SS-B/La Antibody <1.0 NEG Assessment and Plan (1) Pulmonary hypertension: Status: Acute (2) Right heart failure: Status: Acute (3) Acute on chronic respiratory failure with hypoxemia: Status: Acute Plan 71-year-old gentleman with underlying right ventricular failure, ILD, COPD, baseline 2 L of supplemental oxygen dependent admitted with acute on chronic exacerbation of underlying congestive heart failure, pulmonary hypertension, right ventricular failure now requiring vasopressor support. Plan: Right ventricular failure with severe pulmonary hypertension that is likely multifactorial in etiology.?Viagra for pulmonary HTN, diuretics for CHF Acute on chronic hypoxic respiratory failure secondary to exacerbation of right ventricular failure/CHF.? Oxygen requirements slowly improving to baseline.? CT chest reviewed, underlying combination advanced pulmonary fibrosis and COPD with overlying pulmonary edema. Continue IV diuretics, monitor I/O, electrolytes, weight, goal of O2 88 to 92 #Gross hematuria -Likely traumatic follow villagran insertion, no clots, resolved. #Paroxysmal atrial fibrillation- rate controlled on Dogoxin, eliquis for stroke prevention. Off sotalol and cardizem Metabolic alkalosis due to diuretics --if worse give diamox #HTN- on low side, monitor #HLD---zetia at home -continue zetia #COPD/interstitial lung disease- without acute exacerbation -albuterol prn Time Spent With Patient Time: Total time managing care of this patient today ____ minutes. Quality Stroke Does the patient have a stroke diagnosis?: No VTE Prior VTE?: No VTE Risk Level:: Medical - moderate - high VTE Device Contraindication: Treatment Not Indicated VTE Drug Contraindication: N/A - Med Ordered
[2022-07-07 17:59] LABS: OBS Int Ctl Valid YES; OBS1 POSITIVE (NEGATIVE)
[2022-07-07] MEDS: Bumetanide 1 MG/4 ML VIAL IVPUSH (22:01)
[2022-07-08 04:00] VITALS: BP 106/72; PULSE 110; RESP 16; TEMP 36.4; O2SAT 97
[2022-07-08 06:00] VITALS: BMI 28.8
[2022-07-08] MEDS: methylPREDNISolone Sod Succ 40 MG/ML VIAL IVPUSH ×4 (06:19→23:07)
[2022-07-08 06:45] LABS: Anion Gap 14 (12-20); Blood Urea Nitrogen 63 mg/dL (9-16); Calcium 9.4 mg/dL (8.4-10.2); Carbon Dioxide 38 mmol/L (22-29); Chloride 88 mmol/L (96-108); Creatinine Clr Calc Pharmacy 60.2; Estimated Glomerular Filt Rate 50; Sodium 136 mmol/L (135-145)
[2022-07-08 06:49] LABS: Glucose Random 558 mg/dL (60-115)
[2022-07-08 07:21] VITALS: BP 110/79; PULSE 104; RESP 14; TEMP 36.1; O2SAT 97
[2022-07-08] MEDS: Digoxin 0.25 MG TABLET PO (08:39)
[2022-07-08] MEDS: Bumetanide 1 MG/4 ML VIAL IVPUSH ×2 (08:39→20:18)
[2022-07-08] MEDS: LORazepam 1 MG TABLET PO (08:39)
[2022-07-08] MEDS: Sildenafil Citrate 20 MG TABLET 80 MG PO ×3 (08:39→20:18)
[2022-07-08] MEDS: 0.9 % Sodium Chloride Flush 3 ML SYRINGE IVFLUSH ×3 (08:43→23:09)
[2022-07-08 09:39] LABS: Anti Nuclear Antibody Screen NEGATIVE (NEGATIVE)
--- NOTE | 2022-07-08 09:58 | HO.PM.IMPN ---
Subjective Subjective Date of Service: 07/08/22 Interval History: f/u on acute on chronic respiratory failure, right heart failure, pulm HTN interval history: continue to make slow improvement, no sob at movment, remains very edematous, oxygen requirement is improvin Physical Exam Vital Signs: Vital Signs: Last Vital Signs Temp 97.0 F 07/08/22 07:21 Pulse 104 H 07/08/22 07:21 Resp 14 07/08/22 07:21 BP 110/79 07/08/22 07:21 Pulse Ox 97 07/08/22 07:21 O2 Del Method 07/08/22 07:21 O2 Flow Rate 5 07/07/22 23:48 FiO2 30 06/22/22 15:30 Oxygen Flow Rate 3 06/21/22 13:26 BMI result Body Mass Index 28.8 Const: Other: General: AO X 2, no acute distress Resp: CTA bilateral CVS: S1,S2, regular irregular, 3+pitting edema GI: +BS, NT, no distention Skin: No rash Neuro: motor grossly intact Psych: appropriate affect Objective Data Active Medications Acetaminophen (Acetaminophen 325 Mg Tablet) 650 mg PO Q6H PRN PRN Reason: Pain, Mild (Pain Scale 1-3) Last Admin: 07/06/22 08:07 Dose: 650 mg Documented By: STERLING Apixaban (Apixaban 5 Mg Tablet) 5 mg PO BID [facility] Last Admin: 07/07/22 22:01 Dose: 5 mg Documented By: BROCristian Benzocaine (Throat Lozenge, Medicated Lozenge) 1 lozenge MUCOUS MEM Q2H PRN PRN Reason: Sore Throat Last Admin: 06/29/22 21:55 Dose: 1 lozenge Documented By: VIRGILIO Bumetanide (Bumetanide 1 Mg/4 Ml Vial) 1 mg IVPUSH BID [facility]; Protocol Last Admin: 07/08/22 08:39 Dose: 1 mg Documented By: KENDAL Calcium Carbonate (Calcium Carbonate 750 Mg Tab.Chew) 750 mg PO Q4H PRN PRN Reason: Dyspepsia Last Admin: 06/27/22 20:00 Dose: 750 mg Documented By: SIDNEY Digoxin (Digoxin 0.25 Mg Tablet) 0.25 mg PO DAILY [facility] Last Admin: 07/08/22 08:39 Dose: 0.25 mg Documented By: KENDAL Lorazepam (Lorazepam 1 Mg Tablet) 1 mg PO DAILY [facility] Last Admin: 07/08/22 08:39 Dose: 1 mg Documented By: KENDAL Methylprednisolone Sodium Succinate (Methylprednisolone Sod Succ 40 Mg/Ml Vial) 40 mg IVPUSH Q6H [facility] Last Admin: 07/08/22 06:19 Dose: 40 mg Documented By: DOREEN Non-Formulary Medication (Cimetidine) 300 mg PO BIDWM [facility] Last Admin: 07/08/22 08:39 Dose: 300 mg Documented By: KENDAL Pharmacy Consult (Consult Rx Perform Med Rec) 1 each MISCELLANE ONCE PRN PRN Reason: Consult order Senna (Sennosides 8.6 Mg Tablet) 17.2 mg PO BEDTIME PRN PRN Reason: Constipation Sildenafil Citrate (Sildenafil Citrate 20 Mg Tablet) 80 mg PO TID [facility] Last Admin: 07/08/22 08:39 Dose: 80 mg Documented By: KENDAL Sodium Chloride (0.9 % Sodium Chloride Flush 3 Ml Syringe) 3 ml IVFLUSH QSHIFT [facility] Last Admin: 07/08/22 08:43 Dose: 3 ml Documented By: KENDAL Labs 07/06/22 05:09 07/08/22 05:47 Labs: Laboratory Results - last 24 hr 07/05/22 07/05/22 07/07/22 11:21 11:21 16:45 Anion Gap Estim Creat Clear Calc Estimated GFR Random Glucose Calcium Stool Occult Blood POSITIVE MILAN Screen NEGATIVE Proteinase 3 (PR3) Ab <1.0 Myeloperoxidase Ab <1.0 SS-A/Ro Antibody <1.0 NEG SS-B/La Antibody <1.0 NEG 07/08/22 05:47 Anion Gap 14 Estim Creat Clear Calc 60.2 Estimated GFR 50 Random Glucose 558 H* Calcium 9.4 Stool Occult Blood MILAN Screen Proteinase 3 (PR3) Ab Myeloperoxidase Ab SS-A/Ro Antibody SS-B/La Antibody Assessment and Plan (1) Pulmonary hypertension: Status: Acute (2) Right heart failure: Status: Acute Plan 71-year-old gentleman with underlying right ventricular failure, ILD, COPD, baseline 2 L of supplemental oxygen dependent admitted with acute on chronic exacerbation of underlying congestive heart failure, pulmonary hypertension, right ventricular failure now requiring vasopressor support. Plan: Right ventricular failure with severe pulmonary hypertension that is likely multifactorial in etiology.?Viagra for pulmonary HTN, diuretics for CHF and keep eyes on BP Acute on chronic hypoxic respiratory failure secondary to exacerbation of right ventricular failure/CHF.? Oxygen requirements slowly improving to baseline.? CT chest shows underlying combination advanced pulmonary fibrosis and COPD with overlying pulmonary edema. Continue IV diuretics (Bumex), monitor I/O, electrolytes, weight, goal of O2 88 to 92 #Gross hematuria on presentation -Likely traumatic follow villagran insertion, no clots, resolved. #Paroxysmal atrial fibrillation- rate controlled on Dogoxin, eliquis for stroke prevention. Off sotalol and cardizem Metabolic alkalosis due to diuretics --if worse give diamox #HTN- on low side, monitor #HLD---zetia at home -continue zetia #COPD/interstitial lung disease- without acute exacerbation -albuterol prn Need for inpaitnet: Ongoing management for heart failure with IV diuretics, repiratory failure with high O2 requirement--this cannot be achieved in less acute setting at this time. Time Spent With Patient Time: Total time managing care of this patient today ____ minutes. Quality Stroke Does the patient have a stroke diagnosis?: No VTE Prior VTE?: No VTE Risk Level:: Medical - moderate - high VTE Device Contraindication: Treatment Not Indicated VTE Drug Contraindication: N/A - Med Ordered
[2022-07-08 10:01] VITALS: BP 110/79; PULSE 104; O2SAT 97
--- NOTE | 2022-07-08 11:26 | P.PNPL_ITS ---
Subjective Subjective Date of Service: 07/08/22 Principal diagnosis: RHF, pulm HTN, afib Interval history: The patient was seen on exam. He is feeling better. He is using the Oxymizer pendant the 5 years continues. He was able to get from the bed to the chair ye sterday. Hopefully can have increased activity. He continues to be on Solu- Medrol. His blood pressures yesterday were little tenuous on the sildenafil 80 mg t.i.d.. If his blood pressures continue to be on the low side then possibly dropping the sildenafil to 40 mg t.i.d. may be reasonable. Objective Data Labs 07/06/22 05:09 07/08/22 05:47 Labs: Laboratory Results - last 24 hr 07/05/22 07/05/22 07/07/22 11:21 11:21 16:45 Sodium Potassium Chloride Carbon Dioxide Anion Gap BUN Creatinine Estim Creat Clear Calc Estimated GFR Random Glucose Calcium Stool Occult Blood POSITIVE MILAN Screen NEGATIVE Proteinase 3 (PR3) Ab <1.0 Myeloperoxidase Ab <1.0 SS-A/Ro Antibody <1.0 NEG SS-B/La Antibody <1.0 NEG 07/08/22 05:47 Sodium 136 Potassium 4.0 Chloride 88 L Carbon Dioxide 38 H Anion Gap 14 BUN 63 H Creatinine 1.39 Estim Creat Clear Calc 60.2 Estimated GFR 50 Random Glucose 558 H* Calcium 9.4 Stool Occult Blood MILAN Screen Proteinase 3 (PR3) Ab Myeloperoxidase Ab SS-A/Ro Antibody SS-B/La Antibody Microbiology Microbiology Results: Microbiology 06/22/22 18:00 Urine clean catch - Urine morel top Urine Culture - Final Enterococcus faecalis Review of Systems Review of Systems Yes all other systems are reviewed and are negative Constitutional: Denies chills, Reports fatigue, Denies fever(s) and Denies lethargy Eyes: Reports no additional eye complaints Reports system reviewed and no additional complaints, except as documented Cardiovascular: Denies chest pain, Denies chest pain at rest, Reports edema, Re ports dyspnea, Reports dyspnea on exertion and Reports orthopnea Respiratory: Reports cough, Denies pain on inspiration, Denies pain with cough, Reports dyspnea and Reports dyspnea on exertion Gastrointestinal: Denies abdominal pain, Denies change in bowel habits, Reports constipation and Denies diarrhea Genitourinary: Denies difficulty urinating Musculoskeletal: Denies no additional musculoskeletal complaints and Denies abnormal gait Skin/Breast: Denies rash Denies Neuro-related abnormal movements, Denies abnormal gait, Denies confusion and Denies focal weakness Psychiatric: Denies anxiety, Denies confusion and Denies depression Endocrine: Reports fatigue Hematologic/Lymphatic: Reports no additional hematologic/lymphatic complaints Allergic/Immunologic: Reports no additional allergic/immunologic complaints Physical Exam Vital Signs: Vital Signs: Last Vital Signs Temp 97.0 F 07/08/22 07:21 Pulse 104 H 07/08/22 10:01 Resp 14 07/08/22 07:21 BP 110/79 07/08/22 10:01 Pulse Ox 97 07/08/22 10:01 O2 Del Method 07/08/22 07:21 O2 Flow Rate 5 07/07/22 23:48 FiO2 30 06/22/22 15:30 Oxygen Flow Rate 3 06/21/22 13:26 BMI result Body Mass Index 28.8 Const: General: No confusion Orientation/consciousness: No confusion Eyes: Sclerae: sclerae normal EOM: EOMs intact bilaterally Neck: Neck: Yes no lymphadenopathy, Yes trachea midline and Yes supple Resp: Effort & Inspection: normal respiratory effort and no respiratory distress Auscultation: crackles (Diffuse bilateral) Cardio: Rate: tachycardic Rhythm: regular rhythm Heart sounds: no gallops, no murmurs and no rubs GI: Palpation (GI): Soft to palpation and Other GI palpation findings present ( Nontender) Auscultation: normal bowel sounds Neuro: General: No confusion Extrem: General: Yes clubbing, Yes cyanosis and Yes edema (2+ bilateral) Procedures Date of Service Date of Service: 07/08/22 Assessment and Plan Assessment and plan (1) Pulmonary hypertension: Status: Acute (2) Right heart failure: Status: Acute (3) COPD (chronic obstructive pulmonary disease): Status: Acute (4) Interstitial lung disease: Status: Acute Plan Monitor blood pressures, if blood pressure stay low , then, decrease the sildenafil Continue Oxymizer pendant at 5 L at rest and likely will require about 7 L with activity to maintain a pulse ox above 88% Diuresis as tolerated Okay to switch to p.o. prednisone. The patient has chronic pulmonary fibrosis very suspicious for etiopathic pulmonary fibrosis which carries a poor prognosis. Anti fibrotic agents will not reverse the fibrosis although slow down the progression to some degree. The patient was reluctant to start in the past Time Spent With Patient Time: Total time managing care of this patient today ____ minutes. Progress Note: Quality Stroke Does the patient have a stroke diagnosis?: No
[2022-07-08 11:36] VITALS: BP 107/69; PULSE 115; RESP 14; TEMP 36.3; O2SAT 97
--- NOTE | 2022-07-08 15:17 | P.CDIC_ITS ---
CDI Concurrent Query Documentation Clarification: PHYSICIAN'S DOCUMENTATION REQUEST Date of Query: 07/08/22 1517 Patient Name: Aden Nino Admit Date: 06/21/22 Dear Doctor, A review of the medical record indicates additional documentation may be needed. Please review below and update the documentation accordingly. Clinical Indicators: Is there a diagnosis that correlates with these lab findings below: Risk Factors/Clinical Indicators/Treatments Labs: Random glucose 07/04 - 304 07/05 - 208 07/06 - 284 07/08 - 558 Other risk factors: Solumedrol administered Based on the above, could you clarify in the Progress Notes the appropriate diagnosis, if significant, that supports the above abnormalities and additional evaluation, monitoring, and/or treatment rendered: * Hyperglycemia (please specify cause - if known) * Other (please specify) * Unable to determine Use of terms such as suspected, likely, concern for, or probable (associated with a specific diagnosis that is being evaluated, monitored, or treated as if it exists) are acceptable and can be coded in the inpatient setting, when documented at the time of discharge. Thank you, Elsa Manning MS, RN, CCRN Extension: [phone] Please use your independent medical judgment in providing your response. THIS QUERY IS PART OF THE PERMANENT MEDICAL RECORD Provider Response: Other Other Diagnosis: see progress note
[2022-07-08 15:19] VITALS: BP 111/73; PULSE 119; RESP 19; TEMP 36.3; O2SAT 96
[2022-07-08 19:42] VITALS: BP 105/70; PULSE 115; RESP 19; TEMP 36.7; O2SAT 93
[2022-07-08] MEDS: Apixaban 5 MG TABLET PO (20:18)
[2022-07-09] VITALS (9 sets, daily range): BP systolic 100–132; BP diastolic 64–91; PULSE 109–127; RESP 12–20; TEMP 36.1–37.1; O2SAT 92–99; BMI 28.4
[2022-07-09] MEDS: methylPREDNISolone Sod Succ 40 MG/ML VIAL IVPUSH ×2 (04:21→09:24)
[2022-07-09] MEDS: Apixaban 5 MG TABLET PO ×2 (07:46→20:32)
[2022-07-09] MEDS: Sildenafil Citrate 20 MG TABLET 80 MG PO ×3 (07:46→20:32)
[2022-07-09] MEDS: Digoxin 0.25 MG TABLET PO (07:46)
[2022-07-09] MEDS: LORazepam 1 MG TABLET PO (07:47)
[2022-07-09] MEDS: 0.9 % Sodium Chloride Flush 3 ML SYRINGE IVFLUSH ×2 (07:47→16:22)
[2022-07-09] MEDS: Bumetanide 1 MG/4 ML VIAL IVPUSH ×2 (07:47→20:32)
--- NOTE | 2022-07-09 09:46 | P.PNIM_ITS ---
Subjective Subjective Date of Service: 07/09/22 Interval History: f/u on acute on chronic respiratory failure, right heart failure, pulm HTN interval history: continue to make slow improvement, no sob at movment, remains very edematous, oxygen requirement is improving daily Physical Exam Vital Signs: Vital Signs: Last Vital Signs Temp 96.9 F 07/09/22 07:43 Pulse 109 H 07/09/22 07:43 Resp 12 07/09/22 07:43 BP 119/89 07/09/22 07:43 Pulse Ox 97 07/09/22 07:43 O2 Del Method 07/09/22 07:43 O2 Flow Rate 5 07/09/22 07:43 FiO2 30 06/22/22 15:30 Oxygen Flow Rate 3 06/21/22 13:26 BMI result Body Mass Index 28.4 Const: Other: General: AO X 2, no acute distress Resp: CTA bilateral CVS: S1,S2, regular irregular, 3+pitting edema GI: +BS, NT, no distention Skin: No rash Neuro: motor grossly intact Psych: appropriate affect Objective Data Active Medications Acetaminophen (Acetaminophen 325 Mg Tablet) 650 mg PO Q6H PRN PRN Reason: Pain, Mild (Pain Scale 1-3) Last Admin: 07/06/22 08:07 Dose: 650 mg Documented By: STERLING Apixaban (Apixaban 5 Mg Tablet) 5 mg PO BID [facility] Last Admin: 07/09/22 07:46 Dose: 5 mg Documented By: CHALO Benzocaine (Throat Lozenge, Medicated Lozenge) 1 lozenge MUCOUS MEM Q2H PRN PRN Reason: Sore Throat Last Admin: 06/29/22 21:55 Dose: 1 lozenge Documented By: VIRGILIO Bumetanide (Bumetanide 1 Mg/4 Ml Vial) 1 mg IVPUSH BID [facility]; Protocol Last Admin: 07/09/22 07:47 Dose: 1 mg Documented By: CHALO Calcium Carbonate (Calcium Carbonate 750 Mg Tab.Chew) 750 mg PO Q4H PRN PRN Reason: Dyspepsia Last Admin: 06/27/22 20:00 Dose: 750 mg Documented By: SIDNEY Digoxin (Digoxin 0.25 Mg Tablet) 0.25 mg PO DAILY [facility] Last Admin: 07/09/22 07:46 Dose: 0.25 mg Documented By: CHALO Lorazepam (Lorazepam 1 Mg Tablet) 1 mg PO DAILY [facility] Last Admin: 07/09/22 07:47 Dose: 1 mg Documented By: CHALO Methylprednisolone Sodium Succinate (Methylprednisolone Sod Succ 40 Mg/Ml Vial) 40 mg IVPUSH Q6H [facility] Last Admin: 07/09/22 09:24 Dose: 40 mg Documented By: CHALO Non-Formulary Medication (Cimetidine) 300 mg PO BIDWM [facility] Last Admin: 07/09/22 09:23 Dose: 300 mg Documented By: CHALO Pharmacy Consult (Consult Rx Perform Med Rec) 1 each MISCELLANE ONCE PRN PRN Reason: Consult order Senna (Sennosides 8.6 Mg Tablet) 17.2 mg PO BEDTIME PRN PRN Reason: Constipation Sildenafil Citrate (Sildenafil Citrate 20 Mg Tablet) 80 mg PO TID [facility] Last Admin: 07/09/22 07:46 Dose: 80 mg Documented By: CHALO Sodium Chloride (0.9 % Sodium Chloride Flush 3 Ml Syringe) 3 ml IVFLUSH QSHIFT [facility] Last Admin: 07/09/22 07:47 Dose: 3 ml Documented By: CHALO Labs 07/06/22 05:09 07/08/22 05:47 Labs: Laboratory Results - last 24 hr 07/05/22 11:21 MILAN Titer TNP MILAN Titer 2 TNP MILAN Titer 3 TNP MILAN Pattern TNP MILAN Pattern 2 TNP MILAN Pattern 3 TNP Assessment and Plan (1) Pulmonary hypertension: Status: Acute (2) Right heart failure: Status: Acute Plan 71-year-old gentleman with underlying right ventricular failure, ILD, COPD, baseline 2 L of supplemental oxygen dependent admitted with acute on chronic exacerbation of underlying congestive heart failure, pulmonary hypertension, right ventricular failure now requiring vasopressor support. Plan: Right ventricular failure with severe pulmonary hypertension that is likely multifactorial in etiology.?Viagra for pulmonary HTN, diuretics for CHF and keep eyes on BP Acute on chronic hypoxic respiratory failure secondary to exacerbation of right ventricular failure/CHF.? Oxygen requirements slowly improving to baseline.? CT chest shows underlying combination advanced pulmonary fibrosis and COPD with overlying pulmonary edema. Continue IV diuretics (Bumex), monitor I/O, electrolytes, weight, goal of O2 88 to 92, Negativ 16 Liters, change to PO prednisone #Gross hematuria on presentation -Likely traumatic follow villagran insertion, no clots, resolved. #Paroxysmal atrial fibrillation- rate controlled on Dogoxin, eliquis for stroke prevention. Off sotalol and cardizem Metabolic alkalosis due to diuretics --if worse give diamox #HTN- on low side, monitor #HLD---zetia at home -continue zetia #COPD/interstitial lung disease- without acute exacerbation -albuterol prn Need for inpaitnet: Ongoing management for heart failure with IV diuretics, repiratory failure with high O2 requirement--this cannot be achieved in less acute setting at this time. Time Spent With Patient Time: Total time managing care of this patient today ____ minutes. Quality Stroke Does the patient have a stroke diagnosis?: No VTE Prior VTE?: No VTE Risk Level:: Medical - moderate - high VTE Device Contraindication: Treatment Not Indicated VTE Drug Contraindication: N/A - Med Ordered
--- NOTE | 2022-07-09 12:22 | MHC.CM.PN ---
EMR REVIEWED PER MD ROUNDS, PT NOT MEDICALLY CLEARED FOR DC (IV DIURETICS, HIGH FLOW 02) MAY BE HERE UNTIL EARLY NEXT WEEK, CM WILL CONTINUE TO FOLLOW.
[2022-07-09] MEDS: Sennosides 8.6 MG TABLET 17.2 MG PO (20:32)
[2022-07-09] MEDS: bisacodyL 10 MG SUPP.RECT PR (21:18)
--- NOTE | 2022-07-09 22:38 | PC.NURSE ---
Pt very anxious tonight ,stated that he is constipated , he feels like has hard stool in his rectum and wants the immediate result to have BM. Medicated with Senna PO , medicated with Dulcolax CT , No BM yet. around 21:00 his rhythm changed from sinus tachycardia to Afib rate 100-110 . pt had smear BM and the color is maroon. DR Donohue was notified and will continue to monitor :report increase HR and bloody stools to
[2022-07-10] VITALS: BP 135/87; PULSE 113; RESP 15; TEMP 36.4; O2SAT 90
[2022-07-10] MEDS: 0.9 % Sodium Chloride Flush 3 ML SYRINGE IVFLUSH ×4 (00:23→20:46)
[2022-07-10] MEDS: Acetaminophen 325 MG TABLET 650 MG PO ×2 (00:28→16:12)
[2022-07-10 04:00] VITALS: BP 118/65; PULSE 105; RESP 14; TEMP 36.2; O2SAT 94
[2022-07-10 08:00] VITALS: BP 119/67; PULSE 101; RESP 18; TEMP 36.7; O2SAT 94
[2022-07-10] MEDS: Digoxin 0.25 MG TABLET PO (08:04)
[2022-07-10] MEDS: LORazepam 1 MG TABLET PO (08:04)
[2022-07-10] MEDS: Bumetanide 1 MG/4 ML VIAL IVPUSH ×2 (08:05→20:45)
[2022-07-10] MEDS: predniSONE 20 MG TABLET 40 MG PO (08:05)
--- NOTE | 2022-07-10 08:32 | P.PNIM_ITS ---
Subjective Subjective Date of Service: 07/11/22 Interval History: f/u on acute on chronic respiratory failure, right heart failure, pulm HTN interval history:doesn't feel as good today, blood sugar over 700, no acidosis, RN reports maroon stool Review of Systems doesn t feel good Physical Exam Vital Signs: Vital Signs: Last Vital Signs Temp 98.0 F 07/10/22 08:00 Pulse 101 H 07/10/22 08:00 Resp 18 07/10/22 08:00 BP 119/67 07/10/22 08:00 Pulse Ox 94 07/10/22 08:00 O2 Del Method 07/10/22 08:00 O2 Flow Rate 5 07/10/22 08:00 FiO2 30 06/22/22 15:30 Oxygen Flow Rate 3 06/21/22 13:26 BMI result Body Mass Index 28.4 Const: Other: General: AO X 2, no acute distress Resp: CTA bilateral CVS: S1,S2, regular irregular, 2+pitting edema GI: +BS, NT, no distention, rectal exam deffered Skin: No rash Neuro: motor grossly intact Psych: appropriate affect Objective Data Active Medications Acetaminophen (Acetaminophen 325 Mg Tablet) 650 mg PO Q6H PRN PRN Reason: Pain, Mild (Pain Scale 1-3) Last Admin: 07/10/22 00:28 Dose: 650 mg Documented By: YAMILETH Apixaban (Apixaban 5 Mg Tablet) 5 mg PO BID [facility] Last Admin: 07/09/22 20:32 Dose: 5 mg Documented By: CHAN Benzocaine (Throat Lozenge, Medicated Lozenge) 1 lozenge MUCOUS MEM Q2H PRN PRN Reason: Sore Throat Last Admin: 06/29/22 21:55 Dose: 1 lozenge Documented By: VIRGILIO Bumetanide (Bumetanide 1 Mg/4 Ml Vial) 1 mg IVPUSH BID [facility]; Protocol Last Admin: 07/10/22 08:05 Dose: 1 mg Documented By: VALORIE Calcium Carbonate (Calcium Carbonate 750 Mg Tab.Chew) 750 mg PO Q4H PRN PRN Reason: Dyspepsia Last Admin: 06/27/22 20:00 Dose: 750 mg Documented By: SIDNEY Digoxin (Digoxin 0.25 Mg Tablet) 0.25 mg PO DAILY [facility] Last Admin: 07/10/22 08:04 Dose: 0.25 mg Documented By: VALORIE Lorazepam (Lorazepam 1 Mg Tablet) 1 mg PO DAILY [facility] Last Admin: 07/10/22 08:04 Dose: 1 mg Documented By: VALORIE Non-Formulary Medication (Cimetidine) 300 mg PO BIDWM [facility] Last Admin: 07/10/22 08:04 Dose: 300 mg Documented By: VALORIE Pharmacy Consult (Consult Rx Perform Med Rec) 1 each MISCELLANE ONCE PRN PRN Reason: Consult order Prednisone (Prednisone 20 Mg Tablet) 40 mg PO DAILY [facility] Last Admin: 07/10/22 08:05 Dose: 40 mg Documented By: VALORIE Senna (Sennosides 8.6 Mg Tablet) 17.2 mg PO BEDTIME PRN PRN Reason: Constipation Last Admin: 07/09/22 20:32 Dose: 17.2 mg Documented By: CHAN Sildenafil Citrate (Sildenafil Citrate 20 Mg Tablet) 80 mg PO TID [facility] Last Admin: 07/09/22 20:32 Dose: 80 mg Documented By: CHAN Sodium Chloride (0.9 % Sodium Chloride Flush 3 Ml Syringe) 3 ml IVFLUSH QSHIFT [facility] Last Admin: 07/10/22 08:05 Dose: 3 ml Documented By: VALOIRE Labs 07/06/22 05:09 07/08/22 05:47 Assessment and Plan (1) Pulmonary hypertension: Status: Acute (2) Right heart failure: Status: Acute (3) CHF exacerbation: Status: Acute Plan 71-year-old gentleman with underlying right ventricular failure, ILD, COPD, baseline 2 L of supplemental oxygen dependent admitted with acute on chronic exacerbation of underlying congestive heart failure, pulmonary hypertension, right ventricular failure now requiring vasopressor support. Plan: # Acute on chronic hypoxic respiratory failure secondary to exacerbation of right ventricular failure/CHF.? Oxygen requirements slowly improving to baseline.? CT chest shows underlying combination advanced pulmonary fibrosis and COPD with overlying pulmonary edema. Continue IV diuretics (Bumex), monitor I/O, electrolytes, weight, goal of O2 88 to 92, Negativ 16 Liters #Gross hematuria on presentation -Likely traumatic follow villagran insertion, no clots, resolved. #Paroxysmal atrial fibrillation- rate controlled on Digoxin, eliquis for stroke prevention. Off sotalol and cardizem Metabolic alkalosis due to diuretics --if worse give diamox #HTN- on low side, monitor #HLD---zetia at home -continue zetia #COPD/interstitial lung disease- without acute exacerbation -albuterol prn #Maroon stool, CBC intact, continue eliquis for now #hyperglycemia--IV Insulin, check pocs frequently until sugars are better, Need for inpaitnet: Ongoing management for heart failure with IV diuretics, repiratory failure with high O2 requirement--this cannot be achieved in less acute setting at this time. Time Spent With Patient Time: Total time managing care of this patient today ____ minutes. Quality Stroke Does the patient have a stroke diagnosis?: No VTE Prior VTE?: No VTE Risk Level:: Medical - moderate - high VTE Device Contraindication: Treatment Not Indicated VTE Drug Contraindication: N/A - Med Ordered
[2022-07-10 08:44] LABS: Hematocrit 46.6 % (42.0-52.0); Mean Corpuscular HGB Conc 32.2 g/dl (31.0-36.0); Mean Corpuscular Hemoglobin 28.8 pg (27.0-33.0); Mean Corpuscular Volume 89.4 fL (80.0-98.0); Mean Platelet Volume 11.1 fL (9.4-12.4); Platelet Count 219 X10*3/uL (160-400); Red Blood Count 5.21 X10*6/uL (4.60-5.80); Red Cell Distribution Width 12.9 % (11.0-16.0); White Blood Count 19.5 X10*3/uL (4.8-10.8)
[2022-07-10 09:04] LABS: Anion Gap 17 (12-20); Blood Urea Nitrogen 68 mg/dL (9-16); Calcium 9.7 mg/dL (8.4-10.2); Carbon Dioxide 37 mmol/L (22-29); Chloride 85 mmol/L (96-108); Creatinine Clr Calc Pharmacy 54.7; Estimated Glomerular Filt Rate 45; Glucose Random 733 mg/dL (60-115); Sodium 135 mmol/L (135-145)
[2022-07-10 11:31] LABS: Glucose, Whole Blood > 600 mg/dL (60-115)
[2022-07-10] MEDS: Sildenafil Citrate 20 MG TABLET 80 MG PO ×3 (11:46→20:45)
[2022-07-10] MEDS: Insulin Regular, Human 100 UNIT/ML 3 ML VIAL 10 UNIT IVPUSH (11:46)
[2022-07-10] MEDS: Apixaban 5 MG TABLET PO ×2 (11:47→20:45)
[2022-07-10 12:00] VITALS: BP 136/92; PULSE 130; RESP 18; TEMP 36.6; O2SAT 96
[2022-07-10 12:08] LABS: Glucose, Whole Blood > 600 mg/dL (60-115)
[2022-07-10] MEDS: Insulin Lispro 100 UNIT/ML 3 ML VIAL SUBCUT ×2 (12:11→18:22)
[2022-07-10 12:49] LABS: Glucose, Whole Blood 572 mg/dL (60-115)
[2022-07-10 13:27] LABS: Glucose, Whole Blood 509 mg/dL (60-115)
[2022-07-10] MEDS: Insulin Lispro 100 UNIT/ML 3 ML VIAL 10 UNIT SUBCUT (14:15)
[2022-07-10 15:08] LABS: Glucose, Whole Blood 447 mg/dL (60-115)
[2022-07-10 15:19] VITALS: BP 118/72; PULSE 108; RESP 16; TEMP 36.7; O2SAT 95
[2022-07-10 16:22] LABS: Glucose, Whole Blood 415 mg/dL (60-115)
[2022-07-10 16:46] LABS: Glucose, Whole Blood 376 mg/dL (60-115)
[2022-07-10 18:03] LABS: Glucose, Whole Blood 340 mg/dL (60-115)
[2022-07-10 18:47] VITALS: BP 127/83; PULSE 111; RESP 16; TEMP 36.2; O2SAT 98
--- NOTE | 2022-07-10 22:52 | PM.EVENT ---
Event Note Date of Service: 07/10/22 Event Note: Patient with urinary retension even after straight catheterization. Will order villagran Time Spent With Patient Time: Total time managing care of this patient today ____ minutes.
[2022-07-11 00:25] VITALS: BP 108/67; PULSE 117; RESP 15; TEMP 36.2; O2SAT 94
[2022-07-11 00:31] LABS: Glucose, Whole Blood 183 mg/dL (60-115)
[2022-07-11] MEDS: Insulin Lispro 100 UNIT/ML 3 ML VIAL SUBCUT ×2 (00:42→06:42)
--- NOTE | 2022-07-11 02:00 | MHC.PIE ---
P.RAPID A FIB I.NOTED TO BE IN AFIB RVR HR 120-160,BP108/67.REPORTED TO DR MONTERO.ORDER GIVEN FOR CARDIZEM 10 MG IV X 1.MED GIVEN.PT CONVERTED TO STACH,HR 110-120.MD UPDATED.NO FURTHER ORDERS AT THIS TIME. E.CONT TO MONITOR
[2022-07-11] MEDS: dilTIAZem HCL 50 MG/10 ML VIAL 10 MG IVPUSH (02:51)
[2022-07-11 04:00] VITALS: BP 105/68; PULSE 118; RESP 17; TEMP 36.1; O2SAT 95
[2022-07-11 06:00] VITALS: BMI 28.6
[2022-07-11 07:24] LABS: Glucose, Whole Blood 188 mg/dL (60-115)
[2022-07-11 07:36] LABS: Glucose, Whole Blood 177 mg/dL (60-115)
[2022-07-11 08:00] VITALS: BP 91/63; PULSE 115; RESP 19; TEMP 36.6; O2SAT 95
[2022-07-11] MEDS: 0.9 % Sodium Chloride Flush 3 ML SYRINGE IVFLUSH ×2 (08:25→19:40)
[2022-07-11] MEDS: Apixaban 5 MG TABLET PO (08:27)
[2022-07-11] MEDS: LORazepam 1 MG TABLET PO (08:27)
[2022-07-11] MEDS: Digoxin 0.25 MG TABLET PO (08:27)
[2022-07-11] MEDS: predniSONE 20 MG TABLET 40 MG PO (08:27)
--- NOTE | 2022-07-11 10:43 | P.PNIM_ITS ---
Subjective Subjective Date of Service: 07/11/22 Interval History: f/u on acute on chronic respiratory failure, right heart failure, pulm HTN interval history: doens't feel good, HR uncontrolled Physical Exam Vital Signs: Vital Signs: Last Vital Signs Temp 98 F 07/11/22 08:00 Pulse 115 H 07/11/22 08:00 Resp 19 07/11/22 08:00 BP 91/63 07/11/22 08:00 Pulse Ox 95 07/11/22 08:00 O2 Del Method 07/11/22 08:00 O2 Flow Rate 5 07/11/22 04:00 FiO2 30 06/22/22 15:30 Oxygen Flow Rate 3 06/21/22 13:26 BMI result Body Mass Index 28.6 Const: Other: General: AO X 2, no acute distress Resp: CTA bilateral CVS: S1,S2, regular irregular, 2+pitting edema GI: +BS, NT, no distention, rectal exam deffered Skin: No rash Neuro: motor grossly intact Psych: appropriate affect Objective Data Active Medications Acetaminophen (Acetaminophen 325 Mg Tablet) 650 mg PO Q6H PRN PRN Reason: Pain, Mild (Pain Scale 1-3) Last Admin: 07/10/22 16:12 Dose: 650 mg Documented By: VALORIE Apixaban (Apixaban 5 Mg Tablet) 5 mg PO BID [facility] Last Admin: 07/11/22 08:27 Dose: 5 mg Documented By: JOHN Benzocaine (Throat Lozenge, Medicated Lozenge) 1 lozenge MUCOUS MEM Q2H PRN PRN Reason: Sore Throat Last Admin: 06/29/22 21:55 Dose: 1 lozenge Documented By: VIRGILIO Bumetanide (Bumetanide 1 Mg/4 Ml Vial) 1 mg IVPUSH BID [facility]; Protocol Last Admin: 07/11/22 08:28 Dose: Not Given Documented By: JOHN Non-Admin Reason: soft BP-MD awared-hold med Calcium Carbonate (Calcium Carbonate 750 Mg Tab.Chew) 750 mg PO Q4H PRN PRN Reason: Dyspepsia Last Admin: 06/27/22 20:00 Dose: 750 mg Documented By: SIDNEY Digoxin (Digoxin 0.25 Mg Tablet) 0.25 mg PO DAILY [facility] Last Admin: 07/11/22 08:27 Dose: 0.25 mg Documented By: JOHN Metoprolol Tartrate 5 mg/ (Sodium Chloride) 55 mls @ 220 mls/hr IV ONCE ONE Stop: 07/11/22 10:53 Insulin Human Lispro (Insulin Lispro 100 Unit/Ml 3 Ml Vial) 0 unit SUBCUT Q6H [facility]; Protocol Last Admin: 07/11/22 06:42 Dose: 2 unit Documented By: YAMILETH Lorazepam (Lorazepam 1 Mg Tablet) 1 mg PO DAILY [facility] Last Admin: 07/11/22 08:27 Dose: 1 mg Documented By: JOHN Non-Formulary Medication (Cimetidine) 300 mg PO BIDWM [facility] Last Admin: 07/11/22 08:26 Dose: 300 mg Documented By: JOHN Pharmacy Consult (Consult Rx Perform Med Rec) 1 each MISCELLANE ONCE PRN PRN Reason: Consult order Prednisone (Prednisone 20 Mg Tablet) 40 mg PO DAILY [facility] Last Admin: 07/11/22 08:27 Dose: 40 mg Documented By: JOHN Senna (Sennosides 8.6 Mg Tablet) 17.2 mg PO BEDTIME PRN PRN Reason: Constipation Last Admin: 07/09/22 20:32 Dose: 17.2 mg Documented By: CHAN Sildenafil Citrate (Sildenafil Citrate 20 Mg Tablet) 80 mg PO TID [facility] Last Admin: 07/11/22 08:28 Dose: Not Given Documented By: JOHN Non-Admin Reason: soft BP-MD awared-hold med Sodium Chloride (0.9 % Sodium Chloride Flush 3 Ml Syringe) 3 ml IVFLUSH QSHIFT [facility] Last Admin: 07/11/22 08:25 Dose: 3 ml Documented By: JOHN Labs 07/10/22 08:39 07/10/22 08:39 Labs: Laboratory Results - last 24 hr 07/10/22 07/10/22 07/10/22 11:28 12:05 12:45 POC Glucose > 600 H* > 600 H* 572 H* 07/10/22 07/10/22 07/10/22 13:23 15:04 16:10 POC Glucose 509 H* 447 H* 415 H* 07/10/22 07/10/22 07/11/22 16:43 17:59 00:27 POC Glucose 376 H* 340 H 183 H 07/11/22 07/11/22 06:35 07:23 POC Glucose 188 H 177 H Assessment and Plan (1) Pulmonary hypertension: Status: Acute (2) Right heart failure: Status: Acute Plan 71-year-old gentleman with underlying right ventricular failure, ILD, COPD, baseline 2 L of supplemental oxygen dependent admitted with acute on chronic exacerbation of underlying congestive heart failure, pulmonary hypertension, right ventricular failure now requiring vasopressor support. Plan: # Acute on chronic hypoxic respiratory failure secondary to exacerbation of right ventricular failure/CHF.? Oxygen requirements slowly improving to baseline.? CT chest shows underlying combination advanced pulmonary fibrosis and COPD with overlying pulmonary edema. Continue IV diuretics (Bumex), monitor I/O, electrolytes, weight, goal of O2 88 to 92, Negativ 16 Liters #Gross hematuria on presentation -Likely traumatic follow villagran insertion, no clots, resolved. #Paroxysmal atrial fibrillation- rate controlled on Digoxin, eliquis for stroke prevention. Presently tachycardic, will try IV metoprolol and ask cardiology for additional input Metabolic alkalosis due to diuretics --if worse give diamox #HTN- on low side, monitor #HLD---zetia at home -continue zetia #COPD/interstitial lung disease- without acute exacerbation -albuterol prn #Maroon stool, CBC intact, continue eliquis for now #hyperglycemia--resolved, sugars down now to 177 Need for inpaitnet: Ongoing management for heart failure with IV diuretics, repiratory failure with high O2 requirement--this cannot be achieved in less acute setting at this time. Overall poor prognosis and following conversation with family (Son) by tank tender Dr. Govea and myself separately, they have opted to make patient comfort measures only, will therefore stop all treatment form and rely on morphine for comfort, no further testing or lab draws. Time Spent With Patient Time: Total time managing care of this patient today ____ minutes. Quality Stroke Does the patient have a stroke diagnosis?: No VTE Prior VTE?: No VTE Risk Level:: Medical - moderate - high VTE Device Contraindication: Treatment Not Indicated VTE Drug Contraindication: N/A - Med Ordered
[2022-07-11] MEDS: Morphine Sulfate 2 MG/ML CARTRIDGE IVPUSH (11:54)
[2022-07-11] MEDS: Scopolamine 1.5 MG PATCH.TD.3 TRANSDERMA (11:54)
--- NOTE | 2022-07-11 15:04 | PC.NURSE ---
Addendum entered by Ina Acosta RN 07/11/22 15:05: 0759 pt HR was up to 140s-150s- pt rest calmly. MD Dr Lomax notified. pt remains high HR (sinus tach) until 1036, pt was more agitated, HR 140s-160s, and pt tried to pull the villagran out. pt is anxious but denied anxiety. MD Dr Lomax notified. There was a new order for IV Metoprolol at 1039, but it was discontinue due to MD Dr Lomax and adjunct lecturer had a conversation with one of his son and made a decision that pt will continue with comfort measure only. Original Note: 0759 pt HR was in 140-159
[2022-07-11 19:33] VITALS: BP 92/60; PULSE 136; RESP 16; TEMP 36.1; O2SAT 96
[2022-07-12] VITALS (8 sets, daily range): BP systolic 93–107; BP diastolic 75–82; PULSE 136; RESP 15–23; TEMP 37.5; O2SAT 95–99
--- NOTE | 2022-07-12 01:02 | PC.NURSE ---
patient is alert and oriented, encouraged to receive pain medicine but every time is refusing it.
[2022-07-12] MEDS: Morphine Sulfate 2 MG/ML CARTRIDGE IVPUSH ×4 (03:54→18:00)
[2022-07-12] MEDS: LORazepam 1 MG TABLET PO (09:09)
[2022-07-12] MEDS: 0.9 % Sodium Chloride Flush 3 ML SYRINGE IVFLUSH ×3 (09:09→20:42)
[2022-07-12] MEDS: predniSONE 20 MG TABLET 40 MG PO (09:09)
--- NOTE | 2022-07-12 10:11 | PM.EVENT ---
Event Note Date of Service: 07/12/22 Event Note: Comfort care care due to end stage right heart failure, pulmonary HTN, appear comfortable at the present time. Continue measure, IV morphine and ATivan PRn for comfort will discuss discharge with CM, hospice consult.. Time spent 15 minutes Time Spent With Patient Time: Total time managing care of this patient today ____ minutes.
[2022-07-12 14:43] LABS: Glucose, Whole Blood 287 mg/dL (60-115)
[2022-07-12] MEDS: Apixaban 5 MG TABLET PO ×2 (14:54→22:31)
[2022-07-12] MEDS: Digoxin 0.25 MG TABLET PO (14:54)
[2022-07-12] MEDS: Bumetanide 1 MG/4 ML VIAL IVPUSH ×2 (15:02→17:27)
[2022-07-12 16:43] LABS: Glucose, Whole Blood 292 mg/dL (60-115)
--- NOTE | 2022-07-12 18:04 | PM.EVENT ---
Event Note Date of Service: 07/12/22 Event Note: ACP note Met with family (, 2 sons and daughter) and they want to revert comfort care for now, so restarting meds, Bumex, digoxin, eliquis and Sildenafil. They want Hospice consult..total time spent with the family 35 minutes Time Spent With Patient Time: Total time managing care of this patient today ____ minutes.
[2022-07-12 20:30] LABS: Glucose, Whole Blood 303 mg/dL (60-115)
[2022-07-12] MEDS: Insulin Lispro 100 UNIT/ML 3 ML VIAL SUBCUT (20:41)
--- NOTE | 2022-07-12 22:33 | PC.NURSE ---
Small liquid maroon stool noted, notified. H and H to be ordered.
[2022-07-13] VITALS (7 sets, daily range): BP systolic 103–172; BP diastolic 70–88; PULSE 71–126; RESP 14–20; TEMP 36.2–36.4; O2SAT 93–99
[2022-07-13 00:46] LABS: Hematocrit 44.5 % (42.0-52.0); Hemoglobin 14.3 g/dl (14.0-18.0)
[2022-07-13 06:33] LABS: OBS Int Ctl Valid YES; OBS1 POSITIVE (NEGATIVE)
[2022-07-13 08:01] LABS: Glucose, Whole Blood 264 mg/dL (60-115)
[2022-07-13] MEDS: predniSONE 20 MG TABLET 40 MG PO (08:05)
[2022-07-13] MEDS: Digoxin 0.25 MG TABLET PO (08:05)
[2022-07-13] MEDS: LORazepam 1 MG TABLET PO (08:05)
[2022-07-13] MEDS: Bumetanide 1 MG/4 ML VIAL IVPUSH ×2 (08:05→16:58)
[2022-07-13] MEDS: 0.9 % Sodium Chloride Flush 3 ML SYRINGE IVFLUSH ×2 (08:05→17:01)
[2022-07-13] MEDS: Apixaban 5 MG TABLET PO (08:05)
[2022-07-13] MEDS: Insulin Lispro 100 UNIT/ML 3 ML VIAL SUBCUT ×2 (08:06→11:50)
[2022-07-13 09:40] LABS: Hematocrit 42.8 % (42.0-52.0); Hemoglobin 13.8 g/dl (14.0-18.0); Mean Corpuscular HGB Conc 32.2 g/dl (31.0-36.0); Mean Corpuscular Hemoglobin 30.5 pg (27.0-33.0); Mean Corpuscular Volume 94.5 fL (80.0-98.0); Mean Platelet Volume 12.1 fL (9.4-12.4); Platelet Count 168 X10*3/uL (160-400); Red Blood Count 4.53 X10*6/uL (4.60-5.80); Red Cell Distribution Width 13.3 % (11.0-16.0); White Blood Count 17.3 X10*3/uL (4.8-10.8)
[2022-07-13 09:58] LABS: Blood Urea Nitrogen 65 mg/dL (9-16); Calcium 8.9 mg/dL (8.4-10.2); Creatinine Clr Calc Pharmacy 81.9; Estimated Glomerular Filt Rate > 60; Glucose Random 286 mg/dL (60-115)
[2022-07-13 10:02] LABS: B Type Natriuretic Peptide 1219 pg/mL (<100)
[2022-07-13 10:11] LABS: Anion Gap 15 (12-20); Carbon Dioxide 41 mmol/L (22-29); Chloride 92 mmol/L (96-108); Digoxin 3.3 ng/mL (0.8-2.0); Potassium 3.6 mmol/L (3.3-5.1); Sodium 144 mmol/L (135-145)
--- NOTE | 2022-07-13 10:30 | MHC.PIE ---
P-Critical Lab results CO2 41 and digoxin level 3.31. I- Notified MD Dang by Highlighter connect E- Hold next schedule digoxin dose, Pt on tele sinus tach with Pac's , Will continue rounding
[2022-07-13 11:37] LABS: Glucose, Whole Blood 233 mg/dL (60-115)
[2022-07-13] MEDS: Morphine Sulfate 2 MG/ML CARTRIDGE IVPUSH ×2 (11:50→17:42)
--- NOTE | 2022-07-13 12:31 | PC.NURSE ---
Pt alert and oriented x3 but can be forgetful.Pt continues to be very lethargic and anasarca edema noted bilaterally. Family meeting at 1115am with Lolita Dhaliwal, RN and this RN,Lizzie along with pt's to discuss pt's condition pertaining to Hospice vs palliative care. Pt continues to have bloody stools( maroon) . Ruffin cath is patent and intact. Ruffin care done.
[2022-07-13 15:47] LABS: Glucose, Whole Blood 174 mg/dL (60-115)
--- NOTE | 2022-07-13 16:32 | P.PNIM_ITS ---
Subjective Subjective Date of Service: 07/14/22 Interval History: f/u on acute on chronic respiratory failure, right heart failure, pulm HTN Review of Systems doens't feel good, HR uncontrolled Physical Exam Vital Signs: Vital Signs: Last Vital Signs Temp 97.6 F 07/13/22 15:44 Pulse 126 H 07/13/22 15:44 Resp 17 07/13/22 15:44 BP 106/73 07/13/22 15:44 Pulse Ox 93 07/13/22 15:44 O2 Del Method 07/13/22 15:44 O2 Flow Rate 5 07/13/22 15:44 FiO2 30 06/22/22 15:30 Oxygen Flow Rate 3 06/21/22 13:26 BMI result Body Mass Index 28.6 General: AO X 2, no acute distress Resp:? CTA bilateral CVS: S1,S2, regular irregular, 2+pitting edema GI: +BS, NT, no distention, rectal exam deffered Skin: No rash Neuro:? motor grossly intact Psych: appropriate affect Objective Data Active Medications Apixaban (Apixaban 5 Mg Tablet) 5 mg PO BID [facility] Last Admin: 07/13/22 08:05 Dose: 5 mg Documented By: MAGGIE Bumetanide (Bumetanide 1 Mg/4 Ml Vial) 1 mg IVPUSH BID@0900,1700 [facility]; Protocol Last Admin: 07/13/22 08:05 Dose: 1 mg Documented By: MAGGIE Insulin Human Lispro (Insulin Lispro 100 Unit/Ml 3 Ml Vial) 0 unit SUBCUT QIDACHS [facility]; Protocol Last Admin: 07/13/22 11:50 Dose: 4 unit Documented By: CHALO Lorazepam (Lorazepam 1 Mg Tablet) 1 mg PO DAILY [facility] Last Admin: 07/13/22 08:05 Dose: 1 mg Documented By: MAGGIE Morphine Sulfate (Morphine Sulfate 2 Mg/Ml Cartridge) 2 mg IVPUSH Q4H PRN PRN Reason: Discomfort/Shortness of breath Last Admin: 07/13/22 11:50 Dose: 2 mg Documented By: CHALO Prednisone (Prednisone 20 Mg Tablet) 40 mg PO DAILY [facility] Last Admin: 07/13/22 08:05 Dose: 40 mg Documented By: MAGGIE Scopolamine (Scopolamine 1.5 Mg Patch.Td.3) 1.5 mg TRANSDERMA Q72H [facility] Last Admin: 07/11/22 11:54 Dose: 1.5 mg Documented By: JOHN Sodium Chloride (0.9 % Sodium Chloride Flush 3 Ml Syringe) 3 ml IVFLUSH QSHIFT [facility] Last Admin: 07/13/22 08:05 Dose: 3 ml Documented By: MAGGIE Labs 07/13/22 09:17 07/13/22 09:17 Labs: Laboratory Results - last 24 hr 07/12/22 07/12/22 07/13/22 16:36 19:47 05:30 MCV MCH MCHC RDW Plt Count MPV Absolute Nucleated RBC Nucleated RBC % (auto) Anion Gap Estim Creat Clear Calc Estimated GFR POC Glucose 292 H 303 H Random Glucose Calcium B-Natriuretic Peptide Stool Occult Blood POSITIVE Digoxin 07/13/22 07/13/22 07/13/22 07:23 09:17 09:17 MCV 94.5 D MCH 30.5 MCHC 32.2 RDW 13.3 Plt Count 168 MPV 12.1 Absolute Nucleated RBC 0.000 Nucleated RBC % (auto) 0.0 Anion Gap 15 Estim Creat Clear Calc 81.9 Estimated GFR > 60 POC Glucose 264 H Random Glucose 286 H Calcium 8.9 D B-Natriuretic Peptide Stool Occult Blood Digoxin 07/13/22 07/13/22 07/13/22 09:17 09:17 11:02 MCV MCH MCHC RDW Plt Count MPV Absolute Nucleated RBC Nucleated RBC % (auto) Anion Gap Estim Creat Clear Calc Estimated GFR POC Glucose 233 H Random Glucose Calcium B-Natriuretic Peptide 1219 H Stool Occult Blood Digoxin 3.3 H* 07/13/22 15:43 MCV MCH MCHC RDW Plt Count MPV Absolute Nucleated RBC Nucleated RBC % (auto) Anion Gap Estim Creat Clear Calc Estimated GFR POC Glucose 174 H Random Glucose Calcium B-Natriuretic Peptide Stool Occult Blood Digoxin Assessment and Plan (1) Pulmonary hypertension: Status: Acute (2) Right heart failure: Status: Acute Plan 71-year-old gentleman with underlying right ventricular failure, ILD, COPD, baseline 2 L of supplemental oxygen dependent admitted with acute on chronic exacerbation of underlying congestive heart failure, pulmonary hypertension, right ventricular failure now requiring vasopressor support. Acute on chronic hypoxic respiratory failure secondary to exacerbation of right ventricular failure/CHF.? Oxygen requirements slowly improving to baseline.? CT chest shows underlying combination advanced pulmonary fibrosis and COPD with overlying pulmonary edema. labs reviewed , dc digoxin continue comfort meds family d/w hospice and d/w family again -decided for comfort measures, Gross hematuria on presentation -Likely traumatic follow villagran insertion, no clots, resolved. Paroxysmal atrial fibrillation- rate controlled on Digoxin, eliquis for stroke prevention. Presently tachycardic, will try IV metoprolol and ask cardiology for additional input Metabolic alkalosis due to diuretics --if worse give diamox HTN- on low side, monitor HLD---zetia at home -continue zetia COPD/interstitial lung disease- without acute exacerbation -albuterol prn Maroon stool, CBC intact, continue eliquis for now hyperglycemia--resolved. Asymptomatic bacteriuria , no fever-patient denies any urinary complaints. Leukocytosis reactive to steroids. Tachycardia due to underlying AFib Need for inpaitnet: Overall poor prognosis and following conversation with family (Son) by vice president of brand management Dr. Govea and hospitalist service yesterday and today, they have opted to make patient comfort measures only,added comfort meds , no further testing or lab draws. Time Spent With Patient Time: Total time managing care of this patient today ____ minutes. Quality Stroke Does the patient have a stroke diagnosis?: No VTE Prior VTE?: No VTE Risk Level:: Medical - moderate - high VTE Device Contraindication: Treatment Not Indicated VTE Drug Contraindication: N/A - Med Ordered
--- NOTE | 2022-07-13 20:28 | PC.NURSE ---
Patient Comfort measures only , not able to swallow safely d/t weakness, sleeping most of the time , repositioned for comfort,
[2022-07-14 07:29] VITALS: RESP 14
[2022-07-14] MEDS: Bumetanide 1 MG TABLET PO (08:29)
[2022-07-14] MEDS: LORazepam 1 MG TABLET PO (08:29)
[2022-07-14] MEDS: 0.9 % Sodium Chloride Flush 3 ML SYRINGE IVFLUSH ×3 (08:31→23:37)
--- NOTE | 2022-07-14 09:28 | P.CDIC_ITS ---
CDI Concurrent Query Documentation Clarification: PHYSICIAN'S DOCUMENTATION REQUEST Date of Query: 07/14/22 0928 Patient Name: Aden Nino Admit Date: 06/21/22 Dear Doctor, A review of the medical record indicates additional documentation may be needed. Please review below and update the documentation accordingly. Clinical Indicators: Is there a diagnosis that correlates with the findings below: Risk Factors/Clinical Indicators/Treatments POA/RESOLVED/RULE OUT -Per urine culture (clean catch) on admi ssion: (+) Enterococcus faecalis -(+) Hematuria -Decreased urine output admit-07/03 per R N intake & output assessments -Urine on admission cloudy with (+) WBCs & leukocyte esterase Based on the above, could you please provide, in the Progress Notes, further specificity regarding the acuity and etiology of the pulmonary edema? * UTI (please specify organism if known - i.e. enterococcus) * Other * Unable to determine Use of terms such as suspected, likely, concern for, or probable (associated with a specific diagnosis that is being evaluated, monitored, or treated as if it exists) are acceptable and can be coded in the inpatient setting, when documented at the time of discharge. Thank you, Elsa Manning MS, RN, CCRN Extension: [phone] Please use your independent medical judgment in providing your response. THIS QUERY IS PART OF THE PERMANENT MEDICAL RECORD Provider Response: Other Other Diagnosis: No UTI, possible asymptomatic bacteriuria
--- NOTE | 2022-07-14 09:54 | P.CDIC_ITS ---
CDI Concurrent Query Documentation Clarification: PHYSICIAN'S DOCUMENTATION REQUEST Date of Query: 07/14/22 0954 Patient Name: Aden Nino Admit Date: 06/21/22 Dear Doctor, A review of the medical record indicates additional documentation may be needed. Please review below and update the documentation accordingly. Clinical Indicators: Is there a diagnosis that correlates with the findings below: Risk Factors/Clinical Indicators/Treatments POA/RESOLVED/RULE OUT Labs & Vitals: -WBCs on 06/26: 21.7 (fluctuating up & robert n since) -WBCs on 07/13: 17.3 -Patient with noted tachycardia: HR in 1 20-130s -Patient tachypneic: RR in 20-30s Other indicators/risk factors: -Possible UTI (culture (+) enterococcus) -Patient being treated for CHF/right HF exacerbation -Patient being treated for ARF/interstit ial lung disease Based on the above information and the recognized standard for sepsis, could you please clarify in the Progress Notes if this diagnoses is still accurate and reflective of the patient's condition to ensure quality of the medical record. * Sepsis is/was present and is a clinical diagnosis based on (please include this additional support in the medical record) * After study (the condition) has been ruled out * Other (please specify) * Unable to determine Use of terms such as suspected, likely, concern for, or probable (associated with a specific diagnosis that is being evaluated, monitored, or treated as if it exists) are acceptable and can be coded in the inpatient setting, when documented at the time of discharge. Thank you, Elsa Manning, MS, RN, CCRN Extension: [phone] Please use your independent medical judgment in providing your response. THIS QUERY IS PART OF THE PERMANENT MEDICAL RECORD Provider Response: Other Other Diagnosis: no sepsis
[2022-07-14] MEDS: Morphine Sulfate 2 MG/ML CARTRIDGE IVPUSH ×2 (11:26→16:45)
[2022-07-14] MEDS: Scopolamine 1.5 MG PATCH.TD.3 TRANSDERMA (11:29)
--- NOTE | 2022-07-14 14:29 | MHC.CM.PN ---
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
--- NOTE | 2022-07-14 15:13 | HO.PM.IMPN ---
Subjective Subjective Date of Service: 07/14/22 Interval History: f/u on acute on chronic respiratory failure, right heart failure, pulm HTN Review of Systems doens't feel good, HR uncontrolled Physical Exam Vital Signs: Vital Signs: Last Vital Signs Temp 97.6 F 07/13/22 15:44 Pulse 126 H 07/13/22 15:44 Resp 14 07/14/22 07:29 BP 106/73 07/13/22 15:44 Pulse Ox 93 07/13/22 15:44 O2 Del Method 07/13/22 15:44 O2 Flow Rate 5 07/13/22 23:04 FiO2 30 06/22/22 15:30 Oxygen Flow Rate 3 06/21/22 13:26 BMI result Body Mass Index 28.6 ?General: AO X 2, no acute distress Resp:? CTA bilateral CVS: S1,S2, regular irregular, 2+pitting edema GI: +BS, NT, no distention, rectal exam deffered Skin: No rash Neuro:? motor grossly intact Psych: appropriate affect Objective Data Active Medications Bumetanide (Bumetanide 1 Mg Tablet) 1 mg PO DAILY [facility]; Protocol Last Admin: 07/14/22 08:29 Dose: 1 mg Documented By: LYNNETTE Comments: bp 118/61 Albuterol Sulfate 2.5 mg/ (Ipratropium [place] 0.5 mg) 0 mg INHALE RQ4H WHILE AWAKE PRN PRN Reason: sob Insulin Human Lispro (Insulin Lispro 100 Unit/Ml 3 Ml Vial) 0 unit SUBCUT QIDACHS [facility]; Protocol Last Admin: 07/14/22 12:03 Dose: Not Given Documented By: LYNNETTE Non-Admin Reason: Physician Approved Lorazepam (Lorazepam 1 Mg Tablet) 1 mg PO DAILY [facility] Last Admin: 07/14/22 08:29 Dose: 1 mg Documented By: LYNNETTE Morphine Sulfate (Morphine Sulfate 2 Mg/Ml Cartridge) 2 mg IVPUSH Q4H PRN PRN Reason: Discomfort/Shortness of breath Last Admin: 07/14/22 11:26 Dose: 2 mg Documented By: LYNNETTE Scopolamine (Scopolamine 1.5 Mg Patch.Td.3) 1.5 mg TRANSDERMA Q72H [facility] Last Admin: 07/14/22 11:29 Dose: 1.5 mg Documented By: LYNNETTE Sodium Chloride (0.9 % Sodium Chloride Flush 3 Ml Syringe) [facility] Last Admin: 07/14/22 08:31 Dose: 3 ml Documented By: LYNNETTE Labs 07/13/22 09:17 07/13/22 09:17 Labs: Laboratory Results - last 24 hr 07/13/22 15:43 POC Glucose 174 H Assessment and Plan (1) Pulmonary hypertension: Status: Acute (2) Right heart failure: Status: Acute Plan 71-year-old gentleman with underlying right ventricular failure, ILD, COPD, baseline 2 L of supplemental oxygen dependent admitted with acute on chronic exacerbation of underlying congestive heart failure, pulmonary hypertension, right ventricular failure required vasopressor support Acute on chronic hypoxic respiratory failure secondary to exacerbation of right ventricular failure/CHF.? 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 Govea and hospitalist service yesterday and today, they have opted to make patient comfort measures only,added comfort meds , no further testing or lab draws. Time Spent With Patient Time: Total time managing care of this patient today ____ minutes. Quality Stroke Does the patient have a stroke diagnosis?: No VTE Prior VTE?: No VTE Risk Level:: Medical - moderate - high VTE Device Contraindication: Treatment Not Indicated VTE Drug Contraindication: N/A - Med Ordered
[2022-07-14 15:33] VITALS: RESP 17
[2022-07-15] VITALS: BP 102/68; PULSE 133; RESP 18; TEMP 36.4; O2SAT 95
[2022-07-15] MEDS: Morphine Sulfate 2 MG/ML CARTRIDGE IVPUSH ×3 (02:05→19:39)
[2022-07-15 08:00] VITALS: RESP 16
[2022-07-15] MEDS: 0.9 % Sodium Chloride Flush 3 ML SYRINGE IVFLUSH ×2 (08:55→23:48)
--- NOTE | 2022-07-15 13:27 | P.CDIC_ITS ---
CDI Concurrent Query Documentation Clarification: PHYSICIAN'S DOCUMENTATION REQUEST Date of Query: 07/15/22 1325 Patient Name: Aden Nino Admit Date: 06/21/22 Dear Doctor, A review of the medical record indicates additional documentation may be indicated. Please review below and update the documentation accordingly. Clinical Indicators: A diagnosis of a pressure ulcer was documented by RNs but lacks subsequent documentation. Please specify POA status and staging based off of the correlating findings below: Risk Factors/Clinical Indicators/Treatments Per emt & shift assessments: -/: no breaks noted to skin, only maceration & redness to buttocks -06/27: stage I to left buttocks -07/14: stage II to left buttocks Based on the above, could you please provide, in the Progress Notes, further information regarding the ulcer/wound: * Stage 1 pressure ulcer * Stage 2 pressure ulcer * Suspected deep tissue injury * Other * Unable to determine *Source: National Pressure Ulcer Advisory Panel (NPUAP) Use of terms such as suspected, likely, concern for, or probable (associated with a specific diagnosis that is being evaluated, monitored, or treated as if it exists) are acceptable and can be coded in the inpatient setting, when docum ented at the time of discharge. Thank you, Elsa Manning MS, RN, CCRN Extension: [phone] Please use your independent medical judgment in providing your response. THIS QUERY IS PART OF THE PERMANENT MEDICAL RECORD Provider Response: Other Other Diagnosis: suspected pressure injury
--- NOTE | 2022-07-15 13:35 | P.CDIC_ITS ---
CDI Concurrent Query Documentation Clarification: PHYSICIAN'S DOCUMENTATION REQUEST Date of Query: 07/15/22 1336 Patient Name: Aden Nino Admit Date: 06/21/22 Dear Doctor, A review of the medical record indicates additional documentation may be needed. Please review below and update the documentation accordingly. Clinical Indicators: Is there a diagnosis that correlates with the findings below: Risk Factors/Clinical Indicators/Treatments POA/RESOLVED/TREAT/RULE OUT Per provider progress notes: Patient A&O x 2 Per RN shift assessments: Patient lethargic, vague, & forgetful. Patient disoriented to place, situation, & time. Patient fatigued & restless. Other indicators/risk factors: ARF, alkalosis, HF Based on the above, could you clarify in the Progress Notes which, if any of the following, is the most likely etiology of the confusion/altered mental status? * Encephalopathy (please indicate type - i.e. metabolic, toxic, etc.) * Other (please specify) * Unable to determine Use of terms such as suspected, likely, concern for, or probable (associated with a specific diagnosis that is being evaluated, monitored, or treated as if it exists) are acceptable and can be coded in the inpatient setting, when documented at the time of discharge. Thank you, Elsa Manning MS, RN, CCRN Extension: [phone] Please use your independent medical judgment in providing your response. THIS QUERY IS PART OF THE PERMANENT MEDICAL RECORD Provider Response: Other Other Diagnosis: metabolic encephalopathy
[2022-07-15 15:16] VITALS: RESP 16
--- NOTE | 2022-07-15 17:29 | P.PNIM_ITS ---
Subjective Subjective Date of Service: 07/15/22 Interval History: f/u on acute on chronic respiratory failure, right heart failure, pulm HTN,metabolic encephalopathy Review of Systems doens't feel good, HR uncontrolled Physical Exam Vital Signs: Vital Signs: Last Vital Signs Temp 97.5 F 07/15/22 00:00 Pulse 133 H 07/15/22 00:00 Resp 16 07/15/22 15:16 BP 102/68 07/15/22 00:00 Pulse Ox 95 07/15/22 00:00 O2 Del Method 07/15/22 00:00 O2 Flow Rate 5 07/15/22 00:00 FiO2 30 06/22/22 15:30 Oxygen Flow Rate 3 06/21/22 13:26 BMI result Body Mass Index 28.6 ? ?General: AO X 2, no acute distress Resp:? CTA bilateral CVS: S1,S2, regular irregular, 2+pitting edema GI: +BS, NT, no distention, rectal exam deffered Skin: No rash Neuro:? motor grossly intact Psych: appropriate affect Objective Data Active Medications Bumetanide (Bumetanide 1 Mg Tablet) 1 mg PO DAILY [facility]; Protocol Last Admin: 07/15/22 08:57 Dose: Not Given Documented By: MARYLU Non-Admin Reason: Patient Refused Albuterol Sulfate 2.5 mg/ (Ipratropium [place] 0.5 mg) 0 mg INHALE RQ4H WHILE AWAKE PRN PRN Reason: sob Lorazepam (Lorazepam 1 Mg Tablet) 1 mg PO DAILY [facility] Last Admin: 07/15/22 08:57 Dose: Not Given Documented By: MARYLU Non-Admin Reason: Patient Refused Morphine Sulfate (Morphine Sulfate 2 Mg/Ml Cartridge) 2 mg IVPUSH Q4H PRN PRN Reason: Discomfort/Shortness of breath Last Admin: 07/15/22 16:25 Dose: 2 mg Documented By: MARYLU Scopolamine (Scopolamine 1.5 Mg Patch.Td.3) 1.5 mg TRANSDERMA Q72H [facility] Last Admin: 07/14/22 11:29 Dose: 1.5 mg Documented By: CARLOS-NYRK Sodium Chloride (0.9 % Sodium Chloride Flush 3 Ml Syringe) 3 ml IVFLUSH QSHIFT [facility] Last Admin: 07/15/22 16:50 Dose: Not Given Documented By: MARYLU Non-Admin Reason: Previously Administered Labs 07/13/22 09:17 07/13/22 09:17 Assessment and Plan (1) Right heart failure: Status: Acute Plan 71-year-old gentleman with underlying right ventricular failure, ILD, COPD, bas yasmani 2 L of supplemental oxygen dependent admitted with acute on chronic exacerbation of underlying congestive heart failure, pulmonary hypertension, right ventricular failure required vasopressor support ?Acute on chronic hypoxic respiratory failure secondary to exacerbation of right ventricular failure/CHF ,?metabolic encephalopathy due to perlita and chf , CT chest shows underlying combination advanced pulmonary fibrosis and COPD with overlying pulmonary edema ,also has Paroxysmal atrial fibrillation,Gross hematuria on presentation,Maroon stools: Patient has severe pulmonary hypertension and right-sided heart failure - required armstrong a pressor support, was given sildenafil up to 80 mg in addition to the diuresis and his initial pulmonary systolic pressure remain elevated, patient was seen by Cardiology due to multiple cardiac issues including right- sided heart failure with severe pulmonary hypertension 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 Govea and hospitalist service yesterday and today, they have opted to make patient comfort measures only,added comfort meds , no further testing or lab draws.? Time Spent With Patient Time: Total time managing care of this patient today ____ minutes. Quality Stroke Does the patient have a stroke diagnosis?: No VTE Prior VTE?: No VTE Risk Level:: Medical - moderate - high VTE Device Contraindication: Treatment Not Indicated VTE Drug Contraindication: N/A - Med Ordered
[2022-07-15 18:55] VITALS: RESP 17
[2022-07-15] MEDS: LORazepam 2 MG/ML VIAL 0.5 MG IVPUSH (21:01)
[2022-07-15 23:30] VITALS: BP 104/56; PULSE 120; RESP 24; TEMP 36.9; O2SAT 91
[2022-07-15] MEDS: Morphine Sulfate 2 MG/ML CARTRIDGE 4 MG IVPUSH (23:39)
[2022-07-16] MEDS: LORazepam 2 MG/ML VIAL 0.5 MG IVPUSH (00:30)
[2022-07-16 03:41] VITALS: PULSE 122; RESP 22; TEMP 36.3; O2SAT 94
[2022-07-16] MEDS: Morphine Sulfate 2 MG/ML CARTRIDGE 4 MG IVPUSH (06:18)
[2022-07-16 08:00] VITALS: BP 123/62; PULSE 81; RESP 18; TEMP 36.1; O2SAT 96
--- NOTE | 2022-07-16 11:38 | PM.EVENT ---
Event Note Date of Service: 07/16/22 Event Note: Nursing staff was called: Patient passed and patient seen and examined . physical exam: no pulses or breathing or heart sounds. pupil fixed and dilated. patient was pronounced at 09:50am and certificate completed. Time Spent With Patient Time: Total time managing care of this patient today ____ minutes.
--- NOTE | 2022-07-16 11:41 | PM.DDS ---
Discharge Sum: Prov Provider Primary care physician: Omar Raphael MD Attending physician on admission: Poonam Proctor Pronouncing clinician: Chacorta Dang Discharge Sum: Diag PCOD Cause of : Heart failure Contributing Factors (1) Right heart failure: Discharge Sum: Summary Date and Time Date of admission: 06/21/22 17:06 Date of : 07/16/22 Time of : 09:50 Summary Details: 71-year-old gentleman with underlying right ventricular failure, ILD, COPD, baseline 2 L of supplemental oxygen dependent admitted with acute on chronic respiratory failure exacerbation of underlying pulmonary edema,congestive heart failure,severe pulmonary hypertension, right ventricular failure required vasopressor support ,was given sildenafil up to 80 mg in addition to the diuresis and his initial pulmonary systolic pressure remain elevated, patient was seen by Cardiology due to multiple cardiac issues including right-sided heart failure with severe pulmonary hypertension 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 also has A. fib, Ild, copd , gross Hematuria ,maroon stools. patient passed today and ? pronounced at 09:50am and certificate completed. Additional Data Confirmation of as documented by pronouncing clinician: no pulse, no respirations, no heart sounds and pupils fixed and dilated Family: at bedside Attending physician: Chacorta Dang MD
--- NOTE | 2022-07-16 13:48 | P.CDIC_ITS ---
CDI Concurrent Query Documentation Clarification: PHYSICIAN'S DOCUMENTATION REQUEST Date of Query: 07/16/22 1345 Patient Name: Aden Nino Admit Date: 06/21/22 Dear Doctor, A review of the medical record indicates additional documentation may be needed. Please review below and update the documentation accordingly. Clinical Indicators: Is there a diagnosis that correlates with the findings below: Risk Factors/Clinical Indicators/Treatments Per provider progress notes & MAR: Patient hypotensive during admission requiring vasopressors. 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 Other indicators/risk factors: -Patient with tachycardia HR in the 120- 130s -Patient with tachypnea RR 22-24 -Patient pale with noted sob -Patient with metabolic encephalopathy Please clarify the following: * Cardiogenic shock is/was present and is a clinical diagnosis * Cardiogenic shock was ruled out * Other (please specify) * Unable to determine Use of terms such as suspected, likely, concern for, or probable (associated with a specific diagnosis that is being evaluated, monitored, or treated as if it exists) are acceptable and can be coded in the inpatient setting, when documented at the time of discharge. Thank you, Elsa Manning MS, RN, CCRN Extension: [phone] Please use your independent medical judgment in providing your response. THIS QUERY IS PART OF THE PERMANENT MEDICAL RECORD Provider Response: Other Other Diagnosis: unable to determine
== END 2022-07-16 14:51 | disposition expired | DRG 291 ==
LOC: HO.ED 16:44 → HO.EDOVER 17:25 → HO.IMC 22:18 → HO.ICU 06-22 16:01 → HO.IMC 07-06 15:00
PROVIDERS: Internal Medicine; Internal Medicine Cardiovascular Disease; Internal Medicine Pulmonary Disease; Nurse Practitioner Family; Registered Nurse Community Health; Student in an Organized Health Care Education/Training Program; Admitting Provider Physician Assistant; Emergency Provider Emergency Medicine; PCP Internal Medicine; Visit Provider Internal Medicine
DX: I11.0 Hypertensive heart disease with heart failure (principal); G93.41 Metabolic encephalopathy; J96.21 Acute and chronic respiratory failure with hypoxia; J96.22 Acute and chronic respiratory failure with hypercapnia; T83.83XA Hemorrhage due to genitourinary prosthetic devices, implants and grafts, initial encounter; E87.3 Alkalosis; M79.7 Fibromyalgia; Z66 Do not resuscitate; Z51.5 Encounter for palliative care; I48.0 Paroxysmal atrial fibrillation; Y73.8 Miscellaneous gastroenterology and urology devices associated with adverse incidents, not elsewhere classified; R31.0 Gross hematuria; I27.29 Other secondary pulmonary hypertension; J84.10 Pulmonary fibrosis, unspecified; J44.9 Chronic obstructive pulmonary disease, unspecified; I27.81 Cor pulmonale (chronic); I95.9 Hypotension, unspecified; I50.813 Acute on chronic right heart failure; E53.8 Deficiency of other specified B group vitamins; E78.00 Pure hypercholesterolemia, unspecified; R33.9 Retention of urine, unspecified; L89.321 Pressure ulcer of left buttock, stage 1; L89.322 Pressure ulcer of left buttock, stage 2; T50.2X5A Adverse effect of carbonic-anhydrase inhibitors, benzothiadiazides and other diuretics, initial encounter; R73.9 Hyperglycemia, unspecified; I50.84 End stage heart failure; Z20.822 Contact with and (suspected) exposure to COVID-19; Z99.81 Dependence on supplemental oxygen; Z87.891 Personal history of nicotine dependence; Z91.041 Radiographic dye allergy status; Z88.0 Allergy status to penicillin; Z79.01 Long term (current) use of anticoagulants; Z79.899 Other long term (current) drug therapy
CPT/HCPCS: 36415; 36600; 71045; 71250; 80048; 80053; 80076; 80162; 81001; 82040; 82272; 82785; 82803; 82947; 83735; 83880; 84100; 84484; 85014; 85018; 85025; 85027; 85379; 85652; 85730; 86021; 86038; 86039; 86235; 86431; 87086; 87088; 87186; 87635; 92950; 93005; 93306; 93308; 94660; 97110; 97116; 97162; 97530; 99285; C1758; J0696; J1160; J1940; J2060; J2270; J2405; J2920; J2930; J3475; P9047; Q9957